=== PATIENT | female | born 1935 | race Caucasian/White ===

== ENCOUNTER 2020-01-06 15:18 | Outpatient (CLI) | payer MEDICARE, BC, SELFPAY ==
--- NOTE | ~2020-01-06 | XR_ITS ---
EXAMINATION: XR foot LT min 3V DATE: 01/06/2020 15:50 INDICATION: Left great toe pain. TECHNIQUE: 3 views of left foot were obtained. COMPARISON: None. FINDINGS: Pes planus is noted. No fracture. There is severe osteoarthritis of first tarsometatarsal j oint, moderate osteoarthritis of third tarsometatarsal joint, and mild osteoarthritis of first metata rsophalangeal joint and many of the midfoot joints and interphalangeal joints. There are enthesophyte s at the posterior and plantar aspects of calcaneal tuberosity. IMPRESSION: 1. Polyarticular osteoarthritis. 2. Pes planus. Reviewed, dictated and finalized at location A. GAGE ANALYST
== END 2020-01-06 15:19 | disposition home or self-care (01) ==
LOC: CHSIMG 15:23
PROVIDERS: Visit Provider Podiatrist
DX: M79.675 Pain in left toe(s) (principal)
CPT/HCPCS: 73630

== ENCOUNTER 2020-02-27 09:05 | Outpatient (CLI) | payer MEDICARE, BC, SELFPAY ==
--- NOTE | ~2020-02-27 | US_ITS ---
EXAMINATION: US venous doppler [facility] DATE: 02/27/2020 09:59 INDICATION: Left calf pain. TECHNIQUE: Grayscale ultrasound images without and with compression and Doppler ultrasound images of the bilateral lower extremity veins were obtained. COMPARISON: Ultrasound 04/09/2019 FINDINGS: The visualized portions of right common femoral vein, profunda (deep) femoral vein, femoral vein, pop liteal vein, and greater saphenous vein outflow are patent. There is thrombus in right peroneal and p osterior tibial veins. The visualized portions of left common femoral vein, profunda femoral vein, femoral vein, popliteal v ein, posterior tibial veins, and greater saphenous vein outflow are patent. There is thrombus in a le ft peroneal vein. IMPRESSION: 1. Deep vein thrombosis involving right peroneal and posterior tibial veins and a left peroneal vein . I called this result to Dr. Mijares on 02/27/20 at 10:07 AM. Reviewed, dictated and finalized at location A. IMPRESSION: 1. Deep vein thrombosis involving right peroneal and posterior tibial veins an d a left peroneal vein. I called this result to Dr. Mijares on 02/27/20 at 10:07 AM.
== END 2020-02-27 09:06 | disposition home or self-care (01) ==
LOC: CHSIMG 09:10
PROVIDERS: PCP Family Medicine; Visit Provider Family Medicine
DX: M79.662 Pain in left lower leg (principal); M79.673 Pain in unspecified foot; R20.2 Paresthesia of skin
CPT/HCPCS: 93970

== ENCOUNTER 2020-04-09 11:23 | Observation (INO) | payer MEDICARE, BC, SELFPAY ==
[2020-04-09] VITALS (7 sets, daily range): BP systolic 125–175; BP diastolic 53–64; PULSE 57–69; RESP 18; TEMP 36.4–36.5; O2SAT 99–100; BMI 23.5
--- NOTE | ~2020-04-09 | XR_ITS ---
EXAMINATION: XR chest 1V portable INDICATION: Chest pain and pressure TECHNIQUE: Portable AP chest at 1157 hours COMPARISON: 10/31/2011 FINDINGS: The lungs are free of acute opacities. There is no pleural effusion or pneumothorax. The ca rdiomediastinal silhouette is normal. A surgical clip projects in the left axilla. IMPRESSION: 1. No acute cardiopulmonary abnormality. Reviewed, dictated and finalized at location A.
--- NOTE | 2020-04-09 11:39 | ECG_ITS ---
Measurements Intervals [place] Rate: 61 P: 17 [place]: 188 QRS: -20 QRSD: 106 T: 22 QT: 442 QTc: 448 Interpretive Statements SINUS RHYTHM LEFT VENTRICULAR HYPERTROPHY AND ST-T CHANGE DELAYED PRECORDIAL R/S TRANSITION- BORDERLINE ST-T WAVE ABNORMALITY- INF/LAT LEADS BASELINE ARTIFACT- I, II, AVR BORDERLINE ECG Electronically Signed On 04-09-2020 13:26:52 CDT by Rod Terrell D.O.
[2020-04-09 12:00] LABS: Basophils Absolute Auto 0.04 K/mm3 (0.00-0.10); Basophils Percent Auto 0.8 % (0.0-1.0); Eosinophils Absolute Auto 0.22 K/mm3 (0.02-0.50); Eosinophils Percent Auto 4.3 % (1.0-6.0); Hematocrit 34.6 % (35.0-42.0); Hemoglobin 12.2 g/dL (11.7-13.8); Immature Granulocyte Absolute 0.01 K/mm3 (0.00-0.00); Immature Granulocyte Percent A 0.2 % (0.0-0.0); Lymphocytes Absolute Auto 1.81 K/mm3 (1.10-4.50); Lymphocytes Percent Auto 35.4 % (18.0-42.0); Mean Corpuscular HGB Conc 35.3 g/dL (32.0-36.0); Mean Corpuscular Hemoglobin 32.7 pg (27.0-31.0); Mean Corpuscular Volume 92.8 fL (78.0-102.0); Monocytes Percent Auto 7.8 % (2.0-11.0); Neutrophils Absolute Auto 2.6 K/mm3 (1.7-7.2); Neutrophils Percent Auto 51.5 % (50.0-70.0); Platelet Count Result 225 K/mm3 (150-420); Red Blood Count 3.73 M/mm3 (4.20-5.40); Red Cell Distribution Width 12.9 % (11.6-14.4); White Blood Count 5.1 K/mm3 (4.8-10.8)
[2020-04-09] MEDS: ASPIRIN 81 MG CHEWABLE TABLET 324 MG PO (12:01)
[2020-04-09] MEDS: NITROGLYCERIN SL 0.4 MG TABLET (12:07)
[2020-04-09 12:15] LABS: D Dimer 0.19 mg/L (0.19-0.50); INR 2.8; Partial Thromboplastin Time 36.9 SEC (22.3-31.6); Prothrombin Time 28.1 Seconds (9.64-11.0)
[2020-04-09 12:20] LABS: Alanine Aminotransferase 21 U/L (14-59); Albumin Level 3.6 g/dL (3.4-5.0); Alkaline Phosphatase 66 U/L (46-116); Anion Gap 9.2 mmol/L (7-16); Aspartate Amino Transferase 26 U/L (15-37); Bilirubin,Total 0.9 mg/dL (0.00-1.00); Blood Urea Nitrogen 9 mg/dL (7-18); Carbon Dioxide 31 mmol/L (21-32); Chloride 99 mmol/L (98-108); Estimated CRCL calculation 40 ml/min; Estimated Glomerular Filt Rate > 60; Glucose 85 mg/dL (70-99); Lipase 87 U/L (73-393); Osmolality Calculated 277 mOsm/kg (285-295); Potassium 4.2 mmol/L (3.5-5.1); Sodium 135 mmol/L (136-145); Total Protein 7.3 g/dL (6.4-8.2)
[2020-04-09 12:22] LABS: BNP 189 pg/mL (0-100)
[2020-04-09 12:39] LABS: Troponin I < 0.02 ng/mL (0.00-0.056)
--- NOTE | 2020-04-09 13:09 | ED.CHESTPAIN ---
HPI - Chest Pain General Chief Complaint: Chest Pain Stated Complaint: Chest Pains Source: patient Mode of arrival: wheelchair Limitations: no limitations History of Present Illness HPI narrative: This is an 84-year-old female that presents with chest pain pressure in her mid sternum with no radiation, there is currently no diaphoresis no shortness of breath no nausea or vomiting patient has have a history of angina and has been off and on relieved with nitroglycerin. The patient today has been having chest pressure for the last 2 to 3 hours, also has a history of lower extremity DVT and is on Coumadin. Has a history of hypertension and hyperlipidemia. Patient denies any shortness of breath no fever chills no nausea vomiting no abdominal pain no diarrhea constipation. MD complaint: chest heaviness and chest discomfort Pertinent past history: coronary artery disease Onset (ago): hour(s) Timing of current episode: constant Prior episodes: Yes Onset: during rest Pain location: substernal Pain radiation: none Severity: moderate Pain scale (0-10): 6 Quality: heaviness Relieving factors: nitroglycerin Exacerbating factors: exertion Treatment prior to arrival: none Related Data Home Medications Medication Instructions Recorded Confirmed nitroglycerin 0.4 mg sublingual 0.4 mg SUBLINGUAL PRN PRN tablet 01/16/20 04/09/20 tablet multivitamin 1 tablet PO DAILY 03/02/20 04/09/20 Allergies Allergy/AdvReac Type Severity Reaction Status Date / Time celecoxib AdvReac Unknown Verified 04/03/20 08:59 erythromycin base AdvReac Unknown Verified 04/03/20 08:59 hydrocodone AdvReac Unknown Verified 04/03/20 08:59 levofloxacin [From Levaquin] AdvReac Unknown Verified 04/03/20 08:59 meloxicam AdvReac Unknown Verified 04/03/20 08:59 rivaroxaban [From Xarelto] AdvReac Unknown Verified 04/03/20 08:59 triamterene AdvReac Unknown Verified 04/03/20 08:59 statin AdvReac Unknown Uncoded 03/12/20 09:14 Review of Systems Review of Systems: All systems reviewed & are unremarkable except as noted in HPI and below PMFSH Past Medical History Medical History Breast cancer DVT (deep venous thrombosis) 1997 Hypertension Surgical History Surgical History H/O total mastectomy of left breast History of hysterectomy Hx of cholecystectomy Social History Social History Smoking status: Former smoker Alcohol intake: never Substance use: never Substance use type: does not use Gender identity (if verbalized by the patient): Female Exam Const: General: no acute distress and alert Orientation/consciousness: patient oriented x3 HENMT: Head: normal to inspection Eyes: Conjunctivae: conjunctivae normal Pupils: Equal, round and reactive pupils present EOM: EOMs intact bilaterally Neck: Neck: normal visual inspection, no lymphadenopathy and no meningeal signs Resp: Effort & Inspection: normal respiratory effort Cardio: Rate: regular rate Rhythm: regular rhythm GI: Auscultation: normal bowel sounds : General: Yes no CVA tenderness Back/Spine/Pelvis: Back: no CVA tenderness Skin: General skin exam: normal color Rashes: no rashes Neuro: General: patient oriented x3, moves all extremities, no meningeal signs and no focal motor deficits Extrem: General: normal to inspection and no pedal edema Psych: Mental Status: mental status grossly normal Thought content: Yes Normal thought content present Course Course Emergency Course: Patient presents with some chest heaviness and pressure midsternal area that she rated about a 6/10 did receive sublingual nitroglycerin and full-dose aspirin currently after reassessment and appears more comfortable rates her pain or pressure in her chest down to a 0 to 2 with no shortness of breath no nausea vomiting. The erica
--- NOTE | 2020-04-09 13:26 | PC.NURSE ---
Pt to be admitted observation to room 202B
--- NOTE | 2020-04-09 14:15 | PM.IMHP ---
H&P: HPI History of Present Illness Chief complaint: Chest Pains Narrative: Park Schaefer is a 84 year old female that presented to the ED complaining of chest tightness. Patient has a past medical history of GERD, DVT, hypertension and breast cancer. according to patient today she started feeling chest tightness she describes it as a burning sensation that started in her stomach and went up to her neck, she even noted that her neck felt like it was tightening. She noted that her eyes felt weird, she was unable to describe the feeling she also noted that she felt generalized weakness. patient noted that last year in October she had a similar episode during her hospital stay they were unable to identify the chest tightness she was told to take [id number] acid reflux medication. she notify her primary care physician office today and informed them of her chest tightness and they instructed her to proceed to the ED. her current vital signs are 97.7 57% 18, 100% on room air 149/52. while patient was in the ED a chest x-ray was completed which was unremarkable, D-dimer completed within normal limits troponin within normal limits BNP 189 INR 2.8, and labs within normal limits, EKG sinus rhythm and HIV negative .she did note that when received the nitro and ED her chest tightness resolved. she is currently on telemetry with IV fluids infusing. . at this time Patient denies SOB, CP, palpitation, extremity numbness, lightheadness, dizziness, constipation, diarrhea, chills or fever. Review of Systems Constitutional: Constitutional: Denies body ache(s), Denies chills, Reports fatigue, Denies frequent falls, Denies headache(s) and Reports weakness ENT: Denies vertigo, Denies dizziness and Denies hoarseness Cardiovascular: Cardiovascular: Reports chest pain, Denies rapid heart rate, Denies lightheadedness, Denies dyspnea, Denies dyspnea on exertion and Denies orthopnea Gastrointestinal: Gastrointestinal: Denies melena, Denies bloating, Denies excessive flatus, Reports heartburn, Denies diarrhea, Denies nausea and Denies vomiting Genitourinary: Genitourinary: Reports no additional female genitourinary complaints, Denies hematuria, Denies flank pain, Denies urinary incontinence, Denies urinary hesitancy and Denies urinary urgency Musculoskeletal: Musculoskeletal: Reports no additional musculoskeletal complaints, Denies back pain, Denies myalgias, Denies numbness, Denies stiffness and Denies tingling Integumentary/Breasts: Skin/Breast: Reports system reviewed and no additional complaints, except as docu, Denies rash and Denies wounds Neurologic: Denies confusion, Denies vertigo, Denies dizziness, Denies frequent falls, Denies headache(s), Denies loss of vision, Denies memory loss, Denies seizure-like activity, Denies tingling and Reports weakness Psychiatric: Psychiatric: Reports no additional psychiatric complaints, Reports as per HPI, Denies anxiety and Denies confusion Endocrine: Endocrine: Reports fatigue and Denies palpitations Hematologic/Lymphatic: Hematologic/Lymphatic: Reports no additional hematologic/lymphatic complaints PMFSH Past Medical History Medical History Breast cancer DVT (deep venous thrombosis) 1997 Hypertension Surgical History Surgical History H/O total mastectomy of left breast History of hysterectomy Hx of cholecystectomy Family History Family History (Updated 04/09/20 @ 14:11 by Emily Avila RN) Sibling Heart disease Social History Social History Years smoked: 10 Smoking status: Former smoker Tobacco type: cigarettes Alcohol intake: former Substance use: never Substance use type: does not use Gender identity (if verbalized by the patient): Female Spiritual care concerns: No Meds Home Medications and
[2020-04-09 15:22] LABS: Troponin I < 0.02 ng/mL (0.00-0.056)
[2020-04-09] MEDS: PANTOPRAZOLE 40 MG TABLET PO ×2 (15:55→21:28)
[2020-04-09 18:20] LABS: Troponin I < 0.02 ng/mL (0.00-0.056)
--- NOTE | 2020-04-09 19:29 | PC.NURSE ---
Patient alert and oriented x4. Up ad wilbert in room. Gait steady. Pain rated at 0 on 0 to 10 scale. Telemetry shows sinus rhythm
--- NOTE | 2020-04-09 20:26 | PC.NURSE ---
Patient in bed watching televisions . Up ad wilbert in room . Takes fluid well. Snack provided. Pain rated at 0 on 0 to 10 scale. telemetry shows sinus rhythm.
[2020-04-10] VITALS (7 sets, daily range): BP systolic 109–150; BP diastolic 46–60; PULSE 59–80; RESP 14–18; TEMP 35.9–36.3; O2SAT 94–97
[2020-04-10 05:59] LABS: Basophils Absolute Auto 0.04 K/mm3 (0.00-0.10); Basophils Percent Auto 0.9 % (0.0-1.0); Eosinophils Absolute Auto 0.27 K/mm3 (0.02-0.50); Eosinophils Percent Auto 6.4 % (1.0-6.0); Hematocrit 32.9 % (35.0-42.0); Hemoglobin 11.8 g/dL (11.7-13.8); Immature Granulocyte Absolute 0.01 K/mm3 (0.00-0.00); Immature Granulocyte Percent A 0.2 % (0.0-0.0); Lymphocytes Absolute Auto 1.49 K/mm3 (1.10-4.50); Lymphocytes Percent Auto 35.1 % (18.0-42.0); Mean Corpuscular HGB Conc 35.9 g/dL (32.0-36.0); Mean Corpuscular Hemoglobin 33.9 pg (27.0-31.0); Mean Corpuscular Volume 94.5 fL (78.0-102.0); Mean Platelet Volume 9.8 fl (9.2-11.8); Monocytes Absolute Auto 0.43 K/mm3 (0.10-0.90); Monocytes Percent Auto 10.1 % (2.0-11.0); Neutrophils Percent Auto 47.3 % (50.0-70.0); Platelet Count Result 218 K/mm3 (150-420); Red Blood Count 3.48 M/mm3 (4.20-5.40); Red Cell Distribution Width 13.1 % (11.6-14.4); White Blood Count 4.3 K/mm3 (4.8-10.8)
[2020-04-10 06:07] LABS: Partial Thromboplastin Time 37.2 SEC (22.3-31.6); Prothrombin Time 30.1 Seconds (9.64-11.0)
[2020-04-10 06:26] LABS: Alanine Aminotransferase 20 U/L (14-59); Albumin Level 3.3 g/dL (3.4-5.0); Alkaline Phosphatase 62 U/L (46-116); Anion Gap 13.3 mmol/L (7-16); Aspartate Amino Transferase 23 U/L (15-37); Blood Urea Nitrogen 13 mg/dL (7-18); Calcium 8.7 mg/dL (8.5-10.1); Carbon Dioxide 26 mmol/L (21-32); Chloride 103 mmol/L (98-108); Estimated CRCL calculation 37 ml/min; Estimated Glomerular Filt Rate > 60; Glucose 78 mg/dL (70-99); Osmolality Calculated 285 mOsm/kg (285-295); Potassium 4.3 mmol/L (3.5-5.1); Sodium 138 mmol/L (136-145); Total Protein 6.5 g/dL (6.4-8.2)
--- NOTE | 2020-04-10 07:48 | PC.NURSE ---
Denies chest pain, some right arm discomfort this am, color pale, warm and dry, up ad wilbert in room
[2020-04-10 07:59] LABS: Troponin I 0.02 ng/mL (0.00-0.056)
[2020-04-10] MEDS: MULTIVITAMINS THERAPEUTIC TAB (*BKC) 1 TABLET PO (09:07)
[2020-04-10] MEDS: PANTOPRAZOLE 40 MG TABLET PO (09:08)
[2020-04-10] MEDS: EZETIMIBE 10 MG TABLET PO (09:12)
--- NOTE | 2020-04-10 09:32 | PHAR ---
04/09/20 - verified with patient's pharmacy she takes warfarin 4mg daily, with an additional 3mg (7mg total) on Mon& Fri. Last filled both rx's 03/25/20. tls
--- NOTE | 2020-04-10 09:33 | PHAR ---
04/09/20 - verified with patient's pharmacy she takes warfarin 4mg daily, with an additional 3mg tab (7mg total) on Mon & Fri. Last filled both Rx's 03/25/20. tls
--- NOTE | 2020-04-10 09:58 | PHAR ---
04/10/20: PT.'S INR=3.0 TODAY. PER PROTOCOL HOLDING DOSE. WILL RESUME REGIMEN TOMORROW 04/11/20 PENDING INR RESULT. TLS
--- NOTE | 2020-04-10 10:57 | PC.NURSE ---
Up in room independent, no dizzyness, no sob and no chest pain
[2020-04-10 10:59] LABS: Add Urine Microscopic? NO; Appearance Urine Clear (Clear); Bilirubin Urine Negative (Negative); Blood Urine Negative (Negative); Color Urine Yellow (Yellow); Glucose Urine UA Negative (Negative); Ketones Urine Negative (Negative); Leukocyte Esterase Ur Negative (Negative); Nitrate Urine Negative (Negative); Protein Urine Negative (Negative); Urobilinogen Urine 0.2 mg/dL (0.2-1.0)
--- NOTE | 2020-04-10 12:12 | PC.NURSE ---
Dressed self, eating lunch, awaiting DC orders, no chest pain, no dizzyness and no SOB
--- NOTE | 2020-04-10 12:53 | PC.NURSE ---
Up in [place] and wanting to know if ok to go home, advised awaiting DC instructions, agreeable to wait and ambulated back to room
--- NOTE | 2020-04-10 13:54 | P.DS_ITS ---
DS: Admitting Diagnosis Admitting Diagnosis Admitting Diagnosis: Chest pain, unspecified DS: Discharge Diagnosis Discharge Diagnosis (1) Chest pain: Qualifiers: Chest pain type: unspecified Qualified Code(s): R07.9 - Chest pain, unspecified Code(s): R07.9 - Chest pain, unspecified Status: Acute Assessment and Plan: * may not be cardiac related other possibilities of diagnosis include GERD, hiatal hernia, H pylori * troponin negative * EKG sinus rhythm * magnesium level WNL * CK-MB WNL * continue telemetry * vital signs is ordered * rehydrated with IV fluids * she denies any chest pain or chest pressure or neck tightness or throat tightness or any shortness of breath since her admission * troponins x4 were negative * she last saw her neurocritical care physician approximately a year ago in March and at discharge I have encouraged her to follow-up with him again. (2) Angina at rest: Code(s): I20.8 - Other forms of angina pectoris Status: Acute Assessment and Plan: * troponin negative x 4 * EKG sinus rhythm * magnesium level pending * CK-MB WNL * continue telemetry overnight and throughout the day with no ectopy noted * vital signs WNL * continue IV fluids * nitro ordered, not needed. * ordered Protonix for patient to continue after discharge * patient is to follow-up with her neurocritical care physician after discharge as well as her PCP (3) Hypertension: Qualifiers: Hypertension type: essential hypertension Qualified Code(s): I10 - Essential (primary) hypertension Code(s): I10 - Essential (primary) hypertension Status: Chronic Assessment and Plan: * blood pressure 149/52 * continue verapamil * adjust medication as needed * vital signs will control (4) DVT of lower limb, acute: Code(s): I82.409 - Acute embolism and thrombosis of unspecified deep veins of unspecified lower extremity Status: Acute Assessment and Plan: * INR 2.8 therapeutic * continue to use a warfarin * Ordered a PT and OT evaluation prior to discharge, they completed those and had no concerns with the safety of the patient going home and returning to independent living (5) Hyperlipidemia: Code(s): E78.5 - Hyperlipidemia, unspecified Status: Acute Assessment and Plan: * continue statins (6) GERD (gastroesophageal reflux disease): Code(s): K21.9 - Gastro-esophageal reflux disease without esophagitis Status: Acute Assessment and Plan: * started pantoprazole * placed prescription for pantoprazole for patient to continue after discharge DS: Summary Time Spent with Patient Time attestation: Total time spent providing and/or coordinating discharge services: >60 minutes Exam Narrative: Exam Narrative: Park's a pleasant an easy to talk to patient that seems to have a good health history memory she is comfortable today with no complaints of discomfort or pain at any source, denies any discomfort after her meals ambulated well with PT and OT agreed to follow-up with her PCP and her neurocritical care physician Const: General: no acute distress and alert; No confusion Orientation/consciousness: patient oriented x3 and No confusion HENMT: Head: normal to inspection Eyes: Conjunctivae: conjunctivae normal Pupils: Equal, round and reactive pupils present EOM: EOMs intact bilaterally Neck: Neck: normal visual inspection, no lymphadenopathy and no meningeal sig
--- NOTE | 2020-04-10 13:54 | PM.DS ---
DS: Admitting Diagnosis Admitting Diagnosis Admitting Diagnosis: Chest pain, unspecified DS: Discharge Diagnosis Discharge Diagnosis (1) Chest pain: Qualifiers: Chest pain type: unspecified Qualified Code(s): R07.9 - Chest pain, unspecified Code(s): R07.9 - Chest pain, unspecified Status: Acute Assessment and Plan: may not be cardiac related other possibilities of diagnosis include GERD, hiatal hernia, H pylori troponin negative EKG sinus rhythm magnesium level WNL CK-MB WNL continue telemetry vital signs is ordered rehydrated with IV fluids she denies any chest pain or chest pressure or neck tightness or throat tightness or any shortness of breath since her admission troponins x4 were negative she last saw her mergers and acquisitions attorney approximately a year ago in March and at discharge I have encouraged her to follow-up with him again. (2) Angina at rest: Code(s): I20.8 - Other forms of angina pectoris Status: Acute Assessment and Plan: troponin negative x 4 EKG sinus rhythm magnesium level pending CK-MB WNL continue telemetry overnight and throughout the day with no ectopy noted vital signs WNL continue IV fluids nitro ordered, not needed. ordered Protonix for patient to continue after discharge patient is to follow-up with her mergers and acquisitions attorney after discharge as well as her PCP (3) Hypertension: Qualifiers: Hypertension type: essential hypertension Qualified Code(s): I10 - Essential (primary) hypertension Code(s): I10 - Essential (primary) hypertension Status: Chronic Assessment and Plan: blood pressure 149/52 continue verapamil adjust medication as needed vital signs will control (4) DVT of lower limb, acute: Code(s): I82.409 - Acute embolism and thrombosis of unspecified deep veins of unspecified lower extremity Status: Acute Assessment and Plan: INR 2.8 therapeutic continue to use a warfarin Ordered a PT and OT evaluation prior to discharge, they completed those and had no concerns with the safety of the patient going home and returning to independent living (5) Hyperlipidemia: Code(s): E78.5 - Hyperlipidemia, unspecified Status: Acute Assessment and Plan: continue statins (6) GERD (gastroesophageal reflux disease): Code(s): K21.9 - Gastro-esophageal reflux disease without esophagitis Status: Acute Assessment and Plan: started pantoprazole placed prescription for pantoprazole for patient to continue after discharge DS: Summary Time Spent with Patient Time attestation: Total time spent providing and/or coordinating discharge services: >60 minutes Exam Narrative: Exam Narrative: Park's a pleasant an easy to talk to patient that seems to have a good health history memory she is comfortable today with no complaints of discomfort or pain at any source, denies any discomfort after her meals ambulated well with PT and OT agreed to follow-up with her PCP and her mergers and acquisitions attorney Const: General: no acute distress and alert; No confusion Orientation/consciousness: patient oriented x3 and No confusion HENMT: Head: normal to inspection Eyes: Conjunctivae: conjunctivae normal Pupils: Equal, round and reactive pupils present EOM: EOMs intact bilaterally Neck: Neck: normal visual inspection, no lymphadenopathy and no meningeal signs Resp: Effort & Inspection: normal respiratory effort Cardio: Rate: regular rate Rhythm: regular rhythm GI: Auscultation: normal bowel sounds : General: Yes no CVA tenderness Back/Spine/Pelvis: Back: no CVA tenderness Skin: General skin exam: normal color Rashes: no rashes Neuro: General: patient oriented x3, moves all extremities, no meningeal signs, no focal motor deficits and No confusion Cranial nerves: Yes Equal, round and reactive pupils present Extrem: General
--- NOTE | 2020-04-10 14:30 | PC.NURSE ---
Discharge to home ambulatory, personal items returned to patient, denies questions upon discharge
--- NOTE | 2020-04-11 01:42 | PM.EVENT ---
Event Note Event Note Event Note: Patient denies chest pain this morning. She states she feels well and better than when she was admitted last night. She denies shortness of breath and lightheadedness. Regular rate rhythm without murmur or gallop. Lungs are clear to auscultation bilaterally. Distal pulses are full and symmetric in extremities are warm dry and pink. No extremity edema. Home to follow-up with her PCP. I have examined the patient and reviewed the chart. I discussed the patient with A Amadeo MIRANDA and agree with her assessment and plan.
== END 2020-04-10 14:30 | disposition home or self-care (01) ==
LOC: CHSED 13:16 → CHS2ND 13:35
PROVIDERS: Emergency Medicine; Nurse Practitioner; Admitting Provider Emergency Medicine; Emergency Provider Emergency Medicine; PCP Family Medicine; Visit Provider Emergency Medicine
DX: R07.9 Chest pain, unspecified (principal); I25.119 Atherosclerotic heart disease of native coronary artery with unspecified angina pectoris; K21.9 Gastro-esophageal reflux disease without esophagitis; I10 Essential (primary) hypertension; E78.5 Hyperlipidemia, unspecified; Z86.718 Personal history of other venous thrombosis and embolism; Z85.3 Personal history of malignant neoplasm of breast; Z79.01 Long term (current) use of anticoagulants; Z87.891 Personal history of nicotine dependence; R53.1 Weakness
CPT/HCPCS: 36415; 71045; 80053; 81003; 82553; 83690; 83735; 83880; 84484; 85025; 85380; 85610; 85730; 87086; 87088; 93005; 97161; 97165; 99285; A9270; G0378

== ENCOUNTER 2020-04-21 13:25 | Outpatient (RCR) | payer MEDICARE, SELFPAY ==
[2020-03-12 10:20] LABS: INR 2.9; Prothrombin Time 28.5 Seconds (9.64-11.0)
[2020-03-18 12:17] LABS: INR 2.8; Prothrombin Time 28.2 Seconds (9.64-11.0)
[2020-03-25 13:16] LABS: INR 3.2; Prothrombin Time 31.9 Seconds (9.64-11.0)
[2020-04-01 13:38] LABS: INR 1.3; Prothrombin Time 13.7 Seconds (9.64-11.0)
[2020-04-08 14:22] LABS: INR 2.6; Prothrombin Time 25.7 Seconds (9.64-11.0)
[2020-04-14 12:44] LABS: INR 3.9; Prothrombin Time 38.2 Seconds (9.64-11.0)
[2020-04-21 13:53] LABS: Prothrombin Time 10.5 Seconds (9.64-11.0)
== END 2020-06-10 23:59 | disposition home or self-care (01) ==
LOC: CHSLAB 13:25
PROVIDERS: PCP Family Medicine; Visit Provider Family Medicine
DX: I82.432 Acute embolism and thrombosis of left popliteal vein (principal)
CPT/HCPCS: 36415; 85610

== ENCOUNTER 2020-05-11 12:25 | Outpatient (CLI) | payer MEDICARE, BC, SELFPAY ==
--- NOTE | ~2020-05-11 | MR_ITS ---
EXAMINATION: MR abdomen wo con DATE: 05/11/2020 13:34 INDICATION: Gastric polyps. Abdominal pain. TECHNIQUE: Magnetic resonance imaging (MRI) of the abdomen was performed without intravenous contrast . Sequences included coronal T2-weighted SS-FSE, coronal and axial FS 2D-FIESTA, axial STIR FSE, axi al T2-weighted SS-FSE, axial T2-weighted FS SS-FSE, axial diffusion-weighted SE, axial dual-echo T1-w eighted FSPGR, and axial and coronal T1-weighted LAVA. COMPARISON: CT abdomen and pelvis dated 01/16/2017 FINDINGS: Size is normal. No pericardial or pleural effusion. Susceptibility artifact associated with cholecyst ectomy clips the gallbladder fossa. Liver, spleen, pancreas, bilateral adrenal glands and kidneys are normal. Stomach appears normal. The reported gastric polyps are unable to be appreciated on the MR i mages. Visualized portions of the bowels are unremarkable with no dilated bowel to suggest obstructio n. No pathologically enlarged abdominal lymphadenopathy. Postoperative change of prior left breast TR AM flap reconstruction. Severe disc height loss at L4-L5 with about 7 mm left lateral listhesis L4 on L5. Mild associated fibrovascular degenerative endplate changes at L4-L5. Otherwise normal marrow si gnal with no pathologic marrow replacing process. Multiple bilateral nerve root sheath cysts at the n eural foramina at multiple levels in the lumbar and lower thoracic spine. IMPRESSION: 1. No acute intra-abdominal process. 2. Postoperative changes including cholecystectomy and left breast TRAM flap reconstruction. Reviewed, dictated and finalized at location A. IMPRESSION: 1. No acute intra-abdominal process. 2. Postoperative changes including cholecystectomy and left breast TRAM flap re construction.
[2020-05-11 15:02] LABS: CRP < 0.5 mg/dL (<1.0)
[2020-05-11 15:03] LABS: Erythrocyte Sedimentation Rate 6 mm/hr (0-20)
== END 2020-05-11 12:26 | disposition home or self-care (01) ==
PROVIDERS: PCP Family Medicine
DX: R10.9 Unspecified abdominal pain (principal); K31.7 Polyp of stomach and duodenum
CPT/HCPCS: 36415; 74181; 85652; 86140

== ENCOUNTER 2020-08-18 08:39 | Outpatient (CLI) | payer MEDICARE, SELFPAY ==
[2020-08-18 08:55] LABS: Basophils Absolute Auto 0.06 K/mm3 (0.00-0.10); Eosinophils Absolute Auto 0.33 K/mm3 (0.02-0.50); Eosinophils Percent Auto 5.8 % (1.0-6.0); Hematocrit 36.6 % (35.0-42.0); Hemoglobin 12.6 g/dL (11.7-13.8); Immature Granulocyte Absolute 0.01 K/mm3 (0.00-0.00); Immature Granulocyte Percent A 0.2 % (0.0-0.0); Lymphocytes Absolute Auto 1.55 K/mm3 (1.10-4.50); Lymphocytes Percent Auto 27.1 % (18.0-42.0); Mean Corpuscular HGB Conc 34.4 g/dL (32.0-36.0); Mean Corpuscular Volume 92.9 fL (78.0-102.0); Mean Platelet Volume 8.7 fl (9.2-11.8); Monocytes Absolute Auto 0.33 K/mm3 (0.10-0.90); Monocytes Percent Auto 5.8 % (2.0-11.0); Neutrophils Absolute Auto 3.5 K/mm3 (1.7-7.2); Neutrophils Percent Auto 60.1 % (50.0-70.0); Platelet Count Result 279 K/mm3 (150-420); Red Blood Count 3.94 M/mm3 (4.20-5.40); Red Cell Distribution Width 13.4 % (11.6-14.4); White Blood Count 5.7 K/mm3 (4.8-10.8)
[2020-08-18 09:39] LABS: Alanine Aminotransferase 24 U/L (14-59); Alkaline Phosphatase 91 U/L (46-116); Anion Gap 10 mmol/L (8-16); Aspartate Amino Transferase 25 U/L (15-37); Bilirubin,Total 1.1 mg/dL (0.00-1.00); Blood Urea Nitrogen 12 mg/dL (7-18); Calcium 9.4 mg/dL (8.5-10.1); Carbon Dioxide 28 mmol/L (21-32); Chloride 100 mmol/L (98-108); Cholesterol 197 mg/dL (0-200); Estimated Glomerular Filt Rate > 60; Glucose 92 mg/dL (70-99); HDL Direct 53 mg/dL (40-60); LDL Cholesterol Calculated 111 mg/dL (<130); Osmolality Calculated 285 mOsm/kg (285-295); Potassium 4.5 mmol/L (3.5-5.1); Sodium 138 mmol/L (136-145); Total Protein 7.6 g/dL (6.4-8.2); Triglycerides 164 mg/dL (0-150)
[2020-08-18 10:04] LABS: Thyroid Stimulating Hormone Reflex 3.39 u/IU/mL (0.36-3.74)
== END 2020-08-18 08:40 | disposition home or self-care (01) ==
LOC: CHSLAB 08:41
PROVIDERS: PCP Family Medicine; Visit Provider Family Medicine
DX: E78.5 Hyperlipidemia, unspecified (principal); I10 Essential (primary) hypertension
CPT/HCPCS: 36415; 80053; 80061; 84443; 85025

== ENCOUNTER 2020-09-25 13:58 | Outpatient (CLI) | payer MEDICARE, BC, SELFPAY ==
--- NOTE | 2020-09-25 14:00 | ECG_ITS ---
Measurements Intervals [place] Rate: 66 P: 51 [place]: 183 QRS: -5 QRSD: 97 T: 53 QT: 428 QTc: 450 Interpretive Statements SINUS RHYTHM LEFT VENTRICULAR HYPERTROPHY AND ST-T CHANGE CANNOT RULE OUT SEPTAL INFARCT, AGE INDETERMINATE ST-T WAVE ABNORMALITY IN LATERAL LEADS- CONSIDER ISCHEMIA ABNORMAL ECG Electronically Signed On 09-25-2020 14:56:33 CONTRACT ADMINISTRATION SPECIALIST by Rod Terrell D.O.
[2020-09-25 14:13] LABS: Basophils Absolute Auto 0.04 K/mm3 (0.00-0.10); Basophils Percent Auto 0.8 % (0.0-1.0); Eosinophils Percent Auto 3.9 % (1.0-6.0); Immature Granulocyte Absolute 0.02 K/mm3 (0.00-0.00); Immature Granulocyte Percent A 0.4 % (0.0-0.0); Lymphocytes Absolute Auto 1.35 K/mm3 (1.10-4.50); Lymphocytes Percent Auto 26.2 % (18.0-42.0); Mean Corpuscular HGB Conc 35.5 g/dL (32.0-36.0); Mean Corpuscular Hemoglobin 33.4 pg (27.0-31.0); Mean Corpuscular Volume 94.2 fL (78.0-102.0); Mean Platelet Volume 8.9 fl (9.2-11.8); Monocytes Absolute Auto 0.37 K/mm3 (0.10-0.90); Monocytes Percent Auto 7.2 % (2.0-11.0); Neutrophils Absolute Auto 3.2 K/mm3 (1.7-7.2); Neutrophils Percent Auto 61.5 % (50.0-70.0); Platelet Count Result 257 K/mm3 (150-420); Red Blood Count 3.29 M/mm3 (4.20-5.40); Red Cell Distribution Width 13.3 % (11.6-14.4); White Blood Count 5.2 K/mm3 (4.8-10.8)
[2020-09-25 14:32] LABS: Prothrombin Time 10.5 Seconds (9.64-11.0)
[2020-09-25 14:37] LABS: Alanine Aminotransferase 25 U/L (14-59); Albumin Level 3.7 g/dL (3.4-5.0); Alkaline Phosphatase 80 U/L (46-116); Amylase 161 U/L (25-115); Anion Gap 7 mmol/L (8-16); Aspartate Amino Transferase 22 U/L (15-37); Bilirubin,Total 1.2 mg/dL (0.00-1.00); Blood Urea Nitrogen 10 mg/dL (7-18); Calcium 8.8 mg/dL (8.5-10.1); Carbon Dioxide 29 mmol/L (21-32); Chloride 98 mmol/L (98-108); Creatine Kinase 113 U/L (26-192); Estimated Glomerular Filt Rate > 60; Glucose 95 mg/dL (70-99); Lipase 116 U/L (73-393); Osmolality Calculated 277 mOsm/kg (285-295); Sodium 134 mmol/L (136-145); Total Protein 7.4 g/dL (6.4-8.2)
[2020-09-25 14:40] LABS: Troponin I < 0.02 ng/mL (0.00-0.056)
== END 2020-09-25 13:59 | disposition home or self-care (01) ==
LOC: CHSLAB 14:00
PROVIDERS: PCP Family Medicine; Visit Provider Family Medicine
DX: R07.89 Other chest pain (principal); I10 Essential (primary) hypertension
CPT/HCPCS: 36415; 80053; 82150; 82550; 82553; 83690; 84484; 85025; 85610; 93005

== ENCOUNTER 2020-09-25 14:55 | Emergency (ER) | payer MEDICARE, BC, SELFPAY ==
--- NOTE | ~2020-09-25 | XR_ITS ---
XR chest 1V portable DATE: 09/25/2020 15:17 INDICATION: Chest pain. Posteromedial upper neck pain. TECHNIQUE: Portable AP chest on 09/25/2020 at 1522 hours COMPARISON: 04/09/2020 portable AP chest at 1203 hours FINDINGS: Surgical clips, right upper quadrant, consistent with cholecystectomy. Heart size is normal. There is aortic calcification and mild unfolding. No hilar or mediastinal enlar gement. No pulmonary infiltrate or consolidation, pleural effusion or pulmonary vascular congestion or pneumo thorax. There is scoliosis of the thoracic and lumbar spine and diffuse osteopenia. IMPRESSION: No active cardiopulmonary disease Reviewed, dictated and finalized at location A. R CAR ATTENDANT
[2020-09-25 14:55] VITALS: BP 161/83; PULSE 63; PULSE 67; RESP 16; TEMP 36.2; O2SAT 100
--- NOTE | 2020-09-25 15:04 | ED.CHESTPAIN ---
HPI - Chest Pain General Chief Complaint: Chest Pain Stated Complaint: Sent from doctor Time Seen by Provider: 09/25/20 15:04 Source: patient Mode of arrival: ambulatory Limitations: no limitations History of Present Illness HPI narrative: 84-year-old woman with a history of coronary artery disease, hypertension and dyslipidemia comes from her doctor's office complaining of epigastric pressure radiating to her chest. Patient states she also has a funny feeling in both of her arms and that also radiates to the back of her neck. She states that she started having pressure this morning after she got out of bed and it has been continuous since then. She denies nausea, vomiting, dizziness, lightheadedness, shortness of breath, sweating, or exercise intolerance. She had an abnormal stress test in June of 2020. MD complaint: chest discomfort ( Pressure) Pertinent past history: coronary artery disease Onset (ago): hour(s) (6-7) Timing of current episode: constant Prior episodes: No Onset: during rest Pain location: substernal and epigastric Pain radiation: right arm, left arm and neck Severity: moderate Quality: other ( pressure) Relieving factors: nothing Exacerbating factors: nothing Treatment prior to arrival: none Risk Factors Coronary artery disease risk factors: smoking history, hyperlipidemia and hypertension Related Data On Oral Contraceptives: No Home Medications Medication Instructions Recorded Confirmed multivitamin 1 tablet PO DAILY 03/02/20 09/25/20 cholecalciferol (vitamin D3) 50 50 mcg PO DAILY 09/21/20 09/25/20 mcg (2,000 unit) capsule Allergies Allergy/AdvReac Type Severity Reaction Status Date / Time celecoxib AdvReac Unknown Verified 09/25/20 13:23 erythromycin base AdvReac Unknown Verified 09/25/20 13:23 hydrocodone AdvReac Unknown Verified 09/25/20 13:23 levofloxacin [From Levaquin] AdvReac Unknown Verified 09/25/20 13:23 meloxicam AdvReac Unknown Verified 09/25/20 13:23 rivaroxaban [From Xarelto] AdvReac Unknown Verified 09/25/20 13:23 triamterene AdvReac Unknown Verified 09/25/20 13:23 statin AdvReac Unknown Uncoded 09/21/20 10:00 Review of Systems Constitutional: Constitutional: Denies chills and Denies fever(s) Eyes: Eyes: Denies change in vision and Denies photophobia ENT: Denies dysphagia, Denies nasal congestion and Denies sore throat Cardiovascular: Cardiovascular: Reports chest pain and Reports radiating jaw, neck or arm pain Respiratory: Respiratory: Denies cough, Denies dyspnea and Denies wheezing Gastrointestinal: Gastrointestinal: Denies abdominal pain, Denies nausea and Denies vomiting Genitourinary: Genitourinary: Denies hematuria, Denies nocturia and Denies dysuria Musculoskeletal: Musculoskeletal: Denies arthralgias and Denies joint swelling Integumentary/Breasts: Skin/Breast: Denies pruritus, Denies erythema and Denies rash Neurologic: Denies vertigo, Denies dizziness and Denies syncope Psychiatric: Psychiatric: Denies anxiety and Denies depression Hematologic/Lymphatic: Hematologic/Lymphatic: Denies easy bleeding and Denies easy bruising Allergic/Immunologic: Allergic/Immunologic: Denies lip swelling and Denies wheezing [facility] Past Medical History Medical History (Updated 09/25/20 @ 15:44 by Richmond Ch MD) Breast cancer DVT (deep venous thrombosis) 1997 GERD (gastroesophageal reflux disease) Hyperlipidemia Hypertension Surgical History Surgical History H/O total mastectomy of left breast History of hysterectomy Hx of cholecystectomy Family History Family History Sibling Heart disease Social History Social History Years smoked: 10 Smoking status: Former smoker Tobacco type: cigarettes Alcohol intake: former Substance use: never Substance use type: does no
--- NOTE | 2020-09-25 15:23 | PC.NURSE ---
PT IS UNABLE TO URINATE/PROVIDE URINE SAMPLE AT THIS TIME. PT INSTRUCTED TO INITIATE CALL LIGHT WHEN READY FOR BATHROOM.
[2020-09-25] MEDS: NITROGLYCERIN SL 0.4 MG TABLET SUBLINGUAL (15:36)
[2020-09-25] MEDS: PANTOPRAZOLE SODIUM IV 40 MG VIAL IV PUSH (15:36)
--- NOTE | 2020-09-25 15:49 | PC.NURSE ---
[id number] RN CONTACTED [facility] [employer] AT TO REQUEST TRANSFER. AWAITING CALL BACK.
--- NOTE | 2020-09-25 16:58 | PC.NURSE ---
RN ATTEMPTED TO CONTACT [facility] TO GIVE REPORT. ACCEPTING RN NOT AVAILABLE. WITH TRY BACK IN 15 MINUTES.
--- NOTE | 2020-09-25 16:59 | PC.NURSE ---
[facility] CONTACTED FOR ALS TRANSFER. DISPATCH STATES THERE ARE NO TRANSFER RIGS AVAILABLE TODAY 09/25/20
[2020-09-25] MEDS: ASPIRIN 81 MG CHEWABLE TABLET 324 MG PO (17:00)
[2020-09-25 17:20] VITALS: BP 179/72; PULSE 70; RESP 24; O2SAT 100
[2020-09-25 17:26] LABS: Troponin I < 0.02 ng/mL (0.00-0.056)
== END 2020-09-25 17:25 | disposition short-term general hospital (02) ==
PROVIDERS: Emergency Provider Emergency Medicine; PCP Family Medicine
DX: R07.2 Precordial pain (principal); Z85.3 Personal history of malignant neoplasm of breast; Z86.718 Personal history of other venous thrombosis and embolism; Z87.891 Personal history of nicotine dependence
CPT/HCPCS: 36415; 71045; 80053; 82150; 82550; 82553; 83690; 84484; 85025; 85610; 93005; 96374; 99285; A9270; C9113

== ENCOUNTER 2020-09-25 18:17 | Observation (INO) | payer MEDICARE, BC, SELFPAY ==
--- NOTE | 2020-09-25 18:00 | PC.NURSE ---
This patient, Park Schaefer, was admitted to IMU Room 204-01. Patient/family oriented to hospital policies and general routines including ID bracelet, bed and alarms, visiting hours, pain management, procedures, bathroom and other care routines, personal items, smoking policy, room service/diet, and visiting hours. Information on how to activate the Rapid Response Team has been discussed. Patient/Family are encouraged to report perceived risks to care and to ask questions if they do not understand what they are told or what they should do.
[2020-09-25 18:34] VITALS: BMI 22.6
[2020-09-25 18:36] VITALS: BP 154/45; PULSE 61; RESP 16; TEMP 36.2; O2SAT 100
--- NOTE | 2020-09-25 19:00 | PM.IMHP ---
H&P: HPI History of Present Illness Date/Time: 09/25/20 19:00 <Bita Alvarado PA-C - Last Filed: 09/26/20 01:06> Chief complaint: Chest Pain <Bita Alvarado PA-C - Last Filed: 09/26/20 01:06> Narrative: Park Schaefer is an 84-year-old female with hypertension, dyslipidemia, and GERD who is being directly admitted to the hospitalist service from the emergency department at the [facility] for evaluation of chest pain. It is noted that she was admitted to an outside facility in March 2020 with chest pain, felt to be noncardiac in etiology. She followed up with Dr. Márquez thereafter and had an abnormal stress test however it sounds as though she did not pursue scheduling coronary angiography. In any event, sometime early this morning she awoke from sleep with epigastric pressure radiating into the midsternal chest region. Associated symptoms include heaviness in both arms and aching into the neck. Similar symptoms have occurred before, and she has always attributed them to GERD however she was not really having indigestion symptoms (EGD in December 2019 showed gastritis). She then called her primary care provider, went in for evaluation, and was directed to the emergency department with a concerning EKG. Her discomfort resolved with nitroglycerin has not returned. She denies associated syncope, near syncope, sweats, shortness of breath, and nausea. She has not had exertional chest pain or shortness of breath. <Bita Alvarado PA-C - Last Filed: 09/26/20 01:06> Review of Systems Review of Systems: Narrative: Twelve systems were reviewed with pertinent positives and negatives as per HPI. No fever, chills, or sweats. Recently finished a Z-Jaden for sinusitis. She denies cough and shortness of breath. No exposure to those positive for COVID-19. She denies nausea, vomiting, and diarrhea. No melena or hematochezia. Except as documented, all other systems were reviewed and are negative. <Bita Alvarado PA-C - Last Filed: 09/26/20 01:06> [facility] Past Medical History Medical History: Medical History Cancer of left breast Status post chemotherapy, radiation, and mastectomy. Colon polyps Current use of termination clerk anticoagulation for history of DVT. Deep venous thrombosis In 1997 and 2019. Gastritis On EGD in December 2019. Gastroesophageal reflux disease Hyperlipidemia Hypertension Osteoarthritis Osteoporosis <Bita Alvarado PA-C - Last Filed: 09/26/20 01:06> Surgical History Surgical History: Surgical History History of cataract extraction History of cholecystectomy History of hysterectomy History of left mastectomy <Bita Alvarado PA-C - Last Filed: 09/26/20 01:06> Family History Family History: Family History Sibling Diabetes mellitus Heart disease Heart problem Sibling Heart problem Prostate carcinoma Sibling Heart problem Sibling Heart problem Sibling Breast cancer <Bita Alvarado PA-C - Last Filed: 09/26/20 01:06> Social History Social History: Social History Social History: Surrogate decision maker: Tim Mitchell, nephew. Code status: Full code. Years smoked: 10 Smoking status: Former smoker Tobacco type: cigarettes Alcohol intake: never Substance use: never Substance use type: does not use Additional living arrangements comments: Lives in [place]. . Additional occupation/education comments: Retired. Gender identity (if verbalized by the patient): Female Spiritual care concerns: No <GUTIERREZ Delgado Last Filed: 09/26/20 01:06> Meds Home Medications and Allergies Home medications: Home Medications Medication Instructions Recorded Confi
[2020-09-25 19:16] LABS: Troponin I < 0.012 ng/mL (0.000-0.034)
[2020-09-25 19:35] VITALS: BP 141/47; PULSE 66; RESP 16; TEMP 36.7; O2SAT 100
[2020-09-25 20:00] VITALS: PULSE 64
[2020-09-25 21:55] LABS: Troponin I < 0.012 ng/mL (0.000-0.034)
[2020-09-25 22:00] VITALS: PULSE 60
[2020-09-25] MEDS: ACETAMINOPHEN 325 MG TABLET 650 MG PO (22:12)
[2020-09-26] VITALS: BP 124/48; PULSE 60; PULSE 63; RESP 18; TEMP 36.2; O2SAT 99
[2020-09-26] MEDS: VERAPAMIL HCL ER 120 MG TABLET PO (00:15)
[2020-09-26] MEDS: APIXABAN 2.5 MG TABLET PO ×2 (00:15→09:05)
[2020-09-26] MEDS: EZETIMIBE 10 MG TABLET PO (00:15)
[2020-09-26 02:00] VITALS: PULSE 56
[2020-09-26] MEDS: PANTOPRAZOLE 40 MG TABLET PO (02:04)
[2020-09-26 04:00] VITALS: BP 133/50; PULSE 16; PULSE 61; RESP 16; TEMP 36.8; O2SAT 65
[2020-09-26 06:00] VITALS: PULSE 58
[2020-09-26 08:00] VITALS: BP 147/51; PULSE 61; PULSE 65; RESP 16; TEMP 36.3; O2SAT 97
[2020-09-26] MEDS: CHOLECALCIFEROL 1,000 UNITS TABLET 2000 UNITS PO (09:05)
[2020-09-26] MEDS: MULTIVITAMINS THERAPEUTIC TAB (*BKC) 1 TABLET PO (09:05)
--- NOTE | 2020-09-26 09:37 | PM.CNCAR ---
Assessment and Plan Assessment and plan (1) Epigastric pain: Code(s): R10.13 - Epigastric pain Status: Acute Assessment and Plan: 84-year-old female with history of mild nonobstructive CAD; history of left lower extremity DVT on anticoagulation with rivaroxaban; history of GERD/gastritis. Patient transferred from [facility] with complaints of epigastric pain with radiation to substernal area. Patient has history of GERD/gastritis as reported on 01/08/2020 EGD. Her current symptomatology is somewhat atypical for ischemia and more suggestive of gastric etiology. Patient has been ruled out for WA by serial negative cardiac markers; and EKG shows sinus rhythm with LVH and secondary ST-T abnormalities, although ischemia cannot be completely ruled out. Patient reportedly has history of mild nonobstructive CAD from 2012 cardiac catheterization. Her recent MPI as described above showed medium-sized apical anterior/apical septal/apical infarction with mild amount of ischemia. -patient is currently asymptomatic. Recommend continuation of PPI. -patient was advised to call our cardiology clinic on Monday and schedule an appointment with Dr. Márquez in 1-2 weeks. Contact information was provided to the patient. Need for additional ischemic workup including cardiac catheterization is to be determined as an outpatient, based on patient's response to PPI and/or any recurrent symptoms suggestive of angina. Patient was advised to return to hospital if she has any worsening symptoms. She verbalized understanding. (2) Chest pain: Qualifiers: Chest pain type: precordial pain Qualified Code(s): R07.2 - Precordial pain Code(s): R07.9 - Chest pain, unspecified Status: Acute Assessment and Plan: Somewhat atypical features for ischemia. Ruled out for WA. Management as described above. (3) GERD (gastroesophageal reflux disease): Code(s): K21.9 - Gastro-esophageal reflux disease without esophagitis Status: Chronic Assessment and Plan: PPI, may consider Gastroenterology evaluation as an outpatient. History of Present Illness History of Present Illness Consult date/time: 09/26/20 09:37 Date of consult: 09/26/2020 Reason for consult: Chest pain Requesting physician:JAZZMINE Alvarado Chief complaint: Chest pain HPI: 84-year-old female with history of mild nonobstructive CAD; history of left lower extremity DVT on anticoagulation with rivaroxaban; history of GERD/gastritis. Patient follows up with Dr. reid for cardiovascular care. She had MPI done in the outpatient cardiology clinic on 07/02/2020 which reportedly showed normal specific ST-T abnormality; EF 58%, medium-sized apical anterior/apical septal/apical infarction with mild amount of ischemia. Apparently, patient did not follow up after her MPI results. Her echocardiogram from 06/22/2020 showed mild LV systolic dysfunction, EF 45-50%, grade 2 diastolic dysfunction, mild pulmonary hypertension with RVSP 37 mmHg. Patient transferred from [facility] with complaints of chest pain. She states that she started having epigastric discomfort yesterday with radiation to substernal area, dull aching sensation. She went to [facility]. Patient states that her chest pain improved with nitroglycerin. Patient states that she was unable to follow-up after recent MPI due to problems with her phone. At baseline, she is able to walk without exertional chest pain. She denies any significant shortness of breath for level activity. Denies any palpitation, dizziness or syncope. Patient apparently has history of GERD/gastritis based on the cardiology clinic notes. Her EGD from 01/08/2020 reportedly showed gastritis. Patient states that she was taking [id number] PPI. She does not recall the name. EKG on my personal evaluation shows sinus rhythm, LVH with secondary ST-T abnormalities, cannot rule out ischemia. Serial troponins are negative. Ch
[2020-09-26 10:09] LABS: Anion Gap 6 mmol/L (8-16); Blood Urea Nitrogen 11 mg/dL (7-17); Carbon Dioxide 27 mmol/L (22-30); Chloride 98 mmol/L (98-107); Estimated CRCL calculation 45 ml/min; Estimated Glomerular Filt Rate > 60; Glucose 190 mg/dL (65-105); Magnesium 1.9 mg/dL (1.6-2.3); Potassium 5.2 mmol/L (3.4-5.0); Sodium 131 mmol/L (137-145)
[2020-09-26 10:15] VITALS: PULSE 73
--- NOTE | 2020-09-26 11:05 | PM.DS ---
DS: Admitting Diagnosis Admitting Diagnosis Admitting Diagnosis: Chest Pain DS: Discharge Diagnosis Discharge Diagnosis (1) Chest pain: Qualifiers: Chest pain type: precordial pain Qualified Code(s): R07.2 - Precordial pain Code(s): R07.9 - Chest pain, unspecified Status: Acute (2) Abnormal EKG: Code(s): R94.31 - Abnormal electrocardiogram [ECG] [EKG] Status: Acute (3) Hypertension: Qualifiers: Hypertension type: essential hypertension Qualified Code(s): I10 - Essential (primary) hypertension Code(s): I10 - Essential (primary) hypertension Status: Chronic (4) Hyperlipidemia: Code(s): E78.5 - Hyperlipidemia, unspecified Status: Chronic (5) Current use of fpc anticoagulation: Code(s): Z79.01 - skilled nursing (current) use of anticoagulants Status: Acute DS: Summary Hospital Course Reason for hospitalization: Chief complaint: Chest Pain Narrative: Park Schaefer is an 84-year-old female with hypertension, dyslipidemia, and GERD who is being directly admitted to the hospitalist service from the emergency department at the [facility] for evaluation of chest pain. It is noted that she was admitted to an outside facility in March 2020 with chest pain, felt to be noncardiac in etiology. She followed up with Dr. Márquez thereafter and had an abnormal stress test however it sounds as though she did not pursue scheduling coronary angiography. In any event, sometime early this morning she awoke from sleep with epigastric pressure radiating into the midsternal chest region. Associated symptoms include heaviness in both arms and aching into the neck. Similar symptoms have occurred before, and she has always attributed them to GERD however she was not really having indigestion symptoms (EGD in December 2019 showed gastritis). She then called her primary care provider, went in for evaluation, and was directed to the emergency department with a concerning EKG. Her discomfort resolved with nitroglycerin has not returned. She denies associated syncope, near syncope, sweats, shortness of breath, and nausea. She has not had exertional chest pain or shortness of breath. Hospital Course: patient is 84 year female initially was seen at the outside facility with a complaint of chest pain was transferred to the hospital, the 3 sets of cardiac enzymes which were negative and there were no acute changes on her EKG, patient was seen by ice cream machine operator and suspect most likely patient has GERD rather than acute coronary syndrome as her 3 sets of cardiac enzymes are negative to rule out of KS and there is no acute changes on EKG, symptoms have improved with PPI which will continue, patient will consult her ice cream machine operator and will benefit from having Angiography to rule out any coronary artery disease, patient is agreeable this plan, will discharge the patient home today, she will call her ice cream machine operator on MondaySeptember 28 for an appointment Status at Discharge Functional status at discharge: independent ambulation Overall status at discharge: patient is back to baseline Time Spent with Patient Time attestation: Total time spent providing and/or coordinating discharge services: Patient was seen and examined at the time of the discharge Condition at discharge is stable Code status: Full code. Time spent preparing discharge summary, discharge medications, discussing discharge planning with protective services case worker and patient is 30 minutes. Time spent: Less than 30 minutes Exam Narrative: Exam Narrative: elderly frail Patient is comfortable, NAD HEENT: eyes are clear and none icteric LUNGS:CTA HEART: RR S1S2 ABD: BS+, Soft and nontender Lower extremities: no edema SKIN: nonjaundiced Neuro: grossly intact. DS: Data Data Completed and Pending Labs on day of discharge: Labs from last 24 hours 09/26/20 09/26/20 09/25/20 09:31 09:31 21:21 WBC
[2020-09-26 11:39] LABS: Hematocrit 33.5 % (37.0-47.0); Hemoglobin 11.3 g/dL (12.0-15.0); Mean Corpuscular HGB Conc 33.7 g/dl (32-36); Mean Corpuscular Hemoglobin 33.5 pg (26-34); Mean Corpuscular Volume 99.4 fl (80-100); Mean Platelet Volume 11.8 fl (7.4-10.4); Platelet Count Result 333 k/mm3 (150-375); Red Blood Count 3.37 M/mm3 (4.2-5.4); Red Cell Distribution Width 18.1 % (11.5-14.5); White Blood Count 4.2 K/mm3 (4.5-10.0)
== END 2020-09-26 13:00 | disposition home or self-care (01) ==
PROVIDERS: Physician Assistant; Admitting Provider Family Medicine; PCP Family Medicine; Visit Provider Family Medicine
DX: R10.13 Epigastric pain (principal); R07.9 Chest pain, unspecified; K21.9 Gastro-esophageal reflux disease without esophagitis; I25.10 Atherosclerotic heart disease of native coronary artery without angina pectoris; E78.5 Hyperlipidemia, unspecified; I10 Essential (primary) hypertension; M81.0 Age-related osteoporosis without current pathological fracture; Z86.718 Personal history of other venous thrombosis and embolism; Z79.01 Long term (current) use of anticoagulants; Z85.3 Personal history of malignant neoplasm of breast; Z92.21 Personal history of antineoplastic chemotherapy; Z92.3 Personal history of irradiation; Z90.12 Acquired absence of left breast and nipple; Z87.891 Personal history of nicotine dependence
CPT/HCPCS: 36415; 80048; 83735; 84484; 85027; A9270; G0378

== ENCOUNTER 2020-10-03 01:38 | Outpatient (CLI) | payer MEDICARE, BC, SELFPAY ==
[2020-10-03 19:09] LABS: SARS-CoV-2 RNA PCR Negative
== END 2020-10-03 01:39 | disposition home or self-care (01) ==
LOC: ANHCOVIDDT 01:39
PROVIDERS: PCP Family Medicine; Visit Provider Specialist
DX: Z01.818 Encounter for other preprocedural examination (principal); Z20.828 Contact with and (suspected) exposure to other viral communicable diseases
CPT/HCPCS: 87635; C9803; U0003

== ENCOUNTER 2020-10-07 05:22 | Day surgery (SDC) | payer MEDICARE, BC, SELFPAY ==
[2020-10-06 15:46] VITALS: BMI 22.8
[2020-10-07] VITALS (9 sets, daily range): BP systolic 138–166; BP diastolic 56–83; PULSE 56–69; RESP 11–20; TEMP 36.3; O2SAT 97–100
[2020-10-07 07:24] LABS: Basophils Absolute Auto 0.1 K/mm3 (0.0-0.1); Eosinophils Absolute Auto 0.2 K/mm3 (0-0.3); Eosinophils Percent Auto 3.9 % (0-4.4); Hematocrit 33.7 % (37.0-47.0); Hemoglobin 11.9 g/dL (12.0-15.0); Immature Granulocyte Absolute 0.02 K/mm3 (0.00-0.031); Immature Granulocyte Percent A 0.4 % (0-0.5); Lymphocytes Absolute Auto 1.33 K/mm3 (0.9-3.2); Lymphocytes Percent Auto 27.1 % (18.3-44.2); Mean Corpuscular HGB Conc 35.3 g/dl (32-36); Mean Corpuscular Hemoglobin 32.9 pg (26-34); Mean Corpuscular Volume 93.1 fl (80-100); Mean Platelet Volume 8.8 fl (7.4-10.4); Monocytes Absolute Auto 0.4 K/mm3 (0.1-0.6); Monocytes Percent Auto 8.1 % (2.6-8.5); Neutrophils Absolute Auto 2.9 K/mm3 (1.3-6.7); Neutrophils Percent Auto 59.5 % (45.5-73.1); Platelet Count Result 264 k/mm3 (150-375); Red Blood Count 3.62 M/mm3 (4.2-5.4); Red Cell Distribution Width 13.3 % (11.5-14.5); White Blood Count 4.9 K/mm3 (4.5-10.0)
[2020-10-07 07:35] LABS: Anion Gap 6 mmol/L (8-16); Blood Urea Nitrogen 10 mg/dL (7-17); Calcium 9.4 mg/dL (8.4-10.2); Carbon Dioxide 31 mmol/L (22-30); Chloride 100 mmol/L (98-107); Estimated CRCL calculation 45 ml/min; Estimated Glomerular Filt Rate > 60; Glucose 91 mg/dL (65-105); INR 0.9; Potassium 3.9 mmol/L (3.4-5.0); Prothrombin Time 12.4 Seconds (11.1-14.7); Sodium 137 mmol/L (137-145)
--- NOTE | 2020-10-07 08:47 | WPDMODSED ---
Moderate Sedation Note-Pt Data Patient Data Diagnosis: Chest pain history atypical of angina abnormal nuclear stress test suggesting anteroapical UT Present Complaint: this is an 84-year-old woman who is reporting symptoms of chest pain which actually are very atypical of angina the discomfort starts in the mid abdomen in the radiates up into the low substernal region. It is not exertional. A nuclear stress test was found to be abnormal suggesting the possibility of a previous anteroapical infarction. Procedure to be performed/Plan: Left heart catheterization Allergies Allergy/AdvReac Type Severity Reaction Status Date / Time celecoxib AdvReac Unknown Verified 10/02/20 12:36 erythromycin base AdvReac Unknown Verified 10/02/20 12:36 hydrocodone AdvReac Unknown Verified 10/02/20 12:36 levofloxacin [From Levaquin] AdvReac Unknown Verified 10/02/20 12:36 meloxicam AdvReac Unknown Verified 10/02/20 12:36 rivaroxaban [From Xarelto] AdvReac Unknown Verified 10/02/20 12:36 triamterene AdvReac Unknown Verified 10/02/20 12:36 statin AdvReac Unknown Uncoded 09/21/20 10:00 Home Medications Medication Instructions Recorded Confirmed Type multivitamin 1 tablet PO DAILY 03/02/20 10/06/20 History apixaban 2.5 mg tablet 2.5 mg PO BID #180 tablet 08/13/20 10/06/20 Rx cholecalciferol (vitamin D3) 50 50 mcg PO DAILY 09/21/20 10/06/20 History mcg (2,000 unit) capsule carboxymethylcellulose sodium 1 drp OPHTHALMIC (EYE) PRN PRN 09/25/20 10/06/20 History ezetimibe 10 mg PO QPM 09/25/20 10/06/20 History verapamil 120 mg PO QPM 09/25/20 10/06/20 History pantoprazole [Protonix] 40 mg PO BID #60 tablet 09/26/20 10/06/20 Rx famotidine-Ca carb-mag hydrox 10 1 tablet PO DAILY PRN #1 tablet 09/28/20 10/06/20 Rx mg-800 mg-165 mg chewable tablet Current Medications: Active Medications Sodium Chloride (Normal Saline Iv) 500 mls @ 100 mls/hr IV CONT .Q5H NAKIA Sedation/Anesthesia: No previous sedation/anesthesia problems (including family history). [facility] Past Medical History Medical History Cancer of left breast Status post chemotherapy, radiation, and mastectomy. Colon polyps Current use of [facility] for history of DVT. Deep venous thrombosis In 1997 and 2019. Gastritis On EGD in December 2019. Gastroesophageal reflux disease Hyperlipidemia Hypertension Osteoarthritis Osteoporosis Surgical History Surgical History History of cataract extraction History of cholecystectomy History of hysterectomy History of left mastectomy Family History Family History Sibling Diabetes mellitus Heart disease Heart problem Sibling Heart problem Prostate carcinoma Sibling Heart problem Sibling Heart problem Sibling Breast cancer Social History Social History Social History: Surrogate decision maker: Tim Mitchell nephew. Code status: Full code. Years smoked: 10 Smoking status: Former smoker Tobacco type: cigarettes Smoking end date: 11/13/1963 Alcohol intake: former Substance use: never Substance use type: does not use Living arrangements: alone Additional living arrangements comments: Lives in [place]. . Additional occupation/education comments: Retired. Gender identity (if verbalized by the patient): Female Spiritual care concerns: No Mod Sed Physical Exam Physical Exam Pre Procedural Exam: Normal: Appearance ( pleasant elderly white female), Throat, Airway, Lungs, Heart Size, Heart Rate, Heart Rhythm, Neuro Exam and Extremities Hours since solid foods: 12 Hours since liquid intake: 12 Internal Medicine - PN: Obj Da Vital Signs Vital Signs: Vital Signs - 24 hr 10/07/20 07:32 Temperature 36.3 C L Pulse Rate 69 Respiratory Rate 1
--- NOTE | 2020-10-07 09:18 | P.PCNCC_ITS ---
Cardiac Cath Procedure Note Date of procedure:: 10/07/20 Performing physician:: Darius Isaac MD Indication:: chest pain syndrome atypical of angina abnormal stress test suggesting previous anteroapical infarction Brief clinical history:: this is an 84-year-old woman who is not known to have coronary disease. She has been having episodes of abdominal and chest discomfort that are not exertional. A nuclear stress test was found to be abnormal indicating evidence of a previous apical anterior infarction. As a result of this an angiogram has been recommended. Procedure Procedure performed:: Left ventriculography coronary angiography Angio-Seal to right femoral artery Sedation/Medication given:: fentanyl 50 mg Versed 2 mg case start time 8:59 a.m. case end time 9:16 a.m. sedation provided by Emmy Lemus RN, trained observer Access site:: right femoral artery Estimated blood loss:: 10-15 cc Procedure note:: patient was brought to the cardiac catheterization lab in the postabsorptive state the right femoral triangle was prepared and draped in the usual fashion. Anesthesia was given with 1% lidocaine infiltrated locally. Using the modified Seldinger technique a 5 Ukrainian vascular sheath was placed in the femoral artery after this left heart catheterization was carried out. I utilized a 5 Ukrainian angled pigtail catheter to document left-sided hemodynamics and to injected LV g in the LOPEZ projection. After this the right coronary artery was injected using a 5 Ukrainian JR4 catheter. The left coronary was then injected using a 5 Ukrainian FL 3.5 catheter. Following this the cineangiograms were reviewed and the case was terminated. A femoral angiogram was done through the sheath after which a 6 Ukrainian Angio-Seal device was deployed at the puncture site with a good hemostatic result. There were no procedural complications and no sign of a groin hematoma upon leaving the laborer concrete plant. Findings:: Hemodynamics: Central aortic pressure 150/49 left ventricle 150/0 end-diastolic pressure of 6 there is no systolic gradient on pullback across the aortic valve. Left ventricle: The LV is normal in size all segments contract appropriately the global ejection fraction is visually estimated to be 50% there is no regional wall motion abnormality or evidence of previous infarction. Left main coronary artery has a superior takeoff it is nicely patent the left anterior descending is a medium caliber artery that extends down to around the apex there is minimal luminal irregularity in the proximal segment of the LAD otherwise there is no clinically significant disease. Circumflex is a moderate caliber artery giving rise to the marginal branches the circumflex is angiographically unremarkable. Right coronary artery is medium in caliber and dominant to the posterior circulation. The RCA is angiographically normal. Conclusion:: 1. Right coronary dominant circulation with no angiographic significant Disease. 2. Normal left ventricular systolic function 3. successful Angio-Seal of the right femoral puncture site 4. false-positive nuclear stress test Darius Isaac MD FACC
--- NOTE | 2020-10-07 11:42 | SUR.PHASEII ---
1130-pt up to a chair after using the bathroom. Groin soft and non-tender, no evidence of bleeding or hematoma noted. Strong right pedal pulse noted. AOx4. Groin and pulse checked before and after rising. Will continue to monitor.
--- NOTE | 2020-10-07 13:20 | SUR.PHASEII ---
1230-pt given D/C orders and instructions. Questions answered and verbalized understanding. AOx4. Groin soft and non-tender, no evidence of bleeding or hematoma noted. Strong right pedal pulse noted. Waiting in room for ride to arrive. Will continue to monitor.
== END 2020-10-07 13:30 | disposition home or self-care (01) ==
PROVIDERS: PCP Family Medicine; Visit Provider Specialist
PROC: 4A023N7 Measurement of Cardiac Sampling and Pressure, Left Heart, Percutaneous Approach (ICD-10-PCS; CPT 93452; principal; 2020-10-07 10:00)
DX: R94.39 Abnormal result of other cardiovascular function study (principal); R07.89 Other chest pain; I10 Essential (primary) hypertension; E78.5 Hyperlipidemia, unspecified; M81.0 Age-related osteoporosis without current pathological fracture; M19.90 Unspecified osteoarthritis, unspecified site; Z86.718 Personal history of other venous thrombosis and embolism; Z79.01 Long term (current) use of anticoagulants; Z92.21 Personal history of antineoplastic chemotherapy; Z92.3 Personal history of irradiation; Z85.3 Personal history of malignant neoplasm of breast; Z90.12 Acquired absence of left breast and nipple; Z87.891 Personal history of nicotine dependence
CPT/HCPCS: 36415; 80048; 85025; 85610; 93458; C1760; C1887; C1894; G0269; J1644; J2250; J3010; J7040

== ENCOUNTER 2021-01-15 13:39 | Outpatient (CLI) | payer MEDICARE, BC, SELFPAY ==
--- NOTE | 2021-01-15 13:42 | ECG_ITS ---
Measurements Intervals [place] Rate: 62 P: 71 [place]: 187 QRS: 43 QRSD: 96 T: 48 QT: 421 QTc: 430 Interpretive Statements SINUS RHYTHM CONSIDER HIGH LATERAL INFARCT, AGE INDETERMINATE ANTEROSEPTAL INFARCT, AGE INDETERMINATE ST ABNORMALITY IN INF/LAT LEADS- CONSIDER ISCHEMIA ABNORMAL ECG Electronically Signed On 01-15-2021 14:02:28 KEYING MACHINE OPERATOR by Rod Terrell D.O.
[2021-01-15 13:55] LABS: Basophils Absolute Auto 0.05 K/mm3 (0.00-0.10); Basophils Percent Auto 0.9 % (0.0-1.0); Eosinophils Absolute Auto 0.29 K/mm3 (0.02-0.50); Eosinophils Percent Auto 5.4 % (1.0-6.0); Hemoglobin 11.5 g/dL (11.7-13.8); Immature Granulocyte Absolute 0.02 K/mm3 (0.00-0.00); Immature Granulocyte Percent A 0.4 % (0.0-0.0); Lymphocytes Absolute Auto 1.62 K/mm3 (1.10-4.50); Mean Corpuscular HGB Conc 34.8 g/dL (32.0-36.0); Mean Corpuscular Hemoglobin 32.7 pg (27.0-31.0); Mean Corpuscular Volume 93.8 fL (78.0-102.0); Mean Platelet Volume 9.3 fl (9.2-11.8); Monocytes Absolute Auto 0.31 K/mm3 (0.10-0.90); Monocytes Percent Auto 5.7 % (2.0-11.0); Neutrophils Absolute Auto 3.1 K/mm3 (1.7-7.2); Neutrophils Percent Auto 57.6 % (50.0-70.0); Platelet Count Result 248 K/mm3 (150-420); Red Blood Count 3.52 M/mm3 (4.20-5.40); Red Cell Distribution Width 13.4 % (11.6-14.4); White Blood Count 5.4 K/mm3 (4.8-10.8)
[2021-01-15 15:01] LABS: Alanine Aminotransferase 23 U/L (14-59); Alkaline Phosphatase 77 U/L (46-116); Anion Gap 7 mmol/L (8-16); Aspartate Amino Transferase 23 U/L (15-37); Bilirubin,Total 1.5 mg/dL (0.00-1.00); Blood Urea Nitrogen 9 mg/dL (7-18); Calcium 9.1 mg/dL (8.5-10.1); Carbon Dioxide 30 mmol/L (21-32); Chloride 97 mmol/L (98-108); Estimated Glomerular Filt Rate > 60; Glucose 87 mg/dL (70-99); Osmolality Calculated 275 mOsm/kg (285-295); Potassium 4.6 mmol/L (3.5-5.1); Sodium 134 mmol/L (136-145); Total Protein 7.3 g/dL (6.4-8.2)
== END 2021-01-15 13:40 | disposition home or self-care (01) ==
LOC: CHSLAB 13:42
PROVIDERS: PCP Family Medicine; Visit Provider Nurse Practitioner Family
DX: R42 Dizziness and giddiness (principal)
CPT/HCPCS: 36415; 80053; 85025; 93005

== ENCOUNTER 2021-01-15 14:39 | Emergency (ER) | payer MEDICARE, BC, SELFPAY ==
--- NOTE | ~2021-01-15 | CT_ITS ---
EXAMINATION: CT brain wo con INDICATION: Dizziness, frontal headache COMPARISON: 02/20/2014 TECHNIQUE: Standard unenhanced head CT. The dose-length product (DLP) was 529.67 mGy-cm. The mA was a djusted according to patient size. Iterative reconstruction technique was employed. FINDINGS: There is no acute intraparenchymal hemorrhage. No evidence of mass lesion. No evidence of a cute infarction. There is mild periventricular and subcortical hypodensity probably related to small vessel ischemic disease. There is mild prominence of the sulci and ventricles related to cerebral atr ophy. Intracranial calcified cerebral atherosclerosis is noted. There are no extra-axial collections. There is no mass effect or midline shift. Changes in the globes are likely from ocular lens surgery. There is mild mucosal thickening of the paranasal sinuses. IMPRESSION: 1. No acute intracranial abnormality. 2. Age related findings. Reviewed, dictated and finalized at location A. NEERING TEACHER
--- NOTE | ~2021-01-15 | XR_ITS ---
EXAMINATION: XR chest 2V DATE: 01/15/2021 15:54 INDICATION: Dizziness and generalized weakness TECHNIQUE: PA and lateral views of the chest are obtained. COMPARISON: 09/25/2020 FINDINGS: The lungs are free of acute opacities. There is no pleural effusion or pneumothorax. The ca rdiomediastinal silhouette is normal. A surgical clip is noted in the left axilla. There appear be ch anges of left mastectomy. There is an age-indeterminate lower thoracic compression fracture. Surgical clips in the right upper quadrant are likely from prior cholecystectomy. IMPRESSION: 1. No acute cardiopulmonary abnormality. Reviewed, dictated and finalized at location A. K CARRIER
[2021-01-15 14:40] VITALS: BP 181/70; PULSE 64; RESP 17; TEMP 36.8; O2SAT 100
[2021-01-15 15:14] LABS: Glucose Point of Care 84 (65-105)
--- NOTE | 2021-01-15 16:08 | ED.DIZZY ---
HPI - Dizziness General Chief Complaint: Recheck/Abnormal Lab/Rx Stated Complaint: sent from doctor for abnormal EKG Time Seen by Provider: 01/15/21 15:00 Source: patient Mode of arrival: ambulatory Limitations: no limitations History of Present Illness HPI Narrative: 85-year-old woman who comes emergency department today after having had an abnormal outpatient EKG. she saw her doctor today because she does not feel well and has not for the last 2 days. Patient states that at times she feels dizzy or off balance but can't otherwise be more specific. She denies chest pain, Syncope, shortness of breath, cough or cold symptoms, sore throat, fevers, dysuria, hematuria, abdominal pain, nausea, vomiting or diarrhea. She denies black or bloody stools. Three months ago she had a negative heart catheterization at [facility] after an abnormal EKG. she is walking without difficulty and drove here today. She states this abnormal feeling is not interfering with her daily activities. MD elicited complaint: other Pertinent past history: GI bleed Onset (ago): day(s) (2) Timing: gradual onset Severity: mild Related Data Home Medications Medication Instructions Recorded Confirmed multivitamin 1 tablet PO DAILY 03/02/20 01/15/21 cholecalciferol (vitamin D3) 50 50 mcg PO DAILY 09/21/20 01/15/21 mcg (2,000 unit) capsule carboxymethylcellulose sodium 1 drp OPHTHALMIC (EYE) PRN PRN 09/25/20 01/15/21 verapamil 120 mg PO QPM 09/25/20 01/15/21 Allergies Allergy/AdvReac Type Severity Reaction Status Date / Time celecoxib AdvReac Unknown Verified 01/15/21 11:42 erythromycin base AdvReac Unknown Verified 01/15/21 11:42 hydrocodone AdvReac Unknown Verified 01/15/21 11:42 levofloxacin [From Levaquin] AdvReac Unknown Verified 01/15/21 11:42 meloxicam AdvReac Unknown Verified 01/15/21 11:42 rivaroxaban [From Xarelto] AdvReac Unknown Verified 01/15/21 11:42 triamterene AdvReac Unknown Verified 01/15/21 11:42 statin AdvReac Unknown Uncoded 01/15/21 11:42 Review of Systems Constitutional: Constitutional: Denies chills, Reports fatigue and Denies fever(s) Eyes: Eyes: Reports change in vision (blurred) and Denies photophobia ENT: Denies nasal congestion and Denies sore throat Cardiovascular: Cardiovascular: Denies chest pain and Denies radiating jaw, neck or arm pain Respiratory: Respiratory: Denies cough, Denies dyspnea and Denies wheezing Gastrointestinal: Gastrointestinal: Denies abdominal pain, Denies diarrhea, Denies nausea and Denies vomiting Genitourinary: Genitourinary: Denies hematuria, Denies nocturia and Denies dysuria Musculoskeletal: Musculoskeletal: Denies back pain, Denies arthralgias and Denies joint swelling Integumentary/Breasts: Skin/Breast: Denies pruritus, Denies erythema and Denies rash Neurologic: Reports as per HPI, Denies vertigo, Reports dizziness and Denies syncope Hematologic/Lymphatic: Hematologic/Lymphatic: Denies easy bleeding and Denies easy bruising Allergic/Immunologic: Allergic/Immunologic: Denies lip swelling and Denies throat swelling PMFSH Past Medical History Medical History Cancer of left breast Status post chemotherapy, radiation, and mastectomy. 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 Deep venous thrombosis In 1997 and 2019. Gastritis On EGD in December 2019. Gastroesophageal reflux disease Hyperlipidemia Hypertension Osteoarthritis Osteoporosis Ventral hernia Surgical History Surgical History History of cardiac catheterization History of cataract extraction History of cholecystectomy History of hysterectomy History of left mastectomy Family History Family History Sibling Diabetes mellitus Heart disease Heart problem Sibling Heart problem Prostate carcinoma Sibling He
--- NOTE | 2021-01-15 16:13 | PC.NURSE ---
nursing report provided to vini neumann
[2021-01-15 16:15] VITALS: BP 153/67; PULSE 64
[2021-01-15 16:18] VITALS: BP 176/72; PULSE 66
[2021-01-15 16:20] VITALS: BP 184/73; PULSE 69
[2021-01-15 16:22] LABS: Add Urine Microscopic? YES; Appearance Urine Clear (Clear); Bilirubin Urine Negative (Negative); Blood Urine Negative (Negative); Color Urine Yellow (Yellow); Glucose Urine UA Negative (Negative); Ketones Urine Negative (Negative); Leukocyte Esterase Ur 1+ (Negative); Nitrate Urine Negative (Negative); Protein Urine Negative (Negative); Urobilinogen Urine 0.2 mg/dL (0.2-1.0)
[2021-01-15 16:26] LABS: Lactic Acid Reflex 1.6 mmol/L (0.4-2.0)
[2021-01-15 16:27] LABS: Bacteria Urine Trace /hpf; RBC Urine None seen /hpf (0-2); Transitional Epi Cells Urine Few /hpf
[2021-01-15 16:32] LABS: BNP 243 pg/mL (0-100); Thyroid Stimulating Hormone Reflex 1.78 u/IU/mL (0.36-3.74)
[2021-01-15 16:33] LABS: Troponin I 7.5 ng/L (0.00-60.4)
[2021-01-15 17:10] VITALS: BP 147/67; PULSE 66; RESP 16; TEMP 36.6; O2SAT 98
== END 2021-01-15 17:12 | disposition home or self-care (01) ==
PROVIDERS: Emergency Provider Emergency Medicine; PCP Family Medicine
DX: R53.81 Other malaise (principal); N39.0 Urinary tract infection, site not specified; Z87.891 Personal history of nicotine dependence
CPT/HCPCS: 36415; 70450; 71046; 80053; 81001; 82948; 83605; 83880; 84443; 84484; 85025; 87040; 87077; 87086; 93005; 99283; 99284

== ENCOUNTER 2021-01-18 13:20 | Outpatient (CLI) | payer MEDICARE, BC, SELFPAY ==
[2021-01-18 13:52] LABS: Basophils Absolute Auto 0.1 K/mm3 (0.0-0.1); Basophils Percent Auto 1.3 % (0.2-1.2); Eosinophils Absolute Auto 0.3 K/mm3 (0-0.3); Eosinophils Percent Auto 6.4 % (0-4.4); Hematocrit 33.8 % (37.0-47.0); Hemoglobin 11.8 g/dL (12.0-15.0); Immature Granulocyte Absolute 0.02 K/mm3 (0.00-0.031); Immature Granulocyte Percent A 0.4 % (0-0.5); Lymphocytes Absolute Auto 1.16 K/mm3 (0.9-3.2); Mean Corpuscular HGB Conc 34.9 g/dl (32-36); Mean Corpuscular Hemoglobin 32.8 pg (26-34); Mean Corpuscular Volume 93.9 fl (80-100); Mean Platelet Volume 9.1 fl (7.4-10.4); Monocytes Absolute Auto 0.5 K/mm3 (0.1-0.6); Monocytes Percent Auto 8.5 % (2.6-8.5); Neutrophils Absolute Auto 3.2 K/mm3 (1.3-6.7); Neutrophils Percent Auto 61.4 % (45.5-73.1); Platelet Count Result 245 k/mm3 (150-375); Red Cell Distribution Width 13.4 % (11.5-14.5); White Blood Count 5.3 K/mm3 (4.5-10.0)
[2021-01-18 14:06] LABS: Alanine Aminotransferase 16 U/L (4-35); Albumin Level 4.5 g/dL (3.5-5.1); Alkaline Phosphatase 75 U/L (38-126); Anion Gap 6 mmol/L (8-16); Aspartate Amino Transferase 34 U/L (14-36); Bilirubin,Total 1.2 mg/dL (0.2-1.3); Blood Urea Nitrogen 10 mg/dL (7-17); CRP < 0.5 mg/dL (<1.0); Calcium 9.4 mg/dL (8.4-10.2); Carbon Dioxide 27 mmol/L (22-30); Chloride 97 mmol/L (98-107); Estimated Glomerular Filt Rate > 60; Glucose 104 mg/dL (65-105); Lipase 62 U/L (23-300); Potassium 4.2 mmol/L (3.4-5.0); Sodium 130 mmol/L (137-145)
== END 2021-01-18 13:21 | disposition home or self-care (01) ==
PROVIDERS: PCP Family Medicine
DX: R10.9 Unspecified abdominal pain (principal); R11.2 Nausea with vomiting, unspecified
CPT/HCPCS: 36415; 80053; 83690; 85025; 86140

== ENCOUNTER 2021-01-25 12:11 | Emergency (ER) | payer MEDICARE, BC, SELFPAY ==
--- NOTE | ~2021-01-25 | CT_ITS ---
EXAMINATION: CT abdomen pelvis w con EXAM DATE: 01/25/2021 13:43 INDICATION: Low abdominal pain, bloating. Recent urinary tract infection. TECHNIQUE: Spiral CT of the abdomen and pelvis was performed following intravenous injection of 100 m L Omnipaque 350. Axial, coronal and sagittal images were reviewed. The dose-length product (DLP) fo r this examination was 328.23 mGy-cm. The exposure was tailored according to patient size (auto mA e xposure control), and iterative reconstruction (ASIR) was used as additional dose reduction technique . Comparison is made to prior examination from 01/16/2017. FINDINGS: The liver, spleen, adrenal glands and pancreas are unremarkable. There are cholecystectomy clips. Portal and splenic veins are patent. Kidneys enhance symmetrically. There is no hydronephr osis. The uterus is not identified and has likely been surgically resected. The bladder is unremar kable. There is no retroperitoneal or pelvic lymphadenopathy. There is mild to moderate scattered arteriosclerotic disease. The appendix is normal. The stomach and small bowel are unremarkable. There is moderate to large am ount of colonic stool. No free intraperitoneal gas. The heart is normal in size. There are no pe ricardial or pleural effusions. The lung bases are unremarkable. There are no osteoblastic or osteo lytic lesions identified. IMPRESSION: 1. Moderate to large amount of colonic stool, consider constipation. 2. No acute intra-abdominal findings. Reviewed, dictated and finalized at location A.
--- NOTE | 2021-01-25 12:16 | ED.ABDPAIN ---
HPI - Abdominal Pain General Chief Complaint: Abdominal Pain Stated Complaint: abd pain Time Seen by Provider: 01/25/21 12:17 Source: patient Mode of arrival: ambulatory Limitations: no limitations History of Present Illness HPI narrative: The patient states she has had abdominal pain for approximately 2 months. She says more both fullness and she feels bloated. She was here 10 days ago for the same problem and was diagnosed with a UTI and put on antibiotics. She said she had 1 episode of vomiting 3 weeks ago but none since. She thinks she has been hot and cold off and on. She denies any fever. When asked what has changed since 3 weeks ago and also 10 days ago she said it is still there she just wants to get it checked out. She has also been to see her primary care. MD elicited complaint: abdominal pain Pertinent past history: past UTI Onset (ago): month(s) (2) Pain Consistency: intermittent Location: diffuse Severity: moderate Quality: fullness and dull Radiation: none Migration to: no migration Exacerbating factors: nothing Relieving factors: nothing Associated symptoms: denies other symptoms Related Data Home Medications Medication Instructions Recorded Confirmed multivitamin 1 tablet PO DAILY 03/02/20 01/25/21 cholecalciferol (vitamin D3) 50 50 mcg PO DAILY 09/21/20 01/25/21 mcg (2,000 unit) capsule carboxymethylcellulose sodium 1 drp OPHTHALMIC (EYE) PRN PRN 09/25/20 01/25/21 verapamil 120 mg PO QPM 09/25/20 01/25/21 dicyclomine 20 mg PO DAILY PRN 01/25/21 01/25/21 Allergies Allergy/AdvReac Type Severity Reaction Status Date / Time celecoxib AdvReac Unknown Verified 01/20/21 08:09 erythromycin base AdvReac Unknown Verified 01/20/21 08:09 hydrocodone AdvReac Unknown Verified 01/20/21 08:09 levofloxacin [From Levaquin] AdvReac Unknown Verified 01/20/21 08:09 meloxicam AdvReac Unknown Verified 01/20/21 08:09 rivaroxaban [From Xarelto] AdvReac Unknown Verified 01/20/21 08:09 triamterene AdvReac Unknown Verified 01/20/21 08:09 statin AdvReac Unknown Uncoded 01/15/21 11:42 Review of Systems Review of Systems: All systems reviewed & are unremarkable except as noted in HPI and below Constitutional: Constitutional: Denies fever(s) and Denies weakness Eyes: Eyes: Reports no additional eye complaints ENT: Reports system reviewed and no additional complaints, except as documented Cardiovascular: Cardiovascular: Reports no additional cardiovascular complaints Respiratory: Respiratory: Reports no additional respiratory complaints Genitourinary: Genitourinary: Reports no additional female genitourinary complaints, Denies nocturia and Denies dysuria Musculoskeletal: Musculoskeletal: Reports myalgias (for 2 months) [facility] Past Medical History Medical History Acute sinusitis Acute sinusitis Angina at rest Body aches Cancer of left breast Status post chemotherapy, radiation, and mastectomy. 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 Deep venous thrombosis In 1997 and 2019. Dizziness DVT of lower limb, acute Epigastric pain Gastritis On EGD in December 2019. Gastroesophageal reflux disease Hyperlipidemia Hypertension Osteoarthritis Osteoporosis Ventral hernia Surgical History Surgical History History of cardiac catheterization History of cataract extraction History of cholecystectomy History of hysterectomy History of left mastectomy Family History Family History Sibling Diabetes mellitus Heart disease Heart problem Sibling Heart problem Prostate carcinoma Sibling Heart problem Sibling Heart problem Sibling Breast cancer Social History Social History Social History: Surrogate decision maker: bebeto Hartman.
[2021-01-25 12:20] VITALS: BP 167/63; PULSE 82; RESP 17; TEMP 36.5; O2SAT 100
[2021-01-25 12:53] LABS: Add Urine Microscopic? YES; Appearance Urine Clear (Clear); Bilirubin Urine Negative (Negative); Blood Urine Negative (Negative); Color Urine Yellow (Yellow); Glucose Urine UA Negative (Negative); Ketones Urine Negative (Negative); Leukocyte Esterase Ur Trace LEU/UL (Negative); Nitrate Urine Negative (Negative); Protein Urine Negative (Negative); Specific Grav Ur <= 1.005 (1.010-1.020)
[2021-01-25 12:59] LABS: Basophils Absolute Auto 0.04 K/mm3 (0.00-0.10); Basophils Percent Auto 0.9 % (0.0-1.0); Eosinophils Absolute Auto 0.12 K/mm3 (0.02-0.50); Eosinophils Percent Auto 2.6 % (1.0-6.0); Hematocrit 29.7 % (35.0-42.0); Hemoglobin 10.6 g/dL (11.7-13.8); Immature Granulocyte Absolute 0.02 K/mm3 (0.00-0.00); Immature Granulocyte Percent A 0.4 % (0.0-0.0); Lymphocytes Absolute Auto 0.68 K/mm3 (1.10-4.50); Lymphocytes Percent Auto 14.6 % (18.0-42.0); Mean Corpuscular HGB Conc 35.7 g/dL (32.0-36.0); Mean Corpuscular Hemoglobin 32.6 pg (27.0-31.0); Mean Corpuscular Volume 91.4 fL (78.0-102.0); Mean Platelet Volume 9.1 fl (9.2-11.8); Monocytes Percent Auto 8.6 % (2.0-11.0); Neutrophils Absolute Auto 3.4 K/mm3 (1.7-7.2); Neutrophils Percent Auto 72.9 % (50.0-70.0); Platelet Count Result 206 K/mm3 (150-420); Red Blood Count 3.25 M/mm3 (4.20-5.40); Red Cell Distribution Width 13.2 % (11.6-14.4); White Blood Count 4.7 K/mm3 (4.8-10.8)
[2021-01-25 13:21] LABS: Alanine Aminotransferase 20 U/L (14-59); Albumin Level 3.7 g/dL (3.4-5.0); Alkaline Phosphatase 85 U/L (46-116); Anion Gap 9 mmol/L (8-16); Aspartate Amino Transferase 26 U/L (15-37); Bilirubin,Total 1.5 mg/dL (0.00-1.00); Blood Urea Nitrogen 12 mg/dL (7-18); CRP 0.7 mg/dL (0.0-0.9); Calcium 8.6 mg/dL (8.5-10.1); Carbon Dioxide 25 mmol/L (21-32); Chloride 91 mmol/L (98-108); Estimated Glomerular Filt Rate > 60; Glucose 93 mg/dL (70-99); Osmolality Calculated 259 mOsm/kg (285-295); Potassium 4.2 mmol/L (3.5-5.1); Sodium 125 mmol/L (136-145); Total Protein 7.2 g/dL (6.4-8.2)
[2021-01-25 13:22] LABS: Bacteria Urine None seen /hpf; RBC Urine 0-2 /hpf (0-2); Squamous Epithelial Cell Urine None seen /hpf (Few); WBC Urine 0-3 /hpf (0-3)
[2021-01-25 13:26] LABS: Lactic Acid Reflex 0.8 mmol/L (0.4-2.0)
[2021-01-25] MEDS: SODIUM CHLORIDE 0.9% IV 1,000 ML 999 ML IV CONT (13:54)
[2021-01-25 15:31] VITALS: BP 148/68
== END 2021-01-25 15:32 | disposition home or self-care (01) ==
PROVIDERS: Emergency Provider Emergency Medicine; PCP Family Medicine
DX: K59.00 Constipation, unspecified (principal); E87.1 Hypo-osmolality and hyponatremia; Z86.718 Personal history of other venous thrombosis and embolism; Z85.3 Personal history of malignant neoplasm of breast; K21.9 Gastro-esophageal reflux disease without esophagitis; E78.5 Hyperlipidemia, unspecified; I10 Essential (primary) hypertension; M81.0 Age-related osteoporosis without current pathological fracture; Z87.891 Personal history of nicotine dependence
CPT/HCPCS: 36415; 74177; 80053; 81001; 83605; 85025; 86140; 96360; 96361; 99283; 99284; J7030; Q9967

== ENCOUNTER 2021-01-27 13:58 | Outpatient (CLI) | payer MEDICARE, SELFPAY ==
[2021-01-27 15:47] LABS: Anion Gap 6 mmol/L (8-16); Blood Urea Nitrogen 11 mg/dL (7-18); Calcium 8.7 mg/dL (8.5-10.1); Carbon Dioxide 30 mmol/L (21-32); Chloride 97 mmol/L (98-108); Estimated Glomerular Filt Rate > 60; Glucose 107 mg/dL (70-99); Osmolality Calculated 275 mOsm/kg (285-295); Potassium 4.5 mmol/L (3.5-5.1); Sodium 133 mmol/L (136-145)
== END 2021-01-27 13:59 | disposition home or self-care (01) ==
LOC: CHSLAB 14:02
PROVIDERS: PCP Family Medicine; Visit Provider Family Medicine
DX: E87.1 Hypo-osmolality and hyponatremia (principal)
CPT/HCPCS: 36415; 80048

== ENCOUNTER 2021-02-19 10:55 | Outpatient (CLI) | payer MEDICARE, SELFPAY ==
[2021-02-19 11:13] LABS: Hematocrit 32.4 % (35.0-42.0); Hemoglobin 11.1 g/dL (11.7-13.8); Mean Corpuscular HGB Conc 34.3 g/dL (32.0-36.0); Mean Corpuscular Hemoglobin 32.7 pg (27.0-31.0); Mean Corpuscular Volume 95.6 fL (78.0-102.0); Mean Platelet Volume 9.3 fl (9.2-11.8); Platelet Count Result 250 K/mm3 (150-420); Red Blood Count 3.39 M/mm3 (4.20-5.40); Red Cell Distribution Width 13.9 % (11.6-14.4); White Blood Count 5.7 K/mm3 (4.8-10.8)
[2021-02-19 11:46] LABS: Alanine Aminotransferase 22 U/L (14-59); Albumin Level 3.7 g/dL (3.4-5.0); Alkaline Phosphatase 82 U/L (46-116); Anion Gap 3 mmol/L (8-16); Aspartate Amino Transferase 21 U/L (15-37); Bilirubin,Total 1.1 mg/dL (0.00-1.00); Blood Urea Nitrogen 10 mg/dL (7-18); Calcium 9.1 mg/dL (8.5-10.1); Carbon Dioxide 31 mmol/L (21-32); Chloride 102 mmol/L (98-108); Estimated Glomerular Filt Rate > 60; Glucose 85 mg/dL (70-99); Osmolality Calculated 280 mOsm/kg (285-295); Potassium 3.9 mmol/L (3.5-5.1); Sodium 136 mmol/L (136-145); Total Protein 7.6 g/dL (6.4-8.2)
[2021-02-19 11:50] LABS: Influenza A QL RT-PCR Negative (Negative); Influenza B QL RT-PCR Negative (Negative); SARS-CoV-2 RNA PCR Negative (Negative)
[2021-02-19 11:58] LABS: Thyroid Stimulating Hormone Reflex 0.83 u/IU/mL (0.36-3.74)
== END 2021-02-19 10:56 | disposition home or self-care (01) ==
LOC: CHSLAB 10:59
PROVIDERS: PCP Family Medicine; Visit Provider Family Medicine
DX: R53.1 Weakness (principal); E11.9 Type 2 diabetes mellitus without complications; Z20.822 Contact with and (suspected) exposure to COVID-19
CPT/HCPCS: 36415; 80053; 84443; 85027; 87502; C9803; U0003; U0005

== ENCOUNTER 2021-02-23 12:22 | Outpatient (CLI) | payer MEDICARE, BC, SELFPAY ==
--- NOTE | 2021-02-23 12:27 | ECHO_ITS ---
Patient Info Name: Park Schaefer Age: 85 years : 1935 Gender: Female Ht: 60 in Wt: 124 lbs BSA: 1.55 m2 HR: 61 bpm BP: 137 / 58 mmHg Heart Rhythm: Sinus Rhythm Technical Quality: Good Exam Date: 02/23/2021 12:15 PM Exam Location: [facility] Patient Status: Outpatient Admit Date: 02/23/2021 Staff Ordering Physician: Chip Rogers DO Kitchen Stewardess: Rafia Oliveira RDCS Attending Provider: Chip Rogers DO Referring Physician: Sue ARREDONDO; Exam Type: CA echo doppler color flow Study Info Indications I10 - Essential (primary) hypertension Complete two-dimensional, color flow and Doppler transthoracic echocardiogram is performed. Strain analysis performed. History/Risk Factors Hypertension: Yes Dyslipidemia: Yes Congenital Heart Disease (CHD): No Peripheral Arterial Disease (PAD): No Myocardial Infarction (NC): No Chronic Lung Disease: No Obesity: No Renal Disease: No Coronary Artery Disease (CAD) No Congestive Heart Failure (CHF): No Cardiomyopathy/LV Systolic Dysfunction: No Diabetes Mellitus: No COPD: No Tobacco Use: Former Cerebrovascular Disease: No Family History: Diabetes Mellitus, Coronary Artery Disease DVT Treatment: Apixaban Deep Vein Thrombosis (DVT): None Dialysis: None Frailty Scale (CSHA): 3: Managing Well Cardiac Arrest: No Summary 1. Complete two-dimensional, color flow and Doppler transthoracic echocardiogram is performed. 2. Left ventricular chamber dimension is mildly enlarged. 3. Left ventricular systolic function is normal, estimated at 55-60%. 4. There is mildly increased left ventricular wall thickness. 5. The left ventricular diastolic function is abnormal. 6. E/e' 22 is elevated. 7. Global longitudinal strain is normal at -17.9%. 8. Left atrial chamber dimension is mildly enlarged. 9. There is mild aortic valve sclerosis. 10. There is mild aortic valve regurgitation. 11. The mitral valve has moderately calcified annulus. 12. There is mild mitral valve regurgitation. 13. There is mild tricuspid valve regurgitation. 14. No pulmonary hypertension, estimated pulmonary arterial systolic pressure is 38 mmHg. 15. There is trace pulmonic regurgitation. Left Ventricle E/e' 22 is elevated. Global longitudinal strain is normal at -17.9%. Left ventricular chamber dimension is mildly enlarged. Left ventricular systolic function is normal, estimated at 55-60%. There is mildly increased left ventricular wall thickness. The left ventricular diastolic function is abnormal. Right Ventricle Right ventricular chamber dimension is normal. Right ventricular systolic function is normal. Left Atria Left atrial chamber dimension is mildly enlarged. Right Atria Right atrial chamber dimension is normal. Aortic Valve The aortic valve is trileaflet. There is mild aortic valve sclerosis. There is no aortic valve stenosis. There is mild aortic valve regurgitation. Pulmonic Valve There is trace pulmonic regurgitation. Mitral Valve The mitral valve has moderately calcified annulus. There is no mitral valve stenosis. There is mild mitral valve regurgitation. Tricuspid Valve There is mild tricuspid valve regurgitation. No pulmonary hypertension, estimated pulmonary arterial systolic pressure is 38 mmHg. Pericardium/Pleural There is no pericardial effusion. Inferior Vena Cava Normal
== END 2021-02-23 12:23 | disposition home or self-care (01) ==
LOC: CHSIMG 12:24
PROVIDERS: PCP Family Medicine; Visit Provider Family Medicine
DX: R53.1 Weakness (principal); I10 Essential (primary) hypertension
CPT/HCPCS: 93306

== ENCOUNTER 2021-03-24 15:40 | Outpatient (CLI) | payer MEDICARE, SELFPAY ==
[2021-03-24 16:39] LABS: SARS-CoV-2 RNA PCR Negative (Negative)
== END 2021-03-24 15:41 | disposition home or self-care (01) ==
LOC: CHSLAB 15:45
PROVIDERS: PCP Family Medicine; Visit Provider Family Medicine
DX: Z20.822 Contact with and (suspected) exposure to COVID-19 (principal)
CPT/HCPCS: C9803; U0003; U0005

== ENCOUNTER 2021-03-30 17:16 | Emergency (ER) | payer MEDICARE, BC, SELFPAY ==
--- NOTE | ~2021-03-30 | XR_ITS ---
EXAMINATION: XR abdomen/kub 1V INDICATION: Lower abdominal pain TECHNIQUE: Supine view of the abdomen is obtained. COMPARISON: CT, 01/25/2021 FINDINGS: There is a large volume of colonic stool. No dilated loops of bowel are evident. Cholecyste ctomy clips are noted. There is mild osteoarthritis of the hips. Surgical clips are noted in the left lower quadrant. There is severe lower lumbar spondylosis. IMPRESSION: 1. Constipation. Reviewed, dictated and finalized at location A. IMPRESSION: 1. Constipation.
[2021-03-30 17:34] VITALS: BP 148/69; PULSE 67; RESP 14; TEMP 36.3; O2SAT 100
[2021-03-30 17:48] LABS: Basophils Absolute Auto 0.1 K/mm3 (0.0-0.1); Basophils Percent Auto 1.2 % (0.2-1.2); Eosinophils Absolute Auto 0.2 K/mm3 (0-0.3); Eosinophils Percent Auto 4.4 % (0-4.4); Hematocrit 33.9 % (37.0-47.0); Hemoglobin 11.9 g/dL (12.0-15.0); Immature Granulocyte Absolute 0.01 K/mm3 (0.00-0.031); Immature Granulocyte Percent A 0.2 % (0-0.5); Lymphocytes Percent Auto 32.1 % (18.3-44.2); Mean Corpuscular HGB Conc 35.1 g/dl (32-36); Mean Corpuscular Hemoglobin 33.2 pg (26-34); Mean Corpuscular Volume 94.7 fl (80-100); Mean Platelet Volume 9.6 fl (7.4-10.4); Monocytes Absolute Auto 0.4 K/mm3 (0.1-0.6); Neutrophils Absolute Auto 2.8 K/mm3 (1.3-6.7); Neutrophils Percent Auto 55.1 % (45.5-73.1); Platelet Count Result 247 k/mm3 (150-375); Red Blood Count 3.58 M/mm3 (4.2-5.4); Red Cell Distribution Width 13.4 % (11.5-14.5)
[2021-03-30 18:07] LABS: Alanine Aminotransferase 17 U/L (4-35); Alkaline Phosphatase 89 U/L (38-126); Aspartate Amino Transferase 36 U/L (14-36); Bilirubin,Total 1.2 mg/dL (0.2-1.3); Calcium 9.7 mg/dL (8.4-10.2); Glucose 92 mg/dL (65-105); Lipase 86 U/L (23-300)
[2021-03-30 18:15] LABS: Anion Gap 2 mmol/L (8-16); Carbon Dioxide 30 mmol/L (22-30); Chloride 104 mmol/L (98-107); Potassium 4.2 mmol/L (3.4-5.0); Sodium 136 mmol/L (137-145)
[2021-03-30 18:16] LABS: Add Urine Microscopic? YES; Appearance Urine Clear (Clear); Bilirubin Urine Negative (Negative); Blood Urine Negative (Negative); Color Urine Straw (Yellow); Glucose Urine UA Negative (Negative); Ketones Urine Negative (Negative); Leukocyte Esterase Ur 1+ LEU/UL (Negative); Mucus Urine Rare /lpf; Nitrate Urine Negative (Negative); Protein Urine Negative (Negative); RBC Urine 0-2 /hpf (0-2); Squamous Epithelial Cell Urine Rare /hpf (Few); Urobilinogen Urine Negative mg/dL (<2.0)
[2021-03-30 18:16] LABS: Albumin Level 4.4 g/dL (3.5-5.1); Blood Urea Nitrogen 10 mg/dL (7-17); Estimated CRCL calculation 42 ml/min; Estimated Glomerular Filt Rate > 60
[2021-03-30 18:17] LABS: Specific Grav Ur 1.004 (1.001-1.035)
--- NOTE | 2021-03-30 18:32 | ED.ABDPAIN ---
HPI - Abdominal Pain General Chief Complaint: Abdominal Pain Stated Complaint: abdominal pain Time Seen by Provider: 03/30/21 17:49 History of Present Illness HPI narrative: 85 yo female presents to the ED for abdominal pain. She rpeorts that she has upper abdominal pain at times. She had endoscopy done a few months ago and says she had a polyp removed. She never arranged folowup afterwards. She was then seen in another hospitals ED recently and had a CT done with contrast and was told that she was constipated. $ dyas ago she reports having severe pain. She does not have any pain right now. She has not seen her PCP. She is a very poor historian Related Data Home Medications Medication Instructions Recorded Confirmed multivitamin 1 tablet PO DAILY 03/02/20 01/25/21 cholecalciferol (vitamin D3) 50 50 mcg PO DAILY 09/21/20 01/25/21 mcg (2,000 unit) capsule carboxymethylcellulose sodium 1 drp OPHTHALMIC (EYE) PRN PRN 09/25/20 01/25/21 Allergies Allergy/AdvReac Type Severity Reaction Status Date / Time celecoxib AdvReac Unknown Verified 04/02/21 07:56 erythromycin base AdvReac Unknown Verified 04/02/21 07:56 hydrocodone AdvReac Unknown Verified 04/02/21 07:56 levofloxacin [From Levaquin] AdvReac Unknown Verified 04/02/21 07:56 meloxicam AdvReac Unknown Verified 04/02/21 07:56 rivaroxaban [From Xarelto] AdvReac Unknown Verified 04/02/21 07:56 triamterene AdvReac Unknown Verified 04/02/21 07:56 statin AdvReac Unknown Uncoded 04/02/21 07:56 Review of Systems Constitutional: Constitutional: Denies fever(s) Cardiovascular: Cardiovascular: Denies chest pain Respiratory: Respiratory: Denies dyspnea Gastrointestinal: Gastrointestinal: Reports abdominal pain, Reports diarrhea and Reports vomiting Genitourinary: Genitourinary: Denies hematuria and Denies dysuria Musculoskeletal: Musculoskeletal: Reports no additional musculoskeletal complaints Neurologic: Denies dizziness and Denies weakness PMFSH Past Medical History Medical History Cancer of left breast Status post chemotherapy, radiation, and mastectomy. 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 Deep venous thrombosis In 1997 and 2019. DVT of lower limb, acute Epigastric pain Gastritis On EGD in December 2019. Hyperlipidemia Hypertension Osteoarthritis Osteoporosis Ventral hernia Surgical History Surgical History History of cardiac catheterization History of cataract extraction History of cholecystectomy History of hysterectomy History of left mastectomy Family History Family History Sibling Diabetes mellitus Heart disease Heart problem Sibling Heart problem Prostate carcinoma Sibling Heart problem Sibling Heart problem Sibling Breast cancer Social History Social History Social History: Surrogate decision maker: albert Hartmanew. Code status: Full code. Years smoked: 10 Smoking status: Former smoker Tobacco type: cigarettes Smoking end date: 11/13/1963 Alcohol intake: former Substance use: never Substance use type: does not use Additional living arrangements comments: Lives in [place]. . Additional occupation/education comments: Retired. Gender identity (if verbalized by the patient): Female Spiritual care concerns: No Exam Const: General: no acute distress and alert Orientation/consciousness: patient oriented x3 HENMT: Head: normal to inspection Neck: Neck: normal visual inspection Resp: Effort & Inspection: normal respiratory effort Auscultation: clear to auscultation bilaterally Cardio: Rate: regular rate Rhythm: regular rhythm GI: Inspection: non-distended GI Palp: Yes Soft to palpation and No Tenderne
--- NOTE | 2021-03-30 19:11 | PC.NURSE ---
Assumed care at this time. Report from Selma WILSON.
[2021-03-30 19:19] VITALS: BP 166/64; PULSE 67; RESP 20; TEMP 36.5; O2SAT 100
[2021-03-30 19:23] VITALS: BP 166/64; PULSE 67; RESP 20; TEMP 36.5; O2SAT 100
== END 2021-03-30 19:24 | disposition home or self-care (01) ==
PROVIDERS: Emergency Provider Emergency Medicine; PCP Family Medicine
DX: K59.00 Constipation, unspecified (principal); Z85.3 Personal history of malignant neoplasm of breast; Z79.01 Long term (current) use of anticoagulants; Z86.718 Personal history of other venous thrombosis and embolism; E78.5 Hyperlipidemia, unspecified; M19.90 Unspecified osteoarthritis, unspecified site
CPT/HCPCS: 36415; 74018; 80053; 81001; 83690; 85025; 99283

== ENCOUNTER → 2021-05-04 01:25 | Outpatient (CLI) | payer MEDICARE, BC, SELFPAY ==
[2021-05-06 08:33] LABS: SARS-CoV-2 RNA PCR Negative
== END ==
PROVIDERS: PCP Family Medicine; Visit Provider Internal Medicine Gastroenterology
DX: Z01.812 Encounter for preprocedural laboratory examination (principal); Z20.822 Contact with and (suspected) exposure to COVID-19
CPT/HCPCS: C9803; U0003; U0005

== ENCOUNTER 2021-05-07 01:52 | Day surgery (SDC) | payer MEDICARE, BC, SELFPAY ==
[2021-04-20 16:11] VITALS: BMI 23.6
--- NOTE | 2021-05-07 08:22 | WPDANESEPPF ---
Anes - Initial Pre Proc Eval Procedure: Operation Date: 05/07/21 10:00 Proposed Procedures p Screening Colonoscopy - Jordan Byrne MD Date/Time: 05/07/21 08:22 Surgeon: Jordan Byrne MD Pre Op Diagnosis: neoplasm screening Patient Data Age: 85 Gender: F Height: 1.52 m Weight: 55 kg Allergies Allergy/AdvReac Type Severity Reaction Status Date / Time celecoxib AdvReac Unknown Verified 05/07/21 09:10 erythromycin base AdvReac Unknown Verified 05/07/21 09:10 hydrocodone AdvReac Unknown Verified 05/07/21 09:10 levofloxacin [From Levaquin] AdvReac Unknown Verified 05/07/21 09:10 meloxicam AdvReac Unknown Verified 05/07/21 09:10 rivaroxaban [From Xarelto] AdvReac Unknown Verified 05/07/21 09:10 triamterene AdvReac Unknown Verified 05/07/21 09:10 statin AdvReac Unknown Uncoded 05/07/21 09:10 Home Medications Medication Instructions Recorded Confirmed Type multivitamin 1 tablet PO DAILY 03/02/20 05/07/21 History cholecalciferol (vitamin D3) 50 50 mcg PO DAILY 09/21/20 05/07/21 History mcg (2,000 unit) capsule carboxymethylcellulose sodium 1 drp OPHTHALMIC (EYE) PRN PRN 09/25/20 05/07/21 History apixaban 2.5 mg tablet 2.5 mg PO BID #180 tablet 01/27/21 05/07/21 Rx dicyclomine 20 mg tablet 20 mg PO DAILY #30 tablet 04/02/21 05/07/21 Rx ezetimibe 10 mg tablet 10 mg PO QPM #90 tablet 05/03/21 05/07/21 Rx verapamil 120 mg 24 hr 120 mg PO QPM #60 cap 05/03/21 05/07/21 Rx capsule,extended release Patient hx anesthesia problems: none Family hx anesthesia problems: none PMFSH Past Medical History Medical History Cancer of left breast Status post chemotherapy, radiation, and mastectomy. 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 Deep venous thrombosis In 1997 and 2019. DVT of lower limb, acute Epigastric pain Gastritis On EGD in December 2019. Hyperlipidemia Hypertension Osteoarthritis Osteoporosis Ventral hernia Surgical History Surgical History History of cardiac catheterization History of cataract extraction History of cholecystectomy History of hysterectomy History of left mastectomy Family History Family History Sibling Diabetes mellitus Heart disease Heart problem Sibling Heart problem Prostate carcinoma Sibling Heart problem Sibling Heart problem Sibling Breast cancer Social History Social History Social History: Surrogate decision maker: Tim Mitchell nephew. Code status: Full code. Smoking packs per day: 0.5 Smoking cigarettes per day: 10.0 Years smoked: 6 Smoking pack-years: 3.00 Smoking status: Former smoker Tobacco type: cigarettes Smoking end date: 11/13/1963 Alcohol intake: never Substance use: never Substance use type: does not use Living arrangements: alone Additional living arrangements comments: Lives in [place]. . Additional occupation/education comments: Retired. Gender identity (if verbalized by the patient): Female Spiritual care concerns: No Anes - Eval Final PreProcedure Day of Procedure 05/07/21 08:22 Patient weight: normal Heart: regular rate and rhythm Lungs: clear to auscultation and normal air movement Airway: Mallampati scale class II Neurological: alert and oriented Last oral intake: >/= 8 hours ASA classification: III Emergent: no Anesthetic plan: proceed Anesthesia type and monitoring: general GIVS Informed Consent: The patient's anesthetic plan and its attendant risks and benefits were discussed with the patient/family/POA. Questions were solicited and answers provided to the satisfaction of the patient/family/POA.
[2021-05-07 09:13] VITALS: BP 160/57; PULSE 64; RESP 64; TEMP 36.4; O2SAT 100; BMI 22.8
[2021-05-07] MEDS: LACTATED RINGERS 1,000 ML 150 ML IV CONT (09:26)
--- NOTE | 2021-05-07 09:51 | WPDGICN ---
Assessment and Plan Assessment and plan (1) History of colon polyps: Code(s): Z86.010 - Personal history of colonic polyps Status: Acute Assessment and Plan: Patient has a history of colon polyps. Because of recent cramping as well as the history of polyps colonoscopy will be arranged. High-fiber diet is advised in the interim period (2) Current use of skilled nursing anticoagulation: Code(s): Z79.01 - emt intermediate (current) use of anticoagulants Status: Acute Assessment and Plan: patient on Xarelto because a history of DVT. This will be held briefly during interval of colonoscopy. GI Consult Note Consult date/time: 05/07/21 09:51 HPI: Park Schaefer is a 85 year old female Presents for colonoscopy. She is a poor historian. Patient reports a history of abdominal cramping. patient states that this has improved over recent weeks. She reports in 2009 had a colonoscopy by Dr. Ling and colon polyps were identified. She recently was seen in the office by nurse practitioner. Because of patient's concern of her cancer colonoscopy was arranged for screening purposes. Patient denies any recent bleeding. Apparently has had no recent weight loss. She is on Xaralto because of a history of a DVT. This will be held for procedure. Review of Systems Review of Systems: All systems reviewed & are unremarkable except as noted in HPI and below PMFSH Past Medical History Medical History Cancer of left breast Status post chemotherapy, radiation, and mastectomy. Colon polyps Current use of director long term care anticoagulation for history of DVT. Deep venous thrombosis In 1997 and 2019. DVT of lower limb, acute Epigastric pain Gastritis On EGD in December 2019. Hyperlipidemia Hypertension Osteoarthritis Osteoporosis Ventral hernia Surgical History Surgical History History of cardiac catheterization History of cataract extraction History of cholecystectomy History of hysterectomy History of left mastectomy Family History Family History Sibling Diabetes mellitus Heart disease Heart problem Sibling Heart problem Prostate carcinoma Sibling Heart problem Sibling Heart problem Sibling Breast cancer Social History Social History Social History: Surrogate decision maker: Tim Mitchell, nephew. Code status: Full code. Smoking packs per day: 0.5 Smoking cigarettes per day: 10.0 Years smoked: 6 Smoking pack-years: 3.00 Smoking status: Former smoker Tobacco type: cigarettes Smoking end date: 11/13/1963 Alcohol intake: never Substance use: never Substance use type: does not use Living arrangements: alone Additional living arrangements comments: Lives in [place]. . Additional occupation/education comments: Retired. Gender identity (if verbalized by the patient): Female Spiritual care concerns: No Meds Home Medications and Allergies Home Medications Medication Instructions Recorded Confirmed Type multivitamin 1 tablet PO DAILY 03/02/20 05/07/21 History cholecalciferol (vitamin D3) 50 50 mcg PO DAILY 09/21/20 05/07/21 History mcg (2,000 unit) capsule carboxymethylcellulose sodium 1 drp OPHTHALMIC (EYE) PRN PRN 09/25/20 05/07/21 History apixaban 2.5 mg tablet 2.5 mg PO BID #180 tablet 01/27/21 05/07/21 Rx dicyclomine 20 mg tablet 20 mg PO DAILY #30 tablet 04/02/21 05/07/21 Rx ezetimibe 10 mg tablet 10 mg PO QPM #90 tablet 05/03/21 05/07/21 Rx verapamil 120 mg 24 hr 120 mg PO QPM #60 cap 05/03/21 05/07/21 Rx capsule,extended release Allergies Allergy/AdvReac Type Severity Reaction Status Date / Time celecoxib AdvReac Unknown Verified 05/07/21 09:10 erythromycin base AdvReac Unknown Verified
[2021-05-07 10:57] VITALS: BP 101/32; PULSE 59; RESP 15; O2SAT 98
[2021-05-07 11:07] VITALS: BP 108/39; PULSE 61; RESP 21; O2SAT 100
[2021-05-07 11:17] VITALS: BP 133/43; PULSE 59; RESP 21; O2SAT 100
== END 2021-05-07 11:27 | disposition home or self-care (01) ==
PROVIDERS: PCP Family Medicine; Visit Provider Internal Medicine Gastroenterology
PROC: 0DJD8ZZ Inspection of Lower Intestinal Tract, Via Natural or Artificial Opening Endoscopic (ICD-10-PCS; CPT 45378; principal; 2021-05-07 10:00)
DX: K59.00 Constipation, unspecified (principal); K64.8 Other hemorrhoids; Z86.010 Personal history of colon polyps; Z79.01 Long term (current) use of anticoagulants; Z86.718 Personal history of other venous thrombosis and embolism; E78.5 Hyperlipidemia, unspecified; I10 Essential (primary) hypertension; M81.0 Age-related osteoporosis without current pathological fracture; K43.9 Ventral hernia without obstruction or gangrene; Z87.891 Personal history of nicotine dependence
CPT/HCPCS: 45378; J2704; J7120

== ENCOUNTER 2021-06-22 10:47 | Outpatient (CLI) | payer MEDICARE, BC, SELFPAY ==
--- NOTE | ~2021-06-22 | XR_ITS ---
EXAMINATION: XR lumbar spine 2-3V DATE: 06/22/2021 11:08 INDICATION: Low back pain TECHNIQUE: Anteroposterior and lateral views of the lumbar spine, and cone-down lateral view of the l umbosacral junction were obtained. COMPARISON: 08/23/2016 FINDINGS: Bone alignment is normal. There is no fracture. There is unchanged severe loss of intervert ebral disc space height at L4-5 and moderate loss of intervertebral disc space height at L3-4 and L5- S1. Small degenerative osteophytes project from the anterior endplates of multiple vertebral bodies. Moderate facet osteoarthritis is noted in the lower lumbar spine. Calcified atherosclerosis is noted. There are surgical clips in the right upper quadrant and left pelvis. The bowel gas pattern is tony l. IMPRESSION: 1. Moderate to severe lumbar spondylosis without acute findings or significant interval change. Reviewed, dictated and finalized at location B.
== END 2021-06-22 10:48 | disposition home or self-care (01) ==
PROVIDERS: PCP Family Medicine; Visit Provider Nurse Practitioner Family
DX: M54.5 Low back pain (principal)
CPT/HCPCS: 72100

== ENCOUNTER 2021-06-25 09:38 | Outpatient (RCR) | payer MEDICARE, BC, SELFPAY ==
--- NOTE | 2021-06-25 11:40 | PTOPEVAL ---
Thank you for referring Park Schaefer to [facility].? The patient is scheduled to be seen for therapy? ____x/week for ___ weeks. Please review, sign, date and return this plan of care CARITO. I agree with and certify that the following plan of care is medically necessary. Referring Physician Date Admitting Provider: Attending Provider: Stacey Ritchie NP Referring Provider: *ALESSANDRA Outpatient Evaluation Start: 06/25/21 09:48 Freq: Status: Active Protocol: Document 06/25/21 09:48 ACR (Rec: 06/25/21 11:34 ACR [id number]) Therapy Assessment Status Assessment Status Assessment Status Evaluation Outpatient Past Medical History Neurological History Hx Neurological Disorders No Significant History Cardiovascular History Hx Cardiac Catheterization Yes Hx Chest Pain Yes Hx Deep Vein Thrombosis Yes: ELIQUIS Hx Hypercholesterolemia Yes Hx Hypertension Yes Respiratory History Hx Respiratory Disorders No Significant History Gastrointestinal History Hx Cholecystectomy Yes Hx Gastroesophageal Reflux Disease Yes Hx Polyps Yes Genitourinary History Hx Genitourinary Disorders No Significant History Musculoskeletal History Hx Arthritis Yes Hematological History Hx Blood Transfusions Yes: WITH BREAST CANCER/ MASTECTOMY Endocrine History Hx Endocrine Disorders No Significant History HEENT History Hx Cataracts Yes Hx Sinus Problems Yes Integumentary History Hx Other Skin Disorders Yes: vitiligo Reproductive History Hx Hysterectomy Yes Hx Mastectomy Yes: LEFT 1998 Hx Post Menopausal Yes Psychosocial History Hx Psychiatric Disorders No Significant History Pain History History of Any Previous or Ongoing No Significant History Instance of Pain Anesthesia History Hx Anesthesia Reactions No Significant History Other History Hx Cancer Yes: breast cancer Hx Chemotherapy Yes: 1998 Hx Radiation Therapy Yes: 1998 Evaluation Information Problem Diagnosis spondylosis of back Onset 06/02/21 Subjective Information Patient states that she hurts Query Text:As Reported By Patient/ all over and is unsure why. Family She states she woke up one day and was just achy all over. She states that her neck and into her shoulders bother her. She states that her low back is in extreme pain, but if she
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
== END 2021-07-08 09:30 | disposition home or self-care (01) ==
LOC: CHSPT 09:38
PROVIDERS: PCP Family Medicine; Visit Provider Nurse Practitioner Family
DX: M47.816 Spondylosis without myelopathy or radiculopathy, lumbar region (principal)
CPT/HCPCS: 97014; 97110; 97161; 97530; G0283

== ENCOUNTER 2021-06-30 11:21 | Emergency (ER) | payer OTHER, MEDICARE, BC, SELFPAY ==
[2021-06-30] VITALS (19 sets, daily range): BP systolic 151–171; BP diastolic 0–70; PULSE 66–76; RESP 14–20; TEMP 36.8–37; O2SAT 98–100
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
--- NOTE | 2021-06-30 11:44 | ECG_ITS ---
Measurements Intervals [place] Rate: 75 P: 21 MI: 191 QRS: -28 QRSD: 104 T: 76 QT: 378 QTc: 423 Interpretive Statements SINUS RHYTHM POSSIBLE LEFT ATRIAL ENLARGEMENT LEFT VENTRICULAR HYPERTROPHY AND ST-T CHANGE CANNOT RULE OUT SEPTAL INFARCT, AGE INDETERMINATE BORDERLINE ST-T WAVE ABNORMALITY- LATERAL LEADS BASELINE ARTIFACT- III ABNORMAL ECG Electronically Signed On 06-30-2021 11:54:14 CDT by Rod Terrell D.O.
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
[2021-06-30 12:39] LABS: Basophils Absolute Auto 0.1 K/mm3 (0.0-0.1); Basophils Percent Auto 0.7 % (0.2-1.2); Eosinophils Absolute Auto 0.1 K/mm3 (0-0.3); Eosinophils Percent Auto 1.5 % (0-4.4); Hematocrit 37.4 % (37.0-47.0); Hemoglobin 12.4 g/dL (12.0-15.0); Immature Granulocyte Absolute 0.04 K/mm3 (0.00-0.031); Immature Granulocyte Percent A 0.6 % (0-0.5); Lymphocytes Absolute Auto 0.66 K/mm3 (0.9-3.2); Lymphocytes Percent Auto 9.7 % (18.3-44.2); Mean Corpuscular HGB Conc 33.2 g/dl (32-36); Mean Corpuscular Hemoglobin 30.5 pg (26-34); Mean Corpuscular Volume 91.9 fl (80-100); Mean Platelet Volume 9.2 fl (7.4-10.4); Monocytes Absolute Auto 0.4 K/mm3 (0.1-0.6); Monocytes Percent Auto 5.9 % (2.6-8.5); Neutrophils Absolute Auto 5.5 K/mm3 (1.3-6.7); Neutrophils Percent Auto 81.6 % (45.5-73.1); Platelet Count Result 202 k/mm3 (150-375); Red Blood Count 4.07 M/mm3 (4.2-5.4); Red Cell Distribution Width 13.2 % (11.5-14.5); White Blood Count 6.8 K/mm3 (4.5-10.0)
[2021-06-30 12:52] LABS: Alanine Aminotransferase 23 U/L (4-35); Albumin Level 4.3 g/dL (3.5-5.1); Alkaline Phosphatase 71 U/L (38-126); Anion Gap 7 mmol/L (8-16); Aspartate Amino Transferase 43 U/L (14-36); Bilirubin,Total 0.8 mg/dL (0.2-1.3); Blood Urea Nitrogen 11 mg/dL (7-17); Calcium 9.4 mg/dL (8.4-10.2); Carbon Dioxide 28 mmol/L (22-30); Chloride 94 mmol/L (98-107); Estimated CRCL calculation 42 ml/min; Estimated Glomerular Filt Rate > 60; Glucose 114 mg/dL (65-110); Sodium 129 mmol/L (137-145)
[2021-06-30 12:59] LABS: Partial Thromboplastin Time 29.2 SECONDS (22.3-36.8)
[2021-06-30 13:03] LABS: Troponin I < 0.012 ng/mL (0.000-0.034)
[2021-06-30 17:47] LABS: Troponin I < 0.012 ng/mL (0.000-0.034)
== END 2021-06-30 18:25 | disposition home or self-care (01) ==
PROVIDERS: Emergency Provider Emergency Medicine; PCP Nurse Practitioner Family
DX: S20.219A Contusion of unspecified front wall of thorax, initial encounter (principal); E87.1 Hypo-osmolality and hyponatremia; Z86.718 Personal history of other venous thrombosis and embolism; E78.5 Hyperlipidemia, unspecified; I10 Essential (primary) hypertension; M19.90 Unspecified osteoarthritis, unspecified site; M81.0 Age-related osteoporosis without current pathological fracture; Z85.3 Personal history of malignant neoplasm of breast; Z92.3 Personal history of irradiation; Z92.21 Personal history of antineoplastic chemotherapy; Z90.12 Acquired absence of left breast and nipple; V49.40XA Driver injured in collision with unspecified motor vehicles in traffic accident, initial encounter; Z98.49 Cataract extraction status, unspecified eye; Z87.891 Personal history of nicotine dependence; R94.31 Abnormal electrocardiogram [ECG] [EKG]
CPT/HCPCS: 36415; 70450; 71260; 72125; 74177; 80053; 84484; 85025; 85610; 85730; 93005; 99284; Q9967

== ENCOUNTER 2021-08-17 08:58 | Outpatient (CLI) | payer MEDICARE, SELFPAY ==
[2021-08-17 09:59] LABS: Cholesterol 178 mg/dL (0-200); HDL Direct 45 mg/dL (40-60); LDL Cholesterol Calculated 101 mg/dL (<130); Triglycerides 159 mg/dL (0-150)
== END 2021-08-17 08:59 | disposition home or self-care (01) ==
LOC: CHSLAB 09:00
PROVIDERS: PCP Nurse Practitioner Family; Visit Provider Nurse Practitioner Family
DX: E78.5 Hyperlipidemia, unspecified (principal)
CPT/HCPCS: 36415; 80061

== ENCOUNTER 2021-09-06 13:22 | Outpatient (NON) | payer MEDICARE, SELFPAY ==
[2021-09-06 14:04] LABS: Alanine Aminotransferase 27 U/L (14-59); Albumin Level 3.7 g/dL (3.4-5.0); Alkaline Phosphatase 91 U/L (46-116); Anion Gap 8 mmol/L (8-16); Aspartate Amino Transferase 22 U/L (15-37); Blood Urea Nitrogen 12 mg/dL (7-18); Calcium 9.1 mg/dL (8.5-10.1); Carbon Dioxide 31 mmol/L (21-32); Chloride 100 mmol/L (98-108); Estimated Glomerular Filt Rate > 60; Glucose 97 mg/dL (70-99); Osmolality Calculated 287 mOsm/kg (285-295); Potassium 4.3 mmol/L (3.5-5.1); Sodium 139 mmol/L (136-145); Total Protein 7.2 g/dL (6.4-8.2)
== END 2021-09-06 13:23 | disposition home or self-care (01) ==
LOC: CHSLAB 13:23
PROVIDERS: Visit Provider Nurse Practitioner Family
DX: E87.1 Hypo-osmolality and hyponatremia (principal)
CPT/HCPCS: 36415; 80053

== ENCOUNTER 2021-11-29 12:37 | Outpatient (CLI) | payer MEDICARE, BC, SELFPAY ==
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
== END 2021-11-29 12:38 | disposition home or self-care (01) ==
LOC: CHSIMG 12:38
PROVIDERS: PCP Nurse Practitioner Family; Visit Provider Nurse Practitioner Family
DX: R51.9 Headache, unspecified (principal); G89.29 Other chronic pain
CPT/HCPCS: 70450

== ENCOUNTER 2022-01-01 08:03 | Outpatient (CLI) | payer MEDICARE, BC, SELFPAY ==
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
== END 2022-01-01 08:04 | disposition home or self-care (01) ==
LOC: CHSIMG 08:04
PROVIDERS: PCP Family Medicine; Visit Provider Family Medicine
DX: R51.9 Headache, unspecified (principal); G89.29 Other chronic pain
CPT/HCPCS: 70551

== ENCOUNTER 2022-05-04 13:53 | Outpatient (CLI) | payer MEDICARE, BC, SELFPAY ==
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
== END 2022-05-04 13:54 | disposition home or self-care (01) ==
LOC: CHSIMG 13:56
PROVIDERS: PCP Family Medicine; Visit Provider Nurse Practitioner Family
DX: R60.0 Localized edema (principal)
CPT/HCPCS: 93971

== ENCOUNTER 2022-05-06 12:27 | Outpatient (CLI) | payer MEDICARE, BC, SELFPAY ==
--- NOTE | ~2022-05-06 | DEXA_ITS ---
Bone Density Report Name: MAHENDRA ACEVEDO Age: 86 Sex: Female Ethnicity: White Date of : 1935 Indication: postmenopausal; screening for osteoporosis; height loss; cancer; Referring Provider: Stacey Ritchie Study: Bone densitometry was performed. Exam Date: May 06, 2022 Accession number: [id number] Bone Density: Region BMD T-score Z-score Classification AP Spine(L1, L2, L3) 0.820 -1.8 1.0 Osteopenia Femoral Neck (Left) 0.569 -2.5 0.0 Osteoporosis Total Hip (Left) 0.616 -2.7 -0.3 Osteoporosis Femoral Neck (Right) 0.592 -2.3 0.2 Osteopenia Total Hip (Right) 0.664 -2.3 0.1 Osteopenia Femoral Neck Mean 0.580 -2.4 0.1 Osteopenia Total Hip Mean 0.640 -2.5 -0.1 Osteoporosis World Health Organization criteria for BMD impression classify patients as: Normal (T-score at or above -1.0), Osteopenia (T-score between -1.0 and -2.5), or Osteoporosis (T-score at or below -2.5). 10-year Fracture Risk: FRAX not reported because: Some T-score for Spine Total or Hip Total or Femoral Neck at or below -2.5 Clinical Information Provided by Patient: Has used the following medications: Vitamin D, Calcium Has the following medical conditions: Cancer Patient maximum height was 63 Menopause Age: 50 No regular weight bearing exercise Does not regularly consume dairy products Drinks caffeinated beverages Onset of menses at age 12 Number of children 1 Impression: The patient has osteoporosis, based on the Left Total Hip T-score. Discussion: INCREASED RISK OF FRACTURE. BONE DENSITY IS UNDESIRABLY LOW AT ONE OR MORE SKELETAL SITES, CONSISTENT WITH POSTMENOPAUSAL OSTEOPOROSIS. This patient's lowest T-score meets the World Health Organization's (WHO) criteria for osteoporosis at one or more sites (T-score -2.5 or below). In untreated patients, the risk of osteoporotic fracture increases approximately two-fold for each 1.0 SD decrease in T-score. Low bone density is not the only risk factor for fracture; also consider factors such as patient's age, frailty or poor health, risk of falling, risk of injury, previous osteoporotic fracture, family history of osteoporosis, cigarette smoking, low body weight, etc. Not everyone with low bone mineral density has osteoporosis; osteomalacia and other metabolic bone disorders should also be considered. Patients who have osteoporosis should be evaluated for specific diseases and conditions (secondary causes) that may cause or contribute to bone loss. The [place] [employer]ocrinologists (AACE) and National Osteoporosis Foundation (NOF) recommend pharmacologic intervention for all postmenopausal women whose T-score is in this range. The patient should follow a healthful lifestyle (good nutrition with adequate calcium and vitamin D, and appropri
== END 2022-05-06 12:28 | disposition home or self-care (01) ==
LOC: CHSIMG 12:28
PROVIDERS: PCP Family Medicine; Visit Provider Nurse Practitioner Family
DX: M81.0 Age-related osteoporosis without current pathological fracture (principal)
CPT/HCPCS: 77080

== ENCOUNTER 2022-10-05 10:58 | Outpatient (CLI) | payer MEDICARE, SELFPAY ==
[2022-10-05 11:15] LABS: Hematocrit 33.2 % (35.0-42.0); Hemoglobin 11.2 g/dL (11.7-13.8); Mean Corpuscular HGB Conc 33.7 g/dL (32.0-36.0); Mean Corpuscular Hemoglobin 31.5 pg (27.0-31.0); Mean Corpuscular Volume 93.5 fL (78.0-102.0); Mean Platelet Volume 8.9 fl (9.2-11.8); Platelet Count Result 244 K/mm3 (150-420); Red Blood Count 3.55 M/mm3 (4.20-5.40); Red Cell Distribution Width 13.6 % (11.6-14.4); White Blood Count 6.1 K/mm3 (4.8-10.8)
[2022-10-05 12:48] LABS: Alanine Aminotransferase 19 U/L (14-59); Albumin Level 3.6 g/dL (3.4-5.0); Alkaline Phosphatase 78 U/L (46-116); Anion Gap 7 mmol/L (8-16); Aspartate Amino Transferase 25 U/L (15-37); Bilirubin,Total 0.9 mg/dL (0.00-1.00); Blood Urea Nitrogen 9 mg/dL (7-18); Carbon Dioxide 29 mmol/L (21-32); Chloride 100 mmol/L (98-108); Estimated Glomerular Filt Rate > 60; Glucose 97 mg/dL (70-99); Osmolality Calculated 280 mOsm/kg (285-295); Potassium 4.2 mmol/L (3.5-5.1); Sodium 136 mmol/L (136-145); Total Protein 7.3 g/dL (6.4-8.2); Vitamin B12 571 pg/mL (193-986)
[2022-10-05 12:49] LABS: Folic Acid > 20.0 ng/mL (8.6->20); Thyroid Stimulating Hormone Reflex 2.33 u/IU/mL (0.36-3.74)
== END 2022-10-05 10:59 | disposition home or self-care (01) ==
LOC: CHSLAB 11:00
PROVIDERS: PCP Family Medicine; Visit Provider Family Medicine
DX: R53.83 Other fatigue (principal); E11.9 Type 2 diabetes mellitus without complications; E53.8 Deficiency of other specified B group vitamins
CPT/HCPCS: 36415; 80053; 82607; 82746; 84443; 85027

== ENCOUNTER 2023-06-27 11:32 | Emergency (ER) | payer MEDICARE, BC, SELFPAY ==
[2023-06-27 11:32] VITALS: BP 174/72; PULSE 84; RESP 18; TEMP 36.5; O2SAT 99
--- NOTE | 2023-06-27 11:38 | ED.GENADULT ---
HPI - General Adult General Chief complaint: Unspecified Stated complaint: weakness; spit up blood Time Seen by Provider: 06/27/23 11:36 Source: patient and RN notes reviewed Mode of arrival: ambulatory Limitations: no limitations History of Present Illness HPI narrative: patient states she was brushing her teeth this morning and then she spit out some blood. She rinsed her mouth and spit up more blood again. She is on Eliquis. She has been feeling weak and dizzy as well. She is post to see her doctor tomorrow. She says she has not had any blood work in a while. MD complaint: Spit blood after brushing teeth Onset (ago): hour(s) (1) Location: mouth Radiation: non-radiation Relieving factors: rest Exacerbating factors: other ( brushing teeth) Associated symptoms: denies other symptoms Treatments prior to arrival: none Related Data Home Medications Medication Instructions Recorded Confirmed multivitamin 1 tablet PO DAILY 03/02/20 06/27/23 cholecalciferol (vitamin D3) 50 50 mcg PO DAILY 09/21/20 06/27/23 mcg (2,000 unit) capsule carboxymethylcellulose sodium 1 % 1 drp ophthalmic (eye) PRN PRN Dry 09/25/20 06/27/23 eye liquid gel drops Eye(S) magnesium 250 mg tablet 250 mg PO DAILY 05/03/23 06/27/23 vit C 250 mg-vit E 90 mg-zinc 40 1 tablet PO DAILY 05/03/23 06/27/23 mg-copper 1 [id number] capsule (PreserVision AREDS-2) Allergies Allergy/AdvReac Type Severity Reaction Status Date / Time celecoxib AdvReac Unknown Verified 06/27/23 11:46 erythromycin base AdvReac Unknown Verified 06/27/23 11:46 hydrocodone AdvReac Unknown Verified 06/27/23 11:46 levofloxacin [From Levaquin] AdvReac Unknown Verified 06/27/23 11:46 meloxicam AdvReac Unknown Verified 06/27/23 11:46 rivaroxaban [From Xarelto] AdvReac Unknown Verified 06/27/23 11:46 triamterene AdvReac Unknown Verified 06/27/23 11:46 statin AdvReac Unknown Uncoded 06/27/23 11:46 Review of Systems Review of Systems: All systems reviewed & are unremarkable except as noted in HPI and below PMFSH Past Medical History Medical History Abdominal pain Acute upper respiratory infection, unspecified Bakers cyst Cancer of left breast Status post chemotherapy, radiation, and mastectomy. 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 Deep venous thrombosis In 1997 and 2019. DVT of lower limb, acute Epigastric pain Gastritis On EGD in December 2019. History of colon polyps Hyperlipidemia Hypertension Hyponatremia Left knee DJD Lumbar spondylosis Newly recognized murmur Osteoarthritis Osteoarthritis of right knee Osteoporosis Osteoporosis Sinus pressure Ventral hernia Weakness Surgical History Surgical History H/O cataract extraction History of cardiac catheterization History of cataract extraction History of cholecystectomy History of hysterectomy History of left mastectomy Family History Family History Sibling Diabetes mellitus Heart disease Heart problem Sibling Heart problem Prostate carcinoma Sibling Heart problem Sibling Heart problem Sibling Breast cancer Social History Social History Social History: POLST completed on 05/03/23 Smoking packs per day: 0.5 Smoking cigarettes per day: 10.0 Years smoked: 6 Smoking pack-years: 3.00 Smoking status: Former smoker Tobacco type: cigarettes Smoking end date: 11/13/1963 Alcohol intake: never Substance use: never Substance use type: does not use Lack of Transportation: YES Lack of Food: Sometimes True Current Housing: I Have Housing Concerned About Future Housing: No Difficulty Paying Gas/Electric Bills: No Difficulty Paying for Meds: No Currently Unemployed: No Edu
[2023-06-27 11:48] VITALS: BP 174/72; PULSE 84; RESP 18; TEMP 36.5; O2SAT 99
[2023-06-27 12:00] VITALS: BP 147/58; PULSE 71; RESP 16; O2SAT 99
[2023-06-27 12:06] LABS: Basophils Absolute Auto 0.05 K/mm3 (0.00-0.10); Basophils Percent Auto 0.9 % (0.0-1.0); Eosinophils Absolute Auto 0.21 K/mm3 (0.02-0.50); Eosinophils Percent Auto 3.9 % (1.0-6.0); Hematocrit 35.8 % (35.0-42.0); Hemoglobin 11.8 g/dL (11.7-13.8); Immature Granulocyte Absolute 0.01 K/mm3 (0.00-0.00); Immature Granulocyte Percent A 0.2 % (0.0-0.0); Lymphocytes Absolute Auto 1.28 K/mm3 (1.10-4.50); Lymphocytes Percent Auto 23.5 % (18.0-42.0); Mean Corpuscular Hemoglobin 30.3 pg (27.0-31.0); Mean Platelet Volume 9.6 fl (9.2-11.8); Monocytes Absolute Auto 0.28 K/mm3 (0.10-0.90); Monocytes Percent Auto 5.1 % (2.0-11.0); Neutrophils Absolute Auto 3.6 K/mm3 (1.7-7.2); Neutrophils Percent Auto 66.4 % (50.0-70.0); Platelet Count Result 252 K/mm3 (150-420); Red Blood Count 3.89 M/mm3 (4.20-5.40); Red Cell Distribution Width 13.3 % (11.6-14.4); White Blood Count 5.5 K/mm3 (4.8-10.8)
[2023-06-27 12:30] VITALS: BP 150/61; PULSE 70; RESP 17; O2SAT 99
[2023-06-27 12:40] LABS: Alanine Aminotransferase 13 U/L (14-59); Albumin Level 3.3 g/dL (3.4-5.0); Alkaline Phosphatase 102 U/L (46-116); Anion Gap 6 mmol/L (8-16); Aspartate Amino Transferase 22 U/L (15-37); Bilirubin,Total 0.5 mg/dL (0.00-1.00); Blood Urea Nitrogen 9 mg/dL (7-18); Calcium 8.9 mg/dL (8.5-10.1); Carbon Dioxide 30 mmol/L (21-32); Chloride 100 mmol/L (98-108); Estimated Glomerular Filt Rate > 60; Glucose 155 mg/dL (70-99); Osmolality Calculated 283 mOsm/kg (285-295); Sodium 136 mmol/L (136-145); Total Protein 7.9 g/dL (6.4-8.2)
[2023-06-27 13:02] VITALS: BP 153/58; PULSE 73; RESP 17; TEMP 36.6; O2SAT 99
== END 2023-06-27 13:02 | disposition home or self-care (01) ==
PROVIDERS: Emergency Provider Emergency Medicine; PCP Family Medicine
DX: K06.8 Other specified disorders of gingiva and edentulous alveolar ridge (principal); E78.5 Hyperlipidemia, unspecified; I10 Essential (primary) hypertension; Z79.01 Long term (current) use of anticoagulants; Z85.3 Personal history of malignant neoplasm of breast; Z86.718 Personal history of other venous thrombosis and embolism; Z87.891 Personal history of nicotine dependence
CPT/HCPCS: 36415; 80053; 83735; 85025; 99283

== ENCOUNTER 2023-07-07 09:34 | Outpatient (CLI) | payer MEDICARE, BC, SELFPAY ==
--- NOTE | ~2023-07-07 | US_ITS ---
EXAMINATION: US_ABSCYSTIMG_US DATE: 07/07/2023 11:04 INDICATION: Left Agosto's cyst. TECHNIQUE: The procedure including the risks, benefits, and alternatives was discussed with the patie nt. Risks discussed included bleeding and infection. The patient understood the risks and agreed to p roceed. The skin of the posterior knee was prepped and draped in usual sterile fashion. Anesthetic w as administered with 1% lidocaine subcutaneously. An 18 gauge needle was inserted into the Agosto's c yst under ultrasound guidance, and fluid was aspirated. The entry site was cleaned and dressed. Ther e were no immediate complications. FINDINGS: Ultrasound images demonstrate the needle in left Agosto's cyst. IMPRESSION: 1. Ultrasound-guided needle aspiration of a left-sided Agosto's cyst yielding 3 mL yellow fluid. Reviewed, dictated and finalized at location A.
== END 2023-07-07 09:35 | disposition home or self-care (01) ==
LOC: ANHIMG 09:37
PROVIDERS: PCP Family Medicine; Visit Provider Orthopaedic Surgery
DX: M71.22 Synovial cyst of popliteal space [Baker], left knee (principal); M67.89 Other specified disorders of synovium and tendon, multiple sites; M71.39 Other bursal cyst, multiple sites; M67.49 Ganglion, multiple sites
CPT/HCPCS: 10160; 76942

== ENCOUNTER 2023-07-27 14:27 | Outpatient (CLI) | payer MEDICARE, SELFPAY ==
[2023-07-27 14:44] LABS: Basophils Absolute Auto 0.06 K/mm3 (0.00-0.10); Eosinophils Absolute Auto 0.26 K/mm3 (0.02-0.50); Eosinophils Percent Auto 4.2 % (1.0-6.0); Hematocrit 34.5 % (35.0-42.0); Hemoglobin 11.4 g/dL (11.7-13.8); Immature Granulocyte Absolute 0.02 K/mm3 (0.00-0.00); Immature Granulocyte Percent A 0.3 % (0.0-0.0); Lymphocytes Absolute Auto 1.77 K/mm3 (1.10-4.50); Lymphocytes Percent Auto 28.7 % (18.0-42.0); Mean Corpuscular Hemoglobin 29.9 pg (27.0-31.0); Mean Corpuscular Volume 90.6 fL (78.0-102.0); Mean Platelet Volume 9.4 fl (9.2-11.8); Monocytes Absolute Auto 0.48 K/mm3 (0.10-0.90); Monocytes Percent Auto 7.8 % (2.0-11.0); Neutrophils Absolute Auto 3.6 K/mm3 (1.7-7.2); Platelet Count Result 272 K/mm3 (150-420); Red Blood Count 3.81 M/mm3 (4.20-5.40); Red Cell Distribution Width 13.6 % (11.6-14.4); White Blood Count 6.2 K/mm3 (4.8-10.8)
[2023-07-27 16:11] LABS: Alanine Aminotransferase 18 U/L (14-59); Albumin Level 3.5 g/dL (3.4-5.0); Alkaline Phosphatase 95 U/L (46-116); Anion Gap 5 mmol/L (8-16); Aspartate Amino Transferase 28 U/L (15-37); Bilirubin,Total 0.6 mg/dL (0.00-1.00); Blood Urea Nitrogen 12 mg/dL (7-18); Calcium 9.5 mg/dL (8.5-10.1); Carbon Dioxide 30 mmol/L (21-32); Chloride 100 mmol/L (98-108); Estimated Glomerular Filt Rate > 60; Glucose 80 mg/dL (70-99); Lipase 24 U/L (16-77); Osmolality Calculated 278 mOsm/kg (285-295); Potassium 4.5 mmol/L (3.5-5.1); Sodium 135 mmol/L (136-145); Total Protein 7.8 g/dL (6.4-8.2)
[2023-07-27 16:12] LABS: CRP < 0.5 mg/dL (0.0-0.9)
== END 2023-07-27 14:28 | disposition home or self-care (01) ==
LOC: CHSLAB 14:29
PROVIDERS: PCP Family Medicine; Visit Provider Family Medicine
DX: R10.13 Epigastric pain (principal)
CPT/HCPCS: 36415; 80053; 83690; 85025; 86140

== ENCOUNTER 2023-08-08 14:49 | Emergency (ER) | payer MEDICARE, BC, SELFPAY ==
--- NOTE | ~2023-08-08 | CT_ITS ---
EXAMINATION: CT brain wo con DATE: 08/08/2023 15:34 INDICATION: Anticoagulated patient with 2 weeks of headache. TECHNIQUE: Computed tomography (CT) of the head was performed without intravenous contrast. Sagittal and coronal reconstructions were performed. The mA was adjusted according to patient size. Iterative reconstruction technique was employed. The dose-length product was 605.33 mGy-cm. COMPARISON: head CT dated 11/29/2021 and brain MR dated 01/01/2022 FINDINGS: No acute intracranial hemorrhage, acute infarction or abnormal extra axial fluid collection. Symmetri c prominence of the sulci and subarachnoid spaces overlying the convexities consistent with mild to m oderate age-appropriate diffuse cerebral volume loss. Ventricles are normal and symmetric. No mass/m ass effect. Changes of bilateral intraocular lens replacement. Persistent trace bilateral mastoid eff usions. Mucosal thickening and opacification of multiple air cells and the bilateral ethmoid sinuses as well as at the right frontoethmoidal recess. Intracranial calcified cerebral atherosclerosis is no brenda. IMPRESSION: 1. No acute intracranial process. 2. Sinus disease. Reviewed, dictated and finalized at location A.
[2023-08-08 14:49] VITALS: BP 162/73; PULSE 79; RESP 14; TEMP 36.8; O2SAT 100
--- NOTE | 2023-08-08 14:59 | ED.HA ---
HPI - Headache General Chief Complaint: Headache Stated Complaint: Headache x 2 wks and abdominal pain Time Seen by Provider: 08/08/23 14:59 Source: patient Mode of arrival: ambulatory History of Present Illness HPI Narrative: 87-year-old female with a history of left breast cancer, recurrent DVT in 1997 and 2019, Dyslipidemia, hypertension,recurrent headaches, epigastric pain/ gastric reflux for which she had an endoscopy in 2019 presents to the ER with a 2 week history of -- frontal headache which is diffuse. No nausea / vomiting. Photophobia is present. No fever or chills. No focal neuro deficits. The patient took Tylenol without any relief. She rates the headache as 9/10. -- Epigastric pain with reflux of food into her esophagus which is worse after meals. No hematemesis or melena. MD elicited complaint: headache Pertinent past history: hypertension Onset (ago): week(s) ( symptoms for 2 weeks.) Onset description: gradually Location: frontal and generalized Severity: severe Pain scale (0-10): 9 Quality & Timing: aching Exacerbating factors: none Relieving factors: nothing Context: occurred at rest Associated symptoms: none Treatments prior to arrival: acetaminophen Related Data Home Medications Medication Instructions Recorded Confirmed multivitamin 1 tablet PO DAILY 03/02/20 06/27/23 cholecalciferol (vitamin D3) 50 50 mcg PO DAILY 09/21/20 06/27/23 mcg (2,000 unit) capsule carboxymethylcellulose sodium 1 % 1 drp ophthalmic (eye) PRN PRN Dry 09/25/20 06/27/23 eye liquid gel drops Eye(S) magnesium 250 mg tablet 250 mg PO DAILY 05/03/23 06/27/23 vit C 250 mg-vit E 90 mg-zinc 40 1 tablet PO DAILY 05/03/23 06/27/23 mg-copper 1 [id number] capsule (PreserVision AREDS-2) Allergies Allergy/AdvReac Type Severity Reaction Status Date / Time celecoxib AdvReac Unknown Verified 08/08/23 15:07 erythromycin base AdvReac Unknown Verified 08/08/23 15:07 hydrocodone AdvReac Unknown Verified 08/08/23 15:07 levofloxacin [From Levaquin] AdvReac Unknown Verified 08/08/23 15:07 meloxicam AdvReac Unknown Verified 08/08/23 15:07 rivaroxaban [From Xarelto] AdvReac Unknown Verified 08/08/23 15:07 triamterene AdvReac Unknown Verified 08/08/23 15:07 statin AdvReac Unknown Uncoded 08/08/23 15:07 Review of Systems Review of Systems: All systems reviewed & are unremarkable except as noted in HPI and below Constitutional: Constitutional: Reports as per HPI and Reports no additional constitutional complaints Eyes: Eyes: Reports as per HPI and Reports no additional eye complaints ENT: Reports system reviewed and no additional complaints, except as documented and Reports as per HPI Cardiovascular: Cardiovascular: Reports as per HPI and Reports no additional cardiovascular complaints Respiratory: Respiratory: Reports as per HPI and Reports no additional respiratory complaints Gastrointestinal: Gastrointestinal: Reports as per HPI, Reports no additional gastrointestinal complaints and Reports heartburn Genitourinary: Genitourinary: Reports no additional female genitourinary complaints Musculoskeletal: Musculoskeletal: Reports no additional musculoskeletal complaints Integumentary/Breasts: Skin/Breast: Reports system reviewed and no additional complaints, except as docu Neurologic: Reports system reviewed and no additional complaints, except as documented and Reports as per HPI Psychiatric: Psychiatric: Reports no additional psychiatric complaints and Reports as per HPI Endocrine: Endocrine: Reports no additional endocrine complaints and Reports as per HPI Hematologic/Lymphatic: Hematologic/Lymphatic: Reports no additional hematologic/lymphatic complaints and Reports as per HPI Allergic/Immunologic: Allergic/Immunologic: Reports no additional allergic/immunologic complaints and Reports as per HPI COUNT INCLUDES THE [facility] Past Medical History Medical History Abdominal pain
[2023-08-08 15:00] VITALS: BP 162/73; PULSE 80; RESP 20; TEMP 36.8; O2SAT 99
[2023-08-08 15:45] VITALS: BP 145/76; PULSE 75; RESP 17; O2SAT 99
[2023-08-08] MEDS: ACETAMINOPHEN 325 MG TABLET 650 MG PO (16:02)
[2023-08-08 16:19] VITALS: BP 142/56; PULSE 66; RESP 17; TEMP 36.7; O2SAT 98
== END 2023-08-08 16:19 | disposition home or self-care (01) ==
PROVIDERS: Emergency Provider Internal Medicine Critical Care Medicine; PCP Family Medicine
DX: K21.9 Gastro-esophageal reflux disease without esophagitis (principal); R51.9 Headache, unspecified; I10 Essential (primary) hypertension; E78.5 Hyperlipidemia, unspecified; Z85.3 Personal history of malignant neoplasm of breast; Z86.718 Personal history of other venous thrombosis and embolism; Z87.891 Personal history of nicotine dependence
CPT/HCPCS: 70450; 99284; A9270

== ENCOUNTER 2023-08-11 14:54 | Outpatient (CLI) | payer MEDICARE, BC, SELFPAY ==
--- NOTE | ~2023-08-11 | XR_ITS ---
EXAMINATION: XR chest 2V 08/11/2023 15:42 INDICATION: Shortness of breath for one week PROCEDURE: 2 view chest COMPARISON: 01/15/2021 FINDINGS: The lungs are clear. The cardiomediastinal silhouette is within normal limits. There are no pleural effusions. There is no pneumothorax suspected. IMPRESSION: 1: NO ACUTE CARDIOPULMONARY DISEASE. Reviewed, dictated and finalized at location B.
--- NOTE | ~2023-08-11 | US_ITS ---
EXAMINATION: US abdomen complete DATE: 08/11/2023 15:29 INDICATION: Epigastric pain TECHNIQUE: Multiple grayscale and Doppler ultrasound images of the abdomen were obtained. COMPARISON: 06/30/2021 FINDINGS: Bowel gas obscures visualization of the pancreas. The liver is normal with normal echogenic ity and echotexture. No surface nodularity. Normal hepatopetal flow in the main portal vein. The gall bladder is surgically absent. The normal common bile duct measures 5 mm. The visualized portions of t he aorta and inferior vena cava are normal. The spleen is normal in appearance and measures 8.0 cm. The right kidney measures 8.0 x 4.1 x 3.8 cm. The left kidney measures 9.2 x 3.6 x 5.3 cm. The kidneys demonstrate normal parenchymal echogenicity . There is no hydronephrosis. IMPRESSION: 1. No sonographic correlate for the patient's symptoms. 2. Mild atrophy of the kidneys. Reviewed, dictated and finalized at location F.
[2023-08-11 15:09] LABS: Basophils Absolute Auto 0.05 K/mm3 (0.00-0.10); Basophils Percent Auto 0.7 % (0.0-1.0); Eosinophils Absolute Auto 0.26 K/mm3 (0.02-0.50); Eosinophils Percent Auto 3.7 % (1.0-6.0); Hematocrit 34.6 % (35.0-42.0); Hemoglobin 11.5 g/dL (11.7-13.8); Immature Granulocyte Absolute 0.02 K/mm3 (0.00-0.00); Immature Granulocyte Percent A 0.3 % (0.0-0.0); Lymphocytes Absolute Auto 1.89 K/mm3 (1.10-4.50); Lymphocytes Percent Auto 26.7 % (18.0-42.0); Mean Corpuscular HGB Conc 33.2 g/dL (32.0-36.0); Mean Corpuscular Volume 90.3 fL (78.0-102.0); Mean Platelet Volume 9.5 fl (9.2-11.8); Monocytes Absolute Auto 0.48 K/mm3 (0.10-0.90); Monocytes Percent Auto 6.8 % (2.0-11.0); Neutrophils Absolute Auto 4.4 K/mm3 (1.7-7.2); Neutrophils Percent Auto 61.8 % (50.0-70.0); Platelet Count Result 274 K/mm3 (150-420); Red Blood Count 3.83 M/mm3 (4.20-5.40); Red Cell Distribution Width 13.5 % (11.6-14.4); White Blood Count 7.1 K/mm3 (4.8-10.8)
[2023-08-11 16:15] LABS: Alanine Aminotransferase 18 U/L (14-59); Albumin Level 3.5 g/dL (3.4-5.0); Alkaline Phosphatase 91 U/L (46-116); Anion Gap 8 mmol/L (8-16); Aspartate Amino Transferase 23 U/L (15-37); Bilirubin,Total 0.7 mg/dL (0.00-1.00); Blood Urea Nitrogen 15 mg/dL (7-18); CRP < 0.5 mg/dL (0.0-0.9); Calcium 9.4 mg/dL (8.5-10.1); Carbon Dioxide 28 mmol/L (21-32); Chloride 102 mmol/L (98-108); Estimated Glomerular Filt Rate > 60; Glucose 93 mg/dL (70-99); Osmolality Calculated 286 mOsm/kg (285-295); Potassium 4.7 mmol/L (3.5-5.1); Sodium 138 mmol/L (136-145); Total Protein 7.7 g/dL (6.4-8.2)
== END 2023-08-11 14:55 | disposition home or self-care (01) ==
LOC: CHSIMG 14:56
PROVIDERS: PCP Family Medicine; Visit Provider Nurse Practitioner Family
DX: R06.02 Shortness of breath (principal); R10.13 Epigastric pain; N26.1 Atrophy of kidney (terminal)
CPT/HCPCS: 36415; 71046; 76700; 80053; 85025; 86140

== ENCOUNTER 2023-12-27 10:38 | Outpatient (CLI) | payer MEDICARE, BC, SELFPAY ==
--- NOTE | ~2023-12-27 | XR_ITS ---
EXAMINATION: XR abdomen/kub 1V DATE: 12/27/2023 10:58 INDICATION: Constipation. Unspecified abdominal pain. TECHNIQUE: A supine view of the abdomen on 2 radiographs was obtained. COMPARISON: Abdomen radiograph 03/30/2021 FINDINGS: There are no dilated loops of bowel. There is a small volume of stool in the colon. The kid neys are obscured by bowel. Surgical clips in the right upper quadrant are likely from cholecystectom y. There are phleboliths in the pelvis. IMPRESSION: 1. Nonobstructive bowel gas pattern. Reviewed, dictated and finalized at location A. 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
== END 2023-12-27 10:39 | disposition home or self-care (01) ==
LOC: CHSIMG 10:41
PROVIDERS: PCP Family Medicine; Visit Provider Family Medicine
DX: K59.00 Constipation, unspecified (principal)
CPT/HCPCS: 74018

== ENCOUNTER 2024-01-08 10:25 | Emergency (ER) | payer MEDICARE, BC, SELFPAY ==
--- NOTE | ~2024-01-08 | CT_ITS ---
EXAMINATION: CT abdomen pelvis w con DATE: 01/08/2024 14:26 INDICATION: Left lower quadrant abdominal pain. Constipation. Bloating. TECHNIQUE: Computed tomography (CT) of the abdomen and pelvis was performed with 100 mL Omnipaque 350 intravenous contrast. Automated exposure control and iterative reconstruction technique were employe d. The dose-length product was 213.80 mGy-cm. COMPARISON: CT abdomen and pelvis 06/30/2021 FINDINGS: The visualized portions of the lung bases demonstrate mild atelectasis. There is smooth sep luis alfredo thickening bilaterally, consistent mild pulmonary edema. There is honeycombing in the lingula. No pleural effusion. Splenomegaly is noted. No pericardial effusion. There are coronary artery calcific ations. There is an 8 mm hyperenhancing mass in left hepatic lobe, likely benign. The spleen is tony l. There are changes of cholecystectomy. There is a 6.7 x 4.8 cm mass in the head of the pancreas. Th ere is atrophy of the tail of the pancreas. The mass causes severe mass effect on the portosplenic co nfluence including total occlusion of splenic vein. Paraesophageal varices are noted. The adrenal gla nds are normal. There is cortical thinning of the kidneys. There are cysts in the kidneys measuring u p to 7 mm on the right. There is calcified atherosclerosis of the aorta and many of the other arterie s. There are no dilated loops of bowel. The appendix is normal. There are no pathologically enlarged lymph nodes. There is trace pelvic ascites. There is severe lumbar spondylosis. There is a chronic bu rst fracture of T10. IMPRESSION: 1. 6.7 cm mass in the head of the pancreas, likely primary adenocarcinoma. Reviewed, dictated and finalized at location A. 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
[2024-01-08 10:26] VITALS: BP 147/58; PULSE 80; RESP 16; TEMP 36.4; O2SAT 100
--- NOTE | 2024-01-08 13:45 | ED.ABDPAIN ---
HPI - Abdominal Pain General Chief Complaint: Abdominal Pain Stated Complaint: abd problems Time Seen by Provider: 01/08/24 11:58 History of Present Illness HPI narrative: Patient is an 88-year-old female presenting with abdominal pain. Patient states that for the last few weeks she has been dealing with constipation and abdominal bloating. States that she has left-sided abdominal pain. She saw her PCP who obtained abdominal x-ray which showed no acute findings. She was sent home with lactulose which is not really helped with her symptoms. States that she had a small bowel movement earlier. No melena or hematochezia. No nausea or vomiting but decreased appetite. No further complaints. Related Data Home Medications Medication Instructions Recorded Confirmed multivitamin 1 tablet PO DAILY 03/02/20 12/27/23 cholecalciferol (vitamin D3) 50 50 mcg PO DAILY 09/21/20 12/27/23 mcg (2,000 unit) capsule carboxymethylcellulose sodium 1 % 1 drp ophthalmic (eye) PRN PRN Dry 09/25/20 12/27/23 eye liquid gel drops Eye(S) magnesium 250 mg tablet 250 mg PO DAILY 05/03/23 12/27/23 vit C 250 mg-vit E 90 mg-zinc 40 1 tablet PO DAILY 05/03/23 12/27/23 mg-copper 1 [id number] capsule (PreserVision AREDS-2) Allergies Allergy/AdvReac Type Severity Reaction Status Date / Time celecoxib AdvReac Unknown Verified 12/27/23 08:04 erythromycin base AdvReac Unknown Verified 12/27/23 08:04 hydrocodone AdvReac Unknown Verified 12/27/23 08:04 levofloxacin [From Levaquin] AdvReac Unknown Verified 12/27/23 08:04 meloxicam AdvReac Unknown Verified 12/27/23 08:04 rivaroxaban [From Xarelto] AdvReac Unknown Verified 12/27/23 08:04 triamterene AdvReac Unknown Verified 12/27/23 08:04 statin AdvReac Unknown Uncoded 12/27/23 08:04 Review of Systems Review of Systems: All systems reviewed & are unremarkable except as noted in HPI and below PMFSH Past Medical History Medical History Abdominal pain Acute upper respiratory infection, unspecified Bakers cyst Cancer of left breast Status post chemotherapy, radiation, and mastectomy. 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 Deep venous thrombosis In 1997 and 2019. DVT of lower limb, acute Epigastric pain Gastritis On EGD in December 2019. History of colon polyps Hyperlipidemia Hypertension Hyponatremia Left knee DJD Lumbar spondylosis Newly recognized murmur Osteoarthritis Osteoarthritis of right knee Osteoporosis Osteoporosis Sinus pressure Ventral hernia Weakness Surgical History Surgical History H/O cataract extraction History of cardiac catheterization History of cataract extraction History of cholecystectomy History of hysterectomy History of left mastectomy Family History Family History Sibling Diabetes mellitus Heart disease Heart problem Sibling Heart problem Prostate carcinoma Sibling Heart problem Sibling Heart problem Sibling Breast cancer Social History Social History Social History: POLST completed on 05/03/23 Smoking packs per day: 0.5 Smoking cigarettes per day: 10.0 Years smoked: 6 Smoking pack-years: 3.00 Smoking status: Former smoker Tobacco type: cigarettes Smoking end date: 11/13/1963 Alcohol intake: never Substance use: never Substance use type: does not use Lack of Transportation: YES Lack of Food: Sometimes True Current Housing: I Have Housing Concerned About Future Housing: No Difficulty Paying Gas/Electric Bills: No Difficulty Paying for Meds: No Currently Unemployed: No Education: High School Diploma/GED Difficulty w/ Childcare or Family Care: No Living arrangements: alone Additi
[2024-01-08 14:18] LABS: Basophils Absolute Auto 0.1 K/mm3 (0.0-0.1); Basophils Percent Auto 1.3 % (0.2-1.2); Eosinophils Absolute Auto 0.2 K/mm3 (0-0.3); Eosinophils Percent Auto 4.1 % (0-4.4); Hemoglobin 10.1 g/dL (12.0-15.0); Immature Granulocyte Absolute 0.02 K/mm3 (0.00-0.031); Immature Granulocyte Percent A 0.4 % (0-0.5); Lymphocytes Absolute Auto 1.23 K/mm3 (0.9-3.2); Lymphocytes Percent Auto 22.8 % (18.3-44.2); Mean Corpuscular HGB Conc 31.6 g/dl (32-36); Mean Corpuscular Hemoglobin 28.5 pg (26-34); Mean Corpuscular Volume 90.1 fl (80-100); Mean Platelet Volume 9.8 fl (7.4-10.4); Monocytes Absolute Auto 0.4 K/mm3 (0.1-0.6); Monocytes Percent Auto 7.2 % (2.6-8.5); Neutrophils Absolute Auto 3.5 K/mm3 (1.3-6.7); Neutrophils Percent Auto 64.2 % (45.5-73.1); Platelet Count Result 279 k/mm3 (150-375); Red Blood Count 3.55 M/mm3 (4.2-5.4); Red Cell Distribution Width 15.5 % (11.5-14.5); White Blood Count 5.4 K/mm3 (4.5-10.0)
[2024-01-08 14:20] LABS: Estimated CRCL calculation 40 ml/min; Estimated Glomerular Filt Rate > 60
[2024-01-08 14:26] LABS: Alanine Aminotransferase 14 U/L (6-35); Albumin Level 4.2 g/dL (3.5-5.1); Alkaline Phosphatase 108 U/L (38-126); Anion Gap 6 mmol/L (8-16); Aspartate Amino Transferase 38 U/L (14-36); Blood Urea Nitrogen 9 mg/dL (7-17); Calcium 9.9 mg/dL (8.4-10.2); Carbon Dioxide 27 mmol/L (22-30); Chloride 103 mmol/L (98-107); Estimated CRCL calculation 40 ml/min; Estimated Glomerular Filt Rate > 60; Glucose 94 mg/dL (65-110); Lipase 103 U/L (23-300); Potassium 4.3 mmol/L (3.4-5.0); Sodium 136 mmol/L (137-145)
[2024-01-08 14:47] LABS: Add Urine Microscopic? YES; Appearance Urine Clear (Clear); Bacteria Urine None Seen /hpf; Bilirubin Urine Negative (Negative); Blood Urine Negative (Negative); Color Urine Yellow (Yellow); Glucose Urine UA Negative (Negative); Ketones Urine Negative (Negative); Leukocyte Esterase Ur Trace LEU/UL (Negative); Need Manual Microscopic Reviewed; Nitrate Urine Negative (Negative); Non Pathogenic Casts 0-2; Protein Urine Negative (Negative); RBC Urine 0-2 /hpf (0-2); Specific Grav Ur 1.003 (1.001-1.035); Squamous Epithelial Cell Urine None seen /hpf (Few); Urobilinogen Urine 0.2 mg/dL (<2.0); WBC Urine 0-5 /hpf; pH Urine 7.5 (5.0-9.0)
[2024-01-08 15:06] VITALS: BP 153/74; PULSE 82; RESP 16; TEMP 36.5; O2SAT 97
[2024-01-08 16:00] VITALS: BP 130/77; PULSE 77; RESP 16; TEMP 36.6; O2SAT 96
[2024-01-08 17:15] VITALS: BP 132/87; PULSE 74; RESP 16; TEMP 36.6; O2SAT 97
== END 2024-01-08 17:18 | disposition home or self-care (01) ==
PROVIDERS: Emergency Provider Emergency Medicine; PCP Family Medicine
DX: K86.89 Other specified diseases of pancreas (principal); R14.0 Abdominal distension (gaseous); E78.5 Hyperlipidemia, unspecified; I10 Essential (primary) hypertension; M17.0 Bilateral primary osteoarthritis of knee; M81.0 Age-related osteoporosis without current pathological fracture; Z86.718 Personal history of other venous thrombosis and embolism; Z86.010 Personal history of colon polyps; Z85.3 Personal history of malignant neoplasm of breast; Z87.891 Personal history of nicotine dependence; Z98.49 Cataract extraction status, unspecified eye; Z90.49 Acquired absence of other specified parts of digestive tract; Z90.710 Acquired absence of both cervix and uterus; Z90.12 Acquired absence of left breast and nipple
CPT/HCPCS: 36415; 74177; 80053; 81001; 83690; 85025; 99284; Q9967

== ENCOUNTER 2024-01-09 14:35 | Outpatient (CLI) | payer MEDICARE, BC, SELFPAY ==
[2024-01-09 14:56] LABS: Basophils Absolute Auto 0.1 K/mm3 (0.0-0.1); Basophils Percent Auto 1.3 % (0.2-1.2); Eosinophils Absolute Auto 0.3 K/mm3 (0-0.3); Eosinophils Percent Auto 3.9 % (0-4.4); Hematocrit 31.5 % (37.0-47.0); Immature Granulocyte Absolute 0.01 K/mm3 (0.00-0.031); Immature Granulocyte Percent A 0.1 % (0-0.5); Lymphocytes Absolute Auto 1.63 K/mm3 (0.9-3.2); Lymphocytes Percent Auto 24.4 % (18.3-44.2); Mean Corpuscular HGB Conc 31.7 g/dl (32-36); Mean Corpuscular Hemoglobin 27.9 pg (26-34); Mean Corpuscular Volume 87.7 fl (80-100); Mean Platelet Volume 9.2 fl (7.4-10.4); Monocytes Absolute Auto 0.6 K/mm3 (0.1-0.6); Monocytes Percent Auto 8.4 % (2.6-8.5); Neutrophils Absolute Auto 4.1 K/mm3 (1.3-6.7); Neutrophils Percent Auto 61.9 % (45.5-73.1); Platelet Count Result 266 k/mm3 (150-375); Red Blood Count 3.59 M/mm3 (4.2-5.4); Red Cell Distribution Width 14.8 % (11.5-14.5); White Blood Count 6.7 K/mm3 (4.5-10.0)
[2024-01-09 16:31] LABS: Alanine Aminotransferase 15 U/L (6-35); Albumin Level 4.2 g/dL (3.5-5.1); Alkaline Phosphatase 107 U/L (38-126); Anion Gap 3 mmol/L (8-16); Aspartate Amino Transferase 39 U/L (14-36); Blood Urea Nitrogen 11 mg/dL (7-17); Calcium 9.8 mg/dL (8.4-10.2); Carbon Dioxide 30 mmol/L (22-30); Chloride 102 mmol/L (98-107); Estimated Glomerular Filt Rate > 60; Glucose 104 mg/dL (65-110); Sodium 135 mmol/L (137-145)
[2024-01-12 07:10] LABS: CA 19-9 206 U/mL (<34)
== END 2024-01-09 14:36 | disposition home or self-care (01) ==
PROVIDERS: PCP Family Medicine; Visit Provider Internal Medicine Hematology & Oncology
DX: C25.0 Malignant neoplasm of head of pancreas (principal)
CPT/HCPCS: 36415; 80053; 85025; 86301

== ENCOUNTER 2024-01-16 08:51 | Outpatient (CLI) | payer MEDICARE, BC, SELFPAY ==
--- NOTE | ~2024-01-16 | PE_ITS ---
EXAMINATION: PET skull to mid thigh DATE: 01/16/2024 10:51 INDICATION: Malignant neoplasm of the head of the pancreas TECHNIQUE: Blood glucose level was 99 mg/dL. 10.662 mCi of 18-fluorodeoxyglucose (18-FDG) was adminis tered i.v. Low dose computed tomography (CT) images were acquired from the base of the brain to the p roximal thighs for attenuation correction and anatomic localization. Positron emission tomography (PE T) images were acquired in the same distribution beginning 51 minutes after injection. The dose-lengt h product (DLP) was 580.45 mGy-cm. COMPARISON: CT, 01/08/2024 FINDINGS: Head/neck: No abnormal FDG uptake is identified. Low-level uptake in the optic nerves and oral cavity without suspicious CT correlate is likely physiologic. Changes in the globes are likely from ocular lens surgery. Chest: No abnormal FDG uptake is identified. There are changes of left mastectomy. Subpleural reticul ar opacities anteriorly in the left upper lobe likely reflect radiation change. There is mild atelect asis of the lungs. No pleural effusion or pneumothorax. Cardiomegaly is noted. There are no pathologi charles enlarged thoracic lymph nodes. Abdomen/pelvis/proximal thighs: There is a 6.5 x 5.1 cm mass in the head of pancreas which demonstrat es abnormal FDG uptake with an SUV max of 25.5. There is atrophy in the body and tail of the pancreas . Changes of cholecystectomy are noted. The liver, spleen, and adrenal glands are normal. Physiologic FDG activity is present in the bowel and urinary tract. The kidneys are unremarkable. No pathologica lly enlarged abdominal or pelvic lymph nodes are identified. No free intraperitoneal gas or evidence of bowel obstruction. There is calcified atherosclerosis of the aorta and many of the other arteries. Musculoskeletal: There is moderate lumbar spondylosis. No abnormal FDG uptake is identified. IMPRESSION: 1. 6.5 cm mass in the head of the pancreas with abnormal FDG uptake, most consistent with primary deirdre nocarcinoma. No evidence of metastatic disease. Reviewed, dictated and finalized at location B. 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 6.5 cm mass in the head of the pancreas with abnormal FDG uptake, most consi stent with primary adenocarcinoma. No evidence of metastatic disease.
[2024-01-16 09:25] LABS: Glucose Point of Care 99 mg/dl (65-105)
== END 2024-01-16 08:52 | disposition home or self-care (01) ==
PROVIDERS: PCP Family Medicine; Visit Provider Internal Medicine Hematology & Oncology
DX: C25.0 Malignant neoplasm of head of pancreas (principal)
CPT/HCPCS: 78815; A9552

== ENCOUNTER 2024-03-07 11:42 | Outpatient (CLI) | payer MEDICARE, BC, SELFPAY ==
--- NOTE | ~2024-03-07 | US_ITS ---
US abdomen limited INDICATION: Malignant neoplasm of the pancreas PROCEDURE: Realtime right upper abdominal ultrasound. COMPARISON: CT dated 01/08/2024 FINDINGS: There is a complex heterogeneous mass of the pancreatic head measuring 7.3 x 6.2 x 5.7 cm, consistent with pancreatic adenocarcinoma until proven otherwise. Liver echotexture is normal withou t focal mass or intrahepatic biliary dilatation. There is normal directional flow in the portal vein . There is ascites. Gallbladder surgically absent. Common bile duct measures 3 mm. No sonographic Singh's sign. IMPRESSION: 1: Complex 7.3 cm pancreatic head mass, consistent with pancreatic adenocarcinoma until proven otherw ise. Reviewed, dictated and finalized at location B. IMPRESSION: 1: Complex 7.3 cm pancreatic head mass, consistent with pancreatic adenocarcino ma until proven otherwise.
--- NOTE | ~2024-03-07 | US_ITS ---
EXAMINATION: US paracentesis abd w/image DATE: 03/07/2024 14:09 INDICATION: Ascites. TECHNIQUE: The procedure and its risks and benefits were discussed with the patient. Potential risks discussed included bleeding and infection. The skin was prepped and draped in sterile fashion. 1% lid ocaine was used for local anesthesia. Under ultrasound guidance, a 5 Fr catheter with trochar was adv anced into the ascites in the right lower quadrant. Fluid was aspirated into vacuum bottles. The cath eter was removed, and a dressing was applied. There were no immediate complications. FINDINGS: Ultrasound images demonstrate ascites and the catheter within the fluid. IMPRESSION: 1. Successful ultrasound-guided paracentesis yielding 800 mL of yellowish fluid. Reviewed, dictated and finalized at location A. IMPRESSION: 1. Successful ultrasound-guided paracentesis yielding 800 mL of yellowish flui d.
[2024-03-07 12:27] LABS: Mean Platelet Volume 8.5 fl (7.4-10.4); Platelet Count Result 605 k/mm3 (150-375)
[2024-03-07 12:39] LABS: INR 1.2; Prothrombin Time 15.9 Seconds (11.1-14.7)
== END 2024-03-07 11:43 | disposition home or self-care (01) ==
PROVIDERS: Radiology Diagnostic Radiology; Visit Provider Internal Medicine Hematology & Oncology
DX: C25.0 Malignant neoplasm of head of pancreas (principal); R18.8 Other ascites
CPT/HCPCS: 36415; 49083; 76705; 85049; 85610; 88108; 88305; 88342

== ENCOUNTER 2024-03-11 11:52 | Emergency (ER) | payer MEDICARE, BC, SELFPAY ==
--- NOTE | ~2024-03-11 | US_ITS ---
EXAMINATION: US paracentesis abd w/image DATE: 03/11/2024 17:05 INDICATION: Ascites. TECHNIQUE: The procedure and its risks, benefits, and alternatives were discussed with the patient. P otential risks discussed included bleeding and infection. The skin was prepped and draped in sterile fashion. 1% lidocaine was used for local anesthesia. Under ultrasound guidance, a 5 Fr catheter with trochar was advanced into the ascites in the right lower quadrant. Fluid was aspirated. The catheter was removed, and a dressing was applied. There were no immediate complications. FINDINGS: Ultrasound images demonstrate ascites and the catheter within the fluid. IMPRESSION: 1. Successful ultrasound-guided paracentesis yielding 1800 mL of fluid. Reviewed, dictated and finalized at location A.
--- NOTE | ~2024-03-11 | CT_ITS ---
EXAMINATION: CT abdomen pelvis w con DATE: 03/11/2024 15:12 INDICATION: Abdominal pain. TECHNIQUE: Computed tomography (CT) of the abdomen and pelvis was performed with 100 mL Omnipaque 350 intravenous contrast. Automated exposure control and iterative reconstruction technique were employe d. The dose-length product was 262.67 mGy-cm. COMPARISON: CT abdomen and pelvis 01/08/2024 FINDINGS: The visualized portions of the lung bases demonstrate mild atelectasis. There are diffuse s eptal thickening in the lungs. There is honeycombing in the lingula. No pleural effusion. There are t race pleural effusions. Cardiomegaly is noted. No pericardial effusion. The liver demonstrates hypode nsity adjacent to the falciform ligament, likely benign. There are changes of cholecystectomy. The sp genia is normal. There is an ill-defined 6 cm mass involving the head of the pancreas. 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 The adr enal glands are normal. There is cortical thinning of the kidneys. There is calcified atherosclerosis of the aorta and many of the other arteries. There is a Villanueva catheter in the bladder. There are no dilated loops of bowel. There is wall thickening of colon and loops of small bowel. The appendix is n ormal. There is a large volume of ascites with peritoneal thickening. There is widespread edema of th e body wall fat and intra-abdominal fat. There are no pathologically enlarged lymph nodes. There is l umbar levoscoliosis and severe spondylosis. IMPRESSION: 1. Mild pulmonary edema with small pleural effusions. 2. Stable 6 cm mass of the head of the pancreas, consistent with primary adenocarcinoma. 3. Large volume of ascites. Peritoneal thickening suggests an exudate. Paracentesis 03/07/2024 was neg ative for metastatic disease. 4. Wall thickening of small and large bowel, likely secondary to interstitial edema. Enterocolitis ca nnot be excluded. Reviewed, dictated and finalized at location A. IMPRESSION: 1. Mild pulmonary edema with small pleural effusions. 2. Stable 6 cm mass of the head of the pancreas, consistent with primary adenoc arcinoma. 3. Large volume of ascites. Peritoneal thickening suggests an exudate. Paracent esis 03/07/2024 was negative for metastatic disease. 4. Wall thickening of small and large bowel, likely secondary to interstitial e wen. Enterocolitis cannot be excluded.
[2024-03-11 12:03] VITALS: BP 129/50; PULSE 93; RESP 16; TEMP 36.1; O2SAT 100
--- NOTE | 2024-03-11 13:31 | ED.FEMALEGU ---
HPI - Female Genitourinary General Chief complaint: Urogenital-Female Stated complaint: Urinary retention Time Seen by Provider: 03/11/24 12:46 History of Present Illness HPI Narrative: 88-year-old female presenting to the emergency department for evaluation for decreased urination. patient is about to start treatment for pancreatic cancer But has not yet started. Patient denies any pain with urination. Patient describes the sensation of needing to urinate but not making any urine. patient did have ascites drained after abdomen recently. Patient follows up with Dr Castillo. Related Data Home Medications Medication Instructions Recorded Confirmed multivitamin 1 tablet PO DAILY 03/02/20 03/01/24 cholecalciferol (vitamin D3) 50 50 mcg PO DAILY 09/21/20 03/01/24 mcg (2,000 unit) capsule carboxymethylcellulose sodium 1 % 1 drp ophthalmic (eye) PRN PRN Dry 09/25/20 03/01/24 eye liquid gel drops Eye(S) magnesium 250 mg tablet 250 mg PO DAILY 05/03/23 03/01/24 vit C 250 mg-vit E 90 mg-zinc 40 1 tablet PO DAILY 05/03/23 03/01/24 mg-copper 1 [id number] capsule (PreserVision AREDS-2) Allergies Allergy/AdvReac Type Severity Reaction Status Date / Time celecoxib AdvReac Unknown Verified 03/11/24 11:53 erythromycin base AdvReac Unknown Verified 03/11/24 11:53 hydrocodone AdvReac Unknown Verified 03/11/24 11:53 levofloxacin [From Levaquin] AdvReac Unknown Verified 03/11/24 11:53 meloxicam AdvReac Unknown Verified 03/11/24 11:53 rivaroxaban [From Xarelto] AdvReac Unknown Verified 03/11/24 11:53 triamterene AdvReac Unknown Verified 03/11/24 11:53 statin AdvReac Unknown Uncoded 03/11/24 11:53 Review of Systems Review of Systems: All systems reviewed & are unremarkable except as noted in HPI and below PMFSH Past Medical History Medical History Abdominal pain Acute upper respiratory infection, unspecified Bakers cyst Cancer of left breast Status post chemotherapy, radiation, and mastectomy. Chronic headache Colon polyps Constipation Current use of halfway anticoagulation for history of DVT. Deep venous thrombosis In 1997 and 2019. DVT of lower limb, acute Epigastric pain Gastritis On EGD in December 2019. History of colon polyps Hyperlipidemia Hypertension Hyponatremia Left knee DJD Lumbar spondylosis Newly recognized murmur Osteoarthritis Osteoarthritis of right knee Osteoporosis Osteoporosis Sinus pressure Ventral hernia Weakness Surgical History Surgical History H/O cataract extraction History of cardiac catheterization History of cataract extraction History of cholecystectomy History of hysterectomy History of left mastectomy Family History Family History Sibling Diabetes mellitus Heart disease Heart problem Sibling Heart problem Prostate carcinoma Sibling Heart problem Sibling Heart problem Sibling Breast cancer Social History Social History Social History: POLST completed on 05/03/23 Smoking packs per day: 0.5 Smoking cigarettes per day: 10.0 Years smoked: 20 Smoking pack-years: 10.00 Smoking status: Former smoker Tobacco type: cigarettes Smoking end date: 11/13/1963 Alcohol intake: never Substance use: never Substance use type: does not use Lack of Transportation: YES Lack of Food: Sometimes True Current Housing: I Have Housing Concerned About Future Housing: No Difficulty Paying Gas/Electric Bills: No Difficulty Paying for Meds: No Currently Unemployed: No Education: High School Diploma/GED Difficulty w/ Childcare or Family Care: No Living arrangements: alone Additional living arrangements comments: Lives in [place]. . Occupation/Education: retired Additional o
[2024-03-11] MEDS: SODIUM CHLORIDE 0.9% IV 1,000 ML 999 ML IV CONT (13:49)
[2024-03-11 13:50] VITALS: BP 137/63; PULSE 76; RESP 17; O2SAT 100
[2024-03-11 14:03] LABS: Basophils Absolute Auto 0.1 K/mm3 (0.0-0.1); Basophils Percent Auto 0.9 % (0.2-1.2); Eosinophils Absolute Auto 0.2 K/mm3 (0-0.3); Hematocrit 24.9 % (37.0-47.0); Immature Granulocyte Absolute 0.05 K/mm3 (0.00-0.031); Immature Granulocyte Percent A 0.5 % (0-0.5); Lymphocytes Absolute Auto 0.68 K/mm3 (0.9-3.2); Lymphocytes Percent Auto 7.1 % (18.3-44.2); Mean Corpuscular HGB Conc 32.1 g/dl (32-36); Mean Corpuscular Hemoglobin 25.3 pg (26-34); Mean Corpuscular Volume 78.8 fl (80-100); Mean Platelet Volume 8.4 fl (7.4-10.4); Monocytes Absolute Auto 0.9 K/mm3 (0.1-0.6); Monocytes Percent Auto 9.7 % (2.6-8.5); Neutrophils Absolute Auto 7.6 K/mm3 (1.3-6.7); Neutrophils Percent Auto 79.8 % (45.5-73.1); Platelet Count Result 572 k/mm3 (150-375); Red Blood Count 3.16 M/mm3 (4.2-5.4); Red Cell Distribution Width 16.3 % (11.5-14.5); White Blood Count 9.6 K/mm3 (4.5-10.0)
[2024-03-11 14:04] LABS: Appearance Urine Clear (Clear); Bacteria Urine None Seen /hpf; Bilirubin Urine Negative (Negative); Blood Urine Negative (Negative); Color Urine Yellow (Yellow); Glucose Urine UA Negative (Negative); Ketones Urine Trace mg/dL (Negative); Leukocyte Esterase Ur 1+ LEU/UL (Negative); Need Manual Microscopic Reviewed; Nitrate Urine Negative (Negative); Protein Urine Trace mg/dL (Negative); Specific Grav Ur 1.021 (1.001-1.035); Squamous Epithelial Cell Urine None Seen /hpf (Few)
[2024-03-11 14:10] LABS: Add Urine Microscopic? YES
[2024-03-11 14:13] LABS: Alanine Aminotransferase 16 U/L (6-35); Albumin Level 3.1 g/dL (3.5-5.1); Alkaline Phosphatase 102 U/L (38-126); Anion Gap 5 mmol/L (4-12); Aspartate Amino Transferase 38 U/L (14-36); Bilirubin,Total 0.8 mg/dL (0.2-1.3); Blood Urea Nitrogen 11 mg/dL (7-17); Calcium 8.8 mg/dL (8.4-10.2); Carbon Dioxide 23 mmol/L (22-30); Chloride 98 mmol/L (98-107); Estimated CRCL calculation 47 ml/min; Estimated Glomerular Filt Rate > 60; Glucose 133 mg/dL (65-110); Potassium 4.6 mmol/L (3.4-5.0); Sodium 126 mmol/L (137-145)
[2024-03-11 16:01] VITALS: BP 147/70; PULSE 84; RESP 14; O2SAT 100
[2024-03-11 16:29] LABS: INR 1.5
[2024-03-11 16:31] LABS: Partial Thromboplastin Time 44.1 Seconds (22.3-36.8)
[2024-03-11 17:44] VITALS: BP 138/86; PULSE 88; RESP 16; O2SAT 97
== END 2024-03-11 17:45 | disposition home or self-care (01) ==
PROVIDERS: Physician Assistant; Emergency Provider Emergency Medicine
DX: R18.8 Other ascites (principal); C25.0 Malignant neoplasm of head of pancreas; E78.5 Hyperlipidemia, unspecified; I10 Essential (primary) hypertension; M17.0 Bilateral primary osteoarthritis of knee; M81.0 Age-related osteoporosis without current pathological fracture; Z85.3 Personal history of malignant neoplasm of breast; Z86.718 Personal history of other venous thrombosis and embolism; Z92.3 Personal history of irradiation; Z92.21 Personal history of antineoplastic chemotherapy; Z86.010 Personal history of colon polyps; Z87.891 Personal history of nicotine dependence; Z90.12 Acquired absence of left breast and nipple; Z90.49 Acquired absence of other specified parts of digestive tract; Z90.710 Acquired absence of both cervix and uterus; Z98.49 Cataract extraction status, unspecified eye
CPT/HCPCS: 36415; 49083; 74177; 80053; 81001; 85025; 85610; 85730; 87077; 87086; 87088; 87186; 96360; 99284; J7030; Q9967

== ENCOUNTER 2024-03-14 13:33 | Emergency (ER) | payer MEDICARE, BC, SELFPAY ==
[2024-03-14 13:34] VITALS: BP 122/61; PULSE 90; RESP 18; TEMP 36.4; O2SAT 100
--- NOTE | 2024-03-14 15:12 | ED.ABDPAIN ---
HPI - Abdominal Pain General Chief Complaint: Abdominal Pain <Bernardino Leon APRN - Last Filed: 03/14/24 15:23> Stated Complaint: i need to get the fluid drained out again <Bernardino Leon APRN - Last Filed: 03/14/24 15:23> Time Seen by Provider: 03/14/24 15:13 <Bernardino Leon APRN - Last Filed: 03/14/24 15:23> Focused HPI: Park is an 88-year-old female patient presenting to the ER today with complaints of needing to get the fluid drained out of her abdomen again. She reports she does have pancreatic cancer. Has had a recent paracentesis 4 days ago. General: Well-developed, pale, in no apparent distress. Head: Normocephalic, atraumatic. Cardio: Regular rate and rhythm, s1 and s2 normal, no murmur appreciated. Resp: Clear to auscultation bilaterally, no rhonchi, rales, wheezing or rubs. Abdomen: Soft, pliable, abdomen distended, tenderness to palpation over the mid lower abdomen, bowel sounds present in all quadrants, non-tender to palpation, no organomegly, no CVAT tenderness. Patient screened in triage and initial orders placed. Additional care and disposition to be based upon diagnostic testing and treatment. <Bernardino Leon APRN - Last Filed: 03/14/24 15:23> Source: patient <Bernardino Leon APRN - Last Filed: 03/14/24 15:23> Mode of arrival: ambulatory <Bernardino Leon APRN - Last Filed: 03/14/24 15:23> Limitations: no limitations <Bernardino Leon APRN - Last Filed: 03/14/24 15:23> History of Present Illness HPI narrative: Agree with HPI <Miko Novak MD - Last Filed: 03/14/24 16:47> Related Data Home Medications: Home Medications Medication Instructions Recorded Confirmed multivitamin 1 tablet PO DAILY 03/02/20 03/01/24 cholecalciferol (vitamin D3) 50 50 mcg PO DAILY 09/21/20 03/01/24 mcg (2,000 unit) capsule carboxymethylcellulose sodium 1 % 1 drp ophthalmic (eye) PRN PRN Dry 09/25/20 03/01/24 eye liquid gel drops Eye(S) magnesium 250 mg tablet 250 mg PO DAILY 05/03/23 03/01/24 vit C 250 mg-vit E 90 mg-zinc 40 1 tablet PO DAILY 05/03/23 03/01/24 mg-copper 1 [id number] capsule (PreserVision AREDS-2) <Bernardino Leon APRN - Last Filed: 03/14/24 15:23> Allergies/Adverse Reactions: Allergies Allergy/AdvReac Type Severity Reaction Status Date / Time celecoxib AdvReac Unknown Verified 03/14/24 13:37 erythromycin base AdvReac Unknown Verified 03/14/24 13:37 hydrocodone AdvReac Unknown Verified 03/14/24 13:37 levofloxacin [From Levaquin] AdvReac Unknown Verified 03/14/24 13:37 meloxicam AdvReac Unknown Verified 03/14/24 13:37 rivaroxaban [From Xarelto] AdvReac Unknown Verified 03/14/24 13:37 triamterene AdvReac Unknown Verified 03/14/24 13:37 statin AdvReac Unknown Uncoded 03/14/24 13:37 <Bernardino Leon APRN - Last Filed: 03/14/24 15:23> Review of Systems Constitutional: Constitutional: Reports no additional constitutional complaints <Miko Novak MD - Last Filed: 03/14/24 16:47> ENT: Reports system reviewed and no additional complaints, except as documented <Miko Novak MD - Last Filed: 03/14/24 16:47> Cardiovascular: Cardiovascular: Reports no additional cardiovascular complaints <Miko Novak MD - Last Filed: 03/14/24 16:47> Respiratory: Respiratory: Reports no additional respiratory complaints <Miko Novak MD - Last Filed: 03/14/24 16:47> Gastrointestinal: Gastrointestinal: Denies diarrhea, Denies nausea and Denies vomiting <Miko Novak MD - Last Filed: 03/14/24 16:47> Comments: abdominal fullness <Miko Novak MD - Last Filed: 03/14/24 16:47> PMFSH Past Medical History Medical History: Medical History (Updated 03/14/24 @ 16:47 by Miko Novak MD) Abdominal pain Acute upper respiratory infection, unspecified Bakers cyst Cancer of left breast Status post chemotherapy, radiation, and mastecto
[2024-03-14 15:47] LABS: Basophils Absolute Auto 0.1 K/mm3 (0.0-0.1); Basophils Percent Auto 0.8 % (0.2-1.2); Eosinophils Absolute Auto 0.2 K/mm3 (0-0.3); Eosinophils Percent Auto 2.5 % (0-4.4); Hematocrit 25.4 % (37.0-47.0); Hemoglobin 7.9 g/dL (12.0-15.0); Immature Granulocyte Absolute 0.03 K/mm3 (0.00-0.031); Immature Granulocyte Percent A 0.4 % (0-0.5); Lymphocytes Percent Auto 13.2 % (18.3-44.2); Mean Corpuscular HGB Conc 31.1 g/dl (32-36); Mean Corpuscular Hemoglobin 24.8 pg (26-34); Mean Corpuscular Volume 79.9 fl (80-100); Mean Platelet Volume 8.6 fl (7.4-10.4); Monocytes Absolute Auto 0.7 K/mm3 (0.1-0.6); Neutrophils Absolute Auto 5.6 K/mm3 (1.3-6.7); Neutrophils Percent Auto 74.1 % (45.5-73.1); Platelet Count Result 584 k/mm3 (150-375); Red Blood Count 3.18 M/mm3 (4.2-5.4); Red Cell Distribution Width 17.2 % (11.5-14.5); White Blood Count 7.6 K/mm3 (4.5-10.0)
[2024-03-14 15:54] LABS: Alanine Aminotransferase 17 U/L (6-35); Albumin Level 2.9 g/dL (3.5-5.1); Alkaline Phosphatase 94 U/L (38-126); Anion Gap 2 mmol/L (4-12); Aspartate Amino Transferase 37 U/L (14-36); Bilirubin,Total 0.6 mg/dL (0.2-1.3); Blood Urea Nitrogen 14 mg/dL (7-17); Calcium 8.7 mg/dL (8.4-10.2); Carbon Dioxide 25 mmol/L (22-30); Chloride 103 mmol/L (98-107); Estimated CRCL calculation 40 ml/min; Estimated Glomerular Filt Rate > 60; Glucose 102 mg/dL (65-110); Lipase 72 U/L (23-300); Potassium 4.2 mmol/L (3.4-5.0); Sodium 130 mmol/L (137-145)
[2024-03-14 16:58] VITALS: BP 128/51; PULSE 88; RESP 16; TEMP 36.3; O2SAT 97
== END 2024-03-14 16:59 | disposition home or self-care (01) ==
PROVIDERS: Nurse Practitioner Family; Emergency Provider Emergency Medicine; PCP Internal Medicine Hematology & Oncology
DX: R18.8 Other ascites (principal); C25.9 Malignant neoplasm of pancreas, unspecified; Z86.718 Personal history of other venous thrombosis and embolism; Z79.01 Long term (current) use of anticoagulants; Z85.3 Personal history of malignant neoplasm of breast; E78.5 Hyperlipidemia, unspecified; I10 Essential (primary) hypertension; Z87.891 Personal history of nicotine dependence
CPT/HCPCS: 36415; 80053; 83690; 85025; 99283

== ENCOUNTER 2024-04-15 12:11 | Outpatient (CLI) | payer MEDICARE, BC, SELFPAY ==
[2024-04-15 12:28] LABS: Basophils Absolute Auto 0.1 K/mm3 (0.0-0.1); Eosinophils Absolute Auto 0.2 K/mm3 (0-0.3); Hematocrit 26.5 % (37.0-47.0); Hemoglobin 8.3 g/dL (12.0-15.0); Immature Granulocyte Absolute 0.02 K/mm3 (0.00-0.031); Immature Granulocyte Percent A 0.3 % (0-0.5); Lymphocytes Absolute Auto 1.36 K/mm3 (0.9-3.2); Lymphocytes Percent Auto 21.6 % (18.3-44.2); Mean Corpuscular HGB Conc 31.3 g/dl (32-36); Mean Corpuscular Hemoglobin 24.9 pg (26-34); Mean Corpuscular Volume 79.3 fl (80-100); Mean Platelet Volume 8.3 fl (7.4-10.4); Monocytes Absolute Auto 0.7 K/mm3 (0.1-0.6); Monocytes Percent Auto 10.8 % (2.6-8.5); Neutrophils Percent Auto 63.3 % (45.5-73.1); Platelet Count Result 238 k/mm3 (150-375); Red Blood Count 3.34 M/mm3 (4.2-5.4); White Blood Count 6.3 K/mm3 (4.5-10.0)
[2024-04-15 12:34] LABS: Anisocytosis 1+; Hypochromasia 1+; Microcytosis 1+ (NORMAL); Platelet Estimate Adequate (Adequate); Schistocytes None Seen
[2024-04-15 16:52] LABS: Alanine Aminotransferase 19 U/L (6-35); Albumin Level 3.3 g/dL (3.5-5.1); Alkaline Phosphatase 123 U/L (38-126); Anion Gap 5 mmol/L (4-12); Aspartate Amino Transferase 47 U/L (14-36); Bilirubin,Total 0.9 mg/dL (0.2-1.3); Blood Urea Nitrogen 7 mg/dL (7-17); Calcium 8.8 mg/dL (8.4-10.2); Carbon Dioxide 26 mmol/L (22-30); Chloride 102 mmol/L (98-107); Estimated Glomerular Filt Rate > 60; Glucose 124 mg/dL (65-110); Potassium 3.8 mmol/L (3.4-5.0); Sodium 133 mmol/L (137-145)
[2024-04-17 04:19] LABS: CA 19-9 159 U/mL (<34)
== END 2024-04-15 12:12 | disposition home or self-care (01) ==
LOC: ANHLAB 12:15
PROVIDERS: PCP Internal Medicine Hematology & Oncology; Visit Provider Internal Medicine Hematology & Oncology
DX: C25.0 Malignant neoplasm of head of pancreas (principal)
CPT/HCPCS: 36415; 80053; 85025; 86301

== ENCOUNTER 2024-04-17 12:44 | Outpatient (RCR) | payer MEDICARE, BC, SELFPAY ==
--- NOTE | ~2024-04-17 | US_ITS ---
EXAMINATION: US paracentesis abd w/image DATE: 03/20/2024 11:06 INDICATION: Ascites. TECHNIQUE: The procedure and its risks, benefits, and alternatives were discussed with the patient. P otential risks discussed included bleeding and infection. The skin was prepped and draped in sterile fashion. 1% lidocaine was used for local anesthesia. Under ultrasound guidance, a 5 Fr catheter with trochar was advanced into the ascites in the right lower quadrant. Fluid was aspirated. The catheter was removed, and a dressing was applied. There were no immediate complications. FINDINGS: Ultrasound images demonstrate ascites and the catheter within the fluid. IMPRESSION: 1. Successful ultrasound-guided paracentesis yielding 1100 mL of yellow fluid. Reviewed, dictated and finalized at location A.
--- NOTE | ~2024-04-17 | US_ITS ---
EXAMINATION: US paracentesis abd w/image DATE: 03/27/2024 10:28 INDICATION: Ascites. TECHNIQUE: The procedure and its risks and benefits were discussed with the patient. Potential risks discussed included bleeding and infection. The skin was prepped and draped in sterile fashion. 1% lid ocaine was used for local anesthesia. Under ultrasound guidance, a 5 Fr catheter with trochar was adv anced into the ascites in the right lower quadrant. Fluid was aspirated into vacuum bottles. The cath eter was removed, and a dressing was applied. There were no immediate complications. FINDINGS: Ultrasound images demonstrate ascites and the catheter within the fluid. IMPRESSION: 1. Successful ultrasound-guided paracentesis yielding 650 mL of yellowish fluid. Reviewed, dictated and finalized at location A. IMPRESSION: 1. Successful ultrasound-guided paracentesis yielding 650 mL of yellowish flui d.
--- NOTE | ~2024-04-17 | US_ITS ---
EXAMINATION: US paracentesis abd w/image DATE: 04/03/2024 11:13 INDICATION: Ascites. TECHNIQUE: The procedure and its risks, benefits, and alternatives were discussed with the patient. P otential risks discussed included bleeding and infection. The skin was prepped and draped in sterile fashion. 1% lidocaine was used for local anesthesia. Under ultrasound guidance, a 5 Fr catheter with trochar was advanced into the ascites in the left lower quadrant. Fluid was aspirated. The catheter w as removed, and a dressing was applied. There were no immediate complications. FINDINGS: Ultrasound images demonstrate ascites and the catheter within the fluid. IMPRESSION: 1. Successful ultrasound-guided paracentesis yielding 450 mL of yellow fluid. Reviewed, dictated and finalized at location A.
--- NOTE | ~2024-04-17 | US_ITS ---
EXAMINATION: US abdomen limited DATE: 04/17/2024 13:42 INDICATION: Malignant neoplasm of head of pancreas. TECHNIQUE: Multiple grayscale ultrasound images of the abdomen were obtained. COMPARISON: CT abdomen and pelvis 03/11/2024 FINDINGS: A survey of the 4 quadrants of the abdomen demonstrates a small volume of ascites. IMPRESSION: 1. Small volume of ascites. After discussion with the patient, the paracentesis was canceled due to t he small volume. Reviewed, dictated and finalized at location A. IMPRESSION: 1. Small volume of ascites. After discussion with the patient, the paracentesis was canceled due to the small volume.
== END 2024-06-18 23:59 | disposition home or self-care (01) ==
LOC: ANHIMG 12:44
PROVIDERS: PCP Internal Medicine Hematology & Oncology; Visit Provider Internal Medicine Hematology & Oncology
DX: C25.0 Malignant neoplasm of head of pancreas (principal)
CPT/HCPCS: 49083; 76705

== ENCOUNTER 2024-04-23 10:29 | Outpatient (CLI) | payer MEDICARE, BC, SELFPAY ==
[2024-04-23 13:00] LABS: Iron 24 ug/dL (37-170)
[2024-04-23 13:12] LABS: Percent Iron Saturation 9 % (20-50)
== END 2024-04-23 10:30 | disposition home or self-care (01) ==
LOC: ANHLAB 10:32
PROVIDERS: PCP Internal Medicine Hematology & Oncology; Visit Provider Internal Medicine Hematology & Oncology
DX: D64.9 Anemia, unspecified (principal)
CPT/HCPCS: 36415; 82607; 82728; 83540; 83550

== ENCOUNTER 2024-06-10 07:20 | Outpatient (CLI) | payer MEDICARE, BC, SELFPAY ==
--- NOTE | ~2024-06-10 | CT_ITS ---
CT chest abdomen pelvis w con Ordering provider: Bassam Castillo MD History: 88 years Female with . MALIGNANT NEOPLASM OF HEAD OF PANCREAS . Comparison: March 11, 2024 Technique: CT chest with IV contrast. CT abdomen and pelvis CT abdomen and pelvis with IV and with or al contrast. Radiation reduction technique utilized. DLP is 360.91 mGy-cm. FINDINGS: CHEST: --VISUALIZED THORACIC INLET: Enhancing area in the right thyroid lobe is noted. Ultrasound evaluation advised. --MEDIASTINUM: Aorta/coronary arteries: Mild atheromatous disease. Heart/other: The heart is slightly enlarged. Lymph nodes: Right hilar adenopathy is noted with measurement of 3 x 2 cm.. Enlarged precarinal lymph node is seen measuring 2.8 x 1.4 cm. Small prevascular lymph nodes are noted. Paratracheal lymph nod es are seen measuring 1.2 cm. --LUNGS: Left pleural effusion of mild to moderate amount. No pulmonary nodules or masses. Interstit ial thickening is seen bilaterally which is suggestive of edema. Groundglass appearance is seen bilat erally suggestive of pneumonitis. . No pneumothorax. --MUSCULOSKELETAL: Soft tissues: Edema is seen in the subcutaneous tissues may indicate volume overload. Otherwise, The superficial soft tissues are normal. Bones: Age appropriate degenerative changes of the spine. No suspicious bony lytic or sclerotic lesio ns. ABDOMEN/PELVIS: --MUSCULOSKELETAL: Bones: Age appropriate degenerative changes of the spine. No suspicious bony lytic or sclerotic lesio ns. Levoscoliosis. Superficial soft tissues: The superficial soft tissues are normal. --UPPER ABDOMINAL ORGANS: Liver: Grossly dilated intrahepatic bile ducts. Enhancing lesion is seen in the left lobe of the live r which measures 1.7 x 1.5 cm. Which might indicate primary liver lesion or metastatic lesion. Cystic area seen in the area of the left lobe and adjacent to the stomach and pancreatic mass which m ay be in the liver of the stomach wall. Dilated biliary ducts is possible. Gallbladder: Status post cholecystectomy. Spleen: Normal. Stomach/duodenum: Thickening of the wall of the stomach in the area of the pylorus. Infiltration by m alignant process cannot be excluded. Gastroscopy is advised. Pancreas: Necrotic Head mass is again demonstrated which measures 3.7 x 6 cm. The body and tail of th e pancreas are not demonstrated. Adrenals: Nodule is seen in the left adrenal gland measuring 1.2 cm which may be metastatic. Kidneys: Minimal fullness of the renal pelvis bilaterally. --PELVIC ORGANS: The bladder shows slightly thickened wall.. No bladder stones. --BOWEL AND MESENTERY: Colon: No evidence of diverticulitis. Thickening of the wall of the cecum and ascending colon is note d. The appendix is not demonstrated. Small Bowel: Normal. No obstruction. Peritoneum/mesentery: No free air. Ascitic fluid seen in the pelvis and in both paracolic gutters and around the spleen and liver. Moderate amount.. No mesenteric lymphadenopathy. --RETROPERITONEUM: Mild atheromatous disease of the abdominal aorta. No retroperitoneal lymphadenop athy. IMPRESSION: CHEST: 1. Subcarinal and right hilar lymphadenopathy. Small paratracheal and prevascular lymph nodes. 2. Left lateral fusion of moderate amount. 3. Interstitial thickening in the lungs which may indicate edema or pneumonitis. Groundglass appeara nce is also noted which may indicate pneumonitis or edema. 4. Enhancing lesion in the right lobe of the thyroid. Ultrasound evaluation advised. ABDOMEN/PELVIS: 1. Dilated main and intrahepatic ducts. 2. Enhancing lesion in the liver which may be primary tumor of the liver or metastatic lesion. 3. Pancreatic mass which is not significantly changed. 4. Thickening of the pyloric wall which may indicate infiltration around the tumor. Gastroscopy is a dvised. Adjacent cystic areas seen either in t
[2024-06-10 08:23] LABS: Estimated Glomerular Filt Rate > 60
== END 2024-06-10 07:21 | disposition home or self-care (01) ==
PROVIDERS: PCP Internal Medicine Hematology & Oncology; Visit Provider Internal Medicine Hematology & Oncology
DX: C25.0 Malignant neoplasm of head of pancreas (principal); R59.0 Localized enlarged lymph nodes; R91.8 Other nonspecific abnormal finding of lung field; K83.8 Other specified diseases of biliary tract; E27.9 Disorder of adrenal gland, unspecified; R18.8 Other ascites
CPT/HCPCS: 71260; 74177; Q9967

== ENCOUNTER 2024-06-18 11:04 | Outpatient (CLI) | payer MEDICARE, BC, SELFPAY ==
[2024-06-18 11:32] LABS: Basophils Absolute Auto 0.1 K/mm3 (0.0-0.1); Basophils Percent Auto 1.2 % (0.2-1.2); Eosinophils Absolute Auto 0.2 K/mm3 (0-0.3); Hematocrit 28.8 % (37.0-47.0); Hemoglobin 8.9 g/dL (12.0-15.0); Immature Granulocyte Absolute 0.01 K/mm3 (0.00-0.031); Immature Granulocyte Percent A 0.2 % (0-0.5); Lymphocytes Absolute Auto 0.82 K/mm3 (0.9-3.2); Lymphocytes Percent Auto 19.3 % (18.3-44.2); Mean Corpuscular HGB Conc 30.9 g/dl (32-36); Mean Corpuscular Hemoglobin 26.9 pg (26-34); Monocytes Absolute Auto 0.4 K/mm3 (0.1-0.6); Monocytes Percent Auto 10.4 % (2.6-8.5); Neutrophils Absolute Auto 2.7 K/mm3 (1.3-6.7); Neutrophils Percent Auto 63.9 % (45.5-73.1); Platelet Count Result 272 k/mm3 (150-375); Red Blood Count 3.31 M/mm3 (4.2-5.4); Red Cell Distribution Width 20.1 % (11.5-14.5); White Blood Count 4.2 K/mm3 (4.5-10.0)
[2024-06-18 11:38] LABS: Blood Urea Nitrogen 10 mg/dL (8-26); Carbon Dioxide 23 mmol/L (22-30); Chloride 103 mmol/L (98-109); Estimated Glomerular Filt Rate > 60; Glucose 163 mg/dL (70-105); Potassium 3.7 mmol/L (3.5-4.9); Sodium 138 mmol/L (138-146)
[2024-06-18 12:55] LABS: Alanine Aminotransferase 42 U/L (6-35); Albumin Level 3.6 g/dL (3.5-5.1); Alkaline Phosphatase 342 U/L (38-126); Anion Gap 11 mmol/L (4-12); Aspartate Amino Transferase 52 U/L (14-36); Blood Urea Nitrogen 11 mg/dL (7-17); Calcium 9.2 mg/dL (8.4-10.2); Carbon Dioxide 23 mmol/L (22-30); Chloride 102 mmol/L (98-107); Estimated Glomerular Filt Rate > 60; Glucose 161 mg/dL (65-110); Potassium 3.7 mmol/L (3.4-5.0); Sodium 136 mmol/L (137-145)
[2024-06-19 12:39] LABS: CA 19-9 47 U/mL (<34)
== END 2024-06-18 11:05 | disposition home or self-care (01) ==
LOC: ANHLAB 11:10
PROVIDERS: PCP Internal Medicine Hematology & Oncology; Visit Provider Internal Medicine Hematology & Oncology
DX: C25.0 Malignant neoplasm of head of pancreas (principal)
CPT/HCPCS: 36415; 80047; 80053; 85025; 86301

== ENCOUNTER 2024-06-25 09:03 | Outpatient (CLI) | payer MEDICARE, BC, SELFPAY ==
--- NOTE | ~2024-06-25 | PE_ITS ---
EXAMINATION: PET skull to mid thigh DATE: 06/25/2024 11:01 INDICATION: Liver lesion TECHNIQUE: Blood glucose level was 96 mg/dL. 9.767 mCi of 18-fluorodeoxyglucose (18-FDG) was administ ered i.v. Low dose computed tomography (CT) images were acquired from the base of the brain to the pr oximal thighs for attenuation correction and anatomic localization. Positron emission tomography (PET ) images were acquired in the same distribution beginning 55 minutes after injection. Images includin g fused PET/CT images were reconstructed in axial, coronal, and sagittal planes. Automated exposure c ontrol technique was employed. The dose-length product was 581.75mGy-cm. COMPARISON: 06/10/2024 FINDINGS: Head/neck: There is symmetric increased activity in the oral cavity, laryngeal muscles and ocular muscles withou t CT correlate, likely physiologic. No pathologically enlarged cervical lymphadenopathy or suspicious foci of increased FDG uptake in the visualized head or neck. Chest: Postoperative change of prior mastectomy with radiation fibrosis with associated bronchiectatic ramírez es at the periphery of the anterolateral left upper lobe and lingula. Surgical clip the left axilla c onsistent with associated axillary lymph node dissection. Scattered mild groundglass opacities in the lungs with some smooth septal line thickening at the apices, right greater than left and bilateral l chaitanya bases consistent with mild pulmonary edema. Interval decrease in a now tiny left pleural effusion . Mild cardiomegaly. No pericardial effusion. Atherosclerotic coronary artery calcification and aorti c valve calcific lesion. Thoracic aorta is normal in caliber. No change in likely reactive mild media stinal and right hilar lymphadenopathy without evident increased FDG uptake to suggest metastatic dis ease. Abdomen/pelvis/proximal thighs: Physiologic renal accumulation and excretion of FDG activity in the kidneys, decompressed bladder and along portions of ureters. Normal degree and heterogenous pattern of increased uptake throughout the liver without radiologic correlate or dominant FDG avid lesion. The spleen no correlate identified f or the hyperenhancing lesion in segment 3 of the liver which likely represent either transient hepati c attenuation difference or a hemangioma. There is prominent increased FDG uptake with maximal SUV of 24.2 associated with the proximally 6 x 5 cm mass at the head of the pancreas. Moderate intra and ex trahepatic bile ductal dilation likely related to obstruction from the pancreatic mass. Cholecystecto my clips the gallbladder fossa. The spleen and bilateral adrenal glands are normal. Mild to moderate uptake scattered throughout the bowels without radiologic correlate, also likely physiologic. Moderat e amount of ascites scattered throughout the abdomen and pelvis. The uterus is not identified and has likely been surgically resected. No other abnormal foci of increased FDG uptake or pathologically en larged lymphadenopathy in the abdomen, pelvis or proximal thighs. Musculoskeletal: Small focus of mild increased uptake with maximal SUV of 3.5 in the region of the base of the acromio n without evident correlate on the CT imaging. A subtle less intense focus of uptake can be seen at t his location on the prior study with maximal SUV of 2.3. No other suspicious lytic, blastic or FDG av id bone lesions. IMPRESSION: 1. Prominent FDG uptake associated with an approximately 6 x 5 cm mass at the head of the pancreas co nsistent with likely primary pancreatic cancer. 2. Interval increase in still mild FDG uptake centered at the posterior base of the right acromial pr ocess which raises concern for metastatic disease. Could consider correlation with either bone scan o r pre and postcontrast MRI of the right shoulder. No other lesions suspicious for metastases identifi ed.
[2024-06-25 09:34] LABS: Glucose Point of Care 96 mg/dl (65-105)
== END 2024-06-25 09:04 | disposition home or self-care (01) ==
LOC: ANHIMG 09:07
PROVIDERS: Visit Provider Internal Medicine Hematology & Oncology
DX: C25.0 Malignant neoplasm of head of pancreas (principal); K76.9 Liver disease, unspecified
CPT/HCPCS: 78815; A9552

== ENCOUNTER 2024-07-30 10:43 | Outpatient (CLI) | payer MEDICARE, BC, SELFPAY ==
[2024-07-30 11:08] LABS: Basophils Absolute Auto 0.1 K/mm3 (0.0-0.1); Basophils Percent Auto 1.6 % (0.2-1.2); Eosinophils Absolute Auto 0.2 K/mm3 (0-0.3); Hematocrit 28.9 % (37.0-47.0); Hemoglobin 10.2 g/dL (12.0-15.0); Immature Granulocyte Absolute 0.01 K/mm3 (0.00-0.031); Immature Granulocyte Percent A 0.3 % (0-0.5); Lymphocytes Absolute Auto 0.66 K/mm3 (0.9-3.2); Lymphocytes Percent Auto 20.6 % (18.3-44.2); Mean Corpuscular HGB Conc 35.3 g/dl (32-36); Mean Corpuscular Hemoglobin 32.8 pg (26-34); Mean Corpuscular Volume 92.9 fl (80-100); Mean Platelet Volume 10.2 fl (7.4-10.4); Monocytes Absolute Auto 0.3 K/mm3 (0.1-0.6); Monocytes Percent Auto 8.8 % (2.6-8.5); Neutrophils Percent Auto 63.7 % (45.5-73.1); Platelet Count Result 166 k/mm3 (150-375); Red Blood Count 3.11 M/mm3 (4.2-5.4); Red Cell Distribution Width 23.4 % (11.5-14.5); White Blood Count 3.2 K/mm3 (4.5-10.0)
[2024-07-30 13:18] LABS: Anion Gap 9 mmol/L (4-12); Blood Urea Nitrogen 22 mg/dL (7-17); Calcium 9.2 mg/dL (8.4-10.2); Carbon Dioxide 26 mmol/L (22-30); Chloride 101 mmol/L (98-107); Estimated Glomerular Filt Rate > 60; Glucose 152 mg/dL (65-110); Sodium 136 mmol/L (137-145)
[2024-08-02 12:19] LABS: CA 19-9 68 U/mL (<34)
== END 2024-07-30 10:44 | disposition home or self-care (01) ==
LOC: ANHLAB 10:46
PROVIDERS: Visit Provider Internal Medicine Hematology & Oncology
DX: C25.0 Malignant neoplasm of head of pancreas (principal)
CPT/HCPCS: 36415; 80048; 85025; 86301

== ENCOUNTER 2024-08-21 10:34 | Outpatient (CLI) | payer MEDICARE, BC, SELFPAY ==
[2024-08-21 10:52] LABS: Basophils Absolute Auto 0.1 K/mm3 (0.0-0.1); Basophils Percent Auto 1.9 % (0.2-1.2); Eosinophils Absolute Auto 0.2 K/mm3 (0-0.3); Eosinophils Percent Auto 6.3 % (0-4.4); Hematocrit 29.9 % (37.0-47.0); Immature Granulocyte Absolute 0.01 K/mm3 (0.00-0.031); Immature Granulocyte Percent A 0.3 % (0-0.5); Lymphocytes Absolute Auto 0.88 K/mm3 (0.9-3.2); Lymphocytes Percent Auto 23.3 % (18.3-44.2); Mean Corpuscular HGB Conc 33.4 g/dl (32-36); Mean Corpuscular Hemoglobin 30.6 pg (26-34); Mean Corpuscular Volume 91.4 fl (80-100); Mean Platelet Volume 8.7 fl (7.4-10.4); Monocytes Absolute Auto 0.5 K/mm3 (0.1-0.6); Monocytes Percent Auto 11.9 % (2.6-8.5); Neutrophils Absolute Auto 2.1 K/mm3 (1.3-6.7); Neutrophils Percent Auto 56.3 % (45.5-73.1); Platelet Count Result 204 k/mm3 (150-375); Red Blood Count 3.27 M/mm3 (4.2-5.4); Red Cell Distribution Width 21.4 % (11.5-14.5); White Blood Count 3.8 K/mm3 (4.5-10.0)
[2024-08-21 12:34] LABS: Anion Gap 6 mmol/L (4-12); Blood Urea Nitrogen 17 mg/dL (7-17); Calcium 9.3 mg/dL (8.4-10.2); Carbon Dioxide 29 mmol/L (22-30); Chloride 100 mmol/L (98-107); Estimated Glomerular Filt Rate > 60; Glucose 143 mg/dL (65-110); Potassium 3.9 mmol/L (3.4-5.0); Sodium 135 mmol/L (137-145)
[2024-08-23 04:23] LABS: CA 19-9 46 U/mL (<34)
== END 2024-08-21 10:35 | disposition home or self-care (01) ==
LOC: ANHLAB 10:37
PROVIDERS: Visit Provider Internal Medicine Hematology & Oncology
DX: C25.0 Malignant neoplasm of head of pancreas (principal)
CPT/HCPCS: 36415; 80048; 85025; 86301

== ENCOUNTER 2024-08-28 11:39 | Outpatient (CLI) | payer MEDICARE, BC, SELFPAY ==
[2024-08-28 12:05] LABS: Kit Draw Collected
== END 2024-08-28 11:40 | disposition home or self-care (01) ==
LOC: ANHLAB 11:42
PROVIDERS: Visit Provider Internal Medicine Hematology & Oncology
DX: C25.0 Malignant neoplasm of head of pancreas (principal)
CPT/HCPCS: 36415

== ENCOUNTER 2024-09-05 09:43 | Outpatient (CLI) | payer MEDICARE, BC, SELFPAY ==
--- NOTE | ~2024-09-05 | CT_ITS ---
EXAMINATION: CT chest abdomen pelvis w con DATE: 09/05/2024 10:22 INDICATION: Malignant neoplasm of pancreas. TECHNIQUE: Computed tomography (CT) of the chest, abdomen, and pelvis was performed with 100 mL Omnip aque 350 intravenous contrast. Automated exposure control and iterative reconstruction technique were employed. The dose-length product was 285.46 mGy-cm. COMPARISON: CT 06/10/2024, 03/11/2024 FINDINGS: CHEST CT: The lungs demonstrate mild atelectasis. There is peripheral honeycombing in left upper lobe, consiste nt with radiation fibrosis. No pleural effusion. Cardiomegaly is noted. There are coronary artery nichole cifications. No pericardial effusion. There are changes of left mastectomy. There is an 11 mm nodule in right thyroid lobe, likely not clinically significant. There is chronic mild right paratracheal ly mphadenopathy, likely reactive. There is mild chronic height loss of multiple vertebral bodies. There is an old healed fracture of the sternum. ABDOMEN/PELVIS CT: There is severe intrahepatic biliary duct dilatation. There is a 5.9 cm heterogeneous mass in the hea d of the pancreas. There is atrophy of the tail of the pancreas. There is a stricture of the common b ile duct in the head of the pancreas. 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 Gastric varices are noted. The spleen and adrenal gland s are normal. There is cortical thinning of the kidneys. There are no dilated loops of bowel. There i s a moderate volume of ascites with peritoneal thickening and enhancement. There is lumbar levoscolio sis and severe spondylosis. IMPRESSION: 1. Stable 5.9 cm mass in the pancreas, consistent with primary malignancy. 2. Moderate volume of ascites. Peritoneal thickening and enhancement suggests an exudate. Reviewed, dictated and finalized at location A. IMPRESSION: 1. Stable 5.9 cm mass in the pancreas, consistent with primary malignancy. 2. Moderate volume of ascites. Peritoneal thickening and enhancement suggests a n exudate.
== END 2024-09-05 09:44 | disposition home or self-care (01) ==
PROVIDERS: PCP Family Medicine; Visit Provider Internal Medicine Hematology & Oncology
DX: C25.0 Malignant neoplasm of head of pancreas (principal); R18.8 Other ascites; K66.8 Other specified disorders of peritoneum
CPT/HCPCS: 71260; 74177; Q9967

== ENCOUNTER 2024-09-05 10:27 | Outpatient (CLI) | payer MEDICARE, BC, SELFPAY ==
[2024-09-05 12:02] LABS: Basophils Absolute Auto 0.1 K/mm3 (0.0-0.1); Basophils Percent Auto 1.3 % (0.2-1.2); Eosinophils Absolute Auto 0.2 K/mm3 (0-0.3); Eosinophils Percent Auto 4.4 % (0-4.4); Hematocrit 28.3 % (37.0-47.0); Hemoglobin 9.9 g/dL (12.0-15.0); Immature Granulocyte Absolute 0.01 K/mm3 (0.00-0.031); Immature Granulocyte Percent A 0.3 % (0-0.5); Lymphocytes Absolute Auto 0.73 K/mm3 (0.9-3.2); Lymphocytes Percent Auto 18.9 % (18.3-44.2); Mean Corpuscular Hemoglobin 33.4 pg (26-34); Mean Corpuscular Volume 95.6 fl (80-100); Mean Platelet Volume 10.2 fl (7.4-10.4); Monocytes Absolute Auto 0.3 K/mm3 (0.1-0.6); Monocytes Percent Auto 8.3 % (2.6-8.5); Neutrophils Absolute Auto 2.6 K/mm3 (1.3-6.7); Neutrophils Percent Auto 66.8 % (45.5-73.1); Platelet Count Result 222 k/mm3 (150-375); Red Blood Count 2.96 M/mm3 (4.2-5.4); Red Cell Distribution Width 22.6 % (11.5-14.5); White Blood Count 3.9 K/mm3 (4.5-10.0)
[2024-09-05 13:14] LABS: Alanine Aminotransferase 118 U/L (6-35); Albumin Level 3.4 g/dL (3.5-5.1); Alkaline Phosphatase 553 U/L (38-126); Anion Gap 8 mmol/L (4-12); Aspartate Amino Transferase 154 U/L (14-36); Bilirubin,Total 8.8 mg/dL (0.2-1.3); Blood Urea Nitrogen 13 mg/dL (7-17); Calcium 9.3 mg/dL (8.4-10.2); Carbon Dioxide 25 mmol/L (22-30); Chloride 101 mmol/L (98-107); Estimated Glomerular Filt Rate > 60; Glucose 81 mg/dL (65-110); Potassium 3.7 mmol/L (3.4-5.0); Sodium 134 mmol/L (137-145)
== END 2024-09-05 10:28 | disposition home or self-care (01) ==
PROVIDERS: PCP Family Medicine; Visit Provider Internal Medicine Hematology & Oncology
DX: C25.0 Malignant neoplasm of head of pancreas (principal)
CPT/HCPCS: 36415; 80053; 85025

== ENCOUNTER 2024-09-06 15:27 | Emergency (ER) | payer MEDICARE, BC, SELFPAY ==
[2024-09-06 15:36] VITALS: BP 140/54; PULSE 80; RESP 14; TEMP 36.6; O2SAT 100
--- NOTE | 2024-09-06 15:44 | ED.GENADULT ---
HPI - General Adult General Chief complaint: Unspecified <Peewee Renae PA-C - Last Filed: 09/06/24 15:48> Stated complaint: jaundice x 4 days <Peewee Renae PA-C - Last Filed: 09/06/24 15:48> Time Seen by Provider: 09/06/24 15:43 <Peewee Renae PA-C - Last Filed: 09/06/24 15:48> Focused HPI: This is a 88-year-old female with PMH of pancreatic cancer who presents to the ED for chief complaint of jaundice x4 days. Reports that she 1st noticed her skin started turning yellow this week and her family members wanted her to come to the ER for further evaluation. She has been following with Oncology and receiving radiation treatments. She had labs drawn yesterday. Patient is otherwise asymptomatic. She denies abdominal pain, bloating, nausea, vomiting or any further complaints today. Per chart review bilirubin is at 8.8 on 09/06/2024. In June of 2024 bilirubin was normal. GENERAL: Well-appearing, well-nourished, and in no acute distress. HEAD: Normocephalic, atraumatic. CHEST: Clear to auscultation. No respiratory distress. HEART: Regular rate and rhythm. Skin: Grossly jaundiced in the face and neck/upper torso. Scleral icterus present ABD: No abdominal tenderness. Abdomen soft NEURO: Alert and oriented x3. Patient screened in triage and initial orders placed. Additional care and disposition to be based upon diagnostic testing and treatment. <Peewee Renae PA-C - Last Filed: 09/06/24 15:48> Source: patient <Peewee Renae PA-C - Last Filed: 09/06/24 15:48> Mode of arrival: ambulatory <GUTIERREZ Hightower Last Filed: 09/06/24 15:48> Limitations: no limitations <GUTIERREZ Hightower Last Filed: 09/06/24 15:48> History of Present Illness HPI narrative: Patient 88-year-old female who presents emergency department with chief complaint of jaundice dose times last 4 days. Patient has history of pancreatic cancer sees a college E locally has had both radiation and is planning chemo. Patient reports that she had normal bilirubin in June and had outpatient labs yesterday that had elevated bilirubin at 8.8. Patient reports he is having no pain denies fever denies itching <Kasi Moreno MD - Last Filed: 09/06/24 21:43> Related Data Home medications: Home Medications Medication Instructions Recorded Confirmed multivitamin 1 tablet PO DAILY 03/02/20 07/02/24 cholecalciferol (vitamin D3) 50 50 mcg PO DAILY 09/21/20 07/02/24 mcg (2,000 unit) capsule carboxymethylcellulose sodium 1 % 1 drp ophthalmic (eye) PRN PRN Dry 09/25/20 07/02/24 eye liquid gel drops Eye(S) magnesium 250 mg tablet 250 mg PO DAILY 05/03/23 07/02/24 vit C 250 mg-vit E 90 mg-zinc 40 1 tablet PO DAILY 05/03/23 07/02/24 mg-copper 1 [id number] capsule (PreserVision AREDS-2) <Peewee Renae PA-C - Last Filed: 09/06/24 15:48> Allergies/adverse reactions: Allergies Allergy/AdvReac Type Severity Reaction Status Date / Time celecoxib AdvReac Unknown Verified 07/02/24 10:08 erythromycin base AdvReac Unknown Verified 07/02/24 10:08 hydrocodone AdvReac Unknown Verified 07/02/24 10:08 levofloxacin [From Levaquin] AdvReac Unknown Verified 07/02/24 10:08 meloxicam AdvReac Unknown Verified 07/02/24 10:08 rivaroxaban [From Xarelto] AdvReac Unknown Verified 07/02/24 10:08 triamterene AdvReac Unknown Verified 07/02/24 10:08 statin AdvReac Unknown Uncoded 07/02/24 10:08 <Peewee Renae PA-C - Last Filed: 09/06/24 15:48> Review of Systems Review of Systems: A 10 system review of systems was completed on the patient and is negative except for what is stated in the HPI. Nursing and ancillary documentation was reviewed. <Kasi Moreno MD - Last Filed: 09/06/24 21:43> PMFSH Past Medical History Medical History: Medical History Abdominal pain Acute upper respiratory infection, unspecified Bakers cyst Cancer of left breast Status post chemotherapy, radiation, and mastectomy. Chronic headache Colon polyps Constipation Current use of alf anticoagulation for history of DVT. Deep venous thrombosis In 1997 and 2019. DVT of lower limb, acute Epigastric pain Gastritis On EGD in December 2019. History of colon polyps Hyperlipidemia Hypertension Hyponatremia Left knee DJD Lumbar spondylosis Newly recognized murmur Osteoarthritis Osteoarthritis of right knee Osteoporosis Osteoporosis Pancreatic cancer Sinus pressure Ventral hernia Weakness <Peewee Renae PA-C - Last Filed: 09/06/24 15:48> Surgical History Surgical History: Surgical History H/O cataract extraction History of cardiac catheterization History of cataract extraction History of cholecystectomy History of hysterectomy History of left mastectomy <Peewee Renae PA-C - Last Filed: 09/06/24 15:48> Family History Family History: Family History Sibling Diabetes mellitus Heart disease Heart problem Sibling Heart problem Prostate carcinoma Sibling Heart problem Sibling Heart problem Sibling Breast cancer <GUTIERREZ Hightower Last Filed: 09/06/24 15:48> Social History Social History: Social History Social History: POLST completed on 05/03/23 Smoking packs per day: 0.5 Smoking cigarettes per day: 10.0 Years smoked: 20 Smoking pack-years: 10.00 Smoking status: Former smoker Tobacco type: cigarettes Smoking end date: 11/13/1963 Alcohol intake: never Substance use: never Substance use type: does not use Lack of Transportation: YES Lack of Food: Sometimes True Current Housing: I Have Housing Concerned About Future Housing: No Difficulty Paying Gas/Electric Bills: No Difficulty Paying for Meds: No Currently Unemployed: No Education: High School Diploma/GED Difficulty w/ Childcare or Family Care: No Living arrangements: alone Additional living arrangements comments: Lives in [place]. . Occupation/Education: retired Additional occupation/education comments: Retired. Gender identity (if verbalized by the patient): Female Spiritual care concerns: No <Peewee Renae PA-C - Last Filed: 09/06/24 15:48> Exam Narrative: GENERAL: Well-appearing, well-nourished, and in no acute distress. HEAD: Normocephalic, atraumatic. EYES: PERRLA and EOMI. No scleral icterus ENT: Nares clear, no rhinorrhea or epistaxis. Mucous membranes moist. NECK: Supple. CHEST: Clear to auscultation. No respiratory distress. HEART: Regular rate and rhythm. No murmur heard. Normal peripheral pulses. ABDOMEN: Soft, nontender, nondistended, normal active bowel sounds. EXTREMITIES: Normal range of motion. No edema. SKIN: Warm, dry, no rash. Jaundice present NEURO: No focal deficits. Alert and oriented x3. PSYCH: Normal mood and affect. <Kasi Moreno MD - Last Filed: 09/06/24 21:43> Course Vital Signs Vital signs: Vital Signs Temperature 36.6 C 09/06/24 15:36 Pulse Rate 80 09/06/24 15:36 Respiratory Rate 14 09/06/24 15:36 Blood Pressure 140/54 L 09/06/24 15:36 Pulse Oximetry 100 09/06/24 15:36 Oxygen Delivery Room Air 09/06/24 15:36 Temperature 36.6 C 09/06/24 15:36 Pulse Rate 80 09/06/24 15:36 Respiratory Rate 14 09/06/24 15:36 Blood Pressure 140/54 L 09/06/24 15:36 Pulse Oximetry 100 09/06/24 15:36 Oxygen Delivery Room Air 09/06/24 15:36 <Peewee Renae PA-C - Last Filed: 09/06/24 15:48> Vital Signs Temperature 36.6 C 09/06/24 15:36 Pulse Rate 80 09/06/24 15:36 Respiratory Rate 14 09/06/24 15:36 Blood Pressure 140/54 L 09/06/24 15:36 Pulse Oximetry 100 09/06/24 15:36 Oxygen Delivery Room Air 09/06/24 15:36 Temperature 36.6 C 09/06/24 15:36 Pulse Rate 80 09/06/24 15:36 Respiratory Rate 14 09/06/24 15:36 Blood Pressure 140/54 L 09/06/24 15:36 Pulse Oximetry 100 09/06/24 15:36 Oxygen Delivery Room Air 09/06/24 15:36 <Kasi Moreno MD - Last Filed: 09/06/24 21:43> Medical Decision Making MDM Narrative Medical decision making narrative: Differential diagnosis includes biliary obstruction, pancreatic mass, For report by laboratory studies were obtained on the patient showed a bilirubin of 9.4 AST was 129 ALT was 102 alk-phos is 547. The patient is currently afebrile and not having abdominal pain. Patient is currently nontoxic and does not show evidence of acute cholangitis CT scan results outpatient yesterday showed There is severe intrahepatic biliary duct dilatation. There is a 5.9 cm heterogeneous mass in the head of the pancreas. There is atrophy of the tail of the pancreas. There is a stricture of the common bile duct in the head of the pancreas. 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 The spleen and adrenal glands are normal. There is cortical thinning of the kidneys. There are no dilated loops of bowel. There is a moderate volume of ascites with peritoneal thickening and enhancement. There is lumbar levoscoliosis and severe spondylosis. IMPRESSION: 1. Stable 5.9 cm mass in the pancreas, consistent with primary malignancy. 2. Moderate volume of ascites. Peritoneal thickening and enhancement suggests an exudate. The case was discussed with Dr. Kern with GI that since the patient is currently not having pain in his currently hemodynamically stable he could see the patient in the office and schedule for outpatient biliary stent the patient was given strict return precautions if she develops fever or pain she should return immediately to the emergency department <Kasi Moreno MD - Last Filed: 09/06/24 21:43> Vital Signs Vital Signs: Vital Signs Temperature 36.6 C 09/06/24 15:36 Pulse Rate 80 09/06/24 15:36 Respiratory Rate 14 09/06/24 15:36 Blood Pressure 140/54 L 09/06/24 15:36 Pulse Oximetry 100 09/06/24 15:36 Oxygen Delivery Room Air 09/06/24 15:36 Temperature 36.6 C 09/06/24 15:36 Pulse Rate 80 09/06/24 15:36 Respiratory Rate 14 09/06/24 15:36 Blood Pressure 140/54 L 09/06/24 15:36 Pulse Oximetry 100 09/06/24 15:36 Oxygen Delivery Room Air 09/06/24 15:36 <Peewee Renae PA-C - Last Filed: 09/06/24 15:48> Vital Signs Temperature 36.6 C 09/06/24 15:36 Pulse Rate 80 09/06/24 15:36 Respiratory Rate 14 09/06/24 15:36 Blood Pressure 140/54 L 09/06/24 15:36 Pulse Oximetry 100 09/06/24 15:36 Oxygen Delivery Room Air 09/06/24 15:36 Temperature 36.6 C 09/06/24 15:36 Pulse Rate 80 09/06/24 15:36 Respiratory Rate 14 09/06/24 15:36 Blood Pressure 140/54 L 09/06/24 15:36 Pulse Oximetry 100 09/06/24 15:36 Oxygen Delivery Room Air 09/06/24 15:36 <Kasi Moreno MD - Last Filed: 09/06/24 21:43> Lab Data Result diagrams: 09/06/24 20:10 09/06/24 20:10 <Peewee Renae PA-C - Last Filed: 09/06/24 15:48> Labs: Lab Results 09/06/24 Range/Units 20:10 WBC Pending RBC Pending Hgb Pending Hct Pending MCV Pending MCH Pending MCHC Pending RDW Pending Plt Count Pending MPV Pending Immature Gran % (Auto) Pending Neut % (Auto) Pending Lymph % (Auto) Pending [place] % (Auto) Pending Eos % (Auto) Pending Baso % (Auto) Pending Lymph # (Auto) Pending [place] # (Auto) Pending Eos # (Auto) Pending Baso # (Auto) Pending Abs Immat Gran (auto) Pending Absolute Neuts (auto) Pending Absolute Nucleated RBC Pending Nucleated RBC % Pending PT 14.7 (11.1-14.7) Seconds INR 1.1 APTT 30.4 (22.3-36.8) Seconds Sodium 138 (137-145) mmol/L Potassium 3.9 (3.4-5.0) mmol/L Chloride 104 (98-107) mmol/L Carbon Dioxide 25 (22-30) mmol/L Anion Gap 9 (4-12) mmol/L BUN 13 (7-17) mg/dL Creatinine 0.50 L (0.7-1.0) mg/dL Estim Creat Clear Calc Not Reportable Estimated GFR > 60 (59 - ) Glucose 92 (65-110) mg/dL Calcium 9.2 (8.4-10.2) mg/dL Total Bilirubin 9.4 H (0.2-1.3) mg/dL AST 129 H (14-36) U/L ALT 102 H (6-35) U/L Alkaline Phosphatase 557 H (38-126) U/L Total Protein 9.0 H (6.3-8.2) g/dL Albumin 3.7 (3.5-5.1) g/dL <Peewee Renae PA-C - Last Filed: 09/06/24 15:48> Lab Results 09/06/24 Range/Units 20:10 WBC Pending RBC Pending Hgb Pending Hct Pending MCV Pending MCH Pending MCHC Pending RDW Pending Plt Count Pending MPV Pending Immature Gran % (Auto) Pending Neut % (Auto) Pending Lymph % (Auto) Pending [place] % (Auto) Pending Eos % (Auto) Pending Baso % (Auto) Pending Lymph # (Auto) Pending [place] # (Auto) Pending Eos # (Auto) Pending Baso # (Auto) Pending Abs Immat Gran (auto) Pending Absolute Neuts (auto) Pending Absolute Nucleated RBC Pending Nucleated RBC % Pending PT 14.7 (11.1-14.7) Seconds INR 1.1 APTT 30.4 (22.3-36.8) Seconds Sodium 138 (137-145) mmol/L Potassium 3.9 (3.4-5.0) mmol/L Chloride 104 (98-107) mmol/L Carbon Dioxide 25 (22-30) mmol/L Anion Gap 9 (4-12) mmol/L BUN 13 (7-17) mg/dL Creatinine 0.50 L (0.7-1.0) mg/dL Estim Creat Clear Calc Not Reportable Estimated GFR > 60 (59 - ) Glucose 92 (65-110) mg/dL Calcium 9.2 (8.4-10.2) mg/dL Total Bilirubin 9.4 H (0.2-1.3) mg/dL AST 129 H (14-36) U/L ALT 102 H (6-35) U/L Alkaline Phosphatase 557 H (38-126) U/L Total Protein 9.0 H (6.3-8.2) g/dL Albumin 3.7 (3.5-5.1) g/dL <Kasi Moreno MD - Last Filed: 09/06/24 21:43> Discharge Plan Discharge Clinical Impression: Jaundice, Cancer of pancreas <Peewee Renae PA-C - Last Filed: 09/06/24 15:48> Patient Disposition: Home, Self-Care <Peewee Renae PA-C - Last Filed: 09/06/24 15:48> Condition: Stable <Peewee Renae PA-C - Last Filed: 09/06/24 15:48> Instructions: Antibiotic Form, Jaundice (ED) <Peewee Renae PA-C - Last Filed: 09/06/24 15:48> Additional Instructions: Your imaging from outpatient showed that your pancreatic mass is starting to narrow your bile duct. Please follow-up with GI call the office on Monday and they will schedule you to have a procedure to allow the bile duct drain better. If you develop fever abdominal pain or having worsening symptoms please return to the emergency department for re-evaluation <Peewee Renae PA-C - Last Filed: 09/06/24 15:48> Prescriptions: No Action ondansetron 4 mg Tablet,Disintegrating See Rx Instructions .ROUTE .COMPLEX Qty: 12 0RF Rx Instructions: 4 mg orally 60 minutes prior to each radiation treatment. May take every 8 hours if needed for nausea/vomiting. pantoprazole 40 mg Tablet,Delayed Release (Dr/Ec) 40 mg PO QAM Qty: 30 2RF cholecalciferol (vitamin D3) 50 mcg (2,000 unit) capsule 50 mcg PO DAILY magnesium 250 mg tablet 250 mg PO DAILY PreserVision AREDS-2 250-90-40-1 mg capsule 1 tablet PO DAILY multivitamin Tablet 1 tablet PO DAILY lactulose 10 gram/15 mL solution 10 g PO DAILY PRN (Reason: constipation) Qty: 237 0RF carboxymethylcellulose sodium 1 % Drops, Liquid Gel 1 drp ophthalmic (eye) PRN PRN (Reason: Dry Eye(S)) Eliquis 2.5 mg tablet See Rx Instructions .ROUTE .COMPLEX Qty: 180 0RF Hold Instructions: Resume on 10/10/20. Dose Instruction: TAKE ONE TABLET BY MOUTH TWICE A DAY Rx Instructions: TAKE ONE TABLET BY MOUTH TWICE A DAY ezetimibe 10 mg tablet See Rx Instructions .ROUTE .COMPLEX Qty: 90 0RF Dose Instruction: TAKE ONE TABLET BY MOUTH IN THE EVENING Rx Instructions: TAKE ONE TABLET BY MOUTH IN THE EVENING verapamil 120 mg capsule,ext rel. pellets 24 hr 120 mg PO DAILY Qty: 90 0RF <Peweee Renae PA-C - Last Filed: 09/06/24 15:48> Follow-up/Referrals: Chip Rogers DO [Physician] - Keith Kern MD [Physician] - <Peewee Renae PA-C - Last Filed: 09/06/24 15:48> Time of Disposition: 21:42 <Peewee Renae PA-C - Last Filed: 09/06/24 15:48> 21:42 <Kasi Moreno MD - Last Filed: 09/06/24 21:43>
[2024-09-06 20:26] LABS: Alanine Aminotransferase 102 U/L (6-35); Albumin Level 3.7 g/dL (3.5-5.1); Alkaline Phosphatase 557 U/L (38-126); Anion Gap 9 mmol/L (4-12); Aspartate Amino Transferase 129 U/L (14-36); Bilirubin,Total 9.4 mg/dL (0.2-1.3); Blood Urea Nitrogen 13 mg/dL (7-17); Calcium 9.2 mg/dL (8.4-10.2); Carbon Dioxide 25 mmol/L (22-30); Chloride 104 mmol/L (98-107); Estimated Glomerular Filt Rate > 60; Glucose 92 mg/dL (65-110); Potassium 3.9 mmol/L (3.4-5.0); Sodium 138 mmol/L (137-145)
[2024-09-06 20:34] LABS: INR 1.1; Prothrombin Time 14.7 Seconds (11.1-14.7)
[2024-09-06 20:35] LABS: Partial Thromboplastin Time 30.4 Seconds (22.3-36.8)
--- NOTE | 2024-09-06 21:11 | PC.NURSE ---
patient brought to room 5 via wheelchair. Patient is ambulatory to ER stretcher with minimal assistance. Patient states she came to ED for yellow skin discoloration on her face. Patient is alert and oriented x's 4. No other concerning complaints at this time. Vitally stable. Purple top redrawn via straight stick, patient tolerated well. Patient given warm blanket.
[2024-09-06 21:18] LABS: Basophils Percent Auto 0.8 % (0.2-1.2); Eosinophils Absolute Auto 0.3 K/mm3 (0-0.3); Eosinophils Percent Auto 5.7 % (0-4.4); Hematocrit 30.1 % (37.0-47.0); Hemoglobin 10.3 g/dL (12.0-15.0); Immature Granulocyte Absolute 0.01 K/mm3 (0.00-0.031); Immature Granulocyte Percent A 0.2 % (0-0.5); Lymphocytes Absolute Auto 0.97 K/mm3 (0.9-3.2); Lymphocytes Percent Auto 19.9 % (18.3-44.2); Mean Corpuscular HGB Conc 34.2 g/dl (32-36); Mean Corpuscular Hemoglobin 32.5 pg (26-34); Mean Platelet Volume 10.9 fl (7.4-10.4); Monocytes Absolute Auto 0.5 K/mm3 (0.1-0.6); Neutrophils Absolute Auto 3.1 K/mm3 (1.3-6.7); Neutrophils Percent Auto 63.4 % (45.5-73.1); Platelet Count Result 228 k/mm3 (150-375); Red Blood Count 3.17 M/mm3 (4.2-5.4); Red Cell Distribution Width 22.5 % (11.5-14.5); White Blood Count 4.9 K/mm3 (4.5-10.0)
[2024-09-06 22:15] VITALS: BP 146/59; PULSE 77; RESP 18; TEMP 36.7; O2SAT 99
== END 2024-09-06 22:18 | disposition home or self-care (01) ==
PROVIDERS: Physician Assistant; Emergency Provider Emergency Medicine; PCP Internal Medicine Hematology & Oncology
DX: R17 Unspecified jaundice (principal); C25.9 Malignant neoplasm of pancreas, unspecified; I11.0 Hypertensive heart disease with heart failure; E78.5 Hyperlipidemia, unspecified; M17.0 Bilateral primary osteoarthritis of knee; M81.0 Age-related osteoporosis without current pathological fracture; Z98.49 Cataract extraction status, unspecified eye; Z86.718 Personal history of other venous thrombosis and embolism; Z86.0100 Personal history of colon polyps, unspecified; Z87.891 Personal history of nicotine dependence; Z90.49 Acquired absence of other specified parts of digestive tract; Z90.710 Acquired absence of both cervix and uterus
CPT/HCPCS: 36415; 80053; 85025; 85610; 85730; 99283

== ENCOUNTER 2024-09-15 19:50 | Inpatient (IN) | payer MEDICARE, BC, SELFPAY ==
[2024-09-15] VITALS (8 sets, daily range): BP systolic 130–140; BP diastolic 57–64; PULSE 80–86; RESP 14–27; TEMP 36.3; O2SAT 97–100
--- NOTE | ~2024-09-15 | XR_ITS ---
INTRAOPERATIVE FLUOROSCOPY: CLINICAL HISTORY: 88 years old Female; ORIF, RIGHT HIP PROCEDURE COMMENTS: Limited intraoperative fluoroscopy of the right hip was performed. CUMULATIVE DOSE: 11.02 mGy FLUOROSCOPY TIME: 44 seconds FINDINGS/IMPRESSION: Please refer to operative note for further details. Reviewed, dictated and finalized at location A. UNT TECHNICIAN
--- NOTE | ~2024-09-15 | XR_ITS ---
XR hip RT 2V w AP pelvis DATE: 09/15/2024 21:14 INDICATION: Fall. Hip pain. TECHNIQUE: AP pelvis. AP and crosstable lateral views of the right hip. COMPARISON: None FINDINGS: There is a virtually nondisplaced intertrochanteric right hip fracture. Osteopenia. There is a transitional lumbosacral vertebra. There is degenerative disc disease of the lower lumbar spine. The pubic symphysis and sacroiliac joints are intact. No pelvic fracture or bone destruction is detec brenda. IMPRESSION: Right intertrochanteric hip fracture Reviewed, dictated and finalized at location A. SCOPIC INSTRUMENT TESTER
--- NOTE | 2024-09-15 19:58 | ECG_ITS ---
Test Date: 2024-09-15 20:06:08 Measurements Intervals [place] Rate: 83 P: 56 [place]: 199 QRS: -36 QRSD: 124 T: 108 QT: 428 QTc: 505 Interpretive Statements SINUS RHYTHM LEFT AXIS DEVIATION INTRAVENTRICULAR CONDUCTION DELAY BORDERLINE R WAVE PROGRESSION, ANTERIOR LEADS LEFT VENTRICULAR HYPERTROPHY AND ST-T CHANGE BORDERLINE ST-T WAVE ABNORMALITY- LATERAL LEADS BASELINE ARTIFACT- I, II, III, AVR, AVL, AVF BORDERLINE ECG No previous ECG available for comparison Electronically Signed On 09-16-2024 05:59:56 [employer] by Rod Terrell D.O.
--- NOTE | 2024-09-15 21:16 | PC.NURSE ---
upon physicl exam patient denies pain to the lumbar region. pt began shouting when asked to be rolled.
[2024-09-15] MEDS: MORPHINE SULFATE (*CRX) 4 MG/ML INJ IV PUSH (21:56)
--- NOTE | 2024-09-15 22:17 | ED_ITS ---
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 Patient states she was in the hallway turning too quickly to turn off the lights when she lost her balance and fell to the ground. States she landed on her right hip. She is reporting pain to her right hip. She did not hit her head or lose consciousness. She denies neck pain, back pain or other injuries acquired. Denies abdominal pain, fevers. patient sees Dr. Castillo. she is not currently on chemo or radiation. Her GI physician is at [facility]. States she is scheduled for a biliary stent in 3 days at [facility] Related Data Home Medications Medication Instructions Recorded Confirmed multivitamin 1 tablet PO DAILY 03/02/20 07/02/24 cholecalciferol (vitamin D3) 50 50 mcg PO DAILY 09/21/20 07/02/24 mcg (2,000 unit) capsule carboxymethylcellulose sodium 1 % 1 drp ophthalmic (eye) PRN PRN Dry 09/25/20 07/02/24 eye liquid gel drops Eye(S) magnesium 250 mg tablet 250 mg PO DAILY 05/03/23 07/02/24 vit C 250 mg-vit E 90 mg-zinc 40 1 tablet PO DAILY 05/03/23 07/02/24 mg-copper 1 [id number] capsule (PreserVision AREDS-2) Allergies Allergy/AdvReac Type Severity Reaction Status Date / Time celecoxib AdvReac Unknown Verified 09/10/24 11:44 erythromycin base AdvReac Unknown Verified 09/10/24 11:44 hydrocodone AdvReac Unknown Verified 09/10/24 11:44 levofloxacin [From Levaquin] AdvReac Unknown Verified 09/10/24 11:44 meloxicam AdvReac Unknown Verified 09/10/24 11:44 rivaroxaban [From Xarelto] AdvReac Unknown Verified 09/10/24 11:44 triamterene AdvReac Unknown Verified 09/10/24 11:44 statin AdvReac Unknown Uncoded 07/02/24 10:08 Review of Systems Review of Systems: All systems reviewed & are unremarkable except as noted in HPI and below PMFSH Past Medical History Medical History Abdominal pain Acute upper respiratory infection, unspecified Bakers cyst Cancer of left breast Status post chemotherapy, radiation, and mastectomy. Chronic headache Colon polyps Constipation Current use of custodial anticoagulation for history of DVT. Deep venous thrombosis In 1997 and 2019. DVT of lower limb, acute Epigastric pain Gastritis On EGD in December 2019. History of colon polyps Hyperlipidemia Hypertension Hyponatremia Left knee DJD Lumbar spondylosis Newly recognized murmur Osteoarthritis Osteoarthritis of right knee Osteoporosis Osteoporosis Pancreatic cancer Sinus pressure Ventral hernia Weakness Surgical History Surgical History H/O cataract extraction History of cardiac catheterization History of cataract extraction History of cholecystectomy History of hysterectomy History of left mastectomy Family History Family History Sibling Diabetes mellitus Heart disease Heart problem Sibling Heart problem Prostate carcinoma Sibling Heart problem Sibling Heart problem Sibling Breast cancer Social History Social History Social History: POLST completed on 05/03/23 Smoking packs per day: 0.5 Smoking cigarettes per day: 10.0 Years smoked: 20 Smoking pack-years: 10.00 Smoking status: Former smoker Tobacco type: cigarettes Smoking end date: 11/13/1963 Alcohol intake: never Substance use: never Substance use type: does not use Lack of Transportation: YES Lack of Food: Sometimes True Current Housing: I Have Housing Concerned About Future Housing: No Difficulty Paying Gas/Electric Bills: No Difficulty Paying for Meds: No Currently Unemployed: No Education: High School Diploma/GED Difficulty w/ Childcare or Family Care: No Living arrangements: alone Additional living arrangements comments: Lives in [place]. . Occupation/Education: retired Additional occupation/education comments: Retired. Gender identity (if verbalized by the patient): Female Spiritual care concerns: No Exam Narrative: GENERAL: Well-appearing, well-nourished, and in no acute distress. HEAD: Normocephalic, atraumatic. EYES: PERRLA and EOMI. scleral icterus ENT: Nares clear, no rhinorrhea or epistaxis. Mucous membranes moist. NECK: No midline cervical spinous tenderness, step-offs or deformities BACK: no midline thoracolumbar spinous tenderness, step-offs or deformities CHEST: Clear to auscultation. No respiratory distress. HEART: Regular rate and rhythm. No murmur heard. Normal peripheral pulses. ABDOMEN: Soft, nontender, nondistended, normal active bowel sounds. No rebound, guarding rigidity. No CVA tenderness. EXTREMITIES: tenderness to the right proximal femur to palpation. No overlying ecchymosis or edema. No obvious deformity. Leg externally rotated and shortened. Limited range of motion of hip secondary to pain. No tenderness remainder of lower extremity. DP pulse 2 +. Sensation intact. Compartments are soft. SKIN: Jaundice NEURO: No focal deficits. Alert and oriented x3 Course Vital Signs Vital signs: Vital Signs Temperature 97.4 F L 09/15/24 19:54 Pulse Rate 84 09/15/24 19:54 Respiratory Rate 23 H 09/15/24 19:54 Blood Pressure 138/62 09/15/24 19:54 Pulse Oximetry 100 09/15/24 19:54 Oxygen Delivery Room Air 09/15/24 19:54 Temperature 97.4 F L 09/15/24 19:54 Pulse Rate 80 09/16/24 00:30 Respiratory Rate 9 L 09/16/24 00:30 Blood Pressure 130/57 L 09/16/24 00:30 Pulse Oximetry 99 09/16/24 00:30 Oxygen Delivery Room Air 09/15/24 19:54 MDM - Extremity Injury (Lower) MDM Narrative Medical decision making narrative: 88-year-old female with history of hyperlipidemia, GERD, metastatic pancreatic cancer presents to the emergency department for right hip pain after ground level fall. See HPI for further history. Vitals with tachypnea of 23 which has since improved. She is afebrile nontoxic appearing. Abdomen is soft and nontender. Exam significant for tenderness to the right proximal femur, lower extremity is externally rotated and shortened. She is neurovascularly intact. CBC shows no leukocytosis. Chemistries are remarkable for bilirubin is 17.8 which is doubled since 09/06/2024, AST 104, ALT 58 and alk-phos of 394. UA with bilirubin, no UTI. X-ray of the right hip shows a right intertrochanteric hip fracture. patient family updated on workup. She received a total of 6 mg of morphine with improvement. Given patient's complex GI history and her plans for a biliary stent in 3 days and doubling bilirubin in the past 10 days, will consult [facility] for potential transfer for continuity of care. discussed with [facility] orthopedist, Dr. Salamanca, who states he will consult on the patient if the patient gets transfer but is ultimately up to GI. Discussed with [facility] GI, Dr. Aviles, who advises that the patient can be put on a wait list if needed, however there is no emergent need for transfer given there is no signs of cholangitis. He offered to have the patient put on the wait list. I discussed the case with our hospitalist, Dr. Martinez, advises to put the patient on the [facility] wait list, however in the meantime accepts admission here. U accepting physician is hospitalist, Dr. Quan. Discussed the case with our orthopedist, Dr. August, who agrees to consult. Discussed with our GI, Dr. Woo who advises that the patient get stented with her GI team at [facility]. Lab Data 09/15/24 23:16 09/15/24 23:16 Labs: Lab Results 09/15/24 Range/Units 23:16 WBC 7.7 (4.5-10.0) K/mm3 RBC 2.77 L (4.2-5.4) M/mm3 Hgb 9.2 L (12.0-15.0) g/dL Hct 26.6 L (37.0-47.0) % MCV 96.0 (80-100) fl MCH 33.2 (26-34) pg MCHC 34.6 (32-36) g/dl RDW 21.9 H (11.5-14.5) % Plt Count 234 (150-375) k/mm3 MPV 11.0 H (7.4-10.4) fl Immature Gran % (Auto) 0.6 H (0-0.5) % Neut % (Auto) 84.2 H (45.5-73.1) % Lymph % (Auto) 7.1 L (18.3-44.2) % [place] % (Auto) 6.6 (2.6-8.5) % Eos % (Auto) 0.6 (0-4.4) % Baso % (Auto) 0.9 (0.2-1.2) % Lymph # (Auto) 0.55 L (0.9-3.2) K/mm3 [place] # (Auto) 0.5 (0.1-0.6) K/mm3 Eos # (Auto) 0.1 (0-0.3) K/mm3 Baso # (Auto) 0.1 (0.0-0.1) K/mm3 Abs Immat Gran (auto) 0.05 H (0.00-0.031) K/mm3 Absolute Neuts (auto) 6.5 (1.3-6.7) K/mm3 Absolute Nucleated RBC 0.000 (0.0-0.012) K/mm3 Nucleated RBC % 0.0 (0.0-0.2) % Sodium 138 (137-145) mmol/L Potassium 3.5 (3.4-5.0) mmol/L Chloride 103 (98-107) mmol/L Carbon Dioxide 24 (22-30) mmol/L Anion Gap 11 (4-12) mmol/L BUN 13 (7-17) mg/dL Creatinine 0.60 L (0.7-1.0) mg/dL Estim Creat Clear Calc Not Reportable Estimated GFR > 60 (59 - ) Glucose 118 H (65-110) mg/dL Calcium 8.8 (8.4-10.2) mg/dL Total Bilirubin 17.8 H (0.2-1.3) mg/dL AST 104 H (14-36) U/L ALT 58 H (6-35) U/L Alkaline Phosphatase 394 H (38-126) U/L Total Protein 8.0 (6.3-8.2) g/dL Albumin 3.4 L (3.5-5.1) g/dL Urine Color Dark yellow (Yellow) Urine Appearance Cloudy H (Clear) Urine pH 7.0 (5.0-9.0) Ur Specific [place] 1.010 (1.001-1.035) Urine Protein Negative (Negative) mg/dL Urine Glucose (UA) Negative (Negative) mg/dL Urine Ketones Negative (Negative) mg/dL Ur Blood (Man) Negative (Negative) Urine Nitrate Negative (Negative) Urine Bilirubin 2+ H (Negative) Urine Urobilinogen 0.2 (<2.0) mg/dL Leukocyte Esterase Rfl Negative (Negative) KEVIN/UL Urine RBC 0-2 (0-2) /hpf Urine WBC 0-5 (0-3) /hpf Ur Squamous Epith Cells None seen (Few) /hpf Urine Bacteria None seen /hpf Urine Casts 0-2 Discharge Plan Discharge Clinical Impression: Closed intertrochanteric fracture of right femur Qualifiers: Encounter type: initial encounter Fracture alignment: nondisplaced Qualified Code(s): S72.144A - Nondisplaced intertrochanteric fracture of right femur, initial encounter for closed fracture Pancreatic cancer Qualifiers: Pancreatic malignancy location: unspecified Qualified Code(s): C25.9 - Malignant neoplasm of pancreas, unspecified Patient Disposition: Still a Patient Condition: Stable Instructions: Antibiotic Form Prescriptions: No Action ondansetron 4 mg Tablet,Disintegrating See Rx Instructions .ROUTE .COMPLEX Qty: 12 0RF Rx Instructions: 4 mg orally 60 minutes prior to each radiation treatment. May take every 8 hours if needed for nausea/vomiting. pantoprazole 40 mg Tablet,Delayed Release (Dr/Ec) 40 mg PO QAM Qty: 30 2RF cholecalciferol (vitamin D3) 50 mcg (2,000 unit) capsule 50 mcg PO DAILY magnesium 250 mg tablet 250 mg PO DAILY PreserVision AREDS-2 250-90-40-1 mg capsule 1 tablet PO DAILY multivitamin Tablet 1 tablet PO DAILY lactulose 10 gram/15 mL solution 10 g PO DAILY PRN (Reason: constipation) Qty: 237 0RF carboxymethylcellulose sodium 1 % Drops, Liquid Gel 1 drp ophthalmic (eye) PRN PRN (Reason: Dry Eye(S)) Eliquis 2.5 mg tablet See Rx Instructions .ROUTE .COMPLEX Qty: 180 0RF Hold Instructions: Resume on 10/10/20. Dose Instruction: TAKE ONE TABLET BY MOUTH TWICE A DAY Rx Instructions: TAKE ONE TABLET BY MOUTH TWICE A DAY ezetimibe 10 mg tablet See Rx Instructions .ROUTE .COMPLEX Qty: 90 0RF Dose Instruction: TAKE ONE TABLET BY MOUTH IN THE EVENING Rx Instructions: TAKE ONE TABLET BY MOUTH IN THE EVENING verapamil 120 mg capsule,ext rel. pellets 24 hr 120 mg PO DAILY Qty: 90 0RF Follow-up/Referrals: PHYSICIAN NOT ON STAFF,NONSTAFF [Primary Care Provider] -
[2024-09-15] MEDS: MORPHINE SULFATE (*CRX) 2 MG/ML INJ IV PUSH (23:22)
[2024-09-15 23:30] LABS: Add Urine Microscopic? YES; Appearance Urine Cloudy (Clear); Bacteria Urine None Seen /hpf; Bilirubin Urine 2+ (Negative); Blood Urine Negative (Negative); Color Urine Dark Yellow (Yellow); Glucose Urine UA Negative (Negative); Ketones Urine Negative (Negative); Leukocyte Esterase Ur Negative LEU/UL (Negative); Nitrate Urine Negative (Negative); Non Pathogenic Casts 0-2; Protein Urine Negative (Negative); RBC Urine 0-2 /hpf (0-2); Squamous Epithelial Cell Urine None Seen /hpf (Few); Urobilinogen Urine 0.2 mg/dL (<2.0); WBC Urine 0-5 /hpf (0-3)
[2024-09-15 23:34] LABS: Alanine Aminotransferase 58 U/L (6-35); Albumin Level 3.4 g/dL (3.5-5.1); Alkaline Phosphatase 394 U/L (38-126); Anion Gap 11 mmol/L (4-12); Aspartate Amino Transferase 104 U/L (14-36); Bilirubin,Total 17.8 mg/dL (0.2-1.3); Blood Urea Nitrogen 13 mg/dL (7-17); Calcium 8.8 mg/dL (8.4-10.2); Carbon Dioxide 24 mmol/L (22-30); Chloride 103 mmol/L (98-107); Estimated Glomerular Filt Rate > 60; Glucose 118 mg/dL (65-110); Potassium 3.5 mmol/L (3.4-5.0); Sodium 138 mmol/L (137-145)
[2024-09-15 23:59] LABS: Basophils Absolute Auto 0.1 K/mm3 (0.0-0.1); Basophils Percent Auto 0.9 % (0.2-1.2); Eosinophils Absolute Auto 0.1 K/mm3 (0-0.3); Eosinophils Percent Auto 0.6 % (0-4.4); Hematocrit 26.6 % (37.0-47.0); Hemoglobin 9.2 g/dL (12.0-15.0); Immature Granulocyte Absolute 0.05 K/mm3 (0.00-0.031); Immature Granulocyte Percent A 0.6 % (0-0.5); Lymphocytes Absolute Auto 0.55 K/mm3 (0.9-3.2); Lymphocytes Percent Auto 7.1 % (18.3-44.2); Mean Corpuscular HGB Conc 34.6 g/dl (32-36); Mean Corpuscular Hemoglobin 33.2 pg (26-34); Monocytes Absolute Auto 0.5 K/mm3 (0.1-0.6); Monocytes Percent Auto 6.6 % (2.6-8.5); Neutrophils Absolute Auto 6.5 K/mm3 (1.3-6.7); Neutrophils Percent Auto 84.2 % (45.5-73.1); Platelet Count Result 234 k/mm3 (150-375); Red Blood Count 2.77 M/mm3 (4.2-5.4); Red Cell Distribution Width 21.9 % (11.5-14.5); White Blood Count 7.7 K/mm3 (4.5-10.0)
[2024-09-16] VITALS (8 sets, daily range): BP systolic 130–142; BP diastolic 53–76; PULSE 75–85; RESP 12–20; TEMP 36.3–36.9; O2SAT 95–99; BMI 24.3
[2024-09-16] MEDS: MORPHINE SULFATE (*CRX) 4 MG/ML INJ IV PUSH (03:29)
--- NOTE | 2024-09-16 09:09 | P.HP_ITS ---
H&P: HPI History of Present Illness Date/Time: 09/16/24 09:09 Chief Complaint: Right hip pain Narrative: 88-year-old female with a history of GERD, hyperlipidemia, metastatic pancreatic cancer presents to the emergency department via EMS from home for right hip pain after a ground level fall. Patient states she was in the hallway turning too quickly to turn off the lights when she lost her balance and fell to the ground. States she landed on her right hip. She is reporting pain to her right hip. She did not hit her head or lose consciousness. She denies neck pain, back pain or other injuries acquired. Denies abdominal pain, fevers. patient sees Dr. Castillo. she is not currently on chemo or radiation. Her GI physician is at [facility]. States she is scheduled for a biliary stent in 3 days at [facility] Review of Systems Review of Systems: - CONSTITUTIONAL: Denies weight loss, fever and chills. - HEENT: Denies changes in vision and he aring - RESPIRATORY: Denies SOB and cough. - CV: Denies palpitations and CP. - GI: Denies abdominal pain, nausea, vom iting and diarrhea. - : Denies dysuria and urinary frequen cy. - MSK: Denies myalgia and reports right hip pain - SKIN: Denies rash and pruritus. - NEUROLOGICAL: Denies headache and sync ope. - PSYCHIATRIC: Denies recent changes in mood. Denies anxiety and depression. [facility] Past Medical History Medical History Abdominal pain Acute upper respiratory infection, unspecified Bakers cyst Cancer of left breast Status post chemotherapy, radiation, and mastectomy. Chronic headache Colon polyps Constipation Current use of termite control technician anticoagulation for history of DVT. Deep venous thrombosis In 1997 and 2019. DVT of lower limb, acute Epigastric pain Gastritis On EGD in December 2019. History of colon polyps Hyperlipidemia Hypertension Hyponatremia Left knee DJD Lumbar spondylosis Newly recognized murmur Osteoarthritis Osteoarthritis of right knee Osteoporosis Osteoporosis Pancreatic cancer Sinus pressure Ventral hernia Weakness Surgical History Surgical History H/O cataract extraction History of cardiac catheterization History of cataract extraction History of cholecystectomy History of hysterectomy History of left mastectomy Family History Family History Sibling Diabetes mellitus Heart disease Heart problem Sibling Heart problem Prostate carcinoma Sibling Heart problem Sibling Heart problem Sibling Breast cancer Social History Social History Social History: POLST completed on 05/03/23 Smoking packs per day: 0.5 Smoking cigarettes per day: 10.0 Years smoked: 20 Smoking pack-years: 10.00 Smoking status: Former smoker Tobacco type: cigarettes Smoking end date: 11/13/1963 Alcohol intake: never Substance use: never Substance use type: does not use Do You Feel Safe in your Home?: Yes Lack of Transportation: No Lack of Food: Never True Current Housing: I Have Housing Concerned About Future Housing: No Difficulty Paying Gas/Electric Bills: No Difficulty Paying for Meds: No Currently Unemployed: No Education: High School Diploma/GED Difficulty w/ Childcare or Family Care: No Living arrangements: alone Additional living arrangements comments: Lives in [place]. . Occupation/Education: retired Additional occupation/education comments: Retired. Gender identity (if verbalized by the patient): Female Spiritual care concerns: No Meds Home Medications and Allergies Home Medications Medication Instructions Recorded Confirmed Type multivitamin 1 tablet PO DAILY 03/02/20 09/16/24 History cholecalciferol (vitamin D3) 50 50 mcg PO DAILY 09/21/20 09/16/24 History mcg (2,000 unit) capsule carboxymethylcellulose sodium 1 % 1 drp ophthalmic (eye) PRN PRN Dry 09/25/20 09/16/24 History eye liquid gel drops Eye(S) magnesium 250 mg tablet 250 mg PO DAILY 05/03/23 09/16/24 History vit C 250 mg-vit E 90 mg-zinc 40 1 tablet PO DAILY 05/03/23 09/16/24 History mg-copper 1 [id number]-[id number] capsule (PreserVision AREDS-2) pantoprazole 40 mg tablet,delayed 40 mg PO QAM #30 tabs 03/01/24 09/16/24 Rx release verapamil 120 mg 24 hr 120 mg PO DAILY #90 caps 06/06/24 09/16/24 Rx capsule,extended release apixaban 2.5 mg tablet (Eliquis) 2.5 mg PO BID 09/16/24 09/16/24 History ezetimibe 10 mg tablet 10 mg PO DAILY 09/16/24 09/16/24 History Allergies Allergy/AdvReac Type Severity Reaction Status Date / Time celecoxib AdvReac Unknown Verified 09/16/24 02:52 erythromycin base AdvReac Unknown Verified 09/16/24 02:52 hydrocodone AdvReac Unknown Verified 09/16/24 02:52 levofloxacin [From Levaquin] AdvReac Unknown Verified 09/16/24 02:52 meloxicam AdvReac Unknown Verified 09/16/24 02:52 rivaroxaban [From Xarelto] AdvReac Unknown Verified 09/16/24 02:52 triamterene AdvReac Unknown Verified 09/16/24 02:52 statin AdvReac Unknown Uncoded 09/16/24 02:52 Vital Signs Vital Signs - 24 hr 09/15/24 19:54 09/15/24 19:56 09/15/24 20:00 Temperature 97.4 F L Pulse Rate 84 84 83 Respiratory Rate 23 H 27 H 18 Blood Pressure 138/62 138/62 140/60 Pulse Oximetry 100 98 100 Oxygen Delivery Room Air 09/15/24 20:45 09/15/24 21:30 09/15/24 23:12 Temperature Pulse Rate 80 83 86 Respiratory Rate 14 17 15 Blood Pressure 130/58 L 132/64 Pulse Oximetry 100 100 98 Oxygen Delivery 09/15/24 23:00 09/15/24 23:30 09/16/24 00:00 Temperature Pulse Rate 85 82 82 Respiratory Rate 15 15 18 Blood Pressure 132/64 137/57 L 141/57 H Pulse Oximetry 100 97 97 Oxygen Delivery 09/16/24 00:01 09/16/24 00:30 09/16/24 01:47 Temperature Pulse Rate 85 80 80 Respiratory Rate 18 13 16 Blood Pressure 130/57 L Pulse Oximetry 98 99 95 Oxygen Delivery 09/16/24 03:24 09/16/24 06:00 09/16/24 04:00 Temperature 98.0 F 97.5 F L Pulse Rate 84 75 Respiratory Rate 18 12 Blood Pressure 142/66 H 140/56 L Pulse Oximetry 98 97 Oxygen Delivery Room Air Exam Narrative: GENERAL: Well-appearing, well-nourished, and in no acute distress. HEAD: Normocephalic, atraumatic. EYES: PERRLA and EOMI. icteric ENT: Nares clear, no rhinorrhea or epistaxis. Mucous membranes moist. NECK: No midline cervical spinous tenderness, step-offs or deformities BACK: no midline thoracolumbar spinous tenderness, step-offs or deformities CHEST: Clear to auscultation. No respiratory distress. HEART: Regular rate and rhythm. No murmur heard. Normal peripheral pulses. ABDOMEN: Soft, nontender, nondistended, normal active bowel sounds. No rebound, guarding rigidity. No CVA tenderness. EXTREMITIES: tenderness to the right proximal femur to palpation. No overlying ecchymosis or edema. No obvious deformity. limited range of motion right hip SKIN: Jaundice NEURO: No focal deficits. Alert and oriented x3 H&P: Results Labs Labs: Short CBC 09/15/24 Range/Units 23:16 WBC 7.7 (4.5-10.0) K/mm3 Hgb 9.2 L (12.0-15.0) g/dL Hct 26.6 L (37.0-47.0) % Plt Count 234 (150-375) k/mm3 BMP 09/15/24 23:16 Sodium 138 Potassium 3.5 Chloride 103 Carbon Dioxide 24 BUN 13 Creatinine 0.60 L Glucose 118 H Calcium 8.8 Liver Function 09/15/24 Range/Units 23:16 Total Bilirubin 17.8 H (0.2-1.3) mg/dL AST 104 H (14-36) U/L ALT 58 H (6-35) U/L Alkaline Phosphatase 394 H (38-126) U/L Albumin 3.4 L (3.5-5.1) g/dL Urine 09/15/24 Range/Units 23:16 Urine Color Dark yellow (Yellow) Urine Appearance Cloudy H (Clear) Urine pH 7.0 (5.0-9.0) Ur Specific [place] 1.010 (1.001-1.035) Urine Protein Negative (Negative) mg/dL Urine Glucose (UA) Negative (Negative) mg/dL Assessment and Plan Assessment and plan (1) Closed intertrochanteric fracture of right femur: Qualifiers: Encounter type: initial encounter Fracture alignment: nondisplaced Qualified Code(s): S72.144A - Nondisplaced intertrochanteric fracture of right femur, initial encounter for closed fracture Code(s): S72.141A - Displaced intertrochanteric fracture of right femur, initial encounter for closed fracture Status: Acute (2) Pancreatic cancer: Qualifiers: Pancreatic malignancy location: unspecified Qualified Code(s): C25.9 - Malignant neoplasm of pancreas, unspecified Code(s): C25.9 - Malignant neoplasm of pancreas, unspecified Status: Acute (3) SCOTT (generalized anxiety disorder): Code(s): F41.1 - Generalized anxiety disorder Status: Acute (4) Lumbar spondylosis: Code(s): M47.816 - Spondylosis without myelopathy or radiculopathy, lumbar region Status: Acute (5) Current use of termite control technician anticoagulation: Code(s): Z79.01 - long term care pharmacist (current) use of anticoagulants Status: Acute (6) Hyperlipidemia: Qualifiers: Hyperlipidemia type: unspecified Qualified Code(s): E78.5 - Hyperlipidemia, unspecified Code(s): E78.5 - Hyperlipidemia, unspecified Status: Chronic (7) GERD (gastroesophageal reflux disease): Qualifiers: Esophagitis presence: without esophagitis Qualified Code(s): K21.9 - Gastro-esophageal reflux disease without esophagitis Code(s): K21.9 - Gastro-esophageal reflux disease without esophagitis Status: Chronic (8) Hypertension: Qualifiers: Hypertension type: essential hypertension Qualified Code(s): I10 - Essential (primary) hypertension Code(s): I10 - Essential (primary) hypertension Status: Chronic Plan 88-year-old female with history of hyperlipidemia, GERD, metastatic pancreatic cancer presents to the emergency department for right hip pain after mechanical ground level fall. CBC shows no leukocytosis. Chemistries are remarkable for bilirubin is 17.8 which is doubled since 09/06/2024, AST 104, ALT 58 and alk-phos of 394. UA with bilirubin, no UTI. X-ray of the right hip shows a right intertrochanteric hip fracture. orthopedic consulted for right hip intertrochanteric fracture.Await their recommendations metastatic pancreatic cancer diagnosed February 2024. Status post radiation therapy and palliative chemotherapy. With worsening jaundice planned for ERCP and biliary stent. Discussed with [facility] Lower extremity DVT on Eliquis Anemia she is planned to be transferred to [facility] pending bed availability. HTN: on verapamil HLP: on zetia DVT prophylaxis on Eliquis which will be held for potential surgery Hospitalist JERRY Advance Care Plan I have confirmed that the patient's Advanced Care Plan is present, code status is documented, or surrogate decision maker is listed in patient medical record.: Yes Medication Reconciliation I have utilized all available resources to obtain, update and review the patients current medications (includes all prescriptions, OTC, herbals, cannabis, and nutritional supplements).: Yes
--- NOTE | 2024-09-16 12:27 | PC.NURSE ---
On 09/16/24, the student, [Vishal Allred ], provided care and completed [facility] documentation on this patient. I have reviewed the student's documentation and agree with the findings.
--- NOTE | 2024-09-16 12:28 | PC.NURSE ---
On 09/16/24, the student, [Meagan Concepcion ], provided care and completed [facility] documentation on this patient. I have reviewed the student's documentation and agree with the findings.
--- NOTE | 2024-09-16 14:25 | PC.NURSE ---
Pt has arrived back on the floor
--- NOTE | 2024-09-16 16:42 | P.CONOP_ITS ---
Assessment and Plan Assessment and plan (1) Closed intertrochanteric fracture of right femur: Qualifiers: Encounter type: initial encounter Fracture alignment: nondisplaced Qualified Code(s): S72.144A - Nondisplaced intertrochanteric fracture of right femur, initial encounter for closed fracture Code(s): S72.141A - Displaced intertrochanteric fracture of right femur, initial encounter for closed fracture Status: Acute (2) Pancreatic cancer: Qualifiers: Pancreatic malignancy location: unspecified Qualified Code(s): C25.9 - Malignant neoplasm of pancreas, unspecified Code(s): C25.9 - Malignant neoplasm of pancreas, unspecified Status: Acute Plan Mildly displaced fracture, however will benefit from ORIF. Due to her pancreatic disease, transfer has been initiated to [facility]. I reviewed her condition and the treatment plan with the patient. She will likely benefit from prison for 4-6 weeks. She lives alone but has good community support. History of Present Illness HPI Consult date: 09/16/24 Chief complaint: Right intertrochanteric fracture Narrative: Patient complains of acute right hip pain. Fell from standing height. No previous hip pain. Comfortable at rest. No numbness, tingling, or other associated symptoms. Elevated bilirubin. Metastatic pancreatic cancer. Previously scheduled for a stent at [facility] in the next several days. Review of Systems Review of Systems: Denies loss of consciousness. All systems reviewed & are unremarkable except as noted in HPI and below PMFSH Past Medical History Medical History Abdominal pain Acute upper respiratory infection, unspecified Bakers cyst Cancer of left breast Status post chemotherapy, radiation, and mastectomy. Chronic headache Colon polyps Constipation Current use of coremaker pipe anticoagulation for history of DVT. Deep venous thrombosis In 1997 and 2019. DVT of lower limb, acute Epigastric pain Gastritis On EGD in December 2019. History of colon polyps Hyperlipidemia Hypertension Hyponatremia Left knee DJD Lumbar spondylosis Newly recognized murmur Osteoarthritis Osteoarthritis of right knee Osteoporosis Osteoporosis Pancreatic cancer Sinus pressure Ventral hernia Weakness Surgical History Surgical History H/O cataract extraction History of cardiac catheterization History of cataract extraction History of cholecystectomy History of hysterectomy History of left mastectomy Family History Family History Sibling Diabetes mellitus Heart disease Heart problem Sibling Heart problem Prostate carcinoma Sibling Heart problem Sibling Heart problem Sibling Breast cancer Social History Social History Social History: POLST completed on 05/03/23 Smoking packs per day: 0.5 Smoking cigarettes per day: 10.0 Years smoked: 20 Smoking pack-years: 10.00 Smoking status: Former smoker Tobacco type: cigarettes Smoking end date: 11/13/1963 Alcohol intake: never Substance use: never Substance use type: does not use Do You Feel Safe in your Home?: Yes Lack of Transportation: No Lack of Food: Never True Current Housing: I Have Housing Concerned About Future Housing: No Difficulty Paying Gas/Electric Bills: No Difficulty Paying for Meds: No Currently Unemployed: No Education: High School Diploma/GED Difficulty w/ Childcare or Family Care: No Living arrangements: alone Additional living arrangements comments: Lives in [place]. . Occupation/Education: retired Additional occupation/education comments: Retired. Gender identity (if verbalized by the patient): Female Spiritual care concerns: No Meds Home Medications and Allergies Home Medications Medication Instructions Recorded Confirmed Type multivitamin 1 tablet PO DAILY 03/02/20 09/16/24 History cholecalciferol (vitamin D3) 50 50 mcg PO DAILY 09/21/20 09/16/24 History mcg (2,000 unit) capsule carboxymethylcellulose sodium 1 % 1 drp ophthalmic (eye) PRN PRN Dry 09/25/20 09/16/24 History eye liquid gel drops Eye(S) magnesium 250 mg tablet 250 mg PO DAILY 05/03/23 09/16/24 History vit C 250 mg-vit E 90 mg-zinc 40 1 tablet PO DAILY 05/03/23 09/16/24 History mg-copper 1 [id number] capsule (PreserVision AREDS-2) pantoprazole 40 mg tablet,delayed 40 mg PO QAM #30 tabs 03/01/24 09/16/24 Rx release verapamil 120 mg 24 hr 120 mg PO DAILY #90 caps 06/06/24 09/16/24 Rx capsule,extended release apixaban 2.5 mg tablet (Eliquis) 2.5 mg PO BID 09/16/24 09/16/24 History ezetimibe 10 mg tablet 10 mg PO DAILY 09/16/24 09/16/24 History Allergies Allergy/AdvReac Type Severity Reaction Status Date / Time celecoxib AdvReac Unknown Verified 09/16/24 02:52 erythromycin base AdvReac Unknown Verified 09/16/24 02:52 hydrocodone AdvReac Unknown Verified 09/16/24 02:52 levofloxacin [From Levaquin] AdvReac Unknown Verified 09/16/24 02:52 meloxicam AdvReac Unknown Verified 09/16/24 02:52 rivaroxaban [From Xarelto] AdvReac Unknown Verified 09/16/24 02:52 triamterene AdvReac Unknown Verified 09/16/24 02:52 statin AdvReac Unknown Uncoded 09/16/24 02:52 Vital Signs Vital Signs - 24 hr 09/15/24 19:54 09/15/24 19:56 09/15/24 20:00 Temperature 36.3 C L Pulse Rate 84 84 83 Respiratory Rate 23 H 27 H 18 Blood Pressure 138/62 138/62 140/60 Pulse Oximetry 100 98 100 Oxygen Delivery Room Air 09/15/24 20:45 09/15/24 21:30 09/15/24 23:12 Temperature Pulse Rate 80 83 86 Respiratory Rate 14 17 15 Blood Pressure 130/58 L 132/64 Pulse Oximetry 100 100 98 Oxygen Delivery 09/15/24 23:00 09/15/24 23:30 09/16/24 00:00 Temperature Pulse Rate 85 82 82 Respiratory Rate 15 15 18 Blood Pressure 132/64 137/57 L 141/57 H Pulse Oximetry 100 97 97 Oxygen Delivery 09/16/24 00:01 09/16/24 00:30 09/16/24 01:47 Temperature Pulse Rate 85 80 80 Respiratory Rate 18 13 16 Blood Pressure 130/57 L Pulse Oximetry 98 99 95 Oxygen Delivery 09/16/24 03:24 09/16/24 06:00 09/16/24 04:00 Temperature 36.7 C 36.4 C L Pulse Rate 84 75 Respiratory Rate 18 12 Blood Pressure 142/66 H 140/56 L Pulse Oximetry 98 97 Oxygen Delivery Room Air 09/16/24 08:00 09/16/24 14:00 Temperature 36.9 C Pulse Rate 77 Respiratory Rate 18 Blood Pressure 138/76 Pulse Oximetry 98 Oxygen Delivery Room Air Exam Narrative: Pronounced yellow skin color consistent with history. No lower extremity deformity. Alert and oriented. Resting comfortably. Mild tenderness at the trochanter. No significant hematoma or lesions. Const: General: no acute distress Eyes: General: appearance normal, both eyes and all related structures Resp: Effort & Inspection: normal respiratory effort Skin: General skin exam: no rashes or lesions noted Neuro: Speech: normal speech Other: Wiggles toes well. Capillary refill brisk. Distal light touch sensation intact. Dorsalis pedis pulse palpable. Extrem: Other: No edema. Psych: Mental Status: mental status grossly normal Results Labs 09/15/24 23:16 09/15/24 23:16 Labs: Abnormal lab results 09/15/24 Range/Units 23:16 RBC 2.77 L (4.2-5.4) M/mm3 Hgb 9.2 L (12.0-15.0) g/dL Hct 26.6 L (37.0-47.0) % RDW 21.9 H (11.5-14.5) % MPV 11.0 H (7.4-10.4) fl Immature Gran % (Auto) 0.6 H (0-0.5) % Neut % (Auto) 84.2 H (45.5-73.1) % Lymph % (Auto) 7.1 L (18.3-44.2) % Lymph # (Auto) 0.55 L (0.9-3.2) K/mm3 Abs Immat Gran (auto) 0.05 H (0.00-0.031) K/mm3 Creatinine 0.60 L (0.7-1.0) mg/dL Glucose 118 H (65-110) mg/dL Total Bilirubin 17.8 H (0.2-1.3) mg/dL AST 104 H (14-36) U/L ALT 58 H (6-35) U/L Alkaline Phosphatase 394 H (38-126) U/L Albumin 3.4 L (3.5-5.1) g/dL Urine Appearance Cloudy H (Clear) Urine Bilirubin 2+ H (Negative) H & H 09/15/24 Range/Units 23:16 Hgb 9.2 L (12.0-15.0) g/dL Hct 26.6 L (37.0-47.0) % All other labs normal. Quality VTE Prophylaxis VTE prophylaxis: mechanical ordered
[2024-09-16] MEDS: MORPHINE SULFATE (*CRX) 4 MG/ML INJ 2 MG IV PUSH (22:04)
[2024-09-17 05:25] VITALS: BP 124/57; PULSE 73; RESP 14; TEMP 36.9; O2SAT 95
[2024-09-17 07:37] LABS: Alanine Aminotransferase 54 U/L (6-35); Albumin Level 2.8 g/dL (3.5-5.1); Alkaline Phosphatase 350 U/L (38-126); Anion Gap 7 mmol/L (4-12); Aspartate Amino Transferase 88 U/L (14-36); Bilirubin,Total 17.8 mg/dL (0.2-1.3); Blood Urea Nitrogen 13 mg/dL (7-17); Calcium 8.4 mg/dL (8.4-10.2); Carbon Dioxide 26 mmol/L (22-30); Chloride 103 mmol/L (98-107); Estimated Glomerular Filt Rate > 60; Glucose 114 mg/dL (65-110); Potassium 3.2 mmol/L (3.4-5.0); Sodium 136 mmol/L (137-145)
[2024-09-17] MEDS: CHOLECALCIFEROL 1,000 UNITS TABLET 2000 UNITS PO (08:42)
[2024-09-17] MEDS: MULTIVITAMINS THERAPEUTIC TAB (*BKC) 1 TABLET PO (08:42)
[2024-09-17] MEDS: MAGNESIUM OXIDE 200 MG TABLET PO (08:42)
[2024-09-17] MEDS: OPTI-GEN TAB 1 TABLET PO (08:42)
[2024-09-17] MEDS: PANTOPRAZOLE 40 MG TABLET PO (08:42)
[2024-09-17] MEDS: VERAPAMIL HCL ER 120 MG TABLET PO (08:42)
[2024-09-17] MEDS: EZETIMIBE 10 MG TABLET PO (08:43)
[2024-09-17] MEDS: MORPHINE SULFATE (*CRX) 2 MG/ML INJ IV PUSH ×2 (08:43→15:01)
[2024-09-17] MEDS: POTASSIUM CHLORIDE 20 MEQ ER TABLET 40 MEQ PO (08:43)
--- NOTE | 2024-09-17 12:35 | P.PNIM_ITS ---
Progress Note: A&P Assessment and Plan (1) Closed intertrochanteric fracture of right femur: Qualifiers: Encounter type: initial encounter Fracture alignment: nondisplaced Qualified Code(s): S72.144A - Nondisplaced intertrochanteric fracture of right femur, initial encounter for closed fracture Code(s): S72.141A - Displaced intertrochanteric fracture of right femur, initial encounter for closed fracture Status: Acute (2) Pancreatic cancer: Qualifiers: Pancreatic malignancy location: unspecified Qualified Code(s): C25.9 - Malignant neoplasm of pancreas, unspecified Code(s): C25.9 - Malignant neoplasm of pancreas, unspecified Status: Acute (3) SCOTT (generalized anxiety disorder): Code(s): F41.1 - Generalized anxiety disorder Status: Acute (4) Lumbar spondylosis: Code(s): M47.816 - Spondylosis without myelopathy or radiculopathy, lumbar region Status: Acute (5) 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: Code(s): Z79.01 - intermediate (current) use of anticoagulants Status: Acute (6) Hyperlipidemia: Qualifiers: Hyperlipidemia type: unspecified Qualified Code(s): E78.5 - Hyperlipidemia, unspecified Code(s): E78.5 - Hyperlipidemia, unspecified Status: Chronic (7) GERD (gastroesophageal reflux disease): Qualifiers: Esophagitis presence: without esophagitis Qualified Code(s): K21.9 - Gastro-esophageal reflux disease without esophagitis Code(s): K21.9 - Gastro-esophageal reflux disease without esophagitis Status: Chronic (8) Hypertension: Qualifiers: Hypertension type: essential hypertension Qualified Code(s): I10 - Essential (primary) hypertension Code(s): I10 - Essential (primary) hypertension Status: Chronic Plan 88-year-old female with history of hyperlipidemia, GERD, metastatic pancreatic cancer presents to the emergency department for right hip pain after mechanical ground level fall. CBC shows no leukocytosis. Chemistries are remarkable for bilirubin is 17.8 which is doubled since 09/06/2024, AST 104, ALT 58 and alk-phos of 394. UA with bilirubin, no UTI. X-ray of the right hip shows a right intertrochanteric hip fracture. orthopedic consulted for right hip intertrochanteric fracture. Discussed with Orthopedics since bed not available at [facility] patient for a surgery today metastatic pancreatic cancer diagnosed February 2024. Status post radiation therapy and palliative chemotherapy. With worsening jaundice planned for ERCP and biliary stent. Discussed with [facility] Lower extremity DVT on Eliquis Anemia she is planned to be transferred to [facility] pending bed availability. HTN: on verapamil HLP: on zetia DVT prophylaxis on Eliquis which is held for surgery. Resume postop Subjective Date/time seen: 09/17/24 12:35 Interval history: No overnight events. Pain controlled. No nausea vomiting. No chest pain or shortness of breath. Discussed with Orthopedics. Exam Narrative: GENERAL: Well-appearing, well-nourished, and in no acute distress. HEAD: Normocephalic, atraumatic. EYES: PERRLA and EOMI. icteric ENT: Nares clear, no rhinorrhea or epistaxis. Mucous membranes moist. NECK: No midline cervical spinous tenderness, step-offs or deformities BACK: no midline thoracolumbar spinous tenderness, step-offs or deformities CHEST: Clear to auscultation. No respiratory distress. HEART: Regular rate and rhythm. No murmur heard. Normal peripheral pulses. ABDOMEN: Soft, nontender, nondistended, normal active bowel sounds. No rebound, guarding rigidity. No CVA tenderness. EXTREMITIES: tenderness to the right proximal femur to palpation. No overlying ecchymosis or edema. No obvious deformity. limited range of motion right hip SKIN: Jaundice NEURO: No focal deficits. Alert and oriented x3 Objective Data Vital Signs Vital Signs: Vital Signs - 24 hr 09/16/24 14:00 09/16/24 21:17 09/16/24 20:00 Temperature 98.5 F 97.4 F L Pulse Rate 77 81 Respiratory Rate 18 20 Blood Pressure 138/76 130/53 L Pulse Oximetry 98 96 Oxygen Delivery Room Air 09/17/24 05:25 Temperature 98.5 F Pulse Rate 73 Respiratory Rate 14 Blood Pressure 124/57 L Pulse Oximetry 95 Oxygen Delivery Intake/Output Intake/Output: Intake & Output 09/15/24 09/15/24 09/16/24 09/17/24 00:59 23:59 23:59 23:59 Intake Total 1586 220 Output Total 1120 300 Balance 466 -80 Meds/Results Medications: Active Medications Generic Name Dose Route Start Last Admin Trade Name Freq PRN Reason Stop Dose Admin Artificial Tears 1 drop 09/16/24 14:20 Artificial Tears Ophth Soln 15 Ml Bottle EACH EYE PRN PRN Dry Eye(S) Ezetimibe 10 mg 09/17/24 09:00 09/17/24 08:43 Ezetimibe 10 Mg Tablet PO 10 mg DAILY NAKIA Administration Magnesium Oxide 200 mg 09/17/24 09:00 09/17/24 08:42 Magnesium Oxide 200 Mg Tablet PO 200 mg DAILY NAKIA Administration Morphine Sulfate 2 mg 09/17/24 05:28 09/17/24 08:43 Morphine Sulfate (*Crx) 2 Mg/Ml Inj IV PUSH 2 mg Q2H PRN Administration Pain Rated 7-10 Multivitamins Therapeutic 1 tablet 09/17/24 09:00 09/17/24 08:42 Multivitamins Therapeutic Tab (*Bkc) PO 1 tablet DAILY NAKIA Administration Multivitamins/Minerals 1 tablet 09/17/24 09:00 09/17/24 08:42 Opti-Gen Tab PO 1 tablet QAM NAKIA Administration Pantoprazole Sodium 40 mg 09/17/24 09:00 09/17/24 08:42 Pantoprazole 40 Mg Tablet PO 40 mg QAM NAKIA Administration Verapamil HCl 120 mg 09/17/24 09:00 09/17/24 08:42 Verapamil Hcl Er 120 Mg Tablet PO 120 mg DAILY NAKIA Administration Vitamin D 2,000 units 09/17/24 09:00 09/17/24 08:42 Cholecalciferol 1,000 Units Tablet PO 2,000 units DAILY NAKIA Administration Radiology Results: ITS Impressions Hip/Pelvis X-Ray 09/15/24 21:31 IMPRESSION: Right intertrochanteric hip fracture Labs Labs: Laboratory Results - last 24 hr 09/17/24 09/17/24 07:13 10:14 Sodium 136 L Potassium 3.2 L Chloride 103 Carbon Dioxide 26 Anion Gap 7 BUN 13 Creatinine 0.60 L Estim Creat Clear Calc Not Reportable Estimated GFR > 60 Glucose 114 H Calcium 8.4 Total Bilirubin 17.8 H AST 88 H ALT 54 H Alkaline Phosphatase 350 H Total Protein 8.0 Albumin 2.8 L Blood Type A Positive Antibody Screen Negative
--- NOTE | 2024-09-17 13:30 | PM.PNORT ---
Progress Note: A&P Assessment and Plan (1) Closed intertrochanteric fracture of right femur: Qualifiers: Encounter type: initial encounter Fracture alignment: nondisplaced Qualified Code(s): S72.144A - Nondisplaced intertrochanteric fracture of right femur, initial encounter for closed fracture Code(s): S72.141A - Displaced intertrochanteric fracture of right femur, initial encounter for closed fracture Status: Acute Assessment and Plan: Mildly displaced fracture, however will benefit from ORIF. Due to her pancreatic disease, transfer has been initiated to [facility]. Notified that it may be a while until she is able to transfer out. Dr. August and the patient discussed operative and non-operative options in detail and agreed to proceed with Open Reduction Internal Fixation Right Hip. I had a lengthy discussion with the patient and her family. Her POA was on the phone. Risks, benefits, and alternatives discussed. Reviewed post operative expectations. She will likely benefit from group home for 4-6 weeks. She lives alone but has good community support. Patient shows good understanding. Plan for NPO at midnight. Will hold Eliquis before surgery. Subjective Subjective Date/Time Seen: 09/17/24 13:30 Interval history: Patient resting comfortably. Complains of pain in the hip with movement. Review of Systems Review of Systems: All systems reviewed & are unremarkable except as noted in HPI and below Exam Narrative: 88 y/o thin female. Pronounced yellow skin color consistent with history. No lower extremity deformity. Alert and oriented. Resting comfortably. Mild tenderness at the trochanter. No significant hematoma or lesions. Distal neurovascularly intact. Objective Data Vital Signs Vital Signs: Vital Signs - 24 hr 09/16/24 14:00 09/16/24 21:17 09/16/24 20:00 Temperature 98.5 F 97.4 F L Pulse Rate 77 81 Respiratory Rate 18 20 Blood Pressure 138/76 130/53 L Pulse Oximetry 98 96 Oxygen Delivery Room Air 09/17/24 05:25 Temperature 98.5 F Pulse Rate 73 Respiratory Rate 14 Blood Pressure 124/57 L Pulse Oximetry 95 Oxygen Delivery Intake/Output Intake/Output: Intake & Output 09/15/24 09/15/24 09/16/24 09/17/24 00:59 23:59 23:59 23:59 Intake Total 1586 220 Output Total 1120 300 Balance 466 -80 Meds/Results Medications: Active Medications Generic Name Dose Route Start Last Admin Trade Name Freq PRN Reason Stop Dose Admin Artificial Tears 1 drop 09/16/24 14:20 Artificial Tears Ophth Soln 15 Ml Bottle EACH EYE PRN PRN Dry Eye(S) Ezetimibe 10 mg 09/17/24 09:00 09/17/24 08:43 Ezetimibe 10 Mg Tablet PO 10 mg DAILY NAKIA Administration Magnesium Oxide 200 mg 09/17/24 09:00 09/17/24 08:42 Magnesium Oxide 200 Mg Tablet PO 200 mg DAILY NAKIA Administration Morphine Sulfate 2 mg 09/17/24 05:28 09/17/24 08:43 Morphine Sulfate (*Crx) 2 Mg/Ml Inj IV PUSH 2 mg Q2H PRN Administration Pain Rated 7-10 Multivitamins Therapeutic 1 tablet 09/17/24 09:00 09/17/24 08:42 Multivitamins Therapeutic Tab (*Bkc) PO 1 tablet DAILY NAKIA Administration Multivitamins/Minerals 1 tablet 09/17/24 09:00 09/17/24 08:42 Opti-Gen Tab PO 1 tablet QAM NAKIA Administration Pantoprazole Sodium 40 mg 09/17/24 09:00 09/17/24 08:42 Pantoprazole 40 Mg Tablet PO 40 mg QAM NAKIA Administration Verapamil HCl 120 mg 09/17/24 09:00 09/17/24 08:42 Verapamil Hcl Er 120 Mg Tablet PO 120 mg DAILY NAKIA Administration Vitamin D 2,000 units 09/17/24 09:00 09/17/24 08:42 Cholecalciferol 1,000 Units Tablet PO 2,000 units DAILY NAKIA Administration Radiology Results: ITS Impressions Hip/Pelvis X-Ray 09/15/24 21:31 IMPRESSION: Right intertrochanteric hip fracture Labs Labs: Laboratory Results - last 24 hr 09/17/24 09/17/24 07:13 10:14 Sodium 136 L Potassium 3.2 L Chloride 103 Carbon Dioxide 26 Anion Gap 7 BUN 13 Creatinine 0.60 L Estim Creat Clear Calc Not Reportable Estimated GFR > 60 Glucose 114 H Calcium 8.4 Total Bilirubin 17.8 H AST 88 H ALT 54 H Alkaline Phosphatase 350 H Total Protein 8.0 Albumin 2.8 L Blood Type A Positive Antibody Screen Negative
[2024-09-17 14:00] VITALS: BP 130/53; PULSE 89; RESP 16; TEMP 36.6; O2SAT 97
[2024-09-17 14:30] VITALS: O2SAT 96
[2024-09-17 22:00] VITALS: BP 113/49; PULSE 77; RESP 12; TEMP 37.5; O2SAT 96
[2024-09-18] VITALS (15 sets, daily range): BP systolic 103–120; BP diastolic 36–89; PULSE 61–83; RESP 11–20; TEMP 36–37.1; O2SAT 93–100
[2024-09-18] MEDS: MORPHINE SULFATE (*CRX) 2 MG/ML INJ IV PUSH (05:40)
[2024-09-18 06:37] LABS: Alanine Aminotransferase 47 U/L (6-35); Albumin Level 2.6 g/dL (3.5-5.1); Alkaline Phosphatase 326 U/L (38-126); Anion Gap 3 mmol/L (4-12); Aspartate Amino Transferase 85 U/L (14-36); Blood Urea Nitrogen 13 mg/dL (7-17); Calcium 8.3 mg/dL (8.4-10.2); Carbon Dioxide 26 mmol/L (22-30); Chloride 104 mmol/L (98-107); Estimated Glomerular Filt Rate > 60; Glucose 92 mg/dL (65-110); Magnesium 1.8 mg/dL (1.6-2.3); Potassium 3.6 mmol/L (3.4-5.0); Sodium 133 mmol/L (137-145)
[2024-09-18 07:10] LABS: Basophils Absolute Auto 0.1 K/mm3 (0.0-0.1); Basophils Percent Auto 1.1 % (0.2-1.2); Eosinophils Absolute Auto 0.2 K/mm3 (0-0.3); Eosinophils Percent Auto 2.6 % (0-4.4); Hematocrit 25.5 % (37.0-47.0); Hemoglobin 8.7 g/dL (12.0-15.0); Immature Granulocyte Absolute 0.04 K/mm3 (0.00-0.031); Immature Granulocyte Percent A 0.6 % (0-0.5); Lymphocytes Absolute Auto 0.68 K/mm3 (0.9-3.2); Lymphocytes Percent Auto 9.5 % (18.3-44.2); Mean Corpuscular HGB Conc 34.1 g/dl (32-36); Mean Corpuscular Hemoglobin 32.8 pg (26-34); Mean Corpuscular Volume 96.2 fl (80-100); Mean Platelet Volume 10.8 fl (7.4-10.4); Monocytes Absolute Auto 0.7 K/mm3 (0.1-0.6); Neutrophils Absolute Auto 5.6 K/mm3 (1.3-6.7); Neutrophils Percent Auto 77.2 % (45.5-73.1); Platelet Count Result 186 k/mm3 (150-375); Red Blood Count 2.65 M/mm3 (4.2-5.4); Red Cell Distribution Width 22.1 % (11.5-14.5); White Blood Count 7.2 K/mm3 (4.5-10.0)
[2024-09-18 07:12] LABS: Anisocytosis 1+; Platelet Estimate Adequate (Adequate); Schistocytes None Seen
[2024-09-18] MEDS: EZETIMIBE 10 MG TABLET PO (08:38)
[2024-09-18] MEDS: VERAPAMIL HCL ER 120 MG TABLET PO (08:38)
[2024-09-18] MEDS: PANTOPRAZOLE 40 MG TABLET PO (08:38)
[2024-09-18] MEDS: MAGNESIUM OXIDE 200 MG TABLET PO (08:38)
--- NOTE | 2024-09-18 14:54 | P.PNAN_ITS ---
Anes - Initial Pre Proc Eval Procedure: Operation Date: 09/18/24 15:30 Proposed Procedures p Open Reduction Internal Fixation Right Hip - Cedrick August MD Date/Time: 09/18/24 14:54 Surgeon: Isela Martinez DO Pre Op Diagnosis: Right intertrochanteric fracture Patient Data Age: 88 Gender: F Height: 1.47 m Weight: 52.9 kg Last Vital Signs Temp 36.8 C 09/18/24 14:44 Pulse 77 09/18/24 14:44 Resp 16 09/18/24 14:44 BP 112/52 L 09/18/24 14:44 Pulse Ox 97 09/18/24 14:44 O2 Del Method Room Air 09/18/24 14:44 FiO2 21 09/17/24 14:30 Allergies Allergy/AdvReac Type Severity Reaction Status Date / Time celecoxib AdvReac Unknown Verified 09/16/24 02:52 erythromycin base AdvReac Unknown Verified 09/16/24 02:52 hydrocodone AdvReac Unknown Verified 09/16/24 02:52 levofloxacin [From Levaquin] AdvReac Unknown Verified 09/16/24 02:52 meloxicam AdvReac Unknown Verified 09/16/24 02:52 rivaroxaban [From Xarelto] AdvReac Unknown Verified 09/16/24 02:52 Ednpucs-[id number] Reductase AdvReac Unknown Verified 09/17/24 09:48 Inhibitor triamterene AdvReac Unknown Verified 09/16/24 02:52 Home Medications Medication Instructions Recorded Confirmed Type multivitamin 1 tablet PO DAILY 03/02/20 09/16/24 History cholecalciferol (vitamin D3) 50 50 mcg PO DAILY 09/21/20 09/16/24 History mcg (2,000 unit) capsule carboxymethylcellulose sodium 1 % 1 drp ophthalmic (eye) PRN PRN Dry 09/25/20 09/16/24 History eye liquid gel drops Eye(S) magnesium 250 mg tablet 250 mg PO DAILY 05/03/23 09/16/24 History vit C 250 mg-vit E 90 mg-zinc 40 1 tablet PO DAILY 05/03/23 09/16/24 History mg-copper 1 [id number]-[id number] capsule (PreserVision AREDS-2) pantoprazole 40 mg tablet,delayed 40 mg PO QAM #30 tabs 03/01/24 09/16/24 Rx release verapamil 120 mg 24 hr 120 mg PO DAILY #90 caps 06/06/24 09/16/24 Rx capsule,extended release apixaban 2.5 mg tablet (Eliquis) 2.5 mg PO BID 09/16/24 09/16/24 History ezetimibe 10 mg tablet 10 mg PO DAILY 09/16/24 09/16/24 History Laboratory Tests 09/18/24 05:49 WBC 7.2 K/mm3 (4.5-10.0) RBC 2.65 L M/mm3 (4.2-5.4) Hgb 8.7 L g/dL (12.0-15.0) Hct 25.5 L % (37.0-47.0) MCV 96.2 fl (80-100) MCH 32.8 pg (26-34) MCHC 34.1 g/dl (32-36) RDW 22.1 H % (11.5-14.5) Plt Count 186 k/mm3 (150-375) MPV 10.8 H fl (7.4-10.4) Immature Gran % (Auto) 0.6 H % (0-0.5) Neut % (Auto) 77.2 H % (45.5-73.1) Lymph % (Auto) 9.5 L % (18.3-44.2) Owen % (Auto) 9.0 H % (2.6-8.5) Eos % (Auto) 2.6 % (0-4.4) Baso % (Auto) 1.1 % (0.2-1.2) Lymph # (Auto) 0.68 L K/mm3 (0.9-3.2) Owen # (Auto) 0.7 H K/mm3 (0.1-0.6) Eos # (Auto) 0.2 K/mm3 (0-0.3) Baso # (Auto) 0.1 K/mm3 (0.0-0.1) Abs Immat Gran (auto) 0.04 H K/mm3 (0.00-0.031) Absolute Neuts (auto) 5.6 K/mm3 (1.3-6.7) Absolute Nucleated RBC 0.000 K/mm3 (0.0-0.012) Nucleated RBC % 0.0 % (0.0-0.2) Platelet Estimate Adequate (Adequate) Anisocytosis 1+ Schistocytes None seen Sodium 133 L mmol/L (137-145) Potassium 3.6 mmol/L (3.4-5.0) Chloride 104 mmol/L (98-107) Carbon Dioxide 26 mmol/L (22-30) Anion Gap 3 L mmol/L (4-12) BUN 13 mg/dL (7-17) Creatinine 0.50 L mg/dL (0.7-1.0) Estim Creat Clear Calc Not Reportable Estimated GFR > 60 (59 - ) Glucose 92 mg/dL (65-110) Calcium 8.3 L mg/dL (8.4-10.2) Magnesium 1.8 mg/dL (1.6-2.3) Total Bilirubin 18.0 H mg/dL (0.2-1.3) AST 85 H U/L (14-36) ALT 47 H U/L (6-35) Alkaline Phosphatase 326 H U/L (38-126) Total Protein 7.0 g/dL (6.3-8.2) Albumin 2.6 L g/dL (3.5-5.1) Patient hx anesthesia problems: none Family hx anesthesia problems: none Results Review: All pre-operative results and documents have been reviewed as part of the pre- operative evaluation. [facility] Past Medical History Medical History Abdominal pain Acute upper respiratory infection, unspecified Bakers cyst Cancer of left breast Status post chemotherapy, radiation, and mastectomy. 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 Deep venous thrombosis In 1997 and 2019. DVT of lower limb, acute Epigastric pain Gastritis On EGD in December 2019. History of colon polyps Hyperlipidemia Hypertension Hyponatremia Left knee DJD Lumbar spondylosis Newly recognized murmur Osteoarthritis Osteoarthritis of right knee Osteoporosis Osteoporosis Pancreatic cancer Sinus pressure Ventral hernia Weakness Surgical History Surgical History H/O cataract extraction History of cardiac catheterization History of cataract extraction History of cholecystectomy History of hysterectomy History of left mastectomy Family History Family History Sibling Diabetes mellitus Heart disease Heart problem Sibling Heart problem Prostate carcinoma Sibling Heart problem Sibling Heart problem Sibling Breast cancer Social History Social History Social History: POLST completed on 05/03/23 Smoking packs per day: 0.5 Smoking cigarettes per day: 10.0 Years smoked: 20 Smoking pack-years: 10.00 Smoking status: Former smoker Tobacco type: cigarettes Smoking end date: 11/13/1963 Alcohol intake: never Substance use: never Substance use type: does not use Do You Feel Safe in your Home?: Yes Lack of Transportation: No Lack of Food: Never True Current Housing: I Have Housing Concerned About Future Housing: No Difficulty Paying Gas/Electric Bills: No Difficulty Paying for Meds: No Currently Unemployed: No Education: High School Diploma/GED Difficulty w/ Childcare or Family Care: No Living arrangements: alone Additional living arrangements comments: Lives in [place]. . Occupation/Education: retired Additional occupation/education comments: Retired. Gender identity (if verbalized by the patient): Female Spiritual care concerns: No Anes - Eval Final PreProcedure Day of Procedure 09/18/24 14:54 Patient weight: normal Heart: regular rate and rhythm Lungs: clear to auscultation Airway: Mallampati scale class II Neurological: alert and oriented Last oral intake: >/= 8 hours ASA classification: IV Emergent: no Anesthetic plan: proceed Anesthesia type and monitoring: general LMA and standard monitoring Results Review: All pre-operative results and documents have been reviewed as part of the pre- operative evaluation. Informed Consent: The patient's anesthetic plan and its attendant risks and benefits were discussed with the patient/family/POA. Questions were solicited and answers provided to the satisfaction of the patient/family/POA.
[2024-09-18] MEDS: LACTATED RINGERS 1,000 ML 30 ML IV CONT (14:56)
[2024-09-18] MEDS: TRANEXAMIC ACID 1,000MG/ISO100 1,000 MG/100 ML BAG 200 MG IVPB (14:57)
--- NOTE | 2024-09-18 15:25 | WPDHPUPDATE1 ---
History and Physical Update Update Date/Time: 09/18/24 15:25 History and Physical has been reviewed, including an updated exam of the patient. There are NO changes in the patient's condition. Risks, benefits, and alternatives have been discussed and questions answered. Patient agrees to proceed with procedure.
[2024-09-18] MEDS: ceFAZolin 2 GM/D5W 50 ML 2 GM/50 ML BAG IVPB ×2 (15:34→20:26)
--- NOTE | 2024-09-18 16:22 | P.PNIM_ITS ---
Progress Note: A&P Assessment and Plan (1) Closed intertrochanteric fracture of right femur: Qualifiers: Encounter type: initial encounter Fracture alignment: nondisplaced Qualified Code(s): S72.144A - Nondisplaced intertrochanteric fracture of right femur, initial encounter for closed fracture Code(s): S72.141A - Displaced intertrochanteric fracture of right femur, initial encounter for closed fracture Status: Acute Assessment and Plan: Patient with fall and subsequent hip pain. Xray showing right IT hip fracture. No increased uptake by PET scan to the right femur back in June. Orthopedic consulted for right hip intertrochanteric fracture. Plan was for levin sfer but bed not available at [facility] Patient underwent surgery today Routine post-op care. PT/OT. (2) Pancreatic cancer: Qualifiers: Pancreatic malignancy location: unspecified Qualified Code(s): C25.9 - Malignant neoplasm of pancreas, unspecified Code(s): C25.9 - Malignant neoplasm of pancreas, unspecified Status: Acute Assessment and Plan: CBC shows no leukocytosis. Chemistries are remarkable for bilirubin is 17.8 which is doubled since 09/06/2024, AST 104, ALT 58 and alk-phos of 394. UA with bilirubin but no UTI. She has known metastatic pancreatic cancer diagnosed February 2024. Status post radiation therapy and palliative chemotherapy. With worsening jaundice planned for ERCP and biliary stent at [facility]. 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 Will continue to monitor (5) SCOTT (generalized anxiety disorder): Code(s): F41.1 - Generalized anxiety disorder Status: Acute Assessment and Plan: Mood stable. Follow Plan DVT prophylaxis on Eliquis which is held for surgery. Resume postop Code status - full Subjective Date/time seen: 09/18/24 16:22 Interval history: 88yo female with known metastatic pancreatic cancer presents to the ED via EMS from home for right hip pain after a ground level fall. Assuming care. Chart reviewed. Pain is well controlled. No chest pain or shortness breath. No nausea or vomiting. Exam Narrative: AF 98.3 112/52 77 16 97% ra Gen - NARD Chest - left flank inspiratory crackles o/w clear. CV - RRR S1/S2 Abd - Soft, NT/ND, Positive BS, mildly protuberant - Villanueva secured draining dark orange colored urine Ext - No pedal edema. Howie hose in place Neuro - Alert and oriented x4. Psych - Nml mood and affect Skin - Warm and dry. Jaundice Objective Data Vital Signs Vital Signs: Vital Signs - 24 hr 09/17/24 22:00 09/17/24 20:00 09/18/24 05:56 Temperature 99.5 F 98.8 F Pulse Rate 77 71 Respiratory Rate 12 12 Blood Pressure 113/49 L 120/54 L Pulse Oximetry 96 97 Oxygen Delivery Room Air 09/18/24 08:26 09/18/24 14:00 09/18/24 14:44 Temperature 98.2 F 98.3 F Pulse Rate 67 77 Respiratory Rate 18 16 Blood Pressure 103/45 L 112/52 L Pulse Oximetry 96 96 97 Oxygen Delivery Room Air Room Air Intake/Output Intake/Output: Intake & Output 09/15/24 09/16/24 09/17/24 09/18/24 23:59 23:59 23:59 23:59 Intake Total 1586 910 50 Output Total 1120 800 225 Balance 466 110 -175 Meds/Results Medications: Active Medications Generic Name Dose Route Start Last Admin Trade Name Freq PRN Reason Stop Dose Admin Artificial Tears 1 drop 09/16/24 14:20 Artificial Tears Ophth Soln 15 Ml Bottle EACH EYE PRN PRN Dry Eye(S) Ezetimibe 10 mg 09/17/24 09:00 09/18/24 08:38 Ezetimibe 10 Mg Tablet PO 10 mg DAILY NAKIA Administration Fentanyl Citrate 25 mcg 09/18/24 14:52 Fentanyl Citrate Inj (*Crx) 100 Mcg/2 Ml Vial IV PUSH Q2M PRN Pain Lactated Ringer's 1,000 mls @ 30 mls/hr 09/18/24 14:55 09/18/24 14:56 Lr - Lactated Ringers Iv IV CONT 30 mls/hr .Q24H NAKIA Administration Lactated Ringer's 1,000 mls @ 30 mls/hr 09/18/24 14:55 Lr - Lactated Ringers Iv IV CONT .Q24H NAKIA Magnesium Oxide 200 mg 09/17/24 09:00 09/18/24 08:38 Magnesium Oxide 200 Mg Tablet PO 200 mg DAILY NAKIA Administration Morphine Sulfate 2 mg 09/17/24 05:28 09/18/24 05:40 Morphine Sulfate (*Crx) 2 Mg/Ml Inj IV PUSH 2 mg Q2H PRN Administration Pain Rated 7-10 Multivitamins Therapeutic 1 tablet 09/17/24 09:00 09/17/24 08:42 Multivitamins Therapeutic Tab (*Bkc) PO 1 tablet DAILY NAKIA Administration Multivitamins/Minerals 1 tablet 09/17/24 09:00 09/17/24 08:42 Opti-Gen Tab PO 1 tablet QAM NAKIA Administration Ondansetron HCl 4 mg 09/18/24 14:52 Ondansetron Inj 4 Mg/2 Ml Vial IV PUSH ONCE PRN Nausea Pantoprazole Sodium 40 mg 09/17/24 09:00 09/18/24 08:38 Pantoprazole 40 Mg Tablet PO 40 mg QAM NAKIA Administration Verapamil HCl 120 mg 09/17/24 09:00 09/18/24 08:38 Verapamil Hcl Er 120 Mg Tablet PO 120 mg DAILY NAKIA Administration Vitamin D 2,000 units 09/17/24 09:00 09/17/24 08:42 Cholecalciferol 1,000 Units Tablet PO 2,000 units DAILY NAKIA Administration Radiology Results: ITS Impressions Hip/Pelvis X-Ray 09/15/24 21:31 IMPRESSION: Right intertrochanteric hip fracture Labs Labs: Laboratory Results - last 24 hr 09/18/24 05:49 WBC 7.2 RBC 2.65 L Hgb 8.7 L Hct 25.5 L MCV 96.2 MCH 32.8 MCHC 34.1 RDW 22.1 H Plt Count 186 MPV 10.8 H Immature Gran % (Auto) 0.6 H Neut % (Auto) 77.2 H Lymph % (Auto) 9.5 L [place] % (Auto) 9.0 H Eos % (Auto) 2.6 Baso % (Auto) 1.1 Lymph # (Auto) 0.68 L [place] # (Auto) 0.7 H Eos # (Auto) 0.2 Baso # (Auto) 0.1 Abs Immat Gran (auto) 0.04 H Absolute Neuts (auto) 5.6 Absolute Nucleated RBC 0.000 Nucleated RBC % 0.0 Platelet Estimate Adequate Anisocytosis 1+ Schistocytes None seen Sodium 133 L Potassium 3.6 Chloride 104 Carbon Dioxide 26 Anion Gap 3 L BUN 13 Creatinine 0.50 L Estim Creat Clear Calc Not Reportable Estimated GFR > 60 Glucose 92 Calcium 8.3 L Magnesium 1.8 Total Bilirubin 18.0 H AST 85 H ALT 47 H Alkaline Phosphatase 326 H Total Protein 7.0 Albumin 2.6 L
[2024-09-18] MEDS: BUPIVACAINE/EPINEPHRINE 0.5% 50 ML VIAL 40 ML INFILTRATE (16:56)
--- NOTE | 2024-09-18 17:06 | W.PM.PROC2 ---
Procedure Note - Detailed Date of Procedure 09/18/24 Pre-op Diagnosis Right hip non-displaced intertrochanteric fracture Post-op Diagnosis Same Procedure Performed ORIF right hip with Dynamic hip screw. Surgeon Cedrick August MD Anesthesia General Description of Procedure Preoperative antibiotics were given. A general anesthetic was administered. The patient was carefully placed on the fracture table. Gentle closed reduction was obtained. Biplanar fluoroscopy was used throughout the procedure to confirm anatomic reduction, and appropriate placement of all implants. The hip was prepped and draped in the usual sterile fashion. A longitudinal incision was created at the proximal femur. Lateral dissection was brought down through subcutaneous tissue to the fascia. The fascia was split in line with its fibers. The vastus lateralis was identified and elevated off of the intramuscular septum. The guide was placed along the femur and the guide pin placed into the center of the femoral head. The 135 degree guide was used. The pin was measured and the triple reamer used. The lag screw was placed 10 millimeters proximal to the subchondral bone. Appropriate alignment of the screw was placed and then the side plate was applied. 2 Large fragment screws were placed through the plate. The wound was copiously irrigated. The vastus lateralis, and deep fascia were closed with running # 1 Vicryl suture. The subcutaneous tissues were closed with # 1 Vicryl suture followed by 2-0 Vicryl suture and daniel. A sterile bulky dressing was applied. The patient was extubated and brought to the recovery room in stable condition. There were no complications. Implants Synthes DHS 2 hole plate and screws. 85mm lag screw. Estimated Blood Loss 200 Urine Output 500 Drains No Packing No Pathology None sent Complications No immediate complications Condition Stable Disposition PACU [facility] Billing Surgery - Charge Forward: Surgery Billing
[2024-09-18] MEDS: ACETAMINOPHEN 325 MG TABLET 650 MG PO (18:53)
[2024-09-18] MEDS: SENNA/DOCUSATE SODIUM TABLET 2 TAB PO (18:53)
[2024-09-18] MEDS: SODIUM CHLORIDE 0.9% IV 1,000 ML 125 ML IV CONT (18:55)
[2024-09-19 04:45] VITALS: BP 121/51; PULSE 74; RESP 18; TEMP 36.5; O2SAT 98
[2024-09-19] MEDS: ceFAZolin 2 GM/D5W 50 ML 2 GM/50 ML BAG IVPB ×2 (05:09→12:01)
[2024-09-19] MEDS: MORPHINE SULFATE (*CRX) 2 MG/ML INJ IV PUSH (05:55)
[2024-09-19] MEDS: ACETAMINOPHEN 325 MG TABLET 650 MG PO ×3 (05:56→17:03)
[2024-09-19 06:56] LABS: Alanine Aminotransferase 48 U/L (6-35); Albumin Level 2.6 g/dL (3.5-5.1); Alkaline Phosphatase 331 U/L (38-126); Anion Gap 5 mmol/L (4-12); Aspartate Amino Transferase 98 U/L (14-36); Bilirubin Direct 11.7 mg/dL (0-0.3); Bilirubin,Total 19.4 mg/dL (0.2-1.3); Blood Urea Nitrogen 17 mg/dL (7-17); Calcium 8.3 mg/dL (8.4-10.2); Carbon Dioxide 24 mmol/L (22-30); Chloride 105 mmol/L (98-107); Estimated Glomerular Filt Rate > 60; Glucose 177 mg/dL (65-110); Potassium 3.6 mmol/L (3.4-5.0); Sodium 134 mmol/L (137-145)
[2024-09-19 07:14] LABS: Mean Corpuscular HGB Conc 34.6 g/dl (32-36); Mean Corpuscular Hemoglobin 33.5 pg (26-34); Mean Corpuscular Volume 96.7 fl (80-100); Mean Platelet Volume 10.5 fl (7.4-10.4); Platelet Count Result 203 k/mm3 (150-375); Red Blood Count 2.69 M/mm3 (4.2-5.4); Red Cell Distribution Width 21.9 % (11.5-14.5); White Blood Count 6.7 K/mm3 (4.5-10.0)
[2024-09-19 08:35] LABS: Giant Platelets Present; Large Platelets Present; Platelet Estimate Adequate (Adequate)
[2024-09-19 08:36] LABS: Hypochromasia 1+; Target Cells 1+
[2024-09-19 08:37] LABS: Anisocytosis 1+; Schistocytes None Seen
[2024-09-19] MEDS: polyethylene glycoL 3350 17 GM POWD.PACK PO (08:50)
[2024-09-19] MEDS: EZETIMIBE 10 MG TABLET PO (08:51)
[2024-09-19] MEDS: MAGNESIUM OXIDE 200 MG TABLET PO (08:52)
[2024-09-19] MEDS: MULTIVITAMINS THERAPEUTIC TAB (*BKC) 1 TABLET PO (08:52)
[2024-09-19] MEDS: CHOLECALCIFEROL 1,000 UNITS TABLET 2000 UNITS PO (08:52)
[2024-09-19 08:57] VITALS: BP 113/49; PULSE 67; O2SAT 100
[2024-09-19] MEDS: VERAPAMIL HCL ER 120 MG TABLET PO (08:59)
[2024-09-19] MEDS: SENNA/DOCUSATE SODIUM TABLET 2 TAB PO ×2 (09:00→17:02)
[2024-09-19] MEDS: APIXABAN 2.5 MG TABLET PO ×2 (09:00→20:26)
[2024-09-19] MEDS: OPTI-GEN TAB 1 TABLET PO (09:01)
[2024-09-19] MEDS: PANTOPRAZOLE 40 MG TABLET PO (09:01)
[2024-09-19] MEDS: CYCLOBENZAPRINE HCL 10 MG TABLET PO (10:20)
--- NOTE | 2024-09-19 10:22 | WPDANESPN ---
Anes - Prog Note Post-Op Date/Time: 09/19/24 10:22 Cardiovascular status: normal Respiratory status: normal Airway patency: baseline Mental status: baseline Post-Op hydration status: normal Vital Signs: Last Vital Signs Temp 36.5 C 09/19/24 04:45 Pulse 67 09/19/24 08:57 Resp 18 09/19/24 04:45 BP 113/49 L 09/19/24 08:57 Pulse Ox 100 09/19/24 08:57 O2 Del Method Room Air 09/19/24 09:39 O2 Flow Rate 10 09/18/24 17:25 FiO2 21 09/17/24 14:30 Pain Score (VAS): Patient alseep, no nonverbal signs of pain present at this time. I/O: Intake & Output 09/18/24 09/19/24 09/19/24 23:59 07:59 15:59 Intake Total 100 50 480 Output Total 760 300 Balance -660 -250 480 Laboratory Tests 09/19/24 06:30 09/19/24 06:30 09/19/24 06:30 WBC 6.7 RBC 2.69 L Hgb 9.0 L Hct 26.0 L MCV 96.7 MCH 33.5 MCHC 34.6 RDW 21.9 H Plt Count 203 MPV 10.5 H Immature Gran % (Auto) Not Reportable Neut % (Auto) Not Reportable Lymph % (Auto) Not Reportable [place] % (Auto) Not Reportable Eos % (Auto) Not Reportable Baso % (Auto) Not Reportable Lymph # (Auto) Not Reportable [place] # (Auto) Not Reportable Eos # (Auto) Not Reportable Baso # (Auto) Not Reportable Abs Immat Gran (auto) Not Reportable Absolute Neuts (auto) Not Reportable Absolute Nucleated RBC Not Reportable Nucleated RBC % Not Reportable Platelet Estimate Adequate Large Platelets Present Giant Platelets Present Hypochromasia 1+ Anisocytosis 1+ Target Cells 1+ Schistocytes None seen Sodium 134 L Potassium 3.6 Chloride 105 Carbon Dioxide 24 Anion Gap 5 BUN 17 Creatinine 0.70 Estim Creat Clear Calc Not Reportable Estimated GFR > 60 Glucose 177 H Calcium 8.3 L Total Bilirubin 19.4 H Direct Bilirubin 11.7 H AST 98 H ALT 48 H Alkaline Phosphatase 331 H Total Protein 7.0 Albumin 2.6 L Post-procedural complaints: none Patient Feedback: Patient satisfied with anesthetic care.
[2024-09-19 11:47] VITALS: BP 118/60; PULSE 68; RESP 18; TEMP 35.9; O2SAT 100
--- NOTE | 2024-09-19 12:41 | P.PNOP_ITS ---
Progress Note: A&P Assessment and Plan (1) Closed intertrochanteric fracture of right femur: Qualifiers: Encounter type: initial encounter Fracture alignment: nondisplaced Qualified Code(s): S72.144A - Nondisplaced intertrochanteric fracture of right femur, initial encounter for closed fracture Code(s): S72.141A - Displaced intertrochanteric fracture of right femur, initial encounter for closed fracture Status: Acute Assessment and Plan: POD #1 ORIF right hip with Dynamic hip screw. Patient progressing well. Notes no pain. She is pleased with her progress. She is awaiting transfer to [facility] for her medical conditions. Okay for discharge from orthopedic standpoint. Patient would benefit from SNF/Rehab when leaving the hospital. Ortho instructions: * D/C to SNF/rehab or transfer to [facility]. * Xray and follow up in office if able in 6 weeks. * Wound Care: remove daniel at 2 weeks post op. Daily dressing changes with gauze and tape until healed. * PT: Weight bearing as tolerated. * DVT prophylaxis: continue Eliquis. Subjective Subjective Date/Time Seen: 09/19/24 12:41 Interval history: Patient resting comfortably. Notes no pain in the hip. She is very pleased. Review of Systems Review of Systems: All systems reviewed & are unremarkable except as noted in HPI and below Exam Narrative: Normal weight 88 y/o Female. Resting comfortably in bed. Significant Jaundice. Wearing compression socks bilaterally. Dressing dry and intact with no drainage. Moderate swelling. Edema in left foot and leg. No ecchymosis. No erythema. No hematoma. Range of motion limited due to pain. Calf nontender. Thigh nontender. No varicosities. Distal pulses palpable. Wiggles toes. Objective Data Vital Signs Vital Signs: Vital Signs - 24 hr 09/18/24 14:00 09/18/24 14:44 09/18/24 17:03 Temperature 98.2 F 98.3 F 97.8 F Pulse Rate 67 77 66 Respiratory Rate 18 16 13 Blood Pressure 103/45 L 112/52 L 108/50 L Pulse Oximetry 96 97 96 Oxygen Delivery Room Air Simple Face Mask Oxygen Flow Rate 10 09/18/24 17:10 09/18/24 17:25 09/18/24 17:40 Temperature Pulse Rate 63 61 65 Respiratory Rate 11 L 11 L 20 Blood Pressure 109/43 L 115/43 L 114/74 Pulse Oximetry 96 100 95 Oxygen Delivery Simple Face Mask Simple Face Mask Room Air Oxygen Flow Rate 10 10 09/18/24 17:55 09/18/24 19:47 09/18/24 18:02 Temperature 97.5 F L 96.8 F L Pulse Rate 67 83 70 Respiratory Rate 20 16 18 Blood Pressure 111/89 119/66 118/48 L Pulse Oximetry 95 93 96 Oxygen Delivery Room Air Oxygen Flow Rate 09/18/24 18:17 09/18/24 18:47 09/18/24 20:00 Temperature 96.9 F L 96.9 F L Pulse Rate 67 70 Respiratory Rate 18 18 Blood Pressure 120/45 L 108/36 L Pulse Oximetry 96 97 Oxygen Delivery Room Air Oxygen Flow Rate 09/18/24 23:33 09/18/24 21:50 09/19/24 04:45 Temperature 97.0 F L 97.7 F Pulse Rate 65 74 Respiratory Rate 16 18 Blood Pressure 113/51 L 121/51 L Pulse Oximetry 97 97 98 Oxygen Delivery Room Air Oxygen Flow Rate 09/19/24 08:57 09/19/24 09:39 09/19/24 09:55 Temperature Pulse Rate 67 Respiratory Rate Blood Pressure 113/49 L Pulse Oximetry 100 Oxygen Delivery Room Air Room Air Oxygen Flow Rate Intake/Output Intake/Output: Intake & Output 09/16/24 09/17/24 09/18/24 09/19/24 23:59 23:59 23:59 23:59 Intake Total 1586 910 150 630 Output Total 1120 800 985 300 Balance 466 110 -835 330 Meds/Results Medications: Active Medications Generic Name Dose Route Start Last Admin Trade Name Freq PRN Reason Stop Dose Admin Acetaminophen 650 mg 09/18/24 18:02 09/19/24 11:00 Acetaminophen 325 Mg Tablet PO 650 mg Q6HR NAKIA Administration Apixaban 2.5 mg 09/19/24 09:00 09/19/24 09:00 Apixaban 2.5 Mg Tablet PO 2.5 mg Q12HR NAKIA Administration Artificial Tears 1 drop 09/16/24 14:20 Artificial Tears Ophth Soln 15 Ml Bottle EACH EYE PRN PRN Dry Eye(S) Cyclobenzaprine HCl 10 mg 09/18/24 18:02 09/19/24 10:20 Cyclobenzaprine Hcl 10 Mg Tablet PO 10 mg Q8H PRN Administration Muscle Spasm Ezetimibe 10 mg 09/17/24 09:00 09/19/24 08:51 Ezetimibe 10 Mg Tablet PO 10 mg DAILY NAKIA Administration Hydroxyzine Pamoate 50 mg 09/18/24 18:02 Hydroxyzine Pamoate 25 Mg Capsule PO Q4H PRN Itching Cefazolin Sodium 2 gm in 50 mls @ 100 mls/hr 09/18/24 21:00 09/19/24 12:31 Ancef 2 Gm/D5w 50 Ml IVPB 09/19/24 13:29 Infused Q8H NAKIA Infusion Magnesium Oxide 200 mg 09/17/24 09:00 09/19/24 08:52 Magnesium Oxide 200 Mg Tablet PO 200 mg DAILY NAKIA Administration Morphine Sulfate 2 mg 09/17/24 05:28 09/19/24 05:55 Morphine Sulfate (*Crx) 2 Mg/Ml Inj IV PUSH 2 mg Q2H PRN Administration Pain Rated 7-10 Multivitamins Therapeutic 1 tablet 09/17/24 09:00 09/19/24 08:52 Multivitamins Therapeutic Tab (*Bkc) PO 1 tablet DAILY NAKIA Administration Multivitamins/Minerals 1 tablet 09/17/24 09:00 09/19/24 09:01 Opti-Gen Tab PO 1 tablet QAM NAKIA Administration Naloxone HCl 0.1 mg 09/18/24 18:02 Naloxone Hcl 0.4 Mg/Ml Vial IV PUSH Q2M PRN Opiate Reversal Ondansetron HCl 4 mg 09/18/24 18:02 Ondansetron Inj 4 Mg/2 Ml Vial IV PUSH Q4H PRN Nausea And Vomiting Pantoprazole Sodium 40 mg 09/17/24 09:00 09/19/24 09:01 Pantoprazole 40 Mg Tablet PO 40 mg QAM NAKIA Administration Polyethylene Glycol 17 gm 09/19/24 09:00 09/19/24 08:50 Polyethylene Glycol 3350 17 Gm Powd.Pack PO 17 gm QAM NAKIA Administration Senna/Docusate Sodium 2 tab 09/18/24 18:02 09/19/24 09:00 Senna/Docusate Sodium Tablet PO 2 tab BID NAKIA Administration Verapamil HCl 120 mg 09/17/24 09:00 09/19/24 08:59 Verapamil Hcl Er 120 Mg Tablet PO 120 mg DAILY NAKIA Administration Vitamin D 2,000 units 09/17/24 09:00 09/19/24 08:52 Cholecalciferol 1,000 Units Tablet PO 2,000 units DAILY NAKIA Administration Radiology Results: ITS Impressions Hip/Pelvis X-Ray 09/15/24 21:31 IMPRESSION: Right intertrochanteric hip fracture Labs Labs: Laboratory Results - last 24 hr 09/19/24 06:30 WBC 6.7 RBC 2.69 L Hgb 9.0 L Hct 26.0 L MCV 96.7 MCH 33.5 MCHC 34.6 RDW 21.9 H Plt Count 203 MPV 10.5 H Immature Gran % (Auto) Not Reportable Neut % (Auto) Not Reportable Lymph % (Auto) Not Reportable [place] % (Auto) Not Reportable Eos % (Auto) Not Reportable Baso % (Auto) Not Reportable Lymph # (Auto) Not Reportable [place] # (Auto) Not Reportable Eos # (Auto) Not Reportable Baso # (Auto) Not Reportable Abs Immat Gran (auto) Not Reportable Absolute Neuts (auto) Not Reportable Absolute Nucleated RBC Not Reportable Nucleated RBC % Not Reportable Platelet Estimate Adequate Large Platelets Present Giant Platelets Present Hypochromasia 1+ Anisocytosis 1+ Target Cells 1+ Schistocytes None seen Sodium 134 L Potassium 3.6 Chloride 105 Carbon Dioxide 24 Anion Gap 5 BUN 17 Creatinine 0.70 Estim Creat Clear Calc Not Reportable Estimated GFR > 60 Glucose 177 H Calcium 8.3 L Total Bilirubin 19.4 H Direct Bilirubin 11.7 H AST 98 H ALT 48 H Alkaline Phosphatase 331 H Total Protein 7.0 Albumin 2.6 L Quality VTE Prophylaxis VTE prophylaxis: mechanical ordered
[2024-09-19 15:47] VITALS: BP 120/58; PULSE 82; RESP 18; TEMP 35.9; O2SAT 100
--- NOTE | 2024-09-19 17:07 | P.PNIM_ITS ---
Progress Note: A&P Assessment and Plan (1) Closed intertrochanteric fracture of right femur: Qualifiers: Encounter type: initial encounter Fracture alignment: nondisplaced Qualified Code(s): S72.144A - Nondisplaced intertrochanteric fracture of right femur, initial encounter for closed fracture Code(s): S72.141A - Displaced intertrochanteric fracture of right femur, initial encounter for closed fracture Status: Acute Assessment and Plan: Patient with fall and subsequent hip pain. Xray showing right IT hip fracture. No increased uptake by PET scan to the right femur back in June. Orthopedic consulted for right hip intertrochanteric fracture. Plan was for levin sfer but [facility] not available at [facility] Patient underwent ORIF right hip with Dynamic hip screw on 09/18/24. She has tolerated the procedure well. Continue routine post-op care. PT/OT. Placement being arranged. (2) Pancreatic cancer: Qualifiers: Pancreatic malignancy location: unspecified Qualified Code(s): C25.9 - Malignant neoplasm of pancreas, unspecified Code(s): C25.9 - Malignant neoplasm of pancreas, unspecified Status: Acute Assessment and Plan: CBC shows no leukocytosis. Chemistries are remarkable for bilirubin is 17.8 whi ch is doubled since 09/06/2024, AST 104, ALT 58 and alk-phos of 394. UA with bilirubin but no UTI. She has known metastatic pancreatic cancer diagnosed February 2024. Status post radiation therapy and palliative chemotherapy. Plan for ERCP and biliary stent at [facility] due to worsening jaundice. 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 (4) Hypertension: Qualifiers: Hypertension type: essential hypertension Qualified Code(s): I10 - Essential (primary) hypertension Code(s): I10 - Essential (primary) hypertension Status: Chronic Assessment and Plan: Patient's blood pressure was reviewed on 09/19 Blood pressure remains well controlled. Will continue to monitor (5) SCOTT (generalized anxiety disorder): Code(s): F41.1 - Generalized anxiety disorder Status: Acute Assessment and Plan: Mood stable. Follow Plan DVT prophylaxis on Eliquis Code status - full Subjective Date/time seen: 09/19/24 17:07 Interval history: 88yo female with known metastatic pancreatic cancer presents to the ED via EMS from home for right hip pain after a ground level fall. No problems overnight. Pain is minimal. no CP or SOB. no n/v. Exam Narrative: AF 96.6 118/60 68 18 100% ra Gen - NARD Chest - decreased BS in the right base o/w clear. nml RR CV - RRR S1/S2 Abd - Soft, NT/ND - Villanueva secured draining dark orange colored urine Ext - No pedal edema. Right hip dressing clean, dry and intact. Psych - Nml mood and affect Skin - Warm and dry. Jaundice Objective Data Vital Signs Vital Signs: Vital Signs - 24 hr 09/18/24 17:10 09/18/24 17:25 09/18/24 17:40 Temperature Pulse Rate 63 61 65 Respiratory Rate 11 L 11 L 20 Blood Pressure 109/43 L 115/43 L 114/74 Pulse Oximetry 96 100 95 Oxygen Delivery Simple Face Mask Simple Face Mask Room Air Oxygen Flow Rate 10 10 09/18/24 17:55 09/18/24 19:47 09/18/24 18:02 Temperature 97.5 F L 96.8 F L Pulse Rate 67 83 70 Respiratory Rate 20 16 18 Blood Pressure 111/89 119/66 118/48 L Pulse Oximetry 95 93 96 Oxygen Delivery Room Air Oxygen Flow Rate 09/18/24 18:17 09/18/24 18:47 09/18/24 20:00 Temperature 96.9 F L 96.9 F L Pulse Rate 67 70 Respiratory Rate 18 18 Blood Pressure 120/45 L 108/36 L Pulse Oximetry 96 97 Oxygen Delivery Room Air Oxygen Flow Rate 09/18/24 23:33 09/18/24 21:50 09/19/24 04:45 Temperature 97.0 F L 97.7 F Pulse Rate 65 74 Respiratory Rate 16 18 Blood Pressure 113/51 L 121/51 L Pulse Oximetry 97 97 98 Oxygen Delivery Room Air Oxygen Flow Rate 09/19/24 08:57 09/19/24 09:39 09/19/24 09:55 Temperature Pulse Rate 67 Respiratory Rate Blood Pressure 113/49 L Pulse Oximetry 100 Oxygen Delivery Room Air Room Air Oxygen Flow Rate 09/19/24 11:47 Temperature 96.6 F L Pulse Rate 68 Respiratory Rate 18 Blood Pressure 118/60 Pulse Oximetry 100 Oxygen Delivery Oxygen Flow Rate Intake/Output Intake/Output: Intake & Output 09/16/24 09/17/24 09/18/24 09/19/24 23:59 23:59 23:59 23:59 Intake Total 1586 910 150 910 Output Total 1120 800 985 300 Balance 466 110 -835 610 Meds/Results Medications: Active Medications Generic Name Dose Route Start Last Admin Trade Name Freq PRN Reason Stop Dose Admin Acetaminophen 650 mg 09/18/24 18:02 09/19/24 17:03 Acetaminophen 325 Mg Tablet PO 650 mg Q6HR NAKIA Administration Apixaban 2.5 mg 09/19/24 09:00 09/19/24 09:00 Apixaban 2.5 Mg Tablet PO 2.5 mg Q12HR NAKIA Administration Artificial Tears 1 drop 09/16/24 14:20 Artificial Tears Ophth Soln 15 Ml Bottle EACH EYE PRN PRN Dry Eye(S) Cyclobenzaprine HCl 10 mg 09/18/24 18:02 09/19/24 10:20 Cyclobenzaprine Hcl 10 Mg Tablet PO 10 mg Q8H PRN Administration Muscle Spasm Ezetimibe 10 mg 09/17/24 09:00 09/19/24 08:51 Ezetimibe 10 Mg Tablet PO 10 mg DAILY NAKIA Administration Hydroxyzine Pamoate 50 mg 09/18/24 18:02 Hydroxyzine Pamoate 25 Mg Capsule PO Q4H PRN Itching Magnesium Oxide 200 mg 09/17/24 09:00 09/19/24 08:52 Magnesium Oxide 200 Mg Tablet PO 200 mg DAILY NAKIA Administration Morphine Sulfate 2 mg 09/17/24 05:28 09/19/24 05:55 Morphine Sulfate (*Crx) 2 Mg/Ml Inj IV PUSH 2 mg Q2H PRN Administration Pain Rated 7-10 Multivitamins Therapeutic 1 tablet 09/17/24 09:00 09/19/24 08:52 Multivitamins Therapeutic Tab (*Bkc) PO 1 tablet DAILY NAKIA Administration Multivitamins/Minerals 1 tablet 09/17/24 09:00 09/19/24 09:01 Opti-Gen Tab PO 1 tablet QAM NAKIA Administration Naloxone HCl 0.1 mg 09/18/24 18:02 Naloxone Hcl 0.4 Mg/Ml Vial IV PUSH Q2M PRN Opiate Reversal Ondansetron HCl 4 mg 09/18/24 18:02 Ondansetron Inj 4 Mg/2 Ml Vial IV PUSH Q4H PRN Nausea And Vomiting Pantoprazole Sodium 40 mg 09/17/24 09:00 09/19/24 09:01 Pantoprazole 40 Mg Tablet PO 40 mg QAM NAKIA Administration Polyethylene Glycol 17 gm 09/19/24 09:00 09/19/24 08:50 Polyethylene Glycol 3350 17 Gm Powd.Pack PO 17 gm QAM NAKIA Administration Senna/Docusate Sodium 2 tab 09/18/24 18:02 09/19/24 17:02 Senna/Docusate Sodium Tablet PO 2 tab BID NAKIA Administration Verapamil HCl 120 mg 09/17/24 09:00 09/19/24 08:59 Verapamil Hcl Er 120 Mg Tablet PO 120 mg DAILY NAKIA Administration Vitamin D 2,000 units 09/17/24 09:00 09/19/24 08:52 Cholecalciferol 1,000 Units Tablet PO 2,000 units DAILY NAKIA Administration Radiology Results: ITS Impressions Hip/Pelvis X-Ray 09/15/24 21:31 IMPRESSION: Right intertrochanteric hip fracture Labs Labs: Laboratory Results - last 24 hr 09/19/24 06:30 WBC 6.7 RBC 2.69 L Hgb 9.0 L Hct 26.0 L MCV 96.7 MCH 33.5 MCHC 34.6 RDW 21.9 H Plt Count 203 MPV 10.5 H Immature Gran % (Auto) Not Reportable Neut % (Auto) Not Reportable Lymph % (Auto) Not Reportable [place] % (Auto) Not Reportable Eos % (Auto) Not Reportable Baso % (Auto) Not Reportable Lymph # (Auto) Not Reportable [place] # (Auto) Not Reportable Eos # (Auto) Not Reportable Baso # (Auto) Not Reportable Abs Immat Gran (auto) Not Reportable Absolute Neuts (auto) Not Reportable Absolute Nucleated RBC Not Reportable Nucleated RBC % Not Reportable Platelet Estimate Adequate Large Platelets Present Giant Platelets Present Hypochromasia 1+ Anisocytosis 1+ Target Cells 1+ Schistocytes None seen Sodium 134 L Potassium 3.6 Chloride 105 Carbon Dioxide 24 Anion Gap 5 BUN 17 Creatinine 0.70 Estim Creat Clear Calc Not Reportable Estimated GFR > 60 Glucose 177 H Calcium 8.3 L Total Bilirubin 19.4 H Direct Bilirubin 11.7 H AST 98 H ALT 48 H Alkaline Phosphatase 331 H Total Protein 7.0 Albumin 2.6 L
[2024-09-19 19:47] VITALS: BP 114/69; PULSE 67; RESP 14; TEMP 36.1; O2SAT 99
[2024-09-20 00:24] VITALS: BP 104/69; PULSE 71; RESP 16; TEMP 36.2; O2SAT 100
[2024-09-20] MEDS: ACETAMINOPHEN 325 MG TABLET 650 MG PO ×4 (00:27→17:03)
[2024-09-20 03:17] VITALS: BP 108/48; PULSE 59; RESP 14; TEMP 36.6; O2SAT 98
[2024-09-20] MEDS: SENNA/DOCUSATE SODIUM TABLET 2 TAB PO ×2 (08:10→17:03)
[2024-09-20] MEDS: EZETIMIBE 10 MG TABLET PO (08:10)
[2024-09-20] MEDS: CHOLECALCIFEROL 1,000 UNITS TABLET 2000 UNITS PO (08:10)
[2024-09-20] MEDS: APIXABAN 2.5 MG TABLET PO ×2 (08:11→20:21)
[2024-09-20] MEDS: MAGNESIUM OXIDE 200 MG TABLET PO (08:11)
[2024-09-20] MEDS: MULTIVITAMINS THERAPEUTIC TAB (*BKC) 1 TABLET PO (08:11)
[2024-09-20] MEDS: polyethylene glycoL 3350 17 GM POWD.PACK PO (08:11)
[2024-09-20] MEDS: PANTOPRAZOLE 40 MG TABLET PO (08:11)
[2024-09-20] MEDS: VERAPAMIL HCL ER 120 MG TABLET PO (08:11)
[2024-09-20] MEDS: OPTI-GEN TAB 1 TABLET PO (08:11)
[2024-09-20] MEDS: MORPHINE SULFATE (*CRX) 2 MG/ML INJ IV PUSH (08:24)
--- NOTE | 2024-09-20 09:43 | P.PNOP_ITS ---
Progress Note: A&P Assessment and Plan (1) Closed intertrochanteric fracture of right femur: Qualifiers: Encounter type: initial encounter Fracture alignment: nondisplaced Qualified Code(s): S72.144A - Nondisplaced intertrochanteric fracture of right femur, initial encounter for closed fracture Code(s): S72.141A - Displaced intertrochanteric fracture of right femur, initial encounter for closed fracture Status: Acute Assessment and Plan: POD #2 ORIF right hip with Dynamic hip screw. Patient progressing well. Pain with moveemnt. She is pleased with her progress. She is awaiting transfer to [facility] for her medical conditions. Okay for discharge from orthopedic standpoint. Patient would benefit from SNF/Rehab when leaving the hospital. Ortho instructions: * D/C to SNF/rehab or transfer to [facility]. * Xray and follow up in office if able in 6 weeks. * Wound Care: remove daniel at 2 weeks post op. Daily dressing changes with gauze and tape until healed. * PT: Weight bearing as tolerated. * DVT prophylaxis: continue Eliquis. Subjective Subjective Date/Time Seen: 09/20/24 09:43 Interval history: Patient resting comfortably. Complains of pain in the hip. No other complaints. Review of Systems Review of Systems: All systems reviewed & are unremarkable except as noted in HPI and below Exam Narrative: Normal weight 88 y/o Female. Resting comfortably in bed. Significant Jaundice. Wearing compression socks bilaterally. Dressing dry and intact with minimal bloody drainage. Moderate swelling. Edema in left foot and leg. No ecchymosis. No erythema. No hematoma. Range of motion limited due to pain. Calf nontender. Thigh nontender. No varicosities. Distal pulses palpable. Wiggles toes. Objective Data Vital Signs Vital Signs: Vital Signs - 24 hr 09/19/24 09:55 09/19/24 11:47 09/19/24 15:47 Temperature 96.6 F L 96.6 F L Pulse Rate 68 82 Respiratory Rate 18 18 Blood Pressure 118/60 120/58 L Pulse Oximetry 100 100 Oxygen Delivery Room Air 09/19/24 19:47 09/19/24 20:00 09/20/24 00:24 Temperature 97 F L 97.2 F L Pulse Rate 67 71 Respiratory Rate 14 16 Blood Pressure 114/69 104/69 Pulse Oximetry 99 100 Oxygen Delivery Room Air 09/20/24 03:17 Temperature 97.8 F Pulse Rate 59 L Respiratory Rate 14 Blood Pressure 108/48 L Pulse Oximetry 98 Oxygen Delivery Intake/Output Intake/Output: Intake & Output 09/17/24 09/18/24 09/19/24 09/20/24 23:59 23:59 23:59 23:59 Intake Total 822 846 7676 790 Output Total 800 985 300 Balance 110 -835 1990 790 Meds/Results Medications: Active Medications Generic Name Dose Route Start Last Admin Trade Name Freq PRN Reason Stop Dose Admin Acetaminophen 650 mg 09/18/24 18:02 09/20/24 06:30 Acetaminophen 325 Mg Tablet PO 650 mg Q6HR NAKIA Administration Apixaban 2.5 mg 09/19/24 09:00 09/20/24 08:11 Apixaban 2.5 Mg Tablet PO 2.5 mg Q12HR NAKIA Administration Artificial Tears 1 drop 09/16/24 14:20 Artificial Tears Ophth Soln 15 Ml Bottle EACH EYE PRN PRN Dry Eye(S) Cyclobenzaprine HCl 10 mg 09/18/24 18:02 09/19/24 10:20 Cyclobenzaprine Hcl 10 Mg Tablet PO 10 mg Q8H PRN Administration Muscle Spasm Ezetimibe 10 mg 09/17/24 09:00 09/20/24 08:10 Ezetimibe 10 Mg Tablet PO 10 mg DAILY NAKIA Administration Hydroxyzine Pamoate 50 mg 09/18/24 18:02 Hydroxyzine Pamoate 25 Mg Capsule PO Q4H PRN Itching Magnesium Oxide 200 mg 09/17/24 09:00 09/20/24 08:11 Magnesium Oxide 200 Mg Tablet PO 200 mg DAILY NAKIA Administration Morphine Sulfate 2 mg 09/17/24 05:28 09/20/24 08:24 Morphine Sulfate (*Crx) 2 Mg/Ml Inj IV PUSH 2 mg Q2H PRN Administration Pain Rated 7-10 Multivitamins Therapeutic 1 tablet 09/17/24 09:00 09/20/24 08:11 Multivitamins Therapeutic Tab (*Bkc) PO 1 tablet DAILY NAKIA Administration Multivitamins/Minerals 1 tablet 09/17/24 09:00 09/20/24 08:11 Opti-Gen Tab PO 1 tablet QAM NAKIA Administration Naloxone HCl 0.1 mg 09/18/24 18:02 Naloxone Hcl 0.4 Mg/Ml Vial IV PUSH Q2M PRN Opiate Reversal Ondansetron HCl 4 mg 09/18/24 18:02 Ondansetron Inj 4 Mg/2 Ml Vial IV PUSH Q4H PRN Nausea And Vomiting Pantoprazole Sodium 40 mg 09/17/24 09:00 09/20/24 08:11 Pantoprazole 40 Mg Tablet PO 40 mg QAM NAKIA Administration Polyethylene Glycol 17 gm 09/19/24 09:00 09/20/24 08:11 Polyethylene Glycol 3350 17 Gm Powd.Pack PO 17 gm QAM NAKIA Administration Senna/Docusate Sodium 2 tab 09/18/24 18:02 09/20/24 08:10 Senna/Docusate Sodium Tablet PO 2 tab BID NAKIA Administration Verapamil HCl 120 mg 09/17/24 09:00 09/20/24 08:11 Verapamil Hcl Er 120 Mg Tablet PO 120 mg DAILY NAKIA Administration Vitamin D 2,000 units 09/17/24 09:00 09/20/24 08:10 Cholecalciferol 1,000 Units Tablet PO 2,000 units DAILY NAKIA Administration Radiology Results: ITS Impressions Hip/Pelvis X-Ray 09/15/24 21:31 IMPRESSION: Right intertrochanteric hip fracture
--- NOTE | 2024-09-20 13:29 | P.PNIM_ITS ---
Progress Note: A&P Assessment and Plan (1) Closed intertrochanteric fracture of right femur: Qualifiers: Encounter type: initial encounter Fracture alignment: nondisplaced Qualified Code(s): S72.144A - Nondisplaced intertrochanteric fracture of right femur, initial encounter for closed fracture Code(s): S72.141A - Displaced intertrochanteric fracture of right femur, initial encounter for closed fracture Status: Acute Assessment and Plan: Patient with fall and subsequent hip pain. Xray showing right IT hip fracture. No increased uptake by PET scan to the right femur back in June. Orthopedic consulted for right hip intertrochanteric fracture. Plan was for levin sfer but bed not available at [facility] Patient underwent ORIF right hip with Dynamic hip screw on 09/18/24. She has tolerated the procedure well. Continue routine post-op care. PT/OT. Placement being arranged at [facility]. (2) Pancreatic cancer: Qualifiers: Pancreatic malignancy location: unspecified Qualified Code(s): C25.9 - Malignant neoplasm of pancreas, unspecified Code(s): C25.9 - Malignant neoplasm of pancreas, unspecified Status: Acute Assessment and Plan: CBC shows no leukocytosis but with anemia. Anemia is chronic. Chemistries are remarkable for bilirubin is 17.8 which has doubled since 09/06/2024, AST 104, ALT 58 and alk-phos of 394. UA with bilirubin but no UTI. She has known metastatic pancreatic cancer diagnosed February 2024. Status post radiation therapy and palliative chemotherapy. Plan for ERCP and biliary stent at [facility] due to worsening jaundice. Encouraged her to scheduled this as soon as possible now that her hip fracture has been fixed. 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 (4) Hypertension: Qualifiers: Hypertension type: essential hypertension Qualified Code(s): I10 - Essential (primary) hypertension Code(s): I10 - Essential (primary) hypertension Status: Chronic Assessment and Plan: Patient's blood pressure was reviewed on 09/20 Blood pressure remains well controlled. Will continue to monitor (5) SCOTT (generalized anxiety disorder): Code(s): F41.1 - Generalized anxiety disorder Status: Acute Assessment and Plan: Mood stable. Follow Plan DVT prophylaxis on Eliquis Code status - full Subjective Date/time seen: 09/20/24 13:29 Interval history: 88yo female with known metastatic pancreatic cancer presents to the ED via EMS from home for right hip pain after a ground level fall. Pain well controlled. Walking with walker. Feels well. Exam Narrative: AF 97.8 108/48 59 14 98% ra Gen - NARD Chest - clear bilaterally. nml RR CV - RRR S1/S2 Abd - Soft, NT/ND Ext - No pedal edema. Right hip dressing clean, dry and intact. Psych - Nml mood and affect Skin - Warm and dry. Jaundice Objective Data Vital Signs Vital Signs: Vital Signs - 24 hr 09/19/24 15:47 09/19/24 19:47 09/19/24 20:00 Temperature 96.6 F L 97 F L Pulse Rate 82 67 Respiratory Rate 18 14 Blood Pressure 120/58 L 114/69 Pulse Oximetry 100 99 Oxygen Delivery Room Air 09/20/24 00:24 09/20/24 03:17 09/20/24 08:00 Temperature 97.2 F L 97.8 F Pulse Rate 71 59 L Respiratory Rate 16 14 Blood Pressure 104/69 108/48 L Pulse Oximetry 100 98 Oxygen Delivery Room Air Intake/Output Intake/Output: Intake & Output 09/17/24 09/18/24 09/19/24 09/20/24 23:59 23:59 23:59 23:59 Intake Total 117 104 6999 790 Output Total 800 985 300 Balance 110 -835 1990 790 Meds/Results Medications: Active Medications Generic Name Dose Route Start Last Admin Trade Name Freq PRN Reason Stop Dose Admin Acetaminophen 650 mg 09/18/24 18:02 09/20/24 11:21 Acetaminophen 325 Mg Tablet PO 650 mg Q6HR NAKIA Administration Apixaban 2.5 mg 09/19/24 09:00 09/20/24 08:11 Apixaban 2.5 Mg Tablet PO 2.5 mg Q12HR NAKIA Administration Artificial Tears 1 drop 09/16/24 14:20 Artificial Tears Ophth Soln 15 Ml Bottle EACH EYE PRN PRN Dry Eye(S) Cyclobenzaprine HCl 10 mg 09/18/24 18:02 09/19/24 10:20 Cyclobenzaprine Hcl 10 Mg Tablet PO 10 mg Q8H PRN Administration Muscle Spasm Ezetimibe 10 mg 09/17/24 09:00 09/20/24 08:10 Ezetimibe 10 Mg Tablet PO 10 mg DAILY NAKIA Administration Hydroxyzine Pamoate 50 mg 09/18/24 18:02 Hydroxyzine Pamoate 25 Mg Capsule PO Q4H PRN Itching Magnesium Oxide 200 mg 09/17/24 09:00 09/20/24 08:11 Magnesium Oxide 200 Mg Tablet PO 200 mg DAILY NAIKA Administration Morphine Sulfate 2 mg 09/17/24 05:28 09/20/24 08:24 Morphine Sulfate (*Crx) 2 Mg/Ml Inj IV PUSH 2 mg Q2H PRN Administration Pain Rated 7-10 Multivitamins Therapeutic 1 tablet 09/17/24 09:00 09/20/24 08:11 Multivitamins Therapeutic Tab (*Bkc) PO 1 tablet DAILY NAKIA Administration Multivitamins/Minerals 1 tablet 09/17/24 09:00 09/20/24 08:11 Opti-Gen Tab PO 1 tablet QAM NAKIA Administration Naloxone HCl 0.1 mg 09/18/24 18:02 Naloxone Hcl 0.4 Mg/Ml Vial IV PUSH Q2M PRN Opiate Reversal Ondansetron HCl 4 mg 09/18/24 18:02 Ondansetron Inj 4 Mg/2 Ml Vial IV PUSH Q4H PRN Nausea And Vomiting Pantoprazole Sodium 40 mg 09/17/24 09:00 09/20/24 08:11 Pantoprazole 40 Mg Tablet PO 40 mg QAM NAKIA Administration Polyethylene Glycol 17 gm 09/19/24 09:00 09/20/24 08:11 Polyethylene Glycol 3350 17 Gm Powd.Pack PO 17 gm QAM NAKIA Administration Senna/Docusate Sodium 2 tab 09/18/24 18:02 09/20/24 08:10 Senna/Docusate Sodium Tablet PO 2 tab BID NAKIA Administration Verapamil HCl 120 mg 09/17/24 09:00 09/20/24 08:11 Verapamil Hcl Er 120 Mg Tablet PO 120 mg DAILY NAKIA Administration Vitamin D 2,000 units 09/17/24 09:00 09/20/24 08:10 Cholecalciferol 1,000 Units Tablet PO 2,000 units DAILY NAKIA Administration Radiology Results: ITS Impressions Hip/Pelvis X-Ray 09/15/24 21:31 IMPRESSION: Right intertrochanteric hip fracture
[2024-09-20 22:00] VITALS: BP 113/43; PULSE 70; RESP 17; TEMP 36.2; O2SAT 98
[2024-09-21] MEDS: ACETAMINOPHEN 325 MG TABLET 650 MG PO ×3 (00:05→11:53)
[2024-09-21 02:19] VITALS: BP 106/51; PULSE 70; RESP 12; TEMP 36.2; O2SAT 98
[2024-09-21 05:41] VITALS: BP 100/46; PULSE 73; RESP 14; TEMP 36.2; O2SAT 98
[2024-09-21] MEDS: CHOLECALCIFEROL 1,000 UNITS TABLET 2000 UNITS PO (08:48)
[2024-09-21] MEDS: VERAPAMIL HCL ER 120 MG TABLET PO (08:48)
[2024-09-21] MEDS: PANTOPRAZOLE 40 MG TABLET PO (08:48)
[2024-09-21] MEDS: polyethylene glycoL 3350 17 GM POWD.PACK PO (08:49)
[2024-09-21] MEDS: APIXABAN 2.5 MG TABLET PO (08:49)
[2024-09-21] MEDS: EZETIMIBE 10 MG TABLET PO (08:49)
[2024-09-21] MEDS: MAGNESIUM OXIDE 200 MG TABLET PO (08:49)
[2024-09-21] MEDS: SENNA/DOCUSATE SODIUM TABLET 2 TAB PO (08:49)
[2024-09-21] MEDS: OPTI-GEN TAB 1 TABLET PO (08:49)
[2024-09-21] MEDS: MULTIVITAMINS THERAPEUTIC TAB (*BKC) 1 TABLET PO (08:49)
--- NOTE | 2024-09-21 10:41 | P.DS_ITS ---
DS: Admitting Diagnosis Discharge Date 09/21/24 Admitting Diagnosis Hip pain after a fall DS: Discharge Diagnosis Discharge Diagnosis (1) Closed intertrochanteric fracture of right femur: Qualifiers: Encounter type: initial encounter Fracture alignment: nondisplaced Qualified Code(s): S72.144A - Nondisplaced intertrochanteric fracture of right femur, initial encounter for closed fracture Code(s): S72.141A - Displaced intertrochanteric fracture of right femur, initial encounter for closed fracture Status: Acute (2) Pancreatic cancer: Qualifiers: Pancreatic malignancy location: unspecified Qualified Code(s): C25.9 - Malignant neoplasm of pancreas, unspecified Code(s): C25.9 - Malignant neoplasm of pancreas, unspecified Status: Acute (3) Current use of 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 Please see H&P for details. Hospital Course: Patient with fall and subsequent hip pain. Xray showing right IT hip fracture. No increased uptake by PET scan to the right femur back in June. Orthopedic consulted for right hip intertrochanteric fracture. Plan was for transfer but bed not available at [facility] so patient underwent ORIF right hip with Dynamic hip screw on 09/18/24. She has tolerated the procedure well. She worked with PT/OT. She was accepted at [facility] for further therapy. She has known metastatic pancreatic cancer diagnosed February 2024. Status post radiation therapy and palliative chemotherapy. CBC shows no leukocytosis but with anemia. Anemia is chronic. Bilirubin was 17.8 which has doubled since 09/06/2024, AST 10 4, ALT 58 and alk-phos of 394. UA with bilirubin but no UTI. Plan for ERCP and biliary stent at [facility] due to worsening jaundice. Encouraged her to scheduled this as soon as possible now that her hip fracture has been fixed. She has a hx of lower extremity DVT and was on Eliquis for this on admission. Eliquis was held for the surgery but now resumed. She overall did well and was able to be discharged on 09/21/24. Status at Discharge Cognitive/behavioral status at discharge: stable Time Spent with Patient Time attestation: Total time spent providing and/or coordinating discharge services: 35 minutes Time spent: Greater than 30 minutes Exam Narrative: AF 97.1 100/46 73 14 98% ra Gen - NARD Chest - clear bilaterally. nml RR CV - RRR S1/S2 Abd - Soft, NT Ext - No pedal edema Psych - Nml mood and affect Skin - Warm and dry. Jaundice Discharge Plan Discharge Attending physician on discharge: Kasi Bravo Consulting providers: Cedrick August Discharging Clinician: Kasi Bravo Anticipated Discharge Date/Time: 09/21/24 10:48 Patient Disposition: Hospital Swing Bed Activity: other - see discharge instructions Diet: regular Discharge Instructions: Ortho instructions: ORIF right hip with Dynamic hip screw. 09/18/24 * D/C to SNF/rehab * Xray and follow up in office if able in 6 weeks. * Wound Care: remove daniel at 2 weeks post op. Daily dressing changes with gauze and tape until healed. * PT: Weight bearing as tolerated. * DVT prophylaxis: continue Eliquis. Check blood pressure 1 to 2 times a day. Record for the doctor's review. Take precautions to avoid falls. Rise slowly from a lying or sitting position. Pause before standing or walking. Follow-up with the provider at the facility. Follow-up with orthopedics in 6 weeks. Please call for an appointment Follow-up with [facility] for biliary stent placement. Please arrange as soon as possible Thank you for using [facility] for your health care needs. Patient Instructions: Antibiotic Form, Apixaban (By mouth), Pain Management (DC) Stand Alone Forms: General Discharge Information Follow-up/Referrals: Chip Rogers DO [Primary Care Provider] - Call for Appointment Cedrick August MD [Physician] - Call for Appointment Discharge Medications: New acetaminophen 325 mg Tablet 650 mg PO Q6HR Qty: 10 0RF Continued pantoprazole 40 mg Tablet,Delayed Release (Dr/Ec) 40 mg PO QAM Qty: 30 2RF cholecalciferol (vitamin D3) 50 mcg (2,000 unit) capsule 50 mcg PO DAILY magnesium 250 mg tablet 250 mg PO DAILY PreserVision AREDS-2 250-90-40-1 mg capsule 1 tablet PO DAILY multivitamin Tablet 1 tablet PO DAILY carboxymethylcellulose sodium 1 % Drops, Liquid Gel 1 drp ophthalmic (eye) PRN PRN (Reason: Dry Eye(S)) ezetimibe 10 mg tablet 10 mg PO DAILY Eliquis 2.5 mg tablet 2.5 mg PO BID verapamil 120 mg capsule,ext rel. pellets 24 hr 120 mg PO DAILY Qty: 90 0RF Date of admission: 09/16/24 07:47 Primary Care Provider: Chip Rogers Admitting Provider: Isela Martinez Attending physician on admission: Isela Martinez Condition: Stable Hospitalist MIPS Heart Failure (Exclusion) Patient has history of Heart Transplant or Left Ventricular Assistive Device?: No IF YES, STOP HERE Heart Failure (Qualifier) Patient has current or prior documentation of LVEF less than or equal to 40%, or mod/servere depressed LVSF?: No IF NO, STOP HERE
--- NOTE | 2024-09-21 12:35 | PC.NURSE ---
Report called to [facility] at 1204 and discharge papers faxed as well. Called [facility] and per patient request, on her cell phone, Britney was also updated. Patient and family aware ambulance transport arrival could take some time.
== END 2024-09-21 13:10 | disposition swing bed (61) | DRG 481 ==
LOC: ANHED 09-16 01:19 → ANH3MEDSUR 09-16 02:29
PROVIDERS: Internal Medicine; Orthopaedic Surgery; Physician Assistant Surgical; Admitting Provider Internal Medicine; Emergency Provider Physician Assistant; PCP Family Medicine; Visit Provider Internal Medicine
PROC: 0QS634Z Reposition Right Upper Femur with Internal Fixation Device, Percutaneous Approach (ICD-10-PCS; principal; 2024-09-18 15:30)
DX: S72.141A Displaced intertrochanteric fracture of right femur, initial encounter for closed fracture (principal); C25.9 Malignant neoplasm of pancreas, unspecified; C79.9 Secondary malignant neoplasm of unspecified site; I10 Essential (primary) hypertension; E78.5 Hyperlipidemia, unspecified; K21.9 Gastro-esophageal reflux disease without esophagitis; M17.11 Unilateral primary osteoarthritis, right knee; M81.0 Age-related osteoporosis without current pathological fracture; M47.816 Spondylosis without myelopathy or radiculopathy, lumbar region; F41.1 Generalized anxiety disorder; W19.XXXA Unspecified fall, initial encounter; Z79.01 Long term (current) use of anticoagulants; Z86.718 Personal history of other venous thrombosis and embolism; Z85.3 Personal history of malignant neoplasm of breast; Z86.0101 Personal history of adenomatous and serrated colon polyps; Z87.891 Personal history of nicotine dependence
CPT/HCPCS: 36415; 73502; 80048; 80053; 80076; 81001; 83735; 85025; 86850; 86900; 86901; 93005; 96374; 96376; 97110; 97116; 97162; 97166; 97530; 97535; 99199; 99285; A9270; C1713; G0378; J0690; J1100; J2003; J2270; J2371; J2405; J2704; J3010; J7030; J7120

== ENCOUNTER 2024-09-21 13:45 | Inpatient (IN) | payer MEDICARE, BC, SELFPAY ==
--- NOTE | ~2024-09-21 | XR_ITS ---
EXAMINATION: XR hip RT 2V w AP pelvis DATE: 09/25/2024 08:33 INDICATION: Right hip pain one week postop TECHNIQUE: Anteroposterior view of the pelvis and anteroposterior and cross-table lateral views of th e right hip were obtained. COMPARISON: 09/15/2024 FINDINGS: Interval open reduction internal fixation of a previously noted intratrochanteric fracture the proxim al right femur with lateral plate and screws and femoral neck dynamic compression screw. Alignment ap pears essentially anatomic. No other fractures identified. Joint space at the bilateral hip and sacro iliac joints appear relatively preserved. Mild lumbar levocurvature with moderate to severe spondylos is. There is mild subcutaneous edema and skin daniel overlying the proximal right femur. Additional surgical clips in the left hemipelvis. IMPRESSION: 1. Near-anatomic alignment post open reduction internal fixation of an intratrochanteric fracture of the proximal right femur. Reviewed, dictated and finalized at location B. TIONAL DIRECTOR IMPRESSION: 1. Near-anatomic alignment post open reduction internal fixation of an intratro chanteric fracture of the proximal right femur.
--- NOTE | 2024-09-21 13:45 | PC.NURSE ---
Patient arrived to unit on stretcher from [facility] and was transported by [facility]. Patient required 4 assist to transfer from stretcher to bed. Patient educated on use of call light and bed controls. Patient educated fall prevention, isolation status, hospital policies, initiation of rapid response and visiting hours. Admission packet given to patient.
[2024-09-21 14:00] VITALS: BP 125/53; PULSE 76; RESP 18; TEMP 36.2; O2SAT 99
[2024-09-21 14:01] VITALS: BMI 22.4
[2024-09-21 14:14] VITALS: PULSE 76; RESP 18; O2SAT 99
[2024-09-21 16:00] VITALS: BP 110/45; PULSE 76; RESP 16; TEMP 36.7; O2SAT 97
[2024-09-21] MEDS: ACETAMINOPHEN 325 MG TABLET 650 MG PO (17:07)
[2024-09-21] MEDS: DOCUSATE SODIUM 100 MG CAPSULE PO (17:08)
[2024-09-21] MEDS: APIXABAN 2.5 MG TABLET PO (17:08)
[2024-09-21 20:00] VITALS: PULSE 76; RESP 16; O2SAT 97
[2024-09-22] VITALS: BP 109/50; PULSE 79; RESP 16; TEMP 36.6; O2SAT 96
[2024-09-22] MEDS: ACETAMINOPHEN 325 MG TABLET 650 MG PO ×4 (00:04→16:52)
[2024-09-22 08:00] VITALS: BP 116/63; PULSE 82; RESP 18; TEMP 36.7; O2SAT 96
[2024-09-22] MEDS: PANTOPRAZOLE 40 MG TABLET PO (08:47)
[2024-09-22] MEDS: CHOLECALCIFEROL 1,000 UNITS TABLET 2000 UNITS PO (08:47)
[2024-09-22] MEDS: OPTI-GEN TAB 1 TABLET PO (08:47)
[2024-09-22] MEDS: MULTIVITAMINS THERAPEUTIC TAB (*BKC) 1 TABLET PO (08:48)
[2024-09-22] MEDS: EZETIMIBE 10 MG TABLET PO (08:48)
[2024-09-22] MEDS: VERAPAMIL HCL ER 120 MG TABLET PO (08:48)
[2024-09-22] MEDS: APIXABAN 2.5 MG TABLET PO ×2 (08:48→16:52)
[2024-09-22] MEDS: DOCUSATE SODIUM 100 MG CAPSULE PO ×2 (08:49→16:53)
[2024-09-22] MEDS: MAGNESIUM OXIDE 400 MG TABLET PO (08:49)
--- NOTE | 2024-09-22 12:05 | P.HP_ITS ---
H&P: HPI History of Present Illness Date/Time: 09/22/24 12:05 Chief Complaint: Rehabilitation post ORIF right femur Narrative: Patient is an 88-year-old female who was admitted to a [facility] swing bed for continued rehabilitation following repair of right intertrochanteric fracture of the right femur. patient does have a past medical history of HTN, previous DVT and currently on palliative care for pancreatic cancer. Plan was for transfer for ERCP and biliary stent due to worsening jaundice from her pancreatic cancer but bed not available at [facility] so patient underwent ORIF right hip with Dynamic h ip screw on 09/18/24 at [facility]. patient has metastatic pancreatic cancer that was diagnosed in 2023 she had underwent radiation therapy and palliative chemotherapy however her bilirubin has doubled since September 06 to 17.8 it was requested we attempt to schedule outpatient surgical placement of biliary stent at [facility] as soon as this can be scheduled. Patient with moderate pain to right hip, denied any chest pain, shortness a breath, nausea, vomiting, dizziness. labs were reviewed prior to admission of note patient is severely jaundiced on assessment will get follow-up labs in 2 days for evaluation to will continue rehabilitation here at [facility] an attempt to schedule a biliary stent placement. Review of Systems Review of Systems: All systems reviewed & are unremarkable except as noted in HPI and below PMFSH Past Medical History Medical History Abdominal pain Acute upper respiratory infection, unspecified Bakers cyst Cancer of left breast Status post chemotherapy, radiation, and mastectomy. Chronic headache Colon polyps Constipation Current use of [facility]cf anticoagulation for history of DVT. Deep venous thrombosis In 1997 and 2019. DVT of lower limb, acute Epigastric pain Gastritis On EGD in December 2019. History of colon polyps Hyperlipidemia Hypertension Hyponatremia Left knee DJD Lumbar spondylosis Newly recognized murmur Osteoarthritis Osteoarthritis of right knee Osteoporosis Osteoporosis Pancreatic cancer Sinus pressure Ventral hernia Weakness Surgical History Surgical History H/O cataract extraction History of cardiac catheterization History of cataract extraction History of cholecystectomy History of hysterectomy History of left mastectomy Family History Family History Sibling Diabetes mellitus Heart disease Heart problem Sibling Heart problem Prostate carcinoma Sibling Heart problem Sibling Heart problem Sibling Breast cancer Social History Social History Social History: POLST completed on 05/03/23 Smoking packs per day: 0.25 Smoking cigarettes per day: 5.0 Years smoked: 2 Smoking pack-years: 0.50 Smoking status: Former smoker Tobacco type: cigarettes Second hand tobacco smoke exposure: No Smoking end date: 09/21/62 Alcohol intake: never Substance use: never Substance use type: does not use Do You Feel Safe in your Home?: Yes Lack of Transportation: No Lack of Food: Never True Current Housing: I Have Housing Concerned About Future Housing: No Difficulty Paying Gas/Electric Bills: No Difficulty Paying for Meds: No Currently Unemployed: No Education: High School Diploma/GED Difficulty w/ Childcare or Family Care: No Living arrangements: alone Additional living arrangements comments: Lives in [place]. . Occupation/Education: retired Additional occupation/education comments: Retired. Gender identity (if verbalized by the patient): Female Spiritual care concerns: No Meds Home Medications and Allergies Home Medications Medication Instructions Recorded Confirmed Type multivitamin 1 tablet PO DAILY 03/02/20 09/21/24 History cholecalciferol (vitamin D3) 50 50 mcg PO DAILY 09/21/20 09/21/24 History mcg (2,000 unit) capsule carboxymethylcellulose sodium 1 % 1 drp ophthalmic (eye) PRN PRN Dry 09/25/20 09/21/24 History eye liquid gel drops Eye(S) magnesium 250 mg tablet 250 mg PO DAILY 05/03/23 09/21/24 History vit C 250 mg-vit E 90 mg-zinc 40 1 tablet PO DAILY 05/03/23 09/21/24 History mg-copper 1 gr-uaodoj-uvvqbo capsule (PreserVision AREDS-2) pantoprazole 40 mg tablet,delayed 40 mg PO QAM #30 tabs 03/01/24 09/21/24 Rx release verapamil 120 mg 24 hr 120 mg PO DAILY #90 caps 06/06/24 09/21/24 Rx capsule,extended release apixaban 2.5 mg tablet (Eliquis) 2.5 mg PO BID 09/16/24 09/21/24 History ezetimibe 10 mg tablet 10 mg PO DAILY 09/16/24 09/21/24 History acetaminophen 325 mg tablet 650 mg PO Q6HR #10 tabs 09/21/24 09/21/24 Rx Allergies Allergy/AdvReac Type Severity Reaction Status Date / Time celecoxib AdvReac Unknown Verified 09/16/24 02:52 erythromycin base AdvReac Unknown Verified 09/16/24 02:52 hydrocodone AdvReac Unknown Verified 09/16/24 02:52 levofloxacin [From Levaquin] AdvReac Unknown Verified 09/16/24 02:52 meloxicam AdvReac Unknown Verified 09/16/24 02:52 rivaroxaban [From Xarelto] AdvReac Unknown Verified 09/16/24 02:52 Cjvymav-NEN-MlK Reductase AdvReac Unknown Verified 09/17/24 09:48 Inhibitor triamterene AdvReac Unknown Verified 09/16/24 02:52 Vital Signs Vital Signs - 24 hr 09/21/24 14:00 09/21/24 14:14 09/21/24 16:00 Temperature 97.1 F L 98.0 F Pulse Rate 76 76 76 Respiratory Rate 18 18 16 Blood Pressure 125/53 L 110/45 L Pulse Oximetry 99 99 97 Oxygen Delivery Room Air Room Air Room Air 09/21/24 20:00 09/22/24 00:00 09/22/24 08:00 Temperature 97.9 F 98.1 F Pulse Rate 76 79 82 Respiratory Rate 16 16 18 Blood Pressure 109/50 L 116/63 Pulse Oximetry 97 96 96 Oxygen Delivery Room Air Room Air Room Air Exam Narrative: GENERAL: Normal appearance, Awake, Alert, Oriented to person, Oriented to place, Oriented to time, Appearance consistent with age Well-nourished, hydrated and nourished. HEENT: Eye movements normal, Pupils equal, react to light and accommodation No signs of nystagmus. Eyelids are normal in appearance without swelling or lesions. Nasal mucosa is pink and moist. The nasal septum is midline Mouth and Throat normal, Pharynx normal No cervical lymphadenopathy, Trachea is midline, No JVD. RESPIRATORY: Lung sounds normal, Symmetry of chest movement. The chest wall is symmetric and without deformity. No signs of trauma. Chest wall is non-tender. No signs of respiratory distress. Lung sounds are clear in all lobes bilaterally without rales, ronchi, or wheezes. Resonance is normal upon percussion of all lung zhao. CARDIOVASCULAR: Cardiovascular System Normal. Heart rate and rhythm are normal. No murmurs, gallops, or rubs are auscultated. S1 and S2 are heard and are of normal intensity. ABDOMEN: Soft, non-tender and non-distended. No palpable masses. . Bowel sounds are present and normoactive in all four quadrants MUSCLE SKELETAL: Musculoskeletal test normal, Normal Tone, Normal strength. Upper and lower extremities are atraumatic in appearance without tenderness or deformity. No swelling or erythema SKIN: severely Jaundice, dry and intact without rashes or lesions. Appropriate color for ethnicity. Nailbeds pink with no cyanosis or clubbing. NEUROLOGICAL: No focal neurological deficits. CN II-XII grossly intact, No gait abnormalities are appreciated. PSYCHIATRIC: Appropriate mood and affect. Good judgement and insight. No visual or auditory hallucinations. No suicidal or homicidal ideation. Assessment and Plan Assessment and plan (1) Closed intertrochanteric fracture of right femur: Qualifiers: Encounter type: initial encounter Fracture alignment: nondisplaced Qualified Code(s): S72.144A - Nondisplaced intertrochanteric fracture of right femur, initial encounter for closed fracture Code(s): S72.141A - Displaced intertrochanteric fracture of right femur, initial encounter for closed fracture Status: Acute Assessment and Plan: * Post repair RT femur fracture * PT/OT * Xray and follow up in office if able in 6 weeks. * Wound Care: remove daniel at 2 weeks post op. Daily dressing changes with gauze and tape until healed. * PT: Weight bearing as tolerated. * DVT prophylaxis: continue Eliquis. (2) Pancreatic cancer: Qualifiers: Pancreatic malignancy location: unspecified Qualified Code(s): C25.9 - Malignant neoplasm of pancreas, unspecified Code(s): C25.9 - Malignant neoplasm of pancreas, unspecified Status: Acute Assessment and Plan: * metastatic pancreatic cancer * Bilirubin was 17.8 which has doubled since 09/06/2024, AST 104, ALT 58 and alk-phos of 394 * follow-up labs x2 days * will call [facility] to attempt to schedule a outpatient ERCP with biliary stent placement as soon as possible (3) Hypertension: Qualifiers: Hypertension type: essential hypertension Qualified Code(s): I10 - Essential (primary) hypertension Code(s): I10 - Essential (primary) hypertension Status: Chronic Assessment and Plan: * stable * Resumed Verapamil * monitor BID Plan Code status: DNR/DNI DVT prophylaxis: Eliquis Stress ulcer prophylaxis: Protonix 40 daily PT/OT notes: swing bed Disposition: patient was admitted to [facility] for continued rehabilitation we will discuss with care coordination regarding patient's need for ERCP and biliary stent placement at [facility]. Quality VTE Prophylaxis VTE prophylaxis: pharmacologic ordered -Patient's previous records reviewed on admission -ER notes reviewed in detail on admission -discussed all findings and current treatment plan with patient/Family/POA -Consultations reviewed for recommendations -Patient's disposition for safe discharge discussed with machine adjuster leader case trim Dictation performed by [employer] direct speech recognition software, therefore supervisor mainspring fabrication variants and typographical errors may occur. Hospitalist MIPS Advance Care Plan I have confirmed that the patient's Advanced Care Plan is present, code status is documented, or surrogate decision maker is listed in patient medical record.: Yes Medication Reconciliation I have utilized all available resources to obtain, update and review the patients current medications (includes all prescriptions, OTC, herbals, cannabis, and nutritional supplements).: Yes The patient is not eligible for med reconciliation; the patient is in a emergent medical situation where delaying treatment would jeopardize the patients health.: No
[2024-09-22 16:00] VITALS: BP 108/47; PULSE 79; RESP 18; TEMP 36.8; O2SAT 98
--- NOTE | 2024-09-22 18:53 | PC.NURSE ---
Daily dressing change completed. Post surgical wound is well approximated with daniel. No redness, warmth or current drainage noted. On the dressing that senior writer took off, there was green tinted serous drainage. Drainage had no odor, and was dried on the bandage. Patient needs a biliary stent and the color of the drainage may be related to excess bilirubin in patient's system, as patient's skin is very jaundice. Patient tolerated dressing change well and denies severe pain at the incision site.
[2024-09-22 20:00] VITALS: PULSE 79; RESP 18; O2SAT 98
[2024-09-23] VITALS: BP 112/45; PULSE 78; RESP 16; TEMP 36.6; O2SAT 98
[2024-09-23] MEDS: ACETAMINOPHEN 325 MG TABLET 650 MG PO ×5 (00:10→17:52)
[2024-09-23 08:00] VITALS: BP 113/46; PULSE 81; RESP 16; TEMP 36.8; O2SAT 97
[2024-09-23] MEDS: CHOLECALCIFEROL 1,000 UNITS TABLET 2000 UNITS PO (10:03)
[2024-09-23] MEDS: MULTIVITAMINS THERAPEUTIC TAB (*BKC) 1 TABLET PO (10:03)
[2024-09-23] MEDS: PANTOPRAZOLE 40 MG TABLET PO (10:03)
[2024-09-23] MEDS: APIXABAN 2.5 MG TABLET PO ×2 (10:03→17:52)
[2024-09-23] MEDS: OPTI-GEN TAB 1 TABLET PO (10:03)
[2024-09-23] MEDS: MAGNESIUM OXIDE 400 MG TABLET PO (10:03)
[2024-09-23] MEDS: VERAPAMIL HCL ER 120 MG TABLET PO (10:03)
[2024-09-23] MEDS: DOCUSATE SODIUM 100 MG CAPSULE PO (10:03)
[2024-09-23] MEDS: EZETIMIBE 10 MG TABLET PO (10:03)
--- NOTE | 2024-09-23 11:41 | PM.EVENT ---
Event Note Event Note Event Note: Placed call to [facility] for transfer for hepatobiliary for ERCP and stent placement for worsening Jaundice secondary to her pancreatic metastatic cancer repeat labs in the a.m.. waiting for call back from [facility] hopefully can plan for transfer when bed is available and then returned back to swing bed.
[2024-09-23 12:35] LABS: Hematocrit 27.2 % (35.0-42.0); Hemoglobin 9.6 g/dL (11.7-13.8); Mean Corpuscular HGB Conc 35.3 g/dL (32-36); Mean Corpuscular Volume 96.5 fL (78.0-102.0); Mean Platelet Volume 9.8 fl (9.2-11.8); Platelet Count Result 295 K/mm3 (150-420); Red Blood Count 2.82 M/mm3 (4.20-5.40); Red Cell Distribution Width 21.8 % (11.6-14.4)
[2024-09-23 12:57] LABS: INR 4.2; Prothrombin Time 41.3 Seconds (9.50-12.1)
[2024-09-23 13:51] LABS: Alanine Aminotransferase 38 U/L (14-59); Albumin Level 1.7 g/dL (3.4-5.0); Alkaline Phosphatase 342 U/L (46-116); Anion Gap 10 mmol/L (4-12); Aspartate Amino Transferase 103 U/L (15-37); Bilirubin,Total 19.7 mg/dL (0.00-1.00); Blood Urea Nitrogen 19 mg/dL (7-18); Calcium 9.2 mg/dL (8.5-10.1); Carbon Dioxide 25 mmol/L (21-32); Chloride 99 mmol/L (98-108); Estimated CRCL calculation 31 ml/min; Estimated Glomerular Filt Rate > 60; Glucose 147 mg/dL (70-99); Osmolality Calculated 283 mOsm/kg (285-295); Potassium 4.1 mmol/L (3.5-5.1); Sodium 134 mmol/L (136-145); Total Protein 6.9 g/dL (6.4-8.2)
--- NOTE | 2024-09-23 15:57 | PCOTNOTE ---
Patient seen 1x this date due to high volume of patients at this time.
[2024-09-23 16:00] VITALS: BP 119/45; PULSE 77; RESP 16; TEMP 36.4; O2SAT 97
[2024-09-24] VITALS: BP 111/50; PULSE 70; RESP 16; TEMP 36.4; O2SAT 97
[2024-09-24] MEDS: ACETAMINOPHEN 325 MG TABLET 650 MG PO ×5 (00:16→23:29)
--- NOTE | 2024-09-24 05:02 | PC.NURSE ---
Mckenna, from [facility] call center, called to get an update on pt and if pt still needed to be transferred. Information given and uniforms sales representative told that pt was still needing to be transferred. Mckenna said they would keep pt on the transfer list.
[2024-09-24 05:34] LABS: Hemoglobin 8.4 g/dL (11.7-13.8); Mean Corpuscular Hemoglobin 33.3 pg (27.0-31.0); Mean Corpuscular Volume 95.2 fL (78.0-102.0); Mean Platelet Volume 9.6 fl (9.2-11.8); Platelet Count Result 242 K/mm3 (150-420); Red Blood Count 2.52 M/mm3 (4.20-5.40); Red Cell Distribution Width 21.4 % (11.6-14.4); White Blood Count 5.1 K/mm3 (4.8-10.8)
[2024-09-24 05:47] LABS: INR 3.6; Prothrombin Time 35.7 Seconds (9.50-12.1)
[2024-09-24 05:52] LABS: Alanine Aminotransferase 41 U/L (14-59); Albumin Level 1.4 g/dL (3.4-5.0); Alkaline Phosphatase 295 U/L (46-116); Anion Gap 7 mmol/L (4-12); Aspartate Amino Transferase 98 U/L (15-37); Bilirubin,Total 16.7 mg/dL (0.00-1.00); Blood Urea Nitrogen 17 mg/dL (7-18); Calcium 8.3 mg/dL (8.5-10.1); Carbon Dioxide 27 mmol/L (21-32); Chloride 100 mmol/L (98-108); Estimated CRCL calculation 35 ml/min; Estimated Glomerular Filt Rate > 60; Glucose 89 mg/dL (70-99); Osmolality Calculated 278 mOsm/kg (285-295); Potassium 4.1 mmol/L (3.5-5.1); Sodium 134 mmol/L (136-145); Total Protein 5.8 g/dL (6.4-8.2)
[2024-09-24 08:00] VITALS: BP 108/57; PULSE 72; RESP 15; TEMP 36.6; O2SAT 98
[2024-09-24] MEDS: VERAPAMIL HCL ER 120 MG TABLET PO (10:08)
[2024-09-24] MEDS: CHOLECALCIFEROL 1,000 UNITS TABLET 2000 UNITS PO (10:08)
[2024-09-24] MEDS: EZETIMIBE 10 MG TABLET PO (10:09)
[2024-09-24] MEDS: APIXABAN 2.5 MG TABLET PO ×2 (10:09→17:23)
[2024-09-24] MEDS: PANTOPRAZOLE 40 MG TABLET PO (10:09)
[2024-09-24] MEDS: MULTIVITAMINS THERAPEUTIC TAB (*BKC) 1 TABLET PO (10:09)
[2024-09-24] MEDS: OPTI-GEN TAB 1 TABLET PO (10:09)
[2024-09-24] MEDS: MAGNESIUM OXIDE 400 MG TABLET PO (10:09)
--- NOTE | 2024-09-24 15:30 | PC.NURSE ---
Chelly from [facility] called for update on patient. Still no beds at this time. Pt remains on wait list.
[2024-09-24 16:00] VITALS: BP 96/44; PULSE 74; RESP 17; TEMP 36.2; O2SAT 98
--- NOTE | 2024-09-24 18:29 | PC.NURSE ---
While transferring patient from chair to [facility], pt put weight on right leg. An audible pop could be heard. Pt denies any pain. She stated it felt like it was from inner thigh area. Pt was assisted back to bed with 2 staff members. Upon assessment, pt had no swelling, redness or deformities. Ju Mcneill NP notified.
[2024-09-24 23:52] VITALS: BP 118/51; PULSE 78; RESP 17; TEMP 36.5; O2SAT 96
[2024-09-25 05:15] LABS: Hematocrit 24.6 % (35.0-42.0); Hemoglobin 8.9 g/dL (11.7-13.8); Mean Corpuscular HGB Conc 36.2 g/dL (32-36); Mean Corpuscular Hemoglobin 35.9 pg (27.0-31.0); Mean Corpuscular Volume 99.2 fL (78.0-102.0); Mean Platelet Volume 9.8 fl (9.2-11.8); Platelet Count Result 269 K/mm3 (150-420); Red Blood Count 2.48 M/mm3 (4.20-5.40); Red Cell Distribution Width 22.5 % (11.6-14.4); White Blood Count 6.2 K/mm3 (4.8-10.8)
[2024-09-25 05:27] LABS: INR 2.9; Prothrombin Time 29.8 Seconds (9.50-12.1)
[2024-09-25 05:30] LABS: Alanine Aminotransferase 50 U/L (14-59); Albumin Level 1.7 g/dL (3.4-5.0); Alkaline Phosphatase 335 U/L (46-116); Anion Gap 6 mmol/L (4-12); Aspartate Amino Transferase 106 U/L (15-37); Bilirubin,Total 19.5 mg/dL (0.00-1.00); Blood Urea Nitrogen 17 mg/dL (7-18); Calcium 8.8 mg/dL (8.5-10.1); Carbon Dioxide 28 mmol/L (21-32); Chloride 97 mmol/L (98-108); Estimated CRCL calculation 33 ml/min; Estimated Glomerular Filt Rate > 60; Glucose 93 mg/dL (70-99); Osmolality Calculated 273 mOsm/kg (285-295); Potassium 4.1 mmol/L (3.5-5.1); Sodium 131 mmol/L (136-145); Total Protein 6.3 g/dL (6.4-8.2)
--- NOTE | 2024-09-25 05:50 | PC.NURSE ---
Patient care sales representative printing, Melody, called from [facility] to get an update on patient. She was told the patient still needed to be transferred to [facility]. Melody said there were no beds available but they would keep patient on the transfer list and let us know when a bed would be available.
[2024-09-25] MEDS: ACETAMINOPHEN 325 MG TABLET 650 MG PO ×4 (06:30→17:33)
[2024-09-25 08:00] VITALS: BP 110/48; PULSE 77; RESP 16; TEMP 36.6; O2SAT 97
[2024-09-25] MEDS: MULTIVITAMINS THERAPEUTIC TAB (*BKC) 1 TABLET PO (09:30)
[2024-09-25] MEDS: EZETIMIBE 10 MG TABLET PO (09:30)
[2024-09-25] MEDS: PANTOPRAZOLE 40 MG TABLET PO (09:30)
[2024-09-25] MEDS: MAGNESIUM OXIDE 400 MG TABLET PO (09:30)
[2024-09-25] MEDS: APIXABAN 2.5 MG TABLET PO ×2 (09:30→17:33)
[2024-09-25] MEDS: OPTI-GEN TAB 1 TABLET PO (09:30)
[2024-09-25] MEDS: CHOLECALCIFEROL 1,000 UNITS TABLET 2000 UNITS PO (09:30)
[2024-09-25] MEDS: VERAPAMIL HCL ER 120 MG TABLET PO (09:30)
[2024-09-25 16:00] VITALS: BP 109/38; PULSE 70; RESP 17; TEMP 36; O2SAT 98
--- NOTE | 2024-09-25 16:21 | PC.NURSE ---
Katrin from [facility] called for update on patient. Still no beds at this time. Pt remains on wait list.
[2024-09-26] VITALS: BP 105/42; PULSE 70; RESP 16; TEMP 36.2; O2SAT 96
[2024-09-26] MEDS: ACETAMINOPHEN 325 MG TABLET 650 MG PO ×4 (00:28→17:07)
--- NOTE | 2024-09-26 05:40 | PC.NURSE ---
nAtonia, patient surgical sales representative from [facility], called to get an update on patient. Information given and Antonia said [facility] didnt have ant beds available at this time. She said they would keep the patient on the waiting list for transfer to [facility].
[2024-09-26 05:44] LABS: INR 2.6; Prothrombin Time 26.4 Seconds (9.50-12.1)
[2024-09-26 05:48] LABS: Alanine Aminotransferase 54 U/L (14-59); Albumin Level 1.4 g/dL (3.4-5.0); Alkaline Phosphatase 299 U/L (46-116); Anion Gap 7 mmol/L (4-12); Aspartate Amino Transferase 104 U/L (15-37); Bilirubin,Total 17.2 mg/dL (0.00-1.00); Blood Urea Nitrogen 16 mg/dL (7-18); Calcium 8.4 mg/dL (8.5-10.1); Carbon Dioxide 25 mmol/L (21-32); Chloride 99 mmol/L (98-108); Estimated CRCL calculation 37 ml/min; Estimated Glomerular Filt Rate > 60; Glucose 93 mg/dL (70-99); Osmolality Calculated 273 mOsm/kg (285-295); Potassium 3.9 mmol/L (3.5-5.1); Sodium 131 mmol/L (136-145); Total Protein 5.6 g/dL (6.4-8.2)
[2024-09-26 06:01] LABS: Hematocrit 23.3 % (35.0-42.0); Hemoglobin 8.3 g/dL (11.7-13.8); Mean Corpuscular HGB Conc 35.6 g/dL (32-36); Mean Corpuscular Hemoglobin 34.2 pg (27.0-31.0); Mean Corpuscular Volume 95.9 fL (78.0-102.0); Mean Platelet Volume 9.9 fl (9.2-11.8); Platelet Count Result 251 K/mm3 (150-420); Red Blood Count 2.43 M/mm3 (4.20-5.40); Red Cell Distribution Width 21.5 % (11.6-14.4); White Blood Count 6.6 K/mm3 (4.8-10.8)
[2024-09-26 08:00] VITALS: BP 122/50; PULSE 81; TEMP 36.2; O2SAT 94
[2024-09-26] MEDS: MAGNESIUM OXIDE 400 MG TABLET PO (09:32)
[2024-09-26] MEDS: CHOLECALCIFEROL 1,000 UNITS TABLET 2000 UNITS PO (09:32)
[2024-09-26] MEDS: VERAPAMIL HCL ER 120 MG TABLET PO (09:32)
[2024-09-26] MEDS: APIXABAN 2.5 MG TABLET PO ×2 (09:32→17:06)
[2024-09-26] MEDS: OPTI-GEN TAB 1 TABLET PO (09:32)
[2024-09-26] MEDS: EZETIMIBE 10 MG TABLET PO (09:32)
[2024-09-26] MEDS: MULTIVITAMINS THERAPEUTIC TAB (*BKC) 1 TABLET PO (09:33)
[2024-09-26] MEDS: PANTOPRAZOLE 40 MG TABLET PO (09:33)
[2024-09-26 16:00] VITALS: BP 113/45; PULSE 72; RESP 18; TEMP 36.1; O2SAT 97
[2024-09-27] VITALS: BP 120/53; PULSE 80; RESP 16; TEMP 36.6; O2SAT 97
[2024-09-27] MEDS: ACETAMINOPHEN 325 MG TABLET 650 MG PO ×4 (00:32→16:57)
[2024-09-27 05:33] LABS: Hematocrit 23.7 % (35.0-42.0); Hemoglobin 8.3 g/dL (11.7-13.8); Mean Corpuscular Hemoglobin 33.3 pg (27.0-31.0); Mean Corpuscular Volume 95.2 fL (78.0-102.0); Mean Platelet Volume 9.6 fl (9.2-11.8); Platelet Count Result 267 K/mm3 (150-420); Red Blood Count 2.49 M/mm3 (4.20-5.40); Red Cell Distribution Width 21.2 % (11.6-14.4); White Blood Count 8.5 K/mm3 (4.8-10.8)
[2024-09-27 05:46] LABS: INR 2.3; Prothrombin Time 23.1 Seconds (9.50-12.1)
[2024-09-27 05:59] LABS: Alanine Aminotransferase 64 U/L (14-59); Albumin Level 1.5 g/dL (3.4-5.0); Alkaline Phosphatase 331 U/L (46-116); Anion Gap 6 mmol/L (4-12); Aspartate Amino Transferase 120 U/L (15-37); Bilirubin,Total 19.2 mg/dL (0.00-1.00); Blood Urea Nitrogen 13 mg/dL (7-18); Calcium 8.4 mg/dL (8.5-10.1); Carbon Dioxide 26 mmol/L (21-32); Chloride 98 mmol/L (98-108); Estimated CRCL calculation 35 ml/min; Estimated Glomerular Filt Rate > 60; Glucose 89 mg/dL (70-99); Osmolality Calculated 269 mOsm/kg (285-295); Potassium 4.2 mmol/L (3.5-5.1); Sodium 130 mmol/L (136-145); Total Protein 5.8 g/dL (6.4-8.2)
[2024-09-27 08:00] VITALS: BP 114/51; PULSE 80; RESP 20; TEMP 36.2; O2SAT 95
[2024-09-27] MEDS: OPTI-GEN TAB 1 TABLET PO (08:32)
[2024-09-27] MEDS: MAGNESIUM OXIDE 400 MG TABLET PO (08:32)
[2024-09-27] MEDS: VERAPAMIL HCL ER 120 MG TABLET PO (08:32)
[2024-09-27] MEDS: PANTOPRAZOLE 40 MG TABLET PO (08:32)
[2024-09-27] MEDS: CHOLECALCIFEROL 1,000 UNITS TABLET 2000 UNITS PO (08:32)
[2024-09-27] MEDS: MULTIVITAMINS THERAPEUTIC TAB (*BKC) 1 TABLET PO (08:32)
[2024-09-27] MEDS: APIXABAN 2.5 MG TABLET PO ×2 (08:32→16:58)
[2024-09-27] MEDS: EZETIMIBE 10 MG TABLET PO (08:33)
[2024-09-27 15:46] VITALS: BP 107/39; PULSE 69; RESP 18; TEMP 35.9; O2SAT 96
--- NOTE | 2024-09-27 18:36 | PC.NURSE ---
called report to ian at [facility]
--- NOTE | 2024-09-27 18:38 | PC.NURSE ---
chastity has been in and taken pt's belongings home
--- NOTE | 2024-09-27 20:01 | PC.NURSE ---
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 VS R-17, O2-95%RA, BP-111/47, P-81, T-97 F. Pt in good spirits for transfer and purse taken w/pt. [facility] notified that pt had been picked up.
== END 2024-09-27 19:55 | disposition short-term general hospital (02) | DRG 560 ==
PROVIDERS: Nurse Practitioner Family; Admitting Provider Internal Medicine; PCP Family Medicine; Visit Provider Internal Medicine
DX: S72.141D Displaced intertrochanteric fracture of right femur, subsequent encounter for closed fracture with routine healing (principal); C25.9 Malignant neoplasm of pancreas, unspecified; C79.9 Secondary malignant neoplasm of unspecified site; I10 Essential (primary) hypertension; E78.5 Hyperlipidemia, unspecified; M17.0 Bilateral primary osteoarthritis of knee; M47.816 Spondylosis without myelopathy or radiculopathy, lumbar region; M81.0 Age-related osteoporosis without current pathological fracture; Z86.718 Personal history of other venous thrombosis and embolism; Z79.01 Long term (current) use of anticoagulants; Z85.3 Personal history of malignant neoplasm of breast; Z86.0101 Personal history of adenomatous and serrated colon polyps; Z87.891 Personal history of nicotine dependence
CPT/HCPCS: 36415; 73502; 80053; 85027; 85610; 97110; 97161; 97165; 97530; 97535; A9270